=== PATIENT | male | born 1945 | race Caucasian/White ===

== ENCOUNTER 2025-01-24 15:00 | Outpatient (RCR) | payer MEDICARE, SELFPAY | END 2025-01-24 23:59 | disposition home or self-care (01) | LOC: PT 15:00 | PROVIDERS: Visit Provider Family Medicine | DX: I87.2 Venous insufficiency (chronic) (peripheral) (principal); I89.0 Lymphedema, not elsewhere classified | CPT/HCPCS: 97140; 97163 ==

== ENCOUNTER 2025-02-28 14:00 | Outpatient (RCR) | payer MEDICARE, SELFPAY | END 2025-02-28 23:59 | disposition home or self-care (01) | LOC: PT 14:00 | PROVIDERS: Visit Provider Family Medicine | DX: I87.2 Venous insufficiency (chronic) (peripheral) (principal); I89.0 Lymphedema, not elsewhere classified | CPT/HCPCS: 97140; 97164 ==

== ENCOUNTER 2025-03-26 08:37 | Outpatient (CLI) | payer MEDICARE, SELFPAY ==
--- OUTSIDE RECORDS SUMMARY | 2025-02-11 15:00 | XMS_ITS | Encounter Summary ---
Author Organization [facility] Address [address] [place] [address] Care Team Providers Care Gymnastics Coach Name Role Phone Alfredito Echeverria MD Primary Care Provider + Reason for Visit * Reason Comments Follow-up Diabetes Encounter Details Date Type Department Care Team (Late st Contact Info) Description 02/11/2025 3:00 PM EDT Office Visit [facility] [address] [place] [address] Alfredito Echeverria MD [address] [place] [address] Type 2 diabetes mellitus with hyperglycemia, without long-term current use of insulin (Primary Dx) Social History Tobacco Use Types Packs/Day Years Used Date Smoking Tobacco: Never Smokeless Tobacco: Never Alcohol Use Standard Drinks/Week Comments Yes 0 (1 standard drink = 0.6 oz pur e alcohol) PHQ-2 Answer Date Recorded Patient Health Questionnaire-2 Score 0 12/21/2024 Sex and Gender Information Value Date Recorded Sex Assigned at Not on file Legal Sex Male 10:48 AM EDT Gender Identity Not on file Sexual Orientation Not on file documented as of this encounter Last Filed Vital Signs Vital Sign Reading Time Taken Comments Blood Pressure 120/60 02/11/2025 3:11 PM EDT Pulse 92 02/11/2025 3:11 PM EDT irreg ular Temperature 36.9 C (98.4 F) 02/11/2025 3:11 PM EDT Respiratory Rate 20 02/11/2025 3:11 PM EDT Oxygen Saturation 98% 02/11/2025 3:11 PM EDT Inhaled Oxygen Concentration - - Weight 98.7 kg (217 lb 9.6 oz) 02/11/2025 3:11 P M EDT Height 185.4 cm (6' 1 ) 02/11/2025 3:11 PM EDT Body Mass Index 28.71 02/11/2025 3:11 PM EDT documented in this encounter Progress Notes * Alfredito Echeverria MD - 02/11/2025 4:14 PM EDTAssociated Problem(s): Type 2 diabetes mellitus with hyperglycemia, without long-term current use of insulin Improving. Continue ADA diet Cont Metformin 500 mg bid Cont. Acarbose 50 mg bid Cont. Rybelsus 7 mg daily RTO 6-7 weeks for repeat A1c * Alfredito Echeverria MD - 02/11/2025 3:00 PM EDT Images from the original note were not included. Chief Complaint Patient presents with Follow-up Diabetes Subjective Dallas Radford is a 79 y.o. who presents for DM f/u. Weight is down 12 lbs. He is limiting all forms of carbs. NO SE from current meds Objective Vital Signs: BP 120/60 Pulse 92 Comment: irregular Temp 98.4 ??F (36.9 ??C) Resp 20 Ht 185.4 cm (73 ) Wt 98.7 kg (217 lb 9.6 oz) SpO2 98% BMI 28.71 kg/m?? Physical Exam Vitals reviewed. Constitutional: Appearance: Normal appearance. Neurological: Mental Status: He is alert. Result Review The following data was reviewed by: Alfredito Echeverria MD on 02/11/2025: Data reviewed : A1c 8.2 Most Recent A1C 02/11/2025 15:54 HGBA1C Most Recent Hemoglobin A1C 8.2 Assessment and Plan Diagnoses and all orders for this visit: 1. Type 2 diabetes mellitus with hyperglycemia, without long-term current use of insulin (Primary) Assessment & Plan: Improving. Continue ADA diet Cont Metformin 500 mg bid Cont. Acarbose 50 mg bid Cont. Rybelsus 7 mg daily RTO 6-7 weeks for repeat A1c Orders: - Semaglutide (Rybelsus) 7 MG tablet; Take 7 mg by mouth Daily. Dispense: 30 tablet; Refill: 1 - acarbose (PRECOSE) 50 MG tablet; Take 1 tablet by mouth 2 (Two) Times a Day With Meals. Dispense:60 tablet; Refill: 1 - metFORMIN (GLUCOPHAGE) 500 MG tablet; Take 1 tablet by mouth 2 (Two) Times a Day With Meals. Dispense: 60 tablet; Refill: 1 - POCT glycated hemoglobin, total Follow Up Return in about 7 weeks (around 04/02/2025). Patient was given instructions and counseling regarding his condition or for health maintenance advice. Please see specific information pulled into the AVS if appropriate. documented in this encounter Plan of Treatment Upcoming Encounters Date Type Department Care Team (Late st Contact Info) Description 04/02/2025 3:00 PM EDT Office Visit [facility] [address] [place] [phone] Alfredito Echeverria MD [address] [place] [address] 06/24/2025 10:45 AM EST Office Visit [facility] [address] [place] [address] Alfredito Echeverria MD [address] [place] [address] documented as of this encounter Procedures Procedure Name Priority Date/Time Associated Diagnosis Comments POCT GLYCATED HEMOGLOBIN, TOTAL Routine 02/11/2025 3:54 PM EDT Type 2 diabetes mellitus with hyperglycemia, without long-term current use of insulin documented in this encounter Results * (ABNORMAL) POCT glycated hemoglobin, total (02/11/2025 3:54 PM EDT) Hemoglobin A1C 8.2(A) 4.5 - 5.7 % [facility] Lot Number [id number] [facility] Expiration Date 10/29/2026 [facility] Urine 02/11/2025 3:54 PM EDT Alfredito Echeverria MD POINT OF CARE TEST ORDER SERENITY Final Result [facility]
[address] [place] [id number], documented in this encounter Visit Diagnoses Diagnosis Type 2 diabetes mellitus with hyperglycemia, without long-term current use of insulin- Primary documented in this encounter Care Teams Gymnastics Coach Relationship Specialty Start Date End Date Alfredito Echeverria MD [address] [place] [address] PCP - General Family Medicine 05/24/24 documented as of this encounter
--- OUTSIDE RECORDS SUMMARY | 2025-02-11 15:00 | XMS_ITS | Encounter Summary ---
Author Organization [facility] Address [address] [place] [address] Care Team Providers Care Dinkey Engineer Name Role Phone Alfredito Echeverria MD Primary Care Provider + Reason for Visit * Reason Comments Follow-up Diabetes Encounter Details Date Type Department Care Team (Late st Contact Info) Description 02/11/2025 3:00 PM EDT Office Visit [facility] [address] [place] [address] Alfredito Echeverria MD [address] [place] [address] Type 2 diabetes mellitus with [...] Description 04/02/2025 3:00 PM EDT Office Visit [facility] [address] [place] [phone] Alfredito Echeverria MD [address] [place] [address] 06/24/2025 10:45 AM EST Office Visit [facility] [address] [place] [address] Alfredito Echeverria MD [address] [place] [address] documented as of this encounter Procedures Procedure Name Priority Date/Time Associated Diagnosis Comments POCT GLYCATED HEMOGLOBIN, TOTAL Routine 02/11/2025 3:54 PM EDT Type 2 diabetes mellitus with hyperglycemia, without long-term current use of insulin documented in this encounter Results * (ABNORMAL) POCT glycated hemoglobin, total (02/11/2025 3:54 PM EDT) Hemoglobin A1C 8.2(A) 4.5 - 5.7 % [facility] Lot Number [id number] [facility] Expiration Date 10/29/2026 [facility] Urine 02/11/2025 3:54 PM EDT Alfredito Echeverria MD POINT OF CARE TEST ORDER SERENITY Final Result [facility]
[address] [place] [id number], documented in this encounter Visit Diagnoses Diagnosis Type 2 diabetes mellitus with hyperglycemia, without long-term current use of insulin- Primary documented in this encounter Care Teams Dinkey Engineer Relationship Specialty Start Date End Date Alfredito Echeverria MD [address] [place] [address] PCP - General Family Medicine 05/24/24 documented as of this encounter
--- OUTSIDE RECORDS SUMMARY | 2025-03-18 14:45 | XMS_ITS | Encounter Summary ---
Author Organization [facility] Address [address] [place] [address] Care Team Providers Care Operations Executive Name Role Phone Alfredito Echeverria MD Primary Care Provider + Reason for Visit * Reason Comments FU on LLE drainage Pt has been seeing [facility] Wound Care Encounter Details Date Type Department Care Team (Late st Contact Info) Description 03/18/2025 2:45 PM EDT Office Visit [facility] [address] [place] [address] Alfredito Echeverria MD [address] [place] [address] Wound infection (Primary Dx); Type 2 diabetes mellitus with hyperglycemia, without long-term current use of insulin; Lymphedema Social History Tobacco Use Types Packs/Day Years [...] Sign Reading Time Taken Comments Blood Pressure 110/56 03/18/2025 2:53 PM EDT Pulse 89 03/18/2025 2:53 PM EDT irreg ular Temperature 36.8 C (98.2 F) 03/18/2025 2:53 PM EDT Respiratory Rate 20 03/18/2025 2:53 PM EDT Oxygen Saturation 99% 03/18/2025 2:53 PM EDT Inhaled Oxygen Concentration - - Weight 98 kg (216 lb) 03/18/2025 2:53 PM EDT Height 185.4 cm (6' 1 ) 03/18/2025 2:53 PM EDT Body Mass Index 28.5 03/18/2025 2:53 PM EDT documented in this encounter Progress Notes * Alfredito Echeverria MD - 03/18/2025 2:45 PM EDT Chief Complaint Patient presents with FU on LLE drainage Pt has been seeing [facility] Care Subjective Dallas Radford is a 79 y.o. who presents for drainage from the left lower extremity where he has been receiving lymphedema treatment at [facility]. Treating therapist has become concerned because drainage is darker and has an odor to it. Objective Vital Signs: BP 110/56 Pulse 89 Comment: irregular Temp 98.2 ??F (36.8 ??C) Resp 20 Ht 185.4 cm (73 ) Wt 98 kg (216 lb) SpO2 99% BMI 28.50 kg/m?? Physical Exam Vitals reviewed. Musculoskeletal: Comments: The left lower extremity is edematous from the mid lower leg to the top of the foot without tenderness. There is a linear break in the skin just above the heel. I do not identify any activedrainage from a wound. Neurological: Mental Status: He is alert. Result Review Assessment and Plan Diagnoses and all orders for this visit: 1. Wound infection (Primary) 2. Type 2 diabetes mellitus with hyperglycemia, without long-term current use of insulin - POC Glucose 3. Lymphedema Other orders - cephalexin (KEFLEX) 500 MG capsule; Take 2 capsules by mouth 2 (Two) Times a Day for 7 days. Dispense: 28 capsule; Refill: 0 Plan: Patient will be started empirically on antibiotics. Follow-up with lymphedema clinic/wound care on of this week. Follow Up No follow-ups on file. Patient was given instructions and counseling regarding his condition or for health maintenance advice. Please see specific information pulled into the AVS if appropriate. documented in this encounter Plan of Treatment Upcoming Encounters Date Type Department Care Team (Late st Contact Info) Description 04/02/2025 3:00 PM EDT Office Visit [facility] [address] [place] [address] Alfredito Echeverria MD [address] [place] [address] 06/24/2025 10:45 AM EST Office Visit [facility] [address] [place], [place] [address] Alfredito Echeverria MD [address] [place] [address] documented as of this encounter Procedures Procedure Name Priority Date/Time Associated Diagnosis Comments POCT GLUCOSE FINGERSTICK Routine 03/18/2025 3:30 PM EDT Type 2 diabetes mellitus with hyperglycemia, without long-term current use of insulin documented in this encounter Results * (ABNORMAL) POC Glucose (03/18/2025 3:30 PM EDT) Glucose 137(A) 70 - 130 mg/dL Blood 03/18/2025 3:30 PM EDT Alfredito Echeverria MD POINT OF CARE TEST ORDER SERENITY Final Result documented in this encounter Visit Diagnoses Diagnosis Wound infection- Primary Posttraumatic wound infection not elsewhere classified Type 2 diabetes mellitus with hyperglycemia, without long-term current use of insulin Lymphedema Other noninfectious lymphedema documented in this encounter Care Teams Operations Executive Relationship Specialty Start Date End Date Alfredito Echeverria MD [address] [place] [address] PCP - General Family Medicine 05/24/24 documented as of this encounter
--- OUTSIDE RECORDS SUMMARY | 2025-03-18 14:45 | XMS_ITS | Encounter Summary ---
Author Organization [facility] Address [address] [place] [address] Care Team Providers Care Geological Engineering Teacher Name Role Phone Alfredito Echeverria MD Primary Care Provider + Reason for Visit * Reason Comments FU on LLE drainage Pt has been seeing [facility] Wound Care Encounter Details Date Type Department Care Team (Late st Contact Info) Description 03/18/2025 2:45 PM EDT Office Visit [facility] [address] [place] [address] Alfredito Echeverria MD [address] [place] [address] Wound infection (Primary Dx); Type [...] on LLE drainage Pt has been seeing [facility] W[facility] Care Subjective Dallas Radford is a 79 y.o. who presents for drainage from the left lower extremity where he has been receiving lymphedema treatment at [facility]. Treating therapist has become concerned because drainage [...] Description 04/02/2025 3:00 PM EDT Office Visit [facility] [address] [place], [place] [address] Alfredito Echeverria MD [address] [place] [address] 06/24/2025 10:45 AM EST Office Visit [facility] [address] [place] [address] Alfredito Echeverria MD [address] [place] [address] documented as of this encounter Procedures Procedure Name Priority Date/Time Associated Diagnosis Comments SCANNED - LABS 03/26/2025 POCT GLUCOSE FINGERSTICK Routine 03/18/2025 3:30 PM EDT Type 2 diabetes mellitus with hyperglycemia, without long-term current use of insulin SCANNED - LABS 03/18/2025 documented in this encounter Results * LABS SCANNED (03/26/2025) Alfredito Echeverria MD LAB BLOOD ORDERABLES Fin al Result * (ABNORMAL) POC Glucose (03/18/2025 3:30 PM EDT) Glucose 137(A) 70 - 130 mg/dL Blood 03/18/2025 3:30 PM EDT us Alfredito Echeverria MD POINT OF CARE TEST ORDER SERENITY Final Result * LABS SCANNED (03/18/2025) Alfredito Echeverria MD LAB BLOOD ORDERABLES Fin al Result documented in this encounter Visit Diagnoses Diagnosis Wound infection- Primary Posttraumatic wound infection not elsewhere classified Type 2 diabetes mellitus with hyperglycemia, without long-term current use of insulin Lymphedema Other noninfectious lymphedema documented in this encounter Care Teams Geological Engineering Teacher Relationship Specialty Start Date End Date Alfredito Echeverria MD [address] [place] [address] PCP - General Family Medicine 05/24/24 documented as of this encounter
--- OUTSIDE RECORDS SUMMARY | 2025-03-26 08:39 | XMS_ITS | Encounter Summary ---
Author Organization [facility] Address [address] [place] [id number] Care Team Providers Care Office Machine Punch Operator Name Role Phone Alfredito Echeverria MD Primary Care Provider + Reason for Visit * Reason Onset Date Comments Advice Only 03/04/2025 Encounter Details Date Type Department Care Team (Late st Contact Info) Description 03/04/2025 Telephone [facility] [address] [place] [address] Alfredito Echeverria MD [address] [place] [address] Advice Only Social History Tobacco Use Types Packs/Day Years [...] on file documented as of this encounter Miscellaneous Notes * Telephone Encounter - Joslyn Solis RegSched Rep - 03/04/2025 11:37 AM EDT CONCERNS THAT CONDITION IS GETTING WORSE. BEING SEEN FOR DRAINAGE IN LEGS FROM LYMPHEDEMA. PATIENT CAME IN ON TUESDAY WITH MAGGOTS ON HIS LEGS WITH NO OPEN WOUND, SEEN HIM AGAIN ON TUESDAY AND THINGS DID APPEAR BETTER. WANTED TO RELAY TO SEE IF PCP WOULD LIKE TO HAVE PATIENT YO COME IN AND BE EVALUATED. documented in this encounter Plan of Treatment Upcoming Encounters Date Type Department Care Team (Late st Contact Info) Description 04/02/2025 3:00 PM EDT Office Visit [facility] [address] [place] [address] Alfredito Echeverria MD [address] [place] [address] 06/24/2025 10:45 AM EST Office Visit [facility] [address] [place] [address] Alfredito Echeverria MD [address] [place] [address] documented as of this encounter Visit Diagnoses Not on filedocumented in this encounter Care Teams Office Machine Punch Operator Relationship Specialty Start Date End Date Alfredito Echeverria MD [address] [place] [address] PCP - General Family Medicine 05/24/24 documented as of this encounter
--- OUTSIDE RECORDS SUMMARY | 2025-03-26 08:39 | XMS_ITS | Encounter Summary ---
Author Organization [facility] Address [address] [place] [id number] Care Team Providers Care Food Sanitarian Name Role Phone Alfredito Gauthier MD Primary Care Provider + Reason for Visit * Reason Onset Date Comments ORDER NEEDED FOR WOUND SWAB CULTURE 03/25/2025 Encounter Details Date Type Department Care Team (Late st Contact Info) Description 03/25/2025 Telephone [facility] [address] [place] [address] Alfredito Gauthier MD [address] [place] [address] ORDER NEEDED FOR WOUND SWAB CULTURE Social History Tobacco Use Types Packs/Day Years [...] encounter Miscellaneous Notes * Telephone Encounter - Parvin Bateman MA - 03/25/2025 5:14 PM EDT Faxed. * Telephone Encounter - Alfredito Gauthier MD - 03/25/2025 4:15 PM EDT Order placed * Telephone Encounter - Rita Chatterjee RegSched Rep - 03/25/2025 11:55 AM EDT PHYSICAL THERAPIST FROM [facility] CALLED AND STATED THEY DID A SWAB ON THE WOUND AND WOULD LIKE DR GAUTHIER TO SEND AN ORDER FOR WOUND SWAB CULTURE SO THEY CAN MAKE SURE ANTIBIOTICS HE IS ON WILL TREAT INFECTION/ PLEASE FAX TO [phone] documented in this encounter Plan of Treatment Upcoming Encounters Date Type Department Care Team (Late st Contact Info) Description 04/02/2025 3:00 PM EDT Office Visit [facility] [address] [place] [address] Alfredito Gauthier MD [address] [place] [address] 06/24/2025 10:45 AM EST Office Visit [facility] [address] [place] [address] Alfredito Gauthier MD [address] [place] [address] Scheduled Orders Name Type Priority Associated Diagnoses Orde r Schedule Culture, Routine - Swab, Leg, Left Microbiology Routine Wound infection Expected: 03/25/2025 (Approximate), Expires: 06/25/2026 documented as of this encounter Visit Diagnoses Diagnosis Wound infection- Primary Posttraumatic wound infection not elsewhere classified documented in this encounter Care Teams Food Sanitarian Relationship Specialty Start Date End Date Alfredito Gauthier MD [address] [place] [address] PCP - General Family Medicine 05/24/24 documented as of this encounter
--- OUTSIDE RECORDS SUMMARY | 2025-03-26 08:39 | XMS_ITS | Encounter Summary ---
Author Organization [facility] Address [address] [place] [phone] Care Team Providers Care Knowledge Engineer Name Role Phone Alfredito Echeverria MD Primary Care Provider + Encounter Details Date Type Department Care Team (Latest Contact Info) Description 03/12/2025 Travel Social History Tobacco Use Types Packs/Day Years [...] on file documented as of this encounter Plan of Treatment Upcoming Encounters Date Type Department Care Team (Late st Contact Info) Description 04/02/2025 3:00 PM EDT Office Visit [facility] [address] [place] [address] Alfredito Echeverria MD [address] [place] [address] 06/24/2025 10:45 AM EST Office Visit [facility] [address] [place] [address] Alfredito Echeverria MD [address] [place] [address] documented as of this encounter Visit Diagnoses Not on filedocumented in this encounter Care Teams Knowledge Engineer Relationship Specialty Start Date End Date Alfredito Echeverria MD [address] [place] [address] PCP - General Family Medicine 05/24/24 documented as of this encounter
--- OUTSIDE RECORDS SUMMARY | 2025-03-26 08:39 | XMS_ITS | Encounter Summary ---
Author Organization [facility] Address [address] [place] [phone] Care Team Providers Care Readiness Paraprofessional Name Role Phone Alfredito Echeverria MD Primary Care Provider + Encounter Details Date Type Department Care Team (Latest Contact Info) Description 03/18/2025 Travel Social History Tobacco Use Types Packs/Day [...] Visit [facility] [address] [place] [address] Alfredito Echeverria MD [address] [place] [address] 06/24/2025 10:45 AM EST Office Visit [facility] [address] [place] [address] Alfredito Echeverria MD [address] [place] [address] documented as of this encounter Visit Diagnoses Not on filedocumented in this encounter Care Teams Readiness Paraprofessional Relationship Specialty Start Date End Date Alfredito Echeverria MD [address] [place] [address] PCP - General Family Medicine 05/24/24 documented as of this encounter
--- OUTSIDE RECORDS SUMMARY | 2025-03-26 08:40 | XMS_ITS | Clinical Summary ---
Author Organization [facility] Address [address] [place] [address] Care Team Providers Care Light Air Defense Artillery Crewmember Name Role Phone Hussein Brian MD Primary Care Provider [phone] Allergies Active Allergy Reactions Criticality Noted Date Comments Digoxin And Related Other - please document in the comment field Low 07/27/2022 Nausea, stomach cramps, loss of appetite Immunizations Immunization Administration Dates Next Due Tdap 07/27/2022(Deferred: Patient Refused - Pt states he is up to date.) Social History Tobacco Use Types Packs/Day Years Used Date Smoking Tobacco: Never Assessed Sex and Gender Information Value Date Recorded Sex Assigned at Not on file Legal Sex Male 3:09 PM EST Gender Identity Not on file Sexual Orientation Not on file Last Filed Vital Signs Vital Sign Reading Time Taken Comments Blood Pressure 99/59 07/27/2022 7:33 PM EST Pulse 66 07/27/2022 7:33 PM EST Temperature 36.8 C (98.2 F) 07/27/2022 7:33 PM EST Respiratory Rate 13 07/27/2022 7:33 PM EST Oxygen Saturation 97% 07/27/2022 7:33 PM EST Inhaled Oxygen Concentration - - Weight 112 kg (245 lb 13 oz) 07/27/2022 3:31 PM EST Height 185.4 cm (6' 1 ) 07/27/2022 3:31 PM EST Body Mass Index 32.43 07/27/2022 3:31 PM EST Plan of Treatment Health Maintenance Due Date Last Done Comments [facility]-Depression Screening 1945 [facility]-Medicare Annual Wellness (AWV) 1945 [facility]-/Child/Adol SDOH Screenings 1945 [facility]-Obesity Intervention 1951 [facility]- SDOH Screenings 1963 [facility]-Adult SDOH Screenings 1963 [facility]-Pneumococcal Vaccine: 50 + Years (1 of 1 - PCV) 1995 [facility]-Zoster Vaccines (1 of 2) 1995 [facility]-RSV Vaccine: 60+ Years o r (1 - 1-dose 75+ series) 2020 [facility]-DTaP,Tdap,and Td Vaccine s (1 - Tdap) 01/06/2022 01/05/2022 [id number] Vaccine (2 - 20 24-25 season) 2024 03/06/2021 [facility]-Influenza Vaccine (#1) 2025 [facility]-Hepatitis C Screening Completed 07/27/2022 HPV Vaccines Aged Out No longer eligi ble based on patient's age to complete this topic [facility]-HIB Vaccines Aged Out No longer e ligible based on patient's age to complete this topic [facility]-Hepatitis A Vaccines Aged Out No longer eligible based on patient's age to complete this topic [facility]-IPV Vaccines Aged Out No longer e ligible based on patient's age to complete this topic [facility]-Rotavirus Vaccines Aged Out No lo nger eligible based on patient's age to complete this topic Procedures Procedure Name Priority Date/Time Associated Diagnosis Comments HEPATITIS C ANTIBODY - ED W/REFLEX TO HCV QUANT PCR STAT 07/27/2022 3:28 PM EST from Last 3 Months or Most Recently Relevant to Health Maintenance Results * Hepatitis C Antibody - ED (07/27/2022 3:28 PM EST) Hepatitis C Antibody Negative Negative 07/27/2022 5:27 PM EST [facility] Blood Venous blood specimen / Unknown Venipuncture / Unknown 07/27/2022 3:28 PM EST 07/27/2022 3:56 PM EST us Bruce Ferris MD LAB BLOOD ORDERABLES Final Re sult [facility] [address] [place] [phone] from Last 3 Months or Most Recently Relevant to Health Maintenance Insurance [facility] MEDICARE Care Teams Light Air Defense Artillery Crewmember Relationship Specialty Start Date End Date Hussein Brian MD [address] [address] PCP - General 07/27/22
--- OUTSIDE RECORDS SUMMARY | 2025-03-26 08:40 | XMS_ITS | Encounter Summary ---
Author Organization [facility] Address [address] [place] [id number] Care Team Providers Care Corporate Treasurer Name Role Phone Alfredito Echeverria MD Primary Care Provider + Encounter Details Date Type Department Care Team (Late Contact Info) Description 12/25/2024 Results Follow-Up [facility] [address] [place] [address] Alfredito Echeverria MD [address] [place] [address] Social History Tobacco Use Types Packs/Day Years [...] 04/02/2025 3:00 PM EDT Office Visit [facility] [address] [place] [address] Alfredito Echeverria MD [address] [place] [address] 06/24/2025 10:45 AM EST Office Visit [facility] [address] [place] [phone] Alfredito Echeverria MD [address] [place] [address] documented as of this encounter Visit Diagnoses Not on filedocumented in this encounter Care Teams Corporate Treasurer Relationship Specialty Start Date End Date Alfredito Echeverria MD [address] [place] [address] PCP - General Family Medicine 05/24/24 documented as of this encounter
--- OUTSIDE RECORDS SUMMARY | 2025-03-26 08:41 | XMS_ITS | Clinical Summary ---
Author Organization [facility] Address [address] [place] [address] Care Team Providers Care Academic Associate Name Role Phone Alfredito Echeverria MD Primary Care Provider + Allergies Active Allergy Reactions Criticality Noted Date Comments Digoxin And Related Nausea Only,Other (S ee Comments) Low 05/17/2022 Nausea, stomach cramps, loss of appetite Medications metoprolol tartrate (LOPRESSOR) 12.5 MG half tablet Take 2 half tablet by mouth 2 (Two) Times a Day. Active bumetanide (BUMEX) 1 MG tabletIndications: Cardiomyopathy, unspecified type Take 1 tablet by mouth 2 (Two) Times a Day. 60 tablet 5 05/24/20 24 Active metOLazone (ZAROXOLYN) 10 MG tabletIndications: Cardiomyopathy, unspecified type Take 1 tablet by mouth Daily. 30 tablet 5 05/24/20 24 Active mirtazapine (REMERON SANDRA-TAB) 15 MG disintegrating tabletIndications: Chronic insomnia Place 1 tablet on the tongue Every Night. 30 tablet 5 05/24/20 24 Active tamsulosin (FLOMAX) 0.4 MG capsule 24 hr capsuleIndications :BPH associated with nocturia Take 1 capsule by mouth Daily. 30 capsule 11 05/24/20 24 Active traZODone (DESYREL) 50 MG tabletIndications: Chronic insomnia Take 2 tablets by mouth Every Night. 60 tablet 5 05/24/20 24 Active atorvastatin (LIPITOR) 40 MG tablet Take 1 tablet by mouth Daily. 90 tablet 3 07/10/20 24 Active spironolactone (ALDACTONE) 25 MG tablet Take 1 tablet by mouth Daily. 02/25/20 25 Active ammonium lactate (AMLACTIN) 12 % creamIndications:C hronic venous stasis dermatitis,Ichthyo sis Apply 1 Application topically to the appropriate area as directed As Needed for Dry Skin. 385 g 10/03/19 25 Active Eliquis 5 MG tablet tabletIndications: Longstanding persistent atrial fibrillation TAKE ONE TABLET BY MOUTH TWICE DAILY 60 tablet 4 10/23/19 25 Active oxybutynin XL (Ditropan XL) 10 MG 24 hr tabletIndications: Urinary urgency Take 1 tablet by mouth Daily. 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 200 g 1 12/22/19 25 Active acetaminophen (Tylenol 8 Hour Arthritis Pain) 650 MG 8 hr tablet Take 1 tablet by mouth Every 8 (Eight) Hours As Needed for Moderate Pain. 90 tablet 2 12/22/19 25 Active potassium chloride (KLOR-CON M20) 20 MEQ CR tabletIndications: Cardiomyopathy, unspecified type TAKE ONE TABLET BY MOUTH EVERY DAY 30 tablet 5 12/28/19 25 Active Semaglutide (Rybelsus) 7 MG tabletIndications: Type 2 diabetes mellitus with hyperglycemia, without long-term current use of insulin Take 7 mg by mouth Daily. 30 tablet 1 02/12/20 25 Active acarbose (PRECOSE) 50 MG tabletIndications: Type 2 diabetes mellitus with hyperglycemia, without long-term current use of insulin Take 1 tablet by mouth 2 (Two) Times a Day With Meals. 60 tablet 1 02/12/20 25 Active metFORMIN (GLUCOPHAGE) 500 MG tabletIndications: Type 2 diabetes mellitus with hyperglycemia, without long-term current use of insulin Take 1 tablet by mouth 2 (Two) Times a Day With Meals. 60 tablet 1 02/12/20 25 Active cephalexin (KEFLEX) 500 MG capsule Take 2 capsules by mouth 2 (Two) Times a Day for 7 days. 28 capsule 03/18/20 25 025 Active Problems Problem Noted Date Diagnosed Date Type 2 diabetes mellitus wit h hyperglycemia, without long-term current use of insulin 12/28/2024 Assessment & Plan (02/11/2025 4:14 PM EDT): Improving. Continue ADA diet Cont Metformin 500 mg bid Cont. Acarbose 50 mg bid Cont. Rybelsus 7 mg daily RTO 6-7 weeks for repeat A1c Assessment & Plan (01/10/2025 5:04 PM EDT): Diabetes control is improving. Continue medication adjustments. Metformin 500 mg twice daily will remain unchanged Rybelsus will be increased to 7 mg after completing his 3 mg trial. Patient has picked up the prescription Acarbose will be increased to 50 mg which she will take twice daily with his breakfast shake and his evening meal. Reassess in 4 weeks Assessment & Plan (12/28/2024 12:54 PM EDT): Diabetes is newly identified. Medication changes per orders. Recommended an ADA diet. Direct Mail Coordinator referral. Diabetes will be reassessed 2 weeks Patient voiced a great fear of needles and giving himself injections. Oral hypoglycemic agents will be started and patient's tolerance for medications as well as random glucose will be checked at a 2-week follow-up visit Patient needs to make significant dietary changes which were discussed. This includes elimination of sugar sweetened beverages which the patient drinks large quantity of with fruit juices and soft drinks. He needs to replace snack cakes with fruit or vegetables. He needs to replace his protein shake with a low carbohydrate alternative. V8 juice is likely still acceptable. I did recommend avoidance of any fried or breaded foods. 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 Continue management through local cardiology, Dr. Obed Galvez. Cardiomyopathy 05/24/2024 Assessment & Plan (12/21/2024 1:14 PM EDT): Orders: Comprehensive Metabolic Panel CBC (No Diff) Assessment & Plan (05/24/2024 2:07 PM EDT): Stable. Continue regular cardiology follow-up with Dr. Galvez. Last EF 35%. Currently not compliant with diuretic regimen which she admits sometimes forgetting to take altogether or just taking an evening dose of Bumex which contributes to nocturia. We discussed using a smart phone to set reminders Hyperlipidemia 05/24/2024 Assessment & Plan (12/21/2024 1:14 PM EDT): Orders: Comprehensive Metabolic Panel Lipid Panel Assessment & Plan (05/24/2024 1:59 PM EDT): Stable. Continue lifetime statin therapy BPH associated with nocturia 05/24/2024 Assessment & Plan (12/21/2024 1:14 PM EDT): Assessment & Plan (05/24/2024 1:57 PM EDT): Longstanding. Stable with tamsulosin. Much of his nocturia is due to late evening use of diuretics. Nocturia interferes with sleep. We discussed setting reminders and his phone so that he may use diuretics in the morning Chronic insomnia 05/24/2024 Assessment & Plan (05/24/2024 1:58 PM EDT): Poorly controlled. Long history of poor sleep habits. I recommend he begin taking his mirtazapine and trazodone at 10 PM with a goal of being in bed and falling asleep by 12 PM. This should also reduce the morning grogginess the medicines because Chronic pain of both shoulders 05/24/2024 Assessment & Plan (05/24/2024 2:00 PM EDT): Stable. Continue as needed analgesics. We will contact his mail-order pharmacy to clarify whether he has been using high-dose ibuprofen or acetaminophen for this Encounters Date Type Department Care Team Description 03/25/2025 Telephone [facility] [address] [place] [address] Alfredito Echeverria MD ORDER NEEDED FOR WOUND SWAB CULTURE 03/18/2025 2:45 PM EDT Office Visit [facility] [address] [place] [address] Alfredito Echeverria MD Wound infection (Primary Dx); Type 2 diabetes mellitus with hyperglycemia, without long-term current use of insulin; Lymphedema 03/18/2025 Travel 03/12/2025 Travel 03/04/2025 Telephone [facility] [address] [place] [address] Alfredito Echeverria MD Advice Only 02/26/2025 Telephone [facility] [address] [place] [address] Alfredito Echeverria MD 02/11/2025 3:00 PM EDT Office Visit [facility] [address] [place] [address] Alfredito Echeverria MD Type 2 diabetes mellitus with hyperglycemia, without long-term current use of insulin (Primary Dx) 02/11/2025 Travel 01/10/2025 1:45 PM EDT Office Visit [facility] [address] [place] [address] Alfredito Echeverria MD Type 2 diabetes mellitus with hyperglycemia, without long-term current use of insulin (Primary Dx) 01/10/2025 Travel 12/28/2024 12:00 PM EDT Office Visit [facility] [address] [place] [address] Alfredito Echeverria MD Type 2 diabetes mellitus with hyperglycemia, without long-term current use of insulin (Primary Dx) 12/28/2024 Travel 12/27/2024 Refill [facility] [address] [place] [address] Alfredito Echeverria MD Cardiomyopathy, unspecified type 12/25/2024 Results Follow-Up [facility] [address] [place], [place] [address] Alfredito Echeverria MD from Last 3 Months Immunizations Immunization Administration Dates Next Due Td (TDVAX) 01/05/2022 Tdap 07/27/2022(Deferred: Patient awilda de oliveira) Family History Medical History Relation Name Comments Liver disease Brother Arthritis Father Diabetes Mother Relation Name Status Comments Brother Father Mother Social History Tobacco Use Types Packs/Day Years Used Date Smoking Tobacco: Never Smokeless Tobacco: Never Tobacco Cessation:Counseling Given: Not Answered Alcohol Use Standard Drinks/Week Comments Yes 0 [...] Mass Index 28.5 03/18/2025 2:53 PM EDT Plan of Treatment Upcoming Encounters Date Type Department Care Team (Late st Contact Info) Description 04/02/2025 3:00 PM EDT Office Visit [facility] [address] [place], [place] [address] Alfredito Echeverria MD [address] [place], [place] [address] 06/24/2025 10:45 AM EST Office Visit [facility] [address] [place], [place] [address] Alfredito Echeverria MD [address] [place], [place] [address] Health Maintenance Due Date Last Done Comments DIABETIC EYE EXAM 1955 DIABETIC FOOT EXAM 1955 URINE MICROALBUMIN-CREATININ E RATIO (uACR) 1955 Pneumococcal Vaccine 50+ (1 of 2 - PCV) 1964 ZOSTER VACCINE (1 of 2) 1995 RSV Vaccine - Adults (1 - 1-dose 75+ series) 2020 COVID-19 Vaccine (3 - 2023-2 5 season) 2025 03/30/2021, 03/06/2021 Postponed from 04/01/2024 (Product Unavailable) INFLUENZA VACCINE 05/01/2025 HEMOGLOBIN A1C 08/14/2025 02/11/2025, 12/28/2024 ANNUAL WELLNESS VISIT 12/21/2025 12/21/2024 LIPID PANEL 12/21/2025 12/21/2024 TDAP/TD VACCINES (2 - Tdap) 01/06/2032 01/05/2022 HEPATITIS C SCREENING Completed 07/27/2022 Procedures Procedure Name Priority Date/Time Associated Diagnosis Comments POCT GLUCOSE FINGERSTICK Routine 03/18/2025 3:30 PM EDT Type 2 diabetes mellitus with hyperglycemia, without long-term current use of insulin POCT GLYCATED HEMOGLOBIN, TOTAL Routine 02/11/2025 3:54 PM EDT Type 2 diabetes mellitus with hyperglycemia, without long-term current use of insulin POCT GLUCOSE FINGERSTICK Routine 01/10/2025 1:56 PM EDT Type 2 diabetes mellitus with hyperglycemia, without long-term current use of insulin POCT GLYCOSYLATED HEMOGLOBIN (HGB A1C) Routine 12/28/2024 12:12 PM EDT Type 2 diabetes mellitus with hyperglycemia, without long-term current use of insulin LIPID PANEL Routine 12/21/2024 11:06 AM EDT Hyperlipidemia, unspecified hyperlipidemia type from Last 3 Months or Most Recently Relevant to Health Maintenance Results * (ABNORMAL) POC Glucose (03/18/2025 3:30 PM EDT) Only the most recent of2 resultswithin the time period is included. Glucose 137(A) 70 - 130 mg/dL Blood 03/18/2025 3:30 PM EDT Alfredito Echeverria MD POINT OF CARE TEST ORDER SERENITY Final Result * (ABNORMAL) POCT glycated hemoglobin, total (02/11/2025 3:54 PM EDT) Hemoglobin A1C 8.2(A) 4.5 - 5.7 % [facility] Lot Number [id number] [facility] Expiration Date 10/29/2026 [facility] Urine 02/11/2025 3:54 PM EDT Alfredito Echeverria MD POINT OF CARE TEST ORDER SERENITY Final Result [facility]
[address] [place] [address], * (ABNORMAL) POC Glycosylated Hemoglobin (Hb A1C) (12/28/2024 12:12 PM EDT) Hemoglobin A1C 13.3(A) 4.5 - 5.7 % [facility] Lot Number [id number] [facility] Expiration Date 09/17/2026 [facility] Blood 12/28/2024 12:1 2 PM EDT Alfredito Echeverria MD POINT OF CARE TEST ORDER SERENITY Final Result [facility]
[address] [place] [address], [place] [phone] * (ABNORMAL) Lipid Panel (12/21/2024 11:06 AM EDT) Total Cholesterol 102 100 - 199 mg/dL [facility] Triglycerides 104 0 - 149 mg/dL [facility] HDL Cholesterol 39(L) >39 mg/dL [facility] VLDL Cholesterol [place] 20 5 - 40 mg/dL [facility] LDL Chol Calc (NIH) 43 0 - 99 mg/dL [facility] Blood 12/21/2024 11:0 6 AM EDT 12/21/2024 Narrative [facility]) - 12/22/2024 6:09 AM EDT Performed at: 01 - [facility] [id number] Parking Enforcement Technician: Ronal Womack PhD, Phone: [phone] Patient Fasting: Y Alfredito Echeverria MD LAB BLOOD ORDERABLES Fin al Result [facility] ([facility]) [address] [place] [address], [place] [phone] [facility] [address] [place] [address], [place] [phone] from Last 3 Months or Most Recently Relevant to Health Maintenance Insurance [employer] MED[employer]VANTAGE PPO Care Teams Academic Associate Relationship Specialty Start Date End Date Alfredito Echeverria MD [address] [place] [address] [place] [address] PCP - General Family Medicine 05/24/24
--- OUTSIDE RECORDS SUMMARY | 2025-03-26 08:41 | XMS_ITS | Encounter Summary ---
Author Organization [facility] Address [address] [place] [id number] Care Team Providers Care Dinkey Motor Operator Name Role Phone Alfredito Gauthier MD Primary Care Provider + Encounter Details Date Type Department Care Team (Late st Contact Info) Description 02/26/2025 Telephone [facility] [address] [place] [address] Alfredito Gauthier MD [address] [place] [address] Social History Tobacco Use Types [...] encounter Miscellaneous Notes * Telephone Encounter - Arti Chen MA - 03/14/2025 9:16 AM EDT Will close encounter since PT/wound care has been sending more notes over for Dr. Gauthier to sign regarding their treatment plan and no one has ever returned my call. * Telephone Encounter - Arti Chen MA - 02/28/2025 4:29 PM EDT Kalyan Camargo, PT called from [facility] and he is concerned that they are not making much headway with his swelling and drainage. Pt comes in twice weekly. When he was in this past Tuesday the drainage was pretty bad and he had maggots in his wound. They changed everything and cleaned it up and it looked slightly better today (.) Pt will come back to them on Tuesday at 2:00 and they will recheck and let you know if he needs to be seen. LM for Kalyan to call us back again and clarify was the maggots part of their treatment or was this something that was on the patient when he came in? HUB can ask and relay * Telephone Encounter - Arti Chen MA - 02/27/2025 9:30 AM EDT LM informing them Dr. Dominguez is out of the office this week but to call us back with what they are needing. HUB can collect additional info and relay * Telephone Encounter - Destiny Cai RegSched Rep - 02/26/2025 3:42 PM EDT Caller: KAMERON OR KALYAN Relationship: Other Best call back number: [phone] What is the best time to reach you: ANYTIME Who are you requesting to speak with (clinical staff, provider, specific staff member): DR GAUTHIER What was the call regarding: [facility] AT [facility] WANTS TO SPEAK WITH PATIENT'SPCP. documented in this encounter Plan of Treatment Upcoming Encounters Date Type Department Care Team (Late st Contact Info) Description 04/02/2025 3:00 PM EDT Office Visit [facility] [address] [facility] [place] [address] Alfredito Gauthier MD [address] [place] [address] 06/24/2025 10:45 AM EST Office Visit [facility] [address] [place] [address] Alfredito Gauthier MD [address] [place] [address] documented as of this encounter Visit Diagnoses Not on filedocumented in this encounter Care Teams Dinkey Motor Operator Relationship Specialty Start Date End Date Alfredito Gauthier MD [address] [place] [address] PCP - General Family Medicine 05/24/24 documented as of this encounter
--- OUTSIDE RECORDS SUMMARY | 2025-03-26 08:41 | XMS_ITS | Encounter Summary ---
Author Organization [facility] Address [address] [place] [id number] Care Team Providers Care Business Risk Consultant Name Role Phone Alfredito Echeverria MD Primary Care Provider + Encounter Details Date Type Department Care Team (Latest Contact Info) Description 02/11/2025 Travel Social History Tobacco Use Types Packs/Day [...] Description 04/02/2025 3:00 PM EDT Office Visit [facility] [address] [place] [address] Alfredito Echeverria MD [address] [place] [address] 06/24/2025 10:45 AM EST Office Visit [facility] [address] [place] [address] Alfredito Echeverria MD [address] [place] [address] documented as of this encounter Visit Diagnoses Not on filedocumented in this encounter Care Teams Business Risk Consultant Relationship Specialty Start Date End Date Alfredito Echeverria MD [address] [place] [address] PCP - General Family Medicine 05/24/24 documented as of this encounter
--- OUTSIDE RECORDS SUMMARY | 2025-03-28 14:49 | XMS_ITS | Encounter Summary ---
Author Organization [facility] Address [address] [place] [id number] Care Team Providers Care Radar Systems Engineer Name Role Phone Alfredito Echeverria MD Primary Care Provider + Encounter Details Date Type Department Care Team (Late Contact Info) Description 12/25/2024 Results Follow-Up [facility] [address] [place] [address] Alfredito Echeverria MD [address] [place] [address] Social History Tobacco Use Types [...] 04/02/2025 3:00 PM EDT Office Visit [facility] [address] [place] [address] Alfredito Echeverria MD [address] [place] [address] 06/24/2025 10:45 AM EST Office Visit [facility] [address] [place] [phone] Alfredito Echeverria MD [address] [place] [address] documented as of this encounter Visit Diagnoses Not on filedocumented in this encounter Care Teams Radar Systems Engineer Relationship Specialty Start Date End Date Alfredito Echeverria MD [address] [place] [address] PCP - General Family Medicine 05/24/24 documented as of this encounter
--- OUTSIDE RECORDS SUMMARY | 2025-03-28 14:49 | XMS_ITS | Encounter Summary ---
Author Organization [employer] ([place], [place], [place], [place]) Address [address] [place] [address] Care Team Providers Care Shipping Clerk/Admin Name Role Phone Hussein Brian MD Primary Care Provider [phone] Encounter Details Date Type Department Care Team (Late st Contact Info) Description 03/11/2022 Transcribed Document [facility] Family Medicine [address] [place] [address] ProviderThomas MD [address] [place] [address] Social History Tobacco Use Types Packs/Day Years Used Date Smoking Tobacco: Never Assessed Food Insecurity Answer Date Recorded Food run out past 12 months Not on file 08/01 Food did not last past 12 months Not on file 08/12/2023 Employment Answer Date Recorded Help finding and keeping a job Not on file 0 08/12/2023 Family and Community Support Answer Sim e Recorded Help with Day to Day Activities Not on file 08/12/2023 Feeling Lonely or Isolated Not on file 08/12 Educational Attainment Answer Date Ryan rded Speak language other than Gren[place] at home Not on file 08/12/2023 Want help with school or training Not on file 08/12/2023 Substance Use Answer Date Recorded Used prescription meds for non-medical reasons N ot on file 08/12/2023 Used illegal drugs past 12 months Not on file 08/12/2023 Sex and Gender Information Value Date Recorded Sex Assigned at Not on file Legal Sex Male 4:22 PM CDT Gender Identity Not on file Sexual Orientation Not on file COVID-19 Exposure Response Date Recorded In the last 10 days, have yo u been in contact with someone who was confirmed or suspected to have Coronavirus/COVID-19? No / Unsure 03/14/2023 10:08 AM EDT documented as of this encounter Miscellaneous Notes * Marvel Conversion Note - Historical Provider, - 03/11/2022 1:12 PM CDT Patient: DALLAS RADFORD Age: 76 years Sex: Male : 1945 Associated Diagnoses: None Author: VY TORRES MD-CAR Subjective NAD Health Status Allergies: Allergic Reactions (Selected) Severity Not Documented Digoxin- No reactions were documented., Allergies (1) Active Reaction digoxin None Documented Current medications: (Selected) Inpatient Medications Ordered Coumadin: 1 mg, Oral, Daily Coumadin: 2 mg, Oral, 1-Time Flomax: 0.4 mg, Oral, Daily Melatonin: 5 mg, Oral, At Bedtime, PRN: Sleep Phenergan: 12.5 mg, IV Piggyback, Q6H, PRN: Nausea/Vomiting Protonix: 40 mg, Oral, BID acetaminophen: 650 mg, Oral, Q6H, PRN: Pain (Mild 1-3) amiodarone: 200 mg, Oral, BID amiodarone: 200 mg, Oral, Daily amiodarone: 400 mg, Oral, BID atorvastatin: 40 mg, Oral, Daily cholecalciferol: 1,000 Units, Oral, Daily imipramine: 50 mg, Oral, At Bedtime magnesium sulfate: 2 Gram, 50 mL, 25 mL/Hr, IV Piggyback, Daily, PRN: Other (See Comment) magnesium sulfate: 2 Gram, 50 mL, 25 mL/Hr, IV Piggyback, Q2H, PRN: Other (See Comment) metoprolol tartrate: 100 mg, Oral, BID potassium chloride 10 mEq/50 mL intravenous solution: 10 mEq, 50 mL, 50 mL/Hr, IV Piggyback, Q1H, PRN: Other (See Comment) potassium chloride 20 mEq oral tablet, extended release: 20 mEq, 1 Tab, Oral, Q2H, PRN: Other (See Comment) potassium chloride 20 mEq oral tablet, extended release: 60 mEq, 3 Tab, Oral, Q2H, PRN: Other (See Comment) sodium chloride 0.9% injectable solution: 10 mL, IV Push, Q8H Documented Medications Documented Cardizem 30 mg oral tablet: 1 Tab, Oral, TID, 120 Tab, 0 Refill(s) Coumadin 2 mg oral tablet: 1 Tab, Oral, Daily, 0 Refill(s) Flomax 0.4 mg oral capsule: 1 Cap, Oral, Daily, 0 Refill(s) Metoprolol Tartrate 100 mg oral tablet: 1 Tab, Oral, BID, 0 Refill(s) Tylenol 8 Hour 650 mg oral tablet, extended release: 1 Tab, Oral, Q6H, PRN: Pain (Mild 1-3), 0 Refill(s) atorvastatin 40 mg oral tablet: 1 Tab, Oral, Daily, 0 Refill(s) cholecalciferol 25 mcg (1000 intl units) oral tablet: 1 Tab, Oral, Daily, 30 Tab, 0 Refill(s) mirtazapine 15 mg oral tablet: 1 Tab, Oral, Once a day (at bedtime), 30 Tab, 0 Refill(s), Home Medications (8) Active atorvastatin 40 mg oral tablet 40 mg = 1 Tab, Oral, Daily Cardizem 30 mg oral tablet 30 mg = 1 Tab, Oral, TID cholecalciferol 25 mcg (1000 intl units) oral tablet 25 mcg = 1 Tab, Oral, Daily Coumadin 2 mg oral tablet 2 mg = 1 Tab, Oral, Daily Flomax 0.4 mg oral capsule 0.4 mg = 1 Cap, Oral, Daily Metoprolol Tartrate 100 mg oral tablet 100 mg = 1 Tab, Oral, BID mirtazapine 15 mg oral tablet 15 mg = 1 Tab, Oral, Once a day (at bedtime) Tylenol 8 Hour 650 mg oral tablet, extended release 650 mg = 1 Tab, PRN, Oral, Q6H , Medications (20) Active Scheduled: (12) #NaCl 0.9% *FLUSH* inj 10 mL 10 mL, IV Push, Q8H amiodarone 200 mg tab 400 mg 2 Tab, Oral, BID amiodarone 200 mg tab 200 mg 1 Tab, Oral, BID amiodarone 200 mg tab 200 mg 1 Tab, Oral, Daily atorvastatin 40 mg tab 40 mg 1 Tab, Oral, Daily cholecalciferol 1,000 unit tab 1,000 Units 1 Tab, Oral, Daily imipramine 25 mg tab 50 mg 2 Tab, Oral, At Bedtime metoprolol tartrate 100 mg tab 100 mg 1 Tab, Oral, BID pantoprazole EC 40 mg tab 40 mg 1 Tab, Oral, BID tamsulosin CR 0.4 mg cap 0.4 mg 1 Cap, Oral, Daily warfarin 1 mg tab 1 mg 1 Tab, Oral, Daily warfarin 2 mg tab 2 mg 1 Tab, Oral, 1-Time Continuous: (0) PRN: (8) acetaminophen 325 mg tab 650 mg 2 Tab, Oral, Q6H magnesium sulfate 2 Gram 50 mL, IV Piggyback, Daily magnesium sulfate 2 Gram 50 mL, IV Piggyback, Q2H melatonin 5 mg tab 5 mg 1 Tab, Oral, At Bedtime potassium chloride 10 mEq 50 mL, IV Piggyback, Q1H potassium chloride CR 20 mEq tab 20 mEq 1 Tab, Oral, Q2H potassium chloride CR 20 mEq tab 60 mEq 3 Tab, Oral, Q2H promethazine 25 mg/1 mL inj 12.5 mg 0.5 mL, IV Piggyback, Q6H Problem list: All Problems Afib / SNOMED CT 79711078 / Confirmed Hip pain, right / SNOMED CT 77673695 / Confirmed At risk for sleep apnea / IMO 47587063 / Confirmed, Active Problems (3) Afib At risk for sleep apnea Hip pain, right Objective Intake and Output 24 hour intake, 24 hour output VS/Measurements Vitals Signs (last 24 hrs) Last Charted Minimum Maximum Temp 98.6 (MAR 11:) 96.9 (MAR 10:36) 99.1 (MAR 11:43) Apical HR 79 (MAR 11 08:39) 60 (MAR 10 20:29) 79 (MAR 11 08:39) Mon HR 78 (MAR 11:00) 53 (MAR 11 02:20) 79 (MAR 11 08:43) Resp Rate 18 (MAR 11 08:43) 18 (MAR 10 16:36) 18 (MAR 10 16:36) SBP 92 (MAR 11 10:00) 92 (MAR 11 10:00) 109 (MAR 11 08:43) DBP L 55 (MAR 11:00) L 53 (MAR 11 02:20) 70 (AUG 10 16:36) MAP 66 (MAR 11 10:00) 66 (MAR 11 02:20) 79 (MAR 10 16:36) SpO2 96 (MAR 11 08:43) 94 (MAR 10 16:36) 96 (MAR 11 08:43) Results Review Telemetry - AF General: Alert and oriented. Eye: Pupils are equal, round and reactive to light. HENT: Normocephalic. Neck: Supple. Respiratory: Respirations are non-labored, Breath sounds are equal, Symmetrical chest wall expansion. Cardiovascular: Normal rate, Irregularly irregular rhythm, Normal peripheral perfusion, irregular rate and rhythm Gastrointestinal: Soft, Non-distended. Genitourinary: Exam deferred, Exam deferred. Musculoskeletal: Normal range of motion, No deformity. Integumentary: Warm, Dry, No rash. Neurologic: Alert, Oriented, No focal deficits. Psychiatric: Cooperative, Appropriate mood & affect. MAR 11 06:53 L 135 106 13 / 93 3.5 22 0.90 \ MAR 11 06:53 \ L 12.1 / 4.0 L 147 / L 35.4 \ Telemetry/ECG I personally reviewed the last 24 hour telemetry that shows atrial fibrillation ECHO 03/06/2022: Impression: Indication: Hypertensive heart disease with heart failure I11.0 Normal sized left ventricle. Moderate left ventricular hypertrophy. Visually estimated ejection fraction 40% +/- 5%. Abnormal left ventricular systolic function; abnormal systolic strain pattern. Restrictive filling pattern consistent with severely increased LV filling pressure (Grade III Diastolic dysfunction). LA enlargement. Mildly dilated aortic root. 4.1cm No hemodynamically significant valvular heart disease. Measurements Summary: LVEDd: 4.61 cm LVESd: 3.74 cm IVSEd: 1.4 cm AO Root:3.98 cm LVPWd: 1.57 cm Impression and Plan IMPRESSION: Long standing persistent AF with RVR CHADSVASC score 4 (age, CHF, HTN) ?Tachycardia mediated cardiomyopathy, NICMP LVEF 40% HTN HLP Hypokalemia Dysphagia PLAN; 03/11/2022 Long discussion with patient. It is important that he walks with physical therapy so we can see how his HR reacts to activity. If he is RVR we may need to plan on keeping him and plan for PVI/ablation prior to discharge. Currently we have him scheduled for March 30 for PVI/ablation. We have asked bedside RN to make sure PT walks patient and documents HR so we can finalize a plan. 03/09/2022 Patient back in afib 60's after DCCV yesterday. Long discussion with patient about treatment options for his atrial fibrillation at this point. The best option being ablation. Patient is agreeable, will plan as outpatient, That being said we will need to await GI input for treatment of possible Achalasia since during ablation will need to place an esophageal temp probe/perform LOIS and use esosure. Discussed with . Patient may DC home to follow up in 2 weeks. 03/08/2022 Labs and tele reviewed, DCCV today by , continue amio and warfarin. 03/06/2022 Labs and tele reviewed, AF is rate controlled, continue amio and warfarin, K 3.3 keep K >4, K is being replaced. INR is therapeutic at 2.6. DCCV tomorrow by cardiology device, will follow to determine further plans for rhythm control. Patient followed by GI for dysphagia. 03/05/2022 Recommend rhythm control for this patient given that he has developed CMP, continue amiodarone load and OAC, and DCCV on Tuesday. Labs reviewed, K is 3.6, Replace K, keep K>4. Will follow. Electronically signed by Raisa, [facility] Conversion Oral And Maxillofacial Surgery Resident Cerner at 11/19/2022 4:24 PM CDT documented in this encounter Plan of Treatment Not on file documented as of this encounter Visit Diagnoses Not on filedocumented in this encounter Care Teams Shipping Clerk/Admin Relationship Specialty Start Date End Date Hussein Brian MD [address] [place], [place] [id number] PCP - General General Internal Medicine 03/14/23 documented as of this encounter
--- OUTSIDE RECORDS SUMMARY | 2025-03-28 14:49 | XMS_ITS | Encounter Summary ---
Author Organization [email or web address] ([place], [place], [place], [place]) Address [address] [place] [address] Care Team Providers Care Closer On Name Role Phone Hussein Brian MD Primary Care Provider [phone] Encounter Details Date Type Department Care Team (Late st Contact Info) Description 03/11/2022 Transcribed Document [facility] [place] Family Medicine [address] [place] [address] ProviderThomas MD [address] [place] [address] Social History Tobacco Use Types [...] Date Ryan rded Speak language other than Citizen [place] at home Not on file 08/12/2023 Want [...] as of this encounter Miscellaneous Notes * Cerner Conversion Note - Thomas Wall MD - 03/11/2022 11:17 AM CDT Event Note Entered On: 03/11/2022 11:22 EDT Performed On: 03/11/2022 11:17 EDT by Esther Moore RN Event Note Description of Event : Per PT: Pt heart rate 70 sat on edge of the bed for 4-5 heart rate 60. Pt stood leaning backwards not able to stand steady or straight. Pt was sat back down in the bed then he went limp and stopped responding for a few seconds, vitals were wnl 104/70 HR 80. Pt is now sitting up in bed at 45 degrees no issues at this time. Esther Moore RN - 03/11/2022 11:17 EDT Electronically signed by Raisa [facility] Conversion Furnace Repair Mechanic Cerner at 11/19/2022 4:13 PM CDT documented in this encounter Plan of Treatment Not on file documented as of this encounter Visit Diagnoses Not on filedocumented in this encounter Care Teams Closer On Relationship Specialty Start Date End Date Hussein Brian MD [facility] [place] [address] PCP - General General Internal Medicine 03/14/23 documented as of this encounter
--- OUTSIDE RECORDS SUMMARY | 2025-03-28 14:49 | XMS_ITS | Encounter Summary ---
Author Organization [employer] ([place], [place], [place], [place]) Address [address] [place] [address] Care Team Providers Care Locomotive Firer/Fireman Name Role Phone Hussein Brian MD Primary Care Provider [phone] Encounter Details Date Type Department Care Team (Late st Contact Info) Description 03/10/2022 Transcribed Document [facility] Family Medicine [address] [place] [address] ProviderThomas MD [address] [place] [address] Social History Tobacco Use Types [...] Date Ryan rded Speak language other than Icelandic at home Not on file 08/12/2023 Want [...] Miscellaneous Notes * Cerner Conversion Note - Historical Provider, - 03/10/2022 7:37 AM CDT Patient: DALLAS RADFORD Age: 76 years Sex: Male : 1945 Associated Diagnoses: None Author: BRODY RENO, RPh 76yoM with H/O persistent a fib PMH: HLD, BPH, a fib Rx Consult: Warfarin MD: Piter Kearney APRN Dx: A fib with RVR goal INR = 2-3 home dose = 2mg po daily (dose was reduced from 4mg daily within last month) bridge therapy = none at present Allergies (1) Active Reaction digoxin Labs (Last four charted values) WBC 4.4 (MAR 10) 4.1 (MAR 09) 5.0 (MAR 08) 4.3 (MAR 07) HB L 12.5 (MAR 10) L 11.8 (MAR 09) L 12.5 (MAR 08) L 12.0 (MAR 07) HCT L 35.7 (MAR 10) L 33.3 (MAR 09) L 35.7 (MAR 08) L 34.0 (MAR 07) Plt L 142 (MAR 10) L 130 (MAR 09) L 135 (MAR 08) L 127 (MAR 07) Na 136 (MAR 10) L 133 (MAR 09) L 134 (MAR 08) L 133 (MAR 07) K 3.6 (MAR 10) L 3.4 (MAR 09) 3.6 (MAR 08) L 3.3 (MAR 07) Cl 107 (MAR 10) 103 (MAR 09) 102 (MAR 08) 103 (MAR 07) CO2 23 (MAR 10) 22 (MAR 09) 23 (MAR 08) 22 (MAR 07) BUN 12 (MAR 10) 13 (MAR 09) 15 (MAR 08) 21 (MAR 07) Cr 0.80 (MAR 10) 0.90 (MAR 09) 0.90 (MAR 08) 0.80 (MAR 07) Glu R 106 (MAR 10) H 108 (MAR 09) H 107 (MAR 08) H 111 (MAR 07) Ca 8.8 (MAR 10) 8.7 (MAR 09) 9.0 (MAR 08) 8.6 (MAR 07) PT H 32.2 (MAR 10) H 38.4 (MAR 09) H 32.2 (MAR 08) H 25.1 (MAR 07) INR H 3.4 (MAR 10) H 4.1 (MAR 09) H 3.4 (MAR 08) H 2.6 (MAR 07) AST 30 (MAR 05) ALT 26 (MAR 05) ALK P 92 (MAR 05) T Bili H 2.4 (MAR 05) PTN 6.8 (MAR 05) ALB 3.4 (MAR 05) Vitals Signs (last 24 hrs) Last Charted Minimum Maximum Temp 97.8 (MAR 10 06:00) 97.8 (MAR 10 06:00) 98.0 (MAR 10 00:43) Apical HR 90 (MAR 09 20:47) 72 (MAR 09 08:39) 90 (MAR 09 20:47) Mon HR 81 (MAR 10 06:00) 48 (MAR 09 14:06) 90 (MAR 09 20:47) Resp Rate 18 (MAR 10 06:00) 16 (MAR 09 09:45) 18 (MAR 09 14:06) SBP 103 (MAR 10 06:00) 99 (MAR 09 08:39) 128 (MAR 09 18:00) DBP 66 (MAR 10 06:00) L 57 (MAR 09 08:39) H 93 (MAR 09 20:47) MAP 75 (MAR 10 06:00) 68 (MAR 09 08:39) 100 (MAR 09 14:30) SpO2 98 (MAR 10 06:00) 96 (MAR 09 14:06) 98 (MAR 09 20:47) Date 03/05 03/06 03/07 03/08 03/09 03/10 INR 2.2 2.0 2.6 3.4 4.1 3.4 Dose 2mg 2 2 hold hold hold Drug interactions: New Rx Amiodarone gtt ---> po - Major Increase in INR Protonix - moderate incr INR - dose just increased from daily ---> bid Plan: 1) INR is supratherapeutic @ 3.4 today - continue holding -Hold warfarin until INR <= 3.0 -New Rx this admission for Amiodarone - converted to oral route loading dose 2) Plan for Warfarin 1mg po daily when INR stabilizes 3) Daily PT/INR 4) Hgb increasing & stable - follow 5) Rx to follow Thank You, Brody Reno [facility] beeper [phone] Electronically signed by [facility], [facility] Conversion Autism Teacher Cerner at 11/19/2022 4:15 PM CDT documented in this encounter Plan of Treatment Not on file documented as of this encounter Visit Diagnoses Not on filedocumented in this encounter Care Teams Locomotive Firer/Fireman Relationship Specialty Start Date End Date Hussein Brian MD [address] [place] [id number] PCP - General General Internal Medicine 03/14/23 documented as of this encounter
--- OUTSIDE RECORDS SUMMARY | 2025-03-28 14:49 | XMS_ITS | Encounter Summary ---
Author Organization [employer] ([place], [place], [place], [place]) Address [address] [place] [address] Care Team Providers Care Duty Engineer Name Role Phone Hussein Brian MD Primary Care Provider [phone] Encounter Details Date Type Department Care Team (Late st Contact Info) Description 03/11/2022 Transcribed Document [facility] Radiology [address] [place] [address] Mike Porter MD [address] [place] [address] [place] [address] Social History Tobacco Use Types Packs/Day Years [...] Date Ryan rded Speak language other than Indian at home Not on file 08/12/2023 Want [...] Recorded In the last 10 days, have roseline deleon been in contact with someone who was confirmed or suspected to have Coronavirus/COVID-19? No / Unsure 03/14/2023 10:08 AM EDT documented as of this encounter Miscellaneous Notes * Cerner Conversion Note - Mike Porter MD - 03/11/2022 10:14 AM EDT Patient: DALLAS RADFORD Age: 76 years Sex: Male : 1945 Associated Diagnoses: None Author: MIKE PORTER MD Basic Information Patient seen and examined today Eating his breakfast No new complaints He feels better Hemodynamically stable No issues overnight Review of Systems No fever no chills No chest pain no palpitation No shortness of breath no cough No nausea no vomiting Health Status Allergies: Allergic Reactions (Selected) Severity Not Documented Digoxin- No reactions were documented., Allergies (1) Active Reaction digoxin None Documented Current medications: (Selected) Inpatient Medications Ordered Flomax: 0.4 mg, Oral, Daily Melatonin: 5 [...] injectable solution: 10 mL, IV Push, Q8H warfarin: 1 Each, Oral, Weekly Documented Medications Documented Cardizem 30 mg oral [...] day (at bedtime), 30 Tab, 0 Refill(s), Medications (19) Active Scheduled: (11) #NaCl 0.9% *FLUSH* inj 10 mL 10 [...] cap 0.4 mg 1 Cap, Oral, Daily Warfarin Dosing by Pharmacy 1 Each, Oral, Weekly Continuous: (0) PRN: (8) acetaminophen 325 mg [...] 0.5 mL, IV Piggyback, Q6H Problem list: Medical Afib / SNOMED CT 70395971 / Confirmed Hip pain, right / SNOMED CT 13385293 / Confirmed At risk for sleep apnea / IMO [id number] / Confirmed, Active Problems (3) Afib At risk for sleep apnea Hip pain, right Physical Examination VS/Measurements Vitals Signs (last 24 hrs) Last Charted Minimum Maximum Temp 99.1 (MAR 11 08:43) 96.9 (MAR 10 16:36) 99.1 (MAR 11 08:43) Apical HR 79 (MAR 11 08:39) 60 (MAR 10 20:29) H 107 (MAR 10:11) Mon HR 79 (MAR 11 08:43) 53 (MAR 11 02:20) 84 (MAR 10 10:00) Resp Rate 18 (MAR 11 08:43) 18 (MAR 10 16:36) 18 (MAR 10 16:36) SBP 109 (MAR 11 08:43) 95 (MAR 10 10:00) 109 (MAR 11 08:43) DBP 70 (MAR 11 08:43) L 53 (MAR 10 10:00) 70 (MAR 10 16:36) MAP 79 (MAR 11 08:43) 66 (MAR 11 02:20) 79 (MAR 10 16:36) SpO2 96 (MAR 11 08:43) 94 (MAR 10 16:36) 96 (MAR 11 08:43) GENERAL: The patient is a well-developed, well-nourished, no apparent distress. alert and oriented x3. Head : is normocephalic and atraumatic. EYES: Extraocular muscles are intact. Pupils are equal, round, and reactive to light and accommodation. NECK: Supple. No carotid bruits. No lymphadenopathy or thyromegaly. LUNGS: Clear to auscultation. No added sounds. No tenderness HEART: Regular rate and rhythm without murmur. No heave ABDOMEN: Soft, nontender, and nondistended. Positive bowel sounds. No hepatosplenomegaly was noted. EXTREMITIES: Without any cyanosis, clubbing, rash, lesions or edema. PSYCHIATY: Anxious and cooperative SKIN: No ulceration or induration present. Musculoskeletal : No joint pain, swelling or tenderness Review / Management Results review: Labs (Last four charted values) WBC 4.0 (MAR 11) 4.4 (MAR 10) 4.1 (MAR 09) 5.0 (MAR 08) HB L 12.1 (MAR 11) L 12.5 (MAR 10) L 11.8 (MAR 09) L 12.5 (MAR 08) HCT L 35.4 (MAR 11) L 35.7 (MAR 10) L 33.3 (MAR 09) L 35.7 (MAR 08) Plt L 147 (MAR 11) L 142 (MAR 10) L 130 (MAR 09) L 135 (MAR 08) Na L 135 (MAR 11) 136 (MAR 10) L 133 (MAR 09) L 134 (MAR 08) K 3.5 (MAR 11) 3.6 (MAR 10) L 3.4 (MAR 09) 3.6 (MAR 08) Cl 106 (MAR 11) 107 (MAR 10) 103 (MAR 09) 102 (MAR 08) CO2 22 (MAR 11) 23 (MAR 10) 22 (MAR 09) 23 (MAR 08) BUN 13 (MAR 11) 12 (MAR 10) 13 (MAR 09) 15 (MAR 08) Cr 0.90 (MAR 11) 0.80 (MAR 10) 0.90 (MAR 09) 0.90 (MAR 08) Glu R 93 (MAR 11) 106 (MAR 10) H 108 (MAR 09) H 107 (MAR 08) Ca 8.7 (MAR 11) 8.8 (MAR 10) 8.7 (MAR 09) 9.0 (MAR 08) PT H 32.2 (MAR 10) H 38.4 (MAR 09) H 32.2 (MAR 08) H 25.1 (MAR 07) INR H 3.4 (MAR 10) H 4.1 (MAR 09) H 3.4 (MAR 08) H 2.6 (MAR 07) AST 30 (MAR 05) ALT 26 (MAR 05) ALK P 92 (MAR 05) T Bili H 2.4 (MAR 05) PTN 6.8 (MAR 05) ALB 3.4 (MAR 05) . No Radiology Results Found Impression and Plan 1. Atrial fibrillation with RVR -Patient was taking metoprolol tartrate 100 mg twice daily at home -Cardizem 30 mg TID added by Cardiology at outside facility - Reported uncontrolled A Fib with RVR with exertion at outside facility, never required Cardizem gtt. - EP stopped Amiodarone gtt and started oral Amiodarone 400mg BID, planning taper for discharge - S/P DCCV 03/08 - Continue Metoprolol tartrate 100mg BID - Continue home Coumadin 2mg daily -Discussed with Dr. MORALES, patient is still on A. fib with heart rate control after his cardioversion, plan for outpatient A. fib ablation next week. 2. Chronic Heart Failure with Unknown EF - Differing reports in records sent about EF being 50% and EF 15-20% - Stress Test at OSH showed no evidence of ischemia with fixed defect present - No history of PCI or CABG - Patient appears euvolemic - Echo 03/06 shows EF 40%, normal-sized LV, moderate LVH, normal size RV, with no significant valve abnormalities -We will continue current medical management, discussed with cardiology, cardiology signed off 3. Severe esophageal dysmotility 4. Diffuse Esophageal Spasm vs. Achalasia -GI at outside facility performed EGD which showed no anatomic abnormalities -Upper GI series outside facility showed severe esophageal dysmotility -Continue mirtazapine 15 mg at bedtime - Phenergan 12.5mg q6 PRN -GI recommended CT chest 03/07 shows no evidence of paraesophageal mass and shows no acute process. - GI recommending IV PPI BID - GI adding imipramine at bedtime for diffuse esophageal spasm trial, patient having improvement - GI recommending esophageal manometry testing as outpatient to rule out achalasia 5. Hyperlipidemia -Continue home atorvastatin 40 mg daily 6. BPH -Continue home Flomax 7. Vitamin D deficiency -Continue home vitamin D supplementation 8. Debility -Patient reports frequent falls at home -Patient using walker to ambulate for past month -Outside facility was looking into SNF facilities -PT recommending HH or SNF 9. Hypokalemia, improved Follow potassium level and replace to keep it above 4 DVT/GI prophylaxis: Coumadin/PPI CODE STATUS: Full code Disposition: Patient transferred to our facility for second opinion for evaluation of A. fib with RVR. S/P DCCV 03/08. EP consulted had patient on amiodarone drip and transitioning to oral amiodarone today. Discussed with Dr. Morales today says planning to discharge patient on amiodarone and possible A. fib ablation procedure as an outpatient after patient cleared by GI. GI consulted as patient had normal EGD at outside facility but had severe esophageal dysmotility on upper GI series. GI started imipramine for diffuse esophageal spasm and patient having improvement in symptoms. GI says patient will need close follow-up with esophageal manometry to rule out achalasia on discharge. Patient does not think he can take care of himself at home and requesting SNF. Case management to send out referrals03/08. [facility] Labs reviewed Medications reviewed Consultation notes reviewed Discussed with EP and cardiology Time spent 24 minutes Complex case documented in this encounter Plan of Treatment Not on file documented as of this encounter Visit Diagnoses Not on filedocumented in this encounter Care Teams Duty Engineer Relationship Specialty Start Date End Date Hussein Brian MD [facility] [place] [place] [address] PCP - General General Internal Medicine 03/14/23 documented as of this encounter
--- OUTSIDE RECORDS SUMMARY | 2025-03-28 14:49 | XMS_ITS | Encounter Summary ---
Author Organization [facility] Address [address] [place] [id number] Care Team Providers Care Cost Consultant Name Role Phone Alfredito Gauthier MD Primary Care Provider + Encounter Details Date Type Department Care Team (Late st Contact Info) Description 02/26/2025 Telephone [facility] [address] [place] [address] Alfredito Gauthier MD [address] [place] [address] Social History Tobacco Use Types [...] PM EDT Kalyan Camargo, PT called from [facility] and he is concerned that they are [...] KALYAN Relationship: Other Best call back number: [phone] What is the best time to reach [...] 3:00 PM EDT Office Visit [facility] [address] [facility] [place] [address] Alfredito Gauthier MD [address] [place] [address] 06/24/2025 10:45 AM EST Office Visit [facility] [address] [place] [address] Alfredito Gauthier MD [address] [place] [address] documented as of this encounter Visit Diagnoses Not on filedocumented in this encounter Care Teams Cost Consultant Relationship Specialty Start Date End Date Alfredito Gauthier MD [address] [place] [address] PCP - General Family Medicine 05/24/24 documented as of this encounter
--- OUTSIDE RECORDS SUMMARY | 2025-03-28 14:49 | XMS_ITS | Encounter Summary ---
Author Organization [employer] ([place], [place], [place], [place]) Address [address] [place] [address] Care Team Providers Care Route Delivery Manager Name Role Phone Hussein Brian MD Primary Care Provider [phone] Encounter Details Date Type Department Care Team (Late st Contact Info) Description 03/10/2022 Transcribed Document [facility] [place] [address] [place] [address] ProviderThomas MD [address] [place] [address] Social History Tobacco Use Types [...] Date Ryan rded Speak language other than Northern Irish at home Not on file 08/12/2023 Want [...] Notes * Marvel Conversion Note - Historical ProviderMD - 03/10/2022 2:31 PM CDT On Going Discharge Planning Entered On: 03/10/2022 14:34 EDT Performed On: 03/10/2022 14:31 EDT by WAYNE RODRIGUES Social Worker Care Management Progress Note Discharge Arrangements : Patient Post-Acute Information Patient Name: LESLIE RADFORD Gender: Male : [birth year] Age: 76 Years No Post-Acute Placement(s) Listed No Post-Acute Service(s) Listed No Curaspan Referral(s) Listed Discharge Options Discussed with Patient : Short term rehabilitation Barriers to Discharge Identified : Clinical Condition of Patient, No detention bed available Patient Discharge Goal : Inpatient rehabilitation facility Is the Patient Meeting Medical Necessity : Yes WAYNE RODRIGUES Social Worker - 03/10/2022 14:31 EDT Narrative Progress Note Narrative Progress Note : HD 5/ELOS 2/RRS mod on room air, PT/OT following, INR=3.4 (goal 2-3) IV Amio to be converted to PO Amio, plan for ablation and GI intervention to be done as outpatient. DCP: rehab placement - [facility] checking on bed availability once confirmed they will start prior auth for admission. Historical Progress Note : Clinical information forwarded to SNF via [employer] - to [place] facilities. WAYNE RODRIGUES Social Worker - 03/09/22 14:43:26 WAYNE RODRIGUES Social Worker - 03/10/2022 14:31 EDT documented in this encounter Plan of Treatment Not on file documented as of this encounter Visit Diagnoses Not on filedocumented in this encounter Care Teams Route Delivery Manager Relationship Specialty Start Date End Date Hussein Brian MD [facility] [place] [address] PCP - General General Internal Medicine 03/14/23 documented as of this encounter
--- OUTSIDE RECORDS SUMMARY | 2025-03-28 14:49 | XMS_ITS | Encounter Summary ---
Author Organization [employer] ([place], [place], [place], [place]) Address [address] [place] [address] Care Team Providers Care Change Lead Name Role Phone Hussein Brian MD Primary Care Provider [phone] Encounter Details Date Type Department Care Team (Late st Contact Info) Description 03/10/2022 Transcribed Document [facility] [address] [place] [address] ProviderThomas MD [address] [place] [address] Social History Tobacco Use Types [...] Date Ryan rded Speak language other than Wallisian at home Not on file 08/12/2023 Want [...] Conversion Note - Historical Provider, - 03/10/2022 9:13 AM CDT UM Authorization Entered On: 03/10/2022 9:13 EDT Performed On: 03/10/2022 9:13 EDT by GERSON WALKER, Optical Worker Primary Insurance Authorization Authorization and Policy Numbers : Insurance 1 Health Plan: HU[employer]NA YuanV PLUS [employer] Policy Number: [id number] Authorization Number: Insurance Primary Name : [employer] YuanV PLUS HMO Policy Number: [id number] Authorization Status-Primary : Denial - admission Reference Number-Primary : [id number] Authorized Service Begin Date-Primary : 03/05/2022 EDT Authorization Comments-Primary : rec fax re denial from [employer] 03/09/22 scanned to denials 2021 file and placed copy in tray on [employer] desk Historical Authorization Comments-Primary : Comment 1: Per Availity IP denied (VITOR BROWN RN 03/09/2022 15:40) Comment 2: AUTH SUBMITTED VIA [employer]. CLINICAL FAXED VIA [employer] (Nhi Arteaga Rn-Utilization Review 03/06/2022 17:56) GERSON WALKER, Optical Worker - 03/10/2022 9:13 EDT Electronically signed by [facility] Conversion Senior Analyst Programmer Cerner at 11/19/2022 4:08 PM CDT documented in this encounter Plan of Treatment Not on file documented as of this encounter Visit Diagnoses Not on filedocumented in this encounter Care Teams Change Lead Relationship Specialty Start Date End Date Hussein Brian MD [employer] [place] [address] PCP - General General Internal Medicine 03/14/23 documented as of this encounter
--- OUTSIDE RECORDS SUMMARY | 2025-03-28 14:49 | XMS_ITS | Encounter Summary ---
Author Organization [employer] ([place], [place], [place], [place]) Address [address] [place] [address] Care Team Providers Care Financial Administrator Name Role Phone Hussein Brian MD Primary Care Provider [phone] Encounter Details Date Type Department Care Team (Late st Contact Info) Description 03/11/2022 Transcribed Document [facility] [place] [address] [place] [address] ProviderThomas MD [address] [place] [address] Social History Tobacco Use Types [...] Date Ryan rded Speak language other than Peruvian at home Not on file 08/12/2023 Want [...] Cerner Conversion Note - Historical Provider, - 03/11/2022 5:00 AM CDT Chart Check - Review Order Profile Entered On: 03/11/2022 3:10 EDT Performed On: 03/11/2022 5:00 EDT by Lola Finn, RN Chart Check Powerplans Initiated/Discontinued as Appropriate : Yes All Active Orders Reviewed : Yes Lola Finn RN - 03/11/2022 3:10 EDT Electronically signed by Raisa [facility] Conversion Toe Lining Closer Marvel at 11/19/2022 4:10 PM CDT documented in this encounter Plan of Treatment Not on file documented as of this encounter Visit Diagnoses Not on filedocumented in this encounter Care Teams Financial Administrator Relationship Specialty Start Date End Date Hussein Brian MD [address] [place] [address] PCP - General General Internal Medicine 03/14/23 documented as of this encounter
--- OUTSIDE RECORDS SUMMARY | 2025-03-28 14:49 | XMS_ITS | Encounter Summary ---
Author Organization [employer] ([place], [place], [place], [place]) Address [address] [place] [address] Care Team Providers Care Electric Blanket Wirer Name Role Phone Hussein Brian MD Primary Care Provider [phone] Encounter Details Date Type Department Care Team (Late st Contact Info) Description 03/10/2022 Transcribed Document [facility] [place] [place] [address] [place] [address] ProviderThomas MD [address] [place] [address] Social History Tobacco Use Types [...] rded Speak language other than Citizen Of [place] at home Not on file 08/12/2023 Want [...] Marvel Conversion Note - Historical Provider, - 03/10/2022 7:48 AM CDT Patient: LESLIE RADFORD Age: 76 Years Sex: Male : 1945 Assessment/Plan 76y/o man with A fib and RVR admitted for higher level of care also developed new onset Dysphagia over last 1-2 months with rapid weight loss. He had EGD already which ruled out esophagitis, stricture or esophageal tumor. A UGI series did show severe diffuse dysmotility and tight LES concerning for SANDHYA (diffuse esophageal spasm) or Achalasia. He was on diltiazem pill for heart which also helps with SANDHYA but this was not effective or tolerable. he is only on low dose PPI. No Esophageal manometry testing yet. - 03/07/22: PPI BID, Impiramine 25 mg qhs. Full liquid diet. Chest CT scan: no loreto-esophageal mass. - 03/08/22: planned cardioversion: failed - 03/09/22: tolerating full liquids/soft mechanical now, Imipramine increased 50 mg po qhs - 03/10/22: tolerated omelette today. Rec: Continue soft mechanical diet Continue Pantoprazole 40 mg po BID and Imipramine 50 mg po QHS (trial for SANDHYA therapy) - send home with scripts - given response, swallowing trouble is likely SANDHYA/GERD related (less likely Achalasia) Still should have Esophageal manometry testing as outpatient but not urgent (Coordinate with Dr Alexys Cid, GI in [facility]) - If Achalasia is confirmed, would proceed with trial of EGD with botox of LES before considering Surgical Myotomy (Again, Dr Cid can facilitate) As for Cardiac Ablation, there is no contraindication with proceeding with this now. He does not have significant inflammation or stricture of esophagus and esophageal manipulation with LOIS or Esosure if safe prior to further Dysphagia E/M. Given patient's improvement, no further GI recommendations while hospitalized. Will sign off. Hospitalist and Patient to arrange GI follow up with Dr Cid in 1-2 weeks VTE Prophylaxis - Medical Warfarin 1 Each, Oral, MISC, Weekly, Start 03/25/22 18:00:00 EDT (MEGHAN [place]ONA, SHELTER ADVOCATE-INT) Subjective Day 4 of PPI/Imipramine. Now, soft mechanical diet. no n/v/abd pain. Vital Signs T: 36.6 ??C TMIN: 36.4 ??C TMAX: 36.7 ??C HR: 81(Monitored) RR: 18 BP: 103/66 SpO2: 98% Oxygen Settings (Last) Oxygen Therapy Mode: Room air (03/10/22 06:00:00) Oxygen Flow Rate: 98 Liter/Min (03/05/22 18:43:00) Intake & Output Totals Last 24 Hours (7a-7a) Input Total: 22.92 mL Output Total: 0 mL Balance: 22.92 mL Physical Exam Lungs: CTAB Cardiac: Irregular rate and rhythm with no m/r/g. GI: Abdomen soft, nontender, nondistended. Medications acetaminophen, 650 mg= 2 Tab, Oral, Q6H, PRN amiodarone, 400 mg= 2 Tab, Oral, BID amiodarone, 200 mg= 1 Tab, Oral, BID amiodarone, 200 mg= 1 Tab, Oral, Daily atorvastatin, 40 mg= 1 Tab, Oral, Daily cholecalciferol, 1000 Units= 1 Tab, Oral, Daily Flomax, 0.4 mg= 1 Cap, Oral, Daily imipramine, 50 mg= 2 Tab, Oral, At Bedtime magnesium sulfate, 2 Gram= 50 mL, IV Piggyback, Daily, PRN magnesium sulfate, 2 Gram= 50 mL, IV Piggyback, Q2H, PRN Melatonin, 5 mg= 1 Tab, Oral, At Bedtime, PRN metoprolol tartrate, 100 mg= 1 Tab, Oral, BID Phenergan, 12.5 mg= 0.5 mL, IV Piggyback, Q6H, PRN potassium chloride 10 mEq/50 mL intravenous solution, 10 mEq= 50 mL, IV Piggyback, Q1H, PRN potassium chloride 20 mEq oral tablet, extended release, 20 mEq= 1 Tab, Oral, Q2H, PRN potassium chloride 20 mEq oral tablet, extended release, 60 mEq= 3 Tab, Oral, Q2H, PRN Protonix, 40 mg= 1 Tab, Oral, BID sodium chloride 0.9% injectable solution, 10 mL, IV Push, Q8H warfarin, 1 Each, Oral, Weekly [1] GI Progress Note - APSO; HUBERT YANEZ MD 03/09/2022 08:03 EDT Electronically signed by [facility] Conversion Citrus Peeler Cerner at 11/19/2022 4:31 PM CDT documented in this encounter Plan of Treatment Not on file documented as of this encounter Visit Diagnoses Not on filedocumented in this encounter Care Teams Electric Blanket Wirer Relationship Specialty Start Date End Date Hussein Brian MD [address] [place] [address] PCP - General General Internal Medicine 03/14/23 documented as of this encounter
--- OUTSIDE RECORDS SUMMARY | 2025-03-28 14:49 | XMS_ITS | Encounter Summary ---
Author Organization [employer] ([place], [place], [place], [place]) Address [address] [place] [address] Care Team Providers Care Publications Production Supervisor Name Role Phone Hussein Brian MD Primary Care Provider [phone] Encounter Details Date Type Department Care Team (Late st Contact Info) Description 03/11/2022 Transcribed Document [facility] [place] [address] [place] [address] ProviderThomsa MD [address] [place] [address] Social History Tobacco Use Types [...] Date Ryan rded Speak language other than French at home Not on file 08/12/2023 Want [...] Conversion Note - Historical Provider, - 03/11/2022 11:55 AM CDT Final Discharge Planning Entered On: 03/11/2022 12:03 EDT Performed On: 03/11/2022 11:55 EDT by WAYNE RODRIGUES Social Worker Final Discharge Planning Discharge Arrangements : Patient Post-Acute Information Patient Name: DALLAS RADFORD Gender: Male : [birth year] Age: 76 Years Curaspmalcolm Referral(s): Service: Organization: Business Address: Phone Number: [facility] Facility [address], [address] Patient Offered Choice/Affiliations Explained : Yes Designation of Choice Signed : Yes Important Medicare Message Reviewed With : Patient Important Medicare Message Reviewed D/T : 03/11/2022 11:35 EDT Transportation Needs : Wheelchair van Discharge Transportation Arrangement Cmt : [facility] at 1300 - trip #[id number] Follow Up Appointment Scheduled : Yes Is Patient High/Moderate Readmission Risk? : Yes Moderate Readmission Risk - SNF : Notify liaison that patient is moderate risk for readmission, request patient be assessed 1-3 days after D/C and frequent evaluations occur next 1-2 weeks Patient/Family Notified of Plan : Yes Patient/Family Notified : Patient stated he would alert family/friends Discharge To Care Management : SNF with Medicare Certification-03 WAYNE RODRIGUES Social Worker - 03/11/2022 11:55 EDT Final Narrative Note Final Narrative Note : HD 6/ELOS 2/RRS mod- on room air, rehab bed identified at [facility] for 03/12/2022 pending medical stability, and (-)COVID - insurance auth is in place. At discharge patient to be transported via [facility]- pick up operator set for 1300 (trip [id number]). At DC RN report to be called to [phone] and DC summary to be faxed to [phone]. Pt, RN aware and in agreement with plan. WAYNE RODRIGUES, Health Safety And Environment Manager - 03/11/2022 11:55 EDT documented in this encounter Plan of Treatment Not on file documented as of this encounter Visit Diagnoses Not on filedocumented in this encounter Care Teams Publications Production Supervisor Relationship Specialty Start Date End Date Hussein Brian MD [address] [place] [address] PCP - General General Internal Medicine 03/14/23 documented as of this encounter
--- OUTSIDE RECORDS SUMMARY | 2025-03-28 14:49 | XMS_ITS | Encounter Summary ---
Author Organization [employer] ([place], [place], [place], [place]) Address [address] [place] [address] Care Team Providers Care Fruit Bar Maker Name Role Phone Hussein Brian MD Primary Care Provider [phone] Encounter Details Date Type Department Care Team (Late st Contact Info) Description 03/10/2022 Transcribed Document [facility] [place] [address] [place] [address] ProviderThomas MD [address] [place] [address] Social History Tobacco Use Types [...] Date Ryan rded Speak language other than Luxembourger at home Not on file 08/12/2023 Want [...] Conversion Note - Historical Provider, - 03/10/2022 3:12 PM CDT UM Authorization Entered On: 03/10/2022 15:13 EDT Performed On: 03/10/2022 15:12 EDT by VITOR BROWN RN Primary Insurance Authorization Authorization and Policy Numbers : Insurance 1 Health Plan: [employer] GOLD PLUS HMO Policy Number: [id number] Authorization Number: Insurance Primary Name : [employer] GOLD PLUS HMO Policy Number: [id number] Authorization Status-Primary : Denial - admission Reference Number-Primary : [id number] Authorized Service Begin Date-Primary : 03/05/2022 EDT Authorization Comments-Primary : Per call to p2p line [facility] scheduled p2p for 03/[address] Rojo Historical Authorization Comments-Primary : Comment 1: Email ER for reconsideration. Message to MD for p2p (VITOR BROWN RN 03/10/2022 13:43) Comment 2: rec fax re denial from [employer] 03/09/22 scanned to denials 2021 file and placed copy in tray on [employer] desk (GERSON WALKER, Oven Equipment Repairer 03/10/2022 09:13) Comment 3: Per Availity IP denied (VITOR BROWN RN 03/09/2022 15:40) Comment 4: AUTH SUBMITTED VIA [employer]. CLINICAL FAXED VIA [employer] (Nhi Arteaga, Rn-Utilization Review 03/06/2022 17:56) VITOR BROWN RN - 03/10/2022 15:12 EDT documented in this encounter Plan of Treatment Not on file documented as of this encounter Visit Diagnoses Not on filedocumented in this encounter Care Teams Fruit Bar Maker Relationship Specialty Start Date End Date Hussein Brian MD [address] [place] [address] PCP - General General Internal Medicine 03/14/23 documented as of this encounter
--- OUTSIDE RECORDS SUMMARY | 2025-03-28 14:49 | XMS_ITS | Encounter Summary ---
Author Organization [employer] ([place], [place], [place], [place]) Address [address] [place] [address] Care Team Providers Care Service Learning Coordinator Name Role Phone Hussein Brian MD Primary Care Provider [phone] Encounter Details Date Type Department Care Team (Late st Contact Info) Description 03/10/2022 Transcribed Document [facility] Radiology [address] [place] [address] Mike Porter MD [address] [place] [address] [place] [address] Social History Tobacco Use Types Packs/Day Years [...] Date Ryan rded Speak language other than Ugandan at home Not on file 08/12/2023 Want [...] In the last 10 days, have roseline u been in contact with someone who was confirmed or suspected to have Coronavirus/COVID-19? No / Unsure 03/14/2023 10:08 AM EDT documented as of this encounter Miscellaneous Notes * Cerner Conversion Note - Mike Porter MD - 03/10/2022 11:07 AM EDT Patient: DALLAS RADFORD Age: 76 years Sex: Male : 1945 Associated Diagnoses: None Author: MIKE PORTER MD Basic Information Patient seen and examined today No new complaints Anxious No issues overnight Hemodynamically stable No family member at the bedside Review of Systems No fever no chills [...] Problem list: Medical Afib / SNOMED CT 17755082 / Confirmed Hip pain, right / SNOMED CT 64568590 / Confirmed At risk for sleep apnea / IMO 71498621 / Confirmed, Active Problems (3) Afib At risk for sleep apnea Hip pain, right Physical Examination VS/Measurements Vitals Signs (last 24 hrs) Last Charted Minimum Maximum Temp 98.5 (MAR 10:) 97.8 (MAR 10 06:00) 98.0 (MAR 10 00:43) Apical HR 90 (MAR 09 20:47) 88 (MAR 09 20:47) 90 (MAR 09:47) Mon HR 84 (MAR 10:) 48 (MAR 09:06) 90 (MAR 09 20:47) Resp Rate 18 (MAR 10 06:00) 18 (MAR 09:06) 18 (MAR 09:06) SBP 95 (MAR 10 10:00) 95 (MAR 10 10:00) 128 (MAR 09 18:00) DBP L 53 (MAR 10 10:00) L 53 (MAR 10 10:00) H 93 (MAR 09:47) MAP 67 (MAR 10 10:00) 67 (MAR 10 10:00) 100 (MAR 09 14:30) SpO2 98 (MAR 10 06:00) 96 (MAR 09:06) 98 (MAR 09 20:47) GENERAL: The patient is a well-developed, well-nourished, [...] review: Labs (Last four charted values) WBC 4.4 [...] cardioversion, plan for outpatient A. fib ablation after his possible achalasia work-up completed and cleared by GI 2. Chronic Heart Failure with Unknown EF [...] Patient medically ready to be discharged to alf facility to follow-up with EP and GI as instructed Labs reviewed Medications reviewed Consultation notes reviewed Discussed with EP and cardiology Time spent 26 minutes Complex case documented in this encounter Plan of Treatment Not on file documented as of this encounter Visit Diagnoses Not on filedocumented in this encounter Care Teams Service Learning Coordinator Relationship Specialty Start Date End Date Hussein Brian MD [address] [place] [address] PCP - General General Internal Medicine 03/14/23 documented as of this encounter
--- OUTSIDE RECORDS SUMMARY | 2025-03-28 14:49 | XMS_ITS | Encounter Summary ---
Author Organization [employer] ([place], [place], [place], [place]) Address [address] [place] [address] Care Team Providers Care Tool Dispatcher Name Role Phone Hussein Brian MD Primary Care Provider [phone] Encounter Details Date Type Department Care Team (Late st Contact Info) Description 03/10/2022 Transcribed Document [facility] [place] [address] [place] [address] ProviderThomas MD [address] [place] [address] Social History Tobacco Use Types [...] Date Ryan rded Speak language other than Cayman Islander at home Not on file 08/12/2023 Want [...] Conversion Note - Historical Provider, - 03/10/2022 4:46 PM CDT On Going Discharge Planning Entered On: 03/10/2022 16:47 EDT Performed On: 03/10/2022 16:46 EDT by WAYNE RODRIGUES Social Worker Care Management Progress Note Discharge Arrangements : Patient Post-Acute Information Patient Name: LESLIE RADFORD Gender: Male : [birth year] Age: 76 Years Curaspan Referral(s): Service: Organization: Business Address: Phone Number: [facility] [address], [address] Discharge Options Discussed with Patient : Short term rehabilitation Barriers to Discharge Identified : Clinical Condition of Patient, No fpc bed available Patient Discharge Goal : Inpatient rehabilitation facility WAYNE RODRIGUES Social Worker - 03/10/2022 16:46 EDT Narrative Progress Note Narrative Progress Note : Received word that patient has been clinically accepted at [facility], updated clinical information forwarded so they can begin insurance auth process. Historical Progress Note : HD 5/ELOS 2/RRS mod on room air, PT/OT following, INR=3.4 (goal 2-3) IV Amio to be converted to PO Amio, plan for ablation and GI intervention to be done as outpatient. DCP: rehab placement - [facility] checking on bed availability once confirmed they will start prior auth for admission. WAYNE RODRIGUES Social Worker - 03/10/22 14:34:59 Clinical information forwarded to SNF via [employer] - to [place] facilities. WAYNE RODRIGUES Social Worker - 03/09/22 14:43:26 WAYNE RODRIGUES Social Worker - 03/10/2022 16:46 EDT documented in this encounter Plan of Treatment Not on file documented as of this encounter Visit Diagnoses Not on filedocumented in this encounter Care Teams Tool Dispatcher Relationship Specialty Start Date End Date Hussein Brian MD [address] [place] [address] [place] [id number] PCP - General General Internal Medicine 03/14/23 documented as of this encounter
--- OUTSIDE RECORDS SUMMARY | 2025-03-28 14:49 | XMS_ITS | Encounter Summary ---
Author Organization [employer] ([place], [place], [place], [place]) Address [address] [place] [address] Care Team Providers Care Rn Radiation Name Role Phone Hussein Brian MD Primary Care Provider [phone] Encounter Details Date Type Department Care Team (Late st Contact Info) Description 03/10/2022 Transcribed Document [facility] [place] [address] [place] [address] ProviderThomas MD [address] [place] [address] Social History Tobacco Use [...] Date Ryan rded Speak language other than Singaporean at home Not on file 08/12/2023 Want [...] Conversion Note - Historical Provider, - 03/10/2022 1:43 PM CDT UM Authorization Entered On: 03/10/2022 13:43 EDT Performed On: 03/10/2022 13:43 EDT by VITOR BROWN RN Primary Insurance Authorization Authorization and Policy Numbers : Insurance 1 Health Plan: [employer] Policy Number: [id number] Authorization Number: Insurance Primary Name : [employer] Policy Number: [id number] Authorization Status-Primary : Denial - admission Reference Number-Primary : [id number] Authorized Service Begin Date-Primary : 03/05/2022 EDT Authorization Comments-Primary : Email ER for reconsideration. Message to MD for p2p Historical Authorization Comments-Primary : Comment 1: rec fax re denial from [employer] 03/09/22 scanned to denials 2021 file and placed copy in tray on D4P desk (GERSON WALKER, Woodworking Bench Carpenter 03/10/2022 09:13) Comment 2: Per [employer] IP denied (VITOR BROWN RN 03/09/2022 15:40) Comment 3: AUTH SUBMITTED VIA [facility]. CLINICAL FAXED VIA [employer] (Nhi Arteaga Rn-Utilization Review 03/06/2022 17:56) VITOR BROWN RN - 03/10/2022 13:43 EDT Electronically signed by Raisa [facility] Conversion Machine Cage Maker Cerner at 11/19/2022 4:02 PM CDT documented in this encounter Plan of Treatment Not on file documented as of this encounter Visit Diagnoses Not on filedocumented in this encounter Care Teams Rn Radiation Relationship Specialty Start Date End Date Hussein Brian MD [facility] [place] [address] PCP - General General Internal Medicine 03/14/23 documented as of this encounter
--- OUTSIDE RECORDS SUMMARY | 2025-03-28 14:49 | XMS_ITS | Encounter Summary ---
Author Organization [employer] ([place], [place], [place]) Address [address] [place] [address] Care Team Providers Care Crushing Foreman Name Role Phone Hussein Brian MD Primary Care Provider Encounter Details Date Type Department Care Team (Late st Contact Info) Description 03/10/2022 Transcribed Document [facility] [place] Family Medicine [address] [place] [address] ProviderThomas MD [address] [place] [address] Social History Tobacco Use Types [...] Date Ryan rded Speak language other than Lebanese at home Not on file 08/12/2023 Want [...] Notes * Cerner Conversion Note - Historical ProviderMD - 03/10/2022 2:00 AM CDT Principal Statistical Scientist Details Entered On: 03/10/2022 3:08 EDT Performed On: 03/10/2022 2:00 EDT by Lola Finn RN Order Details Order Detail : N/A Lift/Transfer : Independent Central Line Order Detail : No Arterial Line : No Patient Needs Meds Crushed/Liquid : No Lola Finn RN - 03/10/2022 3:08 EDT documented in this encounter Plan of Treatment Not on file documented as of this encounter Visit Diagnoses Not on filedocumented in this encounter Care Teams Crushing Foreman Relationship Specialty Start Date End Date Hussein Brian MD [facility] [place] [address] PCP - General General Internal Medicine 03/14/23 documented as of this encounter
--- OUTSIDE RECORDS SUMMARY | 2025-03-28 14:49 | XMS_ITS | Encounter Summary ---
Author Organization [facility] ([place], [place], [place], [place]) Address [address] [place] [address] Care Team Providers Care Prison Librarian Name Role Phone Hussein Brian MD Primary Care Provider [phone] Encounter Details Date Type Department Care Team (Late st Contact Info) Description 03/10/2022 Transcribed Document [facility] Medicine [address] [place] [address] ProviderThomas MD [address] [place] [address] Social History Tobacco Use Types [...] Date Ryan rded Speak language other than American at home Not on file 08/12/2023 Want [...] Conversion Note - Historical Provider, - 03/10/2022 5:00 AM CDT Chart Check - Review Order Profile Entered On: 03/10/2022 3:08 EDT Performed On: 03/10/2022 5:00 EDT by Lola Finn RN Chart Check Powerplans Initiated/Discontinued as Appropriate : Yes All Active Orders Reviewed : Yes Lola Finn RN - 03/10/2022 3:08 EDT Electronically signed by Raisa [facility] Conversion Medical Affairs Specialist Cercarmen at 11/19/2022 4:10 PM CDT documented in this encounter Plan of Treatment Not on file documented as of this encounter Visit Diagnoses Not on filedocumented in this encounter Care Teams Prison Librarian Relationship Specialty Start Date End Date Hussein Brian MD [address] [place] [address] PCP - General General Internal Medicine 03/14/23 documented as of this encounter
--- OUTSIDE RECORDS SUMMARY | 2025-03-28 14:49 | XMS_ITS | Encounter Summary ---
Author Organization [facility] Address [address] [place] [id number] Care Team Providers Care Air Motor Repairer Name Role Phone Alfredito Echeverria MD Primary [...] Description 04/02/2025 3:00 PM EDT Office Visit [facility] MEDICINE [address] [place] [address] Alfredito Echeverria MD [address] [place] [address] 06/24/2025 10:45 AM EST Office Visit [facility] MEDICINE [address] [place] [address] Alfredito Echeverria MD [address] [place] [address] documented as of this encounter Visit Diagnoses Not on filedocumented in this encounter Care Teams Air Motor Repairer Relationship Specialty Start Date End Date Alfredito Echeverria MD [address] [place] [address] PCP - General Family Medicine 05/24/24 documented as of this encounter
--- OUTSIDE RECORDS SUMMARY | 2025-03-28 14:50 | XMS_ITS | Encounter Summary ---
Author Organization [employer] ([place], [place], [place], [place]) Address [address] [place] [address] Care Team Providers Care Account Executive Healthcare Name Role Phone Hussein Brian MD Primary Care Provider [phone] Encounter Details Date Type Department Care Team (Late st Contact Info) Description 04/02/2022 Transcribed Document [facility] [place] Family Medicine [address] [place] [address] ProviderThomas MD [address] [place] [address] Social History Tobacco Use Types [...] Cerner Conversion Note - Historical ProviderMD - 04/02/2022 2:52 PM CDT UM Authorization Entered On: 04/02/2022 14:56 EDT Performed On: 04/02/2022 14:52 EDT by Nhi Arteaga Rn-Utilization Review Primary Insurance Authorization Authorization and Policy Numbers : Insurance 1 Health Plan: [employer] Policy Number: [id number] Authorization Number: [id number] Insurance Primary Name : [employer] Policy Number: [id number] Authorization Status-Primary : Awaiting callback Reference Number-Primary : [id number] Authorized Service Begin Date-Primary : 04/01/2022 EDT Observation Authorization Nbr-Primary : [id number] Authorization Comments-Primary : AUTH SUBMITTED VIA [employer]. PAYOR HAS ACCESS TO EMR Historical Authorization Comments-Primary : Comment 1: [] [employer] Medicare auth approved for outpt per [facility] note. (SUE DINH RN-Utilization Review 04/02/2022 10:26) Nhi Arteaga Rn-Utilization Review - 04/02/2022 14:52 EDT Electronically signed by Raisa [facility] Conversion Binder Stripper Machine Cerner at 11/19/2022 4:22 PM CDT documented in this encounter Plan of Treatment Not on file documented as of this encounter Visit Diagnoses Not on filedocumented in this encounter Care Teams Account Executive Healthcare Relationship Specialty Start Date End Date Hussein Brian MD [facility] [place] [address] PCP - General General Internal Medicine 03/14/23 documented as of this encounter
--- OUTSIDE RECORDS SUMMARY | 2025-03-28 14:50 | XMS_ITS | Encounter Summary ---
Author Organization [employer] ([place], [place], [place], [place]) Address [address] [place] [address] Care Team Providers Care Radiology Teacher Name Role Phone Hussein Brian MD Primary Care Provider [phone] Encounter Details Date Type Department Care Team (Late st Contact Info) Description 03/06/2022 Transcribed Document [facility] [place] [address] [place] [address] ProviderThomas MD [address] [place] [address] Social History Tobacco Use Types [...] Cerner Conversion Note - Historical Provider, - 03/06/2022 2:00 AM CDT Residence Manager Details Entered On: 03/06/2022 0:29 EDT Performed On: 03/06/2022 2:00 EDT by Joslyn Spann Lpn Order Details Order Detail : N/A IV Order Detail : 1 Oxygen Order Detail : 0 Nurse Collect Order Detail : 0 Lift/Transfer : Independent Central Line Order Detail : No Arterial Line : No Patient Needs Meds Crushed/Liquid : No Joslyn Spann Lpn - 03/06/2022 0:29 EDT Electronically signed by Raisa [facility] Conversion Administrative Services Manager Cerner at 11/19/2022 4:00 PM CDT documented in this encounter Plan of Treatment Not on file documented as of this encounter Visit Diagnoses Not on filedocumented in this encounter Care Teams Radiology Teacher Relationship Specialty Start Date End Date Hussein Brian MD [address] [place] [address] PCP - General General Internal Medicine 03/14/23 documented as of this encounter
--- OUTSIDE RECORDS SUMMARY | 2025-03-28 14:50 | XMS_ITS | Encounter Summary ---
Author Organization [employer] ([place], [place], [place], [place]) Address [address] [place] [address] Care Team Providers Care Air Filler Name Role Phone Hussein Brian MD Primary Care Provider [phone] Encounter Details Date Type Department Care Team (Late st Contact Info) Description 03/06/2022 Transcribed Document [facility] [place] Family Medicine [address] [place] [address] ProviderThomas MD [address] [place] [address] Social History Tobacco Use Types [...] Date Ryan rded Speak language other than Moroccan at home Not on file 08/12/2023 Want [...] Conversion Note - Historical Provider, - 03/06/2022 11:38 AM CDT Treatment Intervention, PT Entered On: 03/10/2022 16:19 EDT Performed On: 03/10/2022 14:56 EDT by VENKAT DOMINGUEZ PT Student General Information, PT Visit Type, PT : Treatment Note Patient Orders : Order Date Order Ordering 03/05/2022 15:37 PT Evaluation and Treatment Ordered By: HAKEEM BARONE DO 03/06/2022 11:38 PT Additional Treatment Ordered By: NATE HOUSTON PT Active Diagnoses : No Qualifying Diagnoses Therapy Diagnosis, PT : Decreased mobility due to A fib with RVR Admission Date : 03/05/2022 15:27 Assisted by, PT : Physical Therapist Personal Devices : Personal Devices Glasses Assistive Devices : Assistive Devices No Devices Recorded Precautions in Place : Fall prevention measures VENKAT DOMINGUEZ PT Student - 03/10/2022 16:07 EDT General Status Patient Received Status : Supine in bed, HOB elevated Treatment Start Time : 03/10/2022 14:45 EDT Patient Left Status : Supine in bed, All needs met and within reach, Other: PA present in room RN/PCT Informed Comment : DENI Hodgson approves therapy this afternoon. Treatment End Time : 03/10/2022 14:56 EDT Treatment Time : 11 Minute(s) Actual Treatment Time : 11 Minute(s) VENKAT DOMINGUEZ PT Student - 03/10/2022 16:07 EDT Functional Mobility Mobility Grid Supine to Sit : Rehab Moderate assistance Sit to Stand : Rehab Moderate assistance Stand to Sit : Rehab Maximal assistance Sit to Supine : Rehab Minimal assistance VENKAT DOMINGUEZ PT Student - 03/10/2022 16:07 EDT Supine to Sit Device : Rails Sit to Stand Device : Belt, gait, Walker, front wheel Stand to Sit Device : Belt, gait, Walker, front wheel VENKAT DOMINGUEZ PT Student - 03/10/2022 16:07 EDT Gait Training/Assessment, PT Weight Bearing Status : Full Gait Assistance Level : Assist, minimal Walking Distance : 20' Ambulatory Devices : Gait belt, Walker, front wheel Gait Deviations : Yes Gait Training Comment : shuffling gait, flexed trunk/neck and unable to correct. VENKAT DOMINGUEZ, PT Student - 03/10/2022 16:07 EDT Cognitive Treatment, PT Safety/Judgment Findings, PT : Impaired Follows Basic Command Findings, PT : Intact Attention Findings, PT : Alert VENKAT DOMINGUEZ PT Student - 03/10/2022 16:07 EDT Edu Topics Physical Therapy Education Grid Balance Training : Returns demonstration, Needs further teaching Bed Mobility Training : Needs further teaching, Returns demonstration Gait Training : Returns demonstration, Needs further teaching Role of Physical Therapy : Returns demonstration, Needs further teaching Safety : Needs further teaching, Returns demonstration Use of Assistive Device : Returns demonstration, Needs further teaching VENKAT DOMINGUEZ, PT Student - 03/10/2022 16:07 EDT Plan of Care, PT PT Tx Plan/Goals Established w Patient : Yes VENKAT DOMINGUEZ PT Student - 03/10/2022 16:07 EDT Short Term Goals Mobility/Bed Mobility STG PT Grid Goal #1 Goal #2 Activity : Supine to sit Sit to stand Assist : Independent, modified Independent, modified Equipment : Rail, bed Walker, front wheel Date to Meet : 03/13/2022 EDT 03/13/2022 EDT Goal Status : Progressing, continue Progressing, continue VENKAT DOMINGUEZ, PT Student - 03/10/2022 16:07 EDT VENKAT DOMINGUEZ PT Student - 03/10/2022 16:07 EDT Ambulation STG Grid Goal #1 Device : Walker, front wheel Distance : 150' Assist : Supervision or set-up Date to Meet : 03/13/2022 EDT Goal Status : Progressing, continue VENKAT DOMINGUEZ PT Student - 03/10/2022 16:07 EDT Jail Goals Ambulation LTG Grid Goal #1 Device : Walker, front wheel Distance : 375' Assist : Independent, modified Date to Meet : 03/20/2022 EDT Goal Status : Progressing, continue Comment : see stair goal VENKAT DOMINGUEZ PT Student - 03/10/2022 16:07 EDT Stairs LTG Grid Goal #1 Device : None Number of Steps : 16 Handrail(s) : One handrail Assist : Supervision or set-up Date to Meet : 03/20/2022 EDT Goal Status : Intial Goal VENKAT DOMINGUEZ PT Student - 03/10/2022 16:07 EDT Treatment Note Subjective Comment : Patient agreeable to therapy today. Patient wanted reassurance that RN approved therapy today. VENKAT DOMINGUEZ PT Student - 03/10/2022 16:07 EDT Additional Objective Information : Patient required mod A for trunk elevation with supine to sitting. Patient sits at EOB with supervision and completes STS with mod A and extended time for trunk extension. Patient then ambulated 20' with min A and RWx. Upon returning to the bed patient was told by PT student not to crow sitting down. Patient then displayed an uncontrolled sit without his hips squared up with the bed, resulting in him flopping suddenly onto bed in an unsafe manner. Patient returned to supine with min A. Educated on safety with walking, transfers, and sitting. CHANNING MAYER PT - 03/10/2022 16:24 EDT Assessment : Patient demonstrates fair mobility, however, lacks safety awareness with ambulation and transfers. Patient limited in ambulation distance due to SOA, anxiety, and fatigue which can result in poor form and safety. Stair training is not indicated at this time due to patient's response to activity. At this time, patient would benefit from inpatient rehab for endurance training, stair training, and gait training to improve safety at home. VENKAT DOMINGUEZ PT Student - 03/10/2022 16:07 EDT Plan for Treatment : Continue with current POC. PT agrees with PT student documentation. CHANNING MAYER PT - 03/10/2022 16:24 EDT Pain Assessment Pain Scaled Used : 0-10 Pain scale Pain Score Pre-Intervention : 0 VENKAT DOMINGUEZ PT Student - 03/10/2022 16:07 EDT Image 1 - Images currently included in the form version of this document have not been included in the text rendition version of the form. Anticipated Discharge Needs, OT/PT Anticipated Discharge to : Unit, rehabilitation Recommend Continued Therapy at Discharge : Yes VENKAT DOMINGUEZ PT Student - 03/10/2022 16:07 EDT [facility] PT Charges PT Ther Activities Ea 15 Min : 1 VENKAT DOMINGUEZ PT Student - 03/10/2022 16:07 EDT documented in this encounter Plan of Treatment Not on file documented as of this encounter Visit Diagnoses Not on filedocumented in this encounter Care Teams Air Filler Relationship Specialty Start Date End Date Hussein Brian MD [address] [place] [address] PCP - General General Internal Medicine 03/14/23 documented as of this encounter
--- OUTSIDE RECORDS SUMMARY | 2025-03-28 14:50 | XMS_ITS | Encounter Summary ---
Author Organization [employer] ([place], [place], [place], [place]) Address [address] [place] [address] Care Team Providers Care Security Inspector Name Role Phone Hussein Brian MD Primary Care Provider [phone] Encounter Details Date Type Department Care Team (Late st Contact Info) Description 03/12/2022 Transcribed Document [facility] [place] Family Medicine [address] [place] [address] ProviderThomas MD [address] [place] [address] Social History Tobacco Use Types [...] Date Ryan rded Speak language other than Samoan at home Not on file 08/12/2023 Want [...] Cerner Conversion Note - Historical Provider, - 03/12/2022 8:53 AM CDT Patient: DALLAS RADFORD Age: 76 [...] digoxin Labs (Last four charted values) WBC 4.2 (MAR 12) 4.0 (MAR 11) 4.4 (MAR 10) 4.1 (MAR 09) HB L 11.7 (MAR 12) L 12.1 (MAR 11) L 12.5 (MAR 10) L 11.8 (MAR 09) HCT L 33.4 (MAR 12) L 35.4 (MAR 11) L 35.7 (MAR 10) L 33.3 (MAR 09) Plt 165 (MAR 12) L 147 (MAR 11) L 142 (MAR 10) L 130 (MAR 09) Na 136 (MAR 12) L 135 (MAR 11) 136 (MAR 10) L 133 (MAR 09) K 3.6 (MAR 12) 3.5 (MAR 11) 3.6 (MAR 10) L 3.4 (MAR 09) Cl 106 (MAR 12) 106 (MAR 11) 107 (MAR 10) 103 (MAR 09) CO2 23 (MAR 12) 22 (MAR 11) 23 (MAR 10) 22 (MAR 09) BUN 15 (MAR 12) 13 (MAR 11) 12 (MAR 10) 13 (MAR 09) Cr 1.00 (MAR 12) 0.90 (MAR 11) 0.80 (MAR 10) 0.90 (MAR 09) Glu R H 115 (MAR 12) 93 (MAR 11) 106 (MAR 10) H 108 (MAR 09) Ca 8.8 (MAR 12) 8.7 (MAR 11) 8.8 (MAR 10) 8.7 (MAR 09) PT H 15.0 (MAR 12) H 19.2 (MAR 11) H 32.2 (MAR 10) H 38.4 (MAR 09) INR H 1.5 (MAR 12) H 1.9 (MAR 11) H 3.4 (MAR 10) H 4.1 (MAR 09) Vitals Signs (last 24 hrs) Last Charted Minimum Maximum Temp 98.1 (MAR 12 06:00) 97.2 (MAR 12 02:30) 98.6 (MAR 11:00) Apical HR 82 (MAR 11 20:24) 82 (MAR 11 20:24) 82 (MAR 11 20:24) Mon HR 73 (MAR 12 06:00) 73 (MAR 12 06:00) 84 (MAR 11 13:58) Resp Rate 16 (MAR 12 06:00) 16 (MAR 12 02:30) 18 (MAR 11 13:58) SBP 107 (MAR 12 06:00) 92 (MAR 11 10:00) 107 (MAR 12 06:00) DBP 67 (MAR 12 06:00) L 55 (MAR 11 10:00) 67 (MAR 12 06:00) MAP 79 (MAR 12 06:00) 66 (MAR 11 10:00) 79 (MAR 12 06:00) SpO2 97 (MAR 12 06:00) 96 (MAR 11 13:58) 97 (MAR 11 20:30) Date 03/05 03/06 03/07 03/08 03/09 03/10 03/11 03/12 INR 2.2 2.0 2.6 3.4 4.1 3.4 1.9 1.5 Dose 2mg 2 2 hold hold hold 2 (1) Drug interactions: New Rx Amiodarone gtt ---> po - Major Increase in INR Protonix - moderate incr INR - dose just increased from daily ---> bid Plan: 1) INR is subtherapeutic 1.5 @ today -New Rx this admission for Amiodarone - converted to oral route 2) Continue Warfarin 1mg po daily -Bridge therapy at discretion of EP 3) Daily PT/INR 4) Hgb stable - follow 5) Rx to follow Thank You, Brody Reno [facility] beeper [phone] Electronically signed by Raisa, [facility] Conversion Electrical And Radio Aircraft Mechanic Cerner at 11/19/2022 4:15 PM CDT documented in this encounter Plan of Treatment Not on file documented as of this encounter Visit Diagnoses Not on filedocumented in this encounter Care Teams Security Inspector Relationship Specialty Start Date End Date Hussein Brian MD [address] [place] [address] PCP - General General Internal Medicine 03/14/23 documented as of this encounter
--- OUTSIDE RECORDS SUMMARY | 2025-03-28 14:50 | XMS_ITS | Encounter Summary ---
Author Organization [employer] ([place], [place], [place], [place]) Address [address] [place] [address] Care Team Providers Care Cracker Dough Mixer Name Role Phone Hussein Brian MD Primary Care Provider [phone] Encounter Details Date Type Department Care Team (Late st Contact Info) Description 03/12/2022 Transcribed Document [facility] [place] Medicine [address] [place] [address] ProviderThomas MD [address] [place] [address] Social History Tobacco Use Types [...] Date Ryan rded Speak language other than Czech at home Not on file 08/12/2023 Want [...] Conversion Note - Historical Provider, - 03/12/2022 2:00 AM CDT Tricot Knitter Details Entered On: 03/12/2022 0:14 EDT Performed On: 03/12/2022 2:00 EDT by Joslyn Spann Lpn Order Details Order Detail : N/A Lift/Transfer : Independent Central Line Order Detail : No Arterial Line : No Patient Needs Meds Crushed/Liquid : No Joslyn Spann Lpn - 03/12/2022 0:14 EDT documented in this encounter Plan of Treatment Not on file documented as of this encounter Visit Diagnoses Not on filedocumented in this encounter Care Teams Cracker Dough Mixer Relationship Specialty Start Date End Date Hussein Brian MD [facility] [place] [address] PCP - General General Internal Medicine 03/14/23 documented as of this encounter
--- OUTSIDE RECORDS SUMMARY | 2025-03-28 14:50 | XMS_ITS | Encounter Summary ---
Author Organization [employer] ([place], [place], [place], [place]) Address [address] [address] Care Team Providers Care Travel Ticketing Reviewer Name Role Phone Jodie Brian MD Primary Care Provider [phone] Encounter Details Date Type Department Care Team (Late st Contact Info) Description 04/02/2022 Transcribed Document [facility] [place] Family Medicine [address] [place] [address] ProviderThomas MD [address] [place] [address] Social History Tobacco Use Types [...] Date Ryan rded Speak language other than Cymraes at home Not on file 08/12/2023 Want [...] Cerner Conversion Note - Historical Provider, - 04/02/2022 4:47 PM CDT Patient: DALLAS RADFORD Age: 76 Years Sex: Male : 1945 Primary Care Provider JODIE BRIAN (REF), -INT History of Present Illness 76-year-old male with history of A. fib nonischemic cardiomyopathy underwent ablation yesterday by EP however patient converted back to A. fib with RVR for which she was started on amiodarone drip along with p.o. amiodarone 200 twice daily. He had cardioversion this morning however was unsuccessful, EP asked to the hospitalist for admission medical management. Patient currently hemodynamically stable with heart rate in 110s, satting well on room air. His blood work-up unremarkable, of note his INR 1.9 so he was placed on full dose Lovenox along with warfarin for bridging. Review of Systems Constitutional: No fever, No chills, No sweats. Eye: No icterus, No double vision. Respiratory: No shortness of breath, No cough, No sputum production, No hemoptysis. Cardiovascular: No chest pain, palpitations. Gastrointestinal: No nausea, No vomiting, No diarrhea. Genitourinary: No dysuria, No hematuria. Hematology/Lymphatics: No bruising tendency, No bleeding tendency. Immunologic: No recurrent fevers, No recurrent infections. Musculoskeletal: No back pain, No joint pain Integumentary: No rash, No pruritus. Neurologic: Alert and oriented X4, No headache. Psychiatric: No anxiety, No depression. Vital Signs T: 36.6 ??C TMIN: 36.6 ??C TMAX: 36.7 ??C HR: 95(Monitored) BP: 132/81 SpO2: 97% Oxygen Settings (Last) Oxygen Therapy Mode: Room air (04/02/22 14:00:00) Physical Exam General: Alert and oriented, No acute distress. Eye: Pupils are equal, round and reactive to light, Normal conjunctiva. HENT: Normocephalic, Oral mucosa is moist. Neck: Supple, No jugular venous distention Respiratory: Respirations are non-labored, Breath sounds are equal. Cardiovascular: tachy, Irregularly irregular rhythm, No edema. Gastrointestinal: Soft, Non-tender Musculoskeletal: Normal range of motion, Normal strength. Neurologic: Alert, Oriented, No focal defects. Integumentary: Warm, Intact. Psychiatric: Cooperative Assessment/Plan Persistent A. fib with RVR Post ablation and cardioversion???unsuccessful Started on amiodarone drip along with p.o., also and metoprolol 25 twice daily, monitoring coordinator, EP on board On Lovenox and warfarin for bridging History of tachyarrhythmia induced cardiomyopathy Intra ablation LOIS reported EF 50%, no wall motion abnormalities, biatrial severe dilatation, no thrombus in left atrial appendage Chronic hypertension continue home metoprolol, monitor blood pressure Hypokalemia potassium 3.1 yesterday replaced this morning 3.7, monitor and replace per protocol Hyperlipidemia continue home statin BPH continue home Flomax DVT and GI prophylaxis Full code Other persistent atrial fibrillation, Other persistent atrial fibrillation Orders: acetaminophen, 650 mg, Oral, Tab, Q4H, PRN for Fever, Routine, Start 04/02/22 16:04:00 EDT, 04/02/22 16:04:00 EDT albuterol-ipratropium, 3 mL, Nebulized Inhalation, Inh, RT_Q6H, PRN for Shortness of Breath, Routine, Start 04/02/22 16:04:00 EDT bisacodyl, 5 mg, Oral, EC Tab, Daily, PRN for Constipation, Routine, Start 04/02/22 16:04:00 EDT, 04/02/22 16:04:00 EDT melatonin, 3 mg, Oral, Tab, At Bedtime, PRN for Insomnia, Routine, Start 04/02/22 16:04:00 EDT, 04/02/22 16:04:00 EDT ondansetron, 4 mg, IV Push, Inj, Q4H, PRN for Nausea, Routine, Start 04/02/22 16:04:00 EDT, 04/02/22 16:04:00 EDT pantoprazole, 40 mg, Oral, EC Tab, Daily, Start 04/03/22 9:00:00 EDT polyethylene glycol 3350, 17 Gram, Oral, Powder, Daily, PRN for Constipation, Routine, Start 04/02/22 16:04:00 EDT promethazine, 6.25 mg, IntraVENous, Inj, Q6H, PRN for Nausea, Routine, Start 04/02/22 16:04:00 EDT, 04/02/22 16:04:00 EDT Aspiration Precautions CBC w/ Auto Diff CMP Comprehensive Metabolic Panel Consult to Case Management Diabetes Education (Nursing) DVT VTE Prophylaxis Education Facility Protocol Intake and Output Notify Provider Intake and Output Notify Provider of Change in Patient Condition Notify Provider of Change in Patient Condition Notify Provider Vital Signs OT Evaluation and Treatment Oxygen Therapy PT Evaluation and Treatment Pulse Oximetry Spot Check (Nursing) Resuscitation Status Up Ad Dariela Weight (Routine) VTE Prophylaxis - Medical Enoxaparin 100 mg, SubCutaneous, Inj, [id number], Start 04/01/22 18:00:00 EDT, 04/01/22 18:00:00 EDT (VY TORRES) Warfarin 2 mg, Oral, Tab, Daily, Routine, Start 04/01/22 18:00:00 EDT, 04/01/22 12:59:00 EDT (VY TORRES) Problem List/Past Medical History Ongoing Afib At risk for sleep apnea Hip pain, right HLD (hyperlipidemia) HTN (hypertension) Historical No qualifying data Procedure/Surgical History SABIANISM OF CARDIAC RHYTHM, SINGLE (03/08/2022), ULTRASONOGRAPHY OF HEART WITH AORTA (03/06/2022), bilateral hernia repair, colonoscopy, echocardiogram, right hip replacement, teeth removed. Home Medications (9) Active amiodarone 200 mg oral tablet 200 mg = 1 Tab, Oral, BID atorvastatin 40 mg oral tablet 40 mg = 1 Tab, Oral, Daily Bumex 1 mg, PRN, Daily cholecalciferol 25 mcg (1000 intl units) oral tablet 25 mcg = 1 Tab, Oral, Daily Coumadin 1 mg oral tablet 1 mg = 1 Tab, Oral, Daily Flomax 0.4 mg oral capsule 0.4 mg = 1 Cap, Oral, Daily Metoprolol Tartrate 75 mg, Daily Metoprolol Tartrate 100 mg oral tablet 100 mg = 1 Tab, Oral, At Bedtime Tylenol 8 Hour 650 mg oral tablet, extended release 650 mg = 1 Tab, PRN, Oral, Q6H Allergies digoxin Social History Alcohol Alcohol Use History Yes. Days/Week: 5. # Drinks/Day: 2. Alcohol Use History Yes. Days/Week: 3. Total Drinks/Week: 6. Substance Abuse Drug Use Hx: No. Tobacco Never (less than 100 in lifetime) Smoking Status. Never Smokeless Tobacco Status. Family History HTN Lab Results Test Name Test Result Date/Time Sodium Level 138 mmol/L 04/02/2022 05:53 EDT Potassium Level 3.7 mmol/L 04/02/2022 05:53 EDT Chloride Level 110 mmol/L 04/02/2022 05:53 EDT Carbon Dioxide Level 22 mmol/L 04/02/2022 05:53 EDT Anion Gap 10 04/02/2022 05:53 EDT Glucose Level 156 mg/dL (High) 04/02/2022 05:53 EDT Blood Urea Nitrogen 15 mg/dL 04/02/2022 05:53 EDT Creatinine Level 1.00 mg/dL 04/02/2022 05:53 EDT eGFR >60 mL/min/1.73m2 04/02/2022 05:53 EDT eGFR NonAfrican >60 mL/min/1.73m2 04/02/2022 05:53 EDT Bun/Creatinine 15.0 04/02/2022 05:53 EDT Calcium Level 8.3 mg/dL (Low) 04/02/2022 05:53 EDT AST 31 Units/Liter 04/02/2022 05:53 EDT ALT 16 Units/Liter 04/02/2022 05:53 EDT Magnesium Level 2.1 mg/dL 04/02/2022 05:53 EDT WBC 7.2 K/uL 04/02/2022 05:53 EDT RBC 3.05 Million/uL (Low) 04/02/2022 05:53 EDT Hgb 10.4 g/dL (Low) 04/02/2022 05:53 EDT Hct 31.1 % (Low) 04/02/2022 05:53 EDT MCV 102.0 fL (High) 04/02/2022 05:53 EDT MCH 34.1 pg (High) 04/02/2022 05:53 EDT MCHC 33.4 Gram/dL 04/02/2022 05:53 EDT Platelet Count 209 K/uL 04/02/2022 05:53 EDT MPV 9.5 fL 04/02/2022 05:53 EDT RDW 14.7 % 04/02/2022 05:53 EDT Neut % 83.2 % (High) 04/02/2022 05:53 EDT Neut # 6.00 K/uL 04/02/2022 05:53 EDT Lymph % 7.2 % (Low) 04/02/2022 05:53 EDT Lymph # 0.52 x10(3)/uL (Low) 04/02/2022 05:53 EDT [place] % 8.3 % 04/02/2022 05:53 EDT [place] # 0.60 K/uL 04/02/2022 05:53 EDT Eos % 0.0 % 04/02/2022 05:53 EDT Eos # 0.00 x10(3)/uL 04/02/2022 05:53 EDT Baso % 0.1 % 04/02/2022 05:53 EDT Baso # .01 x10(3)/uL 04/02/2022 05:53 EDT Slide Review No 04/02/2022 05:53 EDT IG# 0.09 x10(3)/uL (High) 04/02/2022 05:53 EDT IG% 1.20 % (High) 04/02/2022 05:53 EDT PT 18.7 Second(s) (High) 04/02/2022 11:13 EDT INR 1.9 (High) 04/02/2022 11:13 EDT Additional Documentation Code Status Start: 04/02/22 15:34:00 EDT, Full Code, Continuous Order Electronically signed by [facility] Conversion Metal Burrer Cerner at 11/19/2022 4:27 PM CDT documented in this encounter Plan of Treatment Not on file documented as of this encounter Visit Diagnoses Not on filedocumented in this encounter Care Teams Travel Ticketing Reviewer Relationship Specialty Start Date End Date Jodie Brian MD [address] [place] [address] [place] [address] PCP - General General Internal Medicine 03/14/23 documented as of this encounter
--- OUTSIDE RECORDS SUMMARY | 2025-03-28 14:50 | XMS_ITS | Encounter Summary ---
Author Organization [employer] ([place], [place], [place], [place]) Address [address] [place] [address] Care Team Providers Care Granite Polisher Apprentice Name Role Phone Hussein Brian MD Primary Care Provider [phone] Encounter Details Date Type Department Care Team (Late st Contact Info) Description 03/06/2022 Transcribed Document [facility] [place] Family Medicine [address] [place] [address] ProviderThomas MD [address] [place] [address] Social History Tobacco Use Types [...] Date Ryan rded Speak language other than Martiniquais at home Not on file 08/12/2023 Want [...] Marvel Conversion Note - Historical Provider, - 03/06/2022 12:10 PM CDT Patient: DALLAS RADFORD Age: 76 Years Sex: Male : 1945 Subjective Patient placed on Cardizem drip yesterday. Patient currently in A. fib with rate in the 80s. Patient denies any chest pain overnight. No other acute events overnight. Vital Signs T: 36.2 ??C TMIN: 35.9 ??C TMAX: 37.1 ??C HR: 90(Monitored) RR: 16 BP: 111/85 SpO2: 98% HT: 185.42 cm WT: 109.09 kg BMI: 31.7 Oxygen Settings (Last) Oxygen Therapy Mode: Room air (03/06/22 06:00:00) Oxygen Flow Rate: 98 Liter/Min (03/05/22 18:43:00) Intake & Output Totals Last 24 Hours (7a-7a) Input Total: 250 mL Output Total: 0 mL Balance: 250 mL Physical Exam General: Pleasant 76-year-old male is currently in NAD HEENT: Moist oral mucosa Cardiac: Irregular rate and rhythm with no m/r/g. Extremities: 1+ LE edema bilaterally Lungs: CTAB with decreased breath sounds in lower lobes bilaterally. Normal respiratory rate and effort on room air. GI: Abdomen soft, nontender, nondistended. : No em catheter MSK: 3/5 strength in the UE and LE bilaterally. Neuro: AOx3 able to communicate and follow commands. No focal deficits. Skin: No rashes noted on exam Psych: Normal mood and affect Assessment/Plan 1. Atrial fibrillation with RVR -Patient was taking metoprolol tartrate 100 mg twice daily at home -Cardizem 30 mg TID added by Cardiology at outside facility - Reported uncontrolled A Fib with RVR with exertion at outside facility, never required Cardizem gtt. - Cardiology recommending Amiodarone 400mg BID x1 week, then 200mg BID 1 weeks, followed by 200mg daily - Continue Metoprolol tartrate 100mg BID - Cardizem gtt stopped - Continue home Coumadin 2mg daily 2. Chronic Heart Failure with Unknown EF - Differing reports in records sent about EF being 50% and EF 15-20% - Stress Test at OSH showed no evidence of ischemia with fixed defect present - No history of PCI or CABG - ECHO pending - Patient appears euvolemic 3. Severe esophageal dysmotility 4. Severe nausea and vomiting -GI at outside facility performed EGD which showed no anatomic abnormalities -Upper GI series outside facility showed severe esophageal dysmotility -Continue mirtazapine 15 mg at bedtime -Continue Protonix 40 mg daily - Phenergan 12.5mg q6 PRN -GI consult pending 5. Hyperlipidemia -Continue home atorvastatin 40 mg daily 6. BPH -Continue home Flomax 7. Vitamin D deficiency -Continue home vitamin D supplementation 8. Debility -Patient reports frequent falls at home -Patient using walker to ambulate for past month -Outside facility was looking into SNF facilities -PT recommending HH or SNF DVT/GI prophylaxis: Coumadin/PPI CODE STATUS: Full code Disposition: Patient transferred to our facility for cardiology evaluation for A. fib with RVR. Cardiology starting patient on amiodarone taper and off Cardizem drip. GI consult pending for ongoing nausea and vomiting and esophageal dysmotility. PT worked with patient recommending home health or SNF on discharge. Will discuss rehab with patient based on PT notes might be able to go home with home health once medically ready. VTE Prophylaxis - Medical Warfarin 2 mg, Oral, Tab, Daily, Routine, Start 03/05/22 18:00:00 EDT, 03/05/22 16:59:00 EDT (HAKEEM BARONE) Medications acetaminophen, 650 mg= 2 Tab, Oral, Q6H, PRN amiodarone, 400 mg= 2 Tab, Oral, BID amiodarone, 200 mg= 1 Tab, Oral, BID amiodarone, 200 mg= 1 Tab, Oral, Daily atorvastatin, 40 mg= 1 Tab, Oral, Daily cholecalciferol, 1000 Units= 1 Tab, Oral, Daily Coumadin, 2 mg= 1 Tab, Oral, Daily Flomax, 0.4 mg= 1 Cap, Oral, Daily metoprolol tartrate, 100 mg= 1 Tab, Oral, BID mirtazapine, 15 mg= 1 Tab, Oral, At Bedtime Phenergan, 12.5 mg= 0.5 mL, IV Piggyback, Q6H, PRN Protonix, 40 mg= 1 Tab, Oral, Daily Lab Results Test Name Test Result Date/Time Sodium Level 134 mmol/L (Low) 03/06/2022 06:36 EDT Sodium Level 134 mmol/L (Low) 03/05/2022 15:50 EDT Potassium Level 3.6 mmol/L 03/06/2022 06:36 EDT Potassium Level 4.0 mmol/L 03/05/2022 15:50 EDT Chloride Level 100 mmol/L (Low) 03/06/2022 06:36 EDT Chloride Level 99 mmol/L (Low) 03/05/2022 15:50 EDT Carbon Dioxide Level 23 mmol/L 03/06/2022 06:36 EDT Carbon Dioxide Level 23 mmol/L 03/05/2022 15:50 EDT Anion Gap 15 03/06/2022 06:36 EDT Anion Gap 16 03/05/2022 15:50 EDT Glucose Level 92 mg/dL 03/06/2022 06:36 EDT Glucose Level 136 mg/dL (High) 03/05/2022 15:50 EDT Blood Urea Nitrogen 27 mg/dL (High) 03/06/2022 06:36 EDT Blood Urea Nitrogen 25 mg/dL (High) 03/05/2022 15:50 EDT Creatinine Level 1.00 mg/dL 03/06/2022 06:36 EDT Creatinine Level 1.30 mg/dL 03/05/2022 15:50 EDT eGFR >60 mL/min/1.73m2 03/06/2022 06:36 EDT eGFR >60 mL/min/1.73m2 03/05/2022 15:50 EDT eGFR NonAfrican >60 mL/min/1.73m2 03/06/2022 06:36 EDT eGFR NonAfrican 54 mL/min/1.73m2 (Low) 03/05/2022 15:50 EDT Bun/Creatinine 27.0 (High) 03/06/2022 06:36 EDT Bun/Creatinine 19.2 03/05/2022 15:50 EDT Calcium Level 9.0 mg/dL 03/06/2022 06:36 EDT Calcium Level 9.3 mg/dL 03/05/2022 15:50 EDT Protein Total 6.8 Gram/dL 03/05/2022 15:50 EDT Albumin Level 3.4 Gram/dL 03/05/2022 15:50 EDT Globulin 3.4 Gram/dL 03/05/2022 15:50 EDT A/G Ratio 1.0 (Low) 03/05/2022 15:50 EDT Bilirubin Total 2.4 mg/dL (High) 03/05/2022 15:50 EDT Alk Phos 92 Units/Liter 03/05/2022 15:50 EDT AST 30 Units/Liter 03/05/2022 15:50 EDT ALT 26 Units/Liter 03/05/2022 15:50 EDT Magnesium Level 2.2 mg/dL 03/05/2022 15:50 EDT Device Comment 1 Notified Nurse RBV 03/05/2022 16:09 EDT Glucose POC2 130 mg/dL (High) 03/05/2022 16:09 EDT Troponin I High Sensitivity 32.2 pg/mL 03/05/2022 15:50 EDT ProBNP 1848 pg/mL (High) 03/05/2022 15:50 EDT WBC 5.4 K/uL 03/06/2022 06:36 EDT WBC 7.5 K/uL 03/05/2022 15:50 EDT RBC 3.90 Million/uL (Low) 03/06/2022 06:36 EDT RBC 4.06 Million/uL (Low) 03/05/2022 15:50 EDT Hgb 13.4 g/dL (Low) 03/06/2022 06:36 EDT Hgb 13.9 g/dL 03/05/2022 15:50 EDT Hct 37.9 % (Low) 03/06/2022 06:36 EDT Hct 39.5 % (Low) 03/05/2022 15:50 EDT MCV 97.2 fL (High) 03/06/2022 06:36 EDT MCV 97.3 fL (High) 03/05/2022 15:50 EDT MCH 34.4 pg (High) 03/06/2022 06:36 EDT MCH 34.2 pg (High) 03/05/2022 15:50 EDT MCHC 35.4 Gram/dL 03/06/2022 06:36 EDT MCHC 35.2 Gram/dL 03/05/2022 15:50 EDT Platelet Count 134 K/uL (Low) 03/06/2022 06:36 EDT Platelet Count 173 K/uL 03/05/2022 15:50 EDT MPV 10.8 fL 03/06/2022 06:36 EDT MPV 10.6 fL 03/05/2022 15:50 EDT RDW 13.2 % 03/06/2022 06:36 EDT RDW 13.4 % 03/05/2022 15:50 EDT Neut % 79.3 % (High) 03/05/2022 15:50 EDT Neut # 5.94 K/uL 03/05/2022 15:50 EDT Lymph % 10.1 % (Low) 03/05/2022 15:50 EDT Lymph # 0.76 x10(3)/uL (Low) 03/05/2022 15:50 EDT [place] % 9.5 % (High) 03/05/2022 15:50 EDT [place] # 0.71 K/uL 03/05/2022 15:50 EDT Eos % 0.3 % 03/05/2022 15:50 EDT Eos # 0.02 x10(3)/uL 03/05/2022 15:50 EDT Baso % 0.4 % 03/05/2022 15:50 EDT Baso # 0.03 x10(3)/uL 03/05/2022 15:50 EDT nRBC 0.020 (High) 03/06/2022 06:36 EDT Slide Review No 03/06/2022 06:36 EDT Slide Review No 03/05/2022 15:50 EDT IG# 0.03 x10(3)/uL 03/05/2022 15:50 EDT IG% 0.40 % 03/05/2022 15:50 EDT PT 19.8 Second(s) (High) 03/06/2022 06:36 EDT PT 21.4 Second(s) (High) 03/05/2022 17:09 EDT INR 2.0 (High) 03/06/2022 06:36 EDT INR 2.2 (High) 03/05/2022 17:09 EDT documented in this encounter Plan of Treatment Not on file documented as of this encounter Visit Diagnoses Not on filedocumented in this encounter Care Teams Granite Polisher Apprentice Relationship Specialty Start Date End Date Hussein Brian MD [address] [place], [place] [id number] PCP - General General Internal Medicine 03/14/23 documented as of this encounter
--- OUTSIDE RECORDS SUMMARY | 2025-03-28 14:50 | XMS_ITS | Clinical Summary ---
Author Organization [facility] Address [address] [place] [address] Care Team Providers Care Spot Welder Body Assembly Name Role Phone Alfredito Echeverria MD Primary Care Provider + Allergies Active Allergy Reactions Criticality Noted Date Comments Digoxin And Related Nausea Only,Other (S ee Comments) Low 05/17/2022 Nausea, stomach cramps, loss of appetite Medications metoprolol tartrate (LOPRESSOR) 12.5 MG half tablet Take 2 half tablet by mouth 2 (Two) Times a Day. Active bumetanide (BUMEX) 1 MG tabletIndications :Cardiomyopathy, unspecified type Take 1 tablet by mouth 2 (Two) Times a Day. 60 tablet 5 024 Active metOLazone (ZAROXOLYN) 10 MG tabletIndications :Cardiomyopathy, unspecified type Take 1 tablet by mouth Daily. 30 tablet 5 024 Active mirtazapine (REMERON SANDRA-TAB) 15 MG disintegrating tabletIndications :Chronic insomnia Place 1 tablet on the tongue Every Night. 30 tablet 5 024 Active tamsulosin (FLOMAX) 0.4 MG capsule 24 hr capsuleIndication s:BPH associated with nocturia Take 1 capsule by mouth Daily. 30 capsule 11 024 Active traZODone (DESYREL) 50 MG tabletIndications :Chronic insomnia Take 2 tablets by mouth Every Night. 60 tablet 5 024 Active atorvastatin (LIPITOR) 40 MG tablet Take 1 tablet by mouth Daily. 90 tablet 3 024 Active spironolactone (ALDACTONE) 25 MG tablet Take 1 tablet by mouth Daily. 025 Active ammonium lactate (AMLACTIN) 12 % creamIndications: Chronic venous stasis dermatitis,Ichthy osis Apply 1 Application topically to the appropriate area as directed As Needed for Dry Skin. 385 g 025 Active Eliquis 5 MG tablet tabletIndications :Longstanding persistent atrial fibrillation TAKE ONE TABLET BY MOUTH TWICE DAILY 60 tablet 4 025 Active oxybutynin XL (Ditropan XL) 10 MG 24 hr tabletIndications :Urinary urgency Take 1 tablet by mouth Daily. 30 tablet 5 025 Active Zinc Oxide 12 % creamIndications: Pressure injury of skin of sacral region, unspecified injury stage Apply 1 Application topically 2 (Two) Times a Day. 200 g 1 025 Active potassium chloride (KLOR-CON M20) 20 MEQ CR tabletIndications :Cardiomyopathy, unspecified type TAKE ONE TABLET BY MOUTH EVERY DAY 30 tablet 5 025 Active Semaglutide (Rybelsus) 7 MG tabletIndications :Type 2 diabetes mellitus with hyperglycemia, without long-term current use of insulin Take 7 mg by mouth Daily. 30 tablet 1 025 Active acarbose (PRECOSE) 50 MG tabletIndications :Type 2 diabetes mellitus with hyperglycemia, without long-term current use of insulin Take 1 tablet by mouth 2 (Two) Times a Day With Meals. 60 tablet 1 025 Active metFORMIN (GLUCOPHAGE) 500 MG tabletIndications :Type 2 diabetes mellitus with hyperglycemia, without long-term current use of insulin Take 1 tablet by mouth 2 (Two) Times a Day With Meals. 60 tablet 1 025 Active acetaminophen (TYLENOL) 650 MG 8 hr tablet TAKE ONE TABLET BY MOUTH every 8 hours NEEDED FOR moderate pain 90 tablet 2 025 Active acetaminophen (Tylenol 8 Hour Arthritis Pain) 650 MG 8 hr tablet Take 1 tablet by mouth Every 8 (Eight) Hours As Needed for Moderate Pain. 90 tablet 2 025 2024 Discontinued cephalexin (KEFLEX) 500 MG capsule Take 2 capsules by mouth 2 (Two) Times a Day for 7 days. 28 capsule 025 2024 Active Problems Problem Noted Date Diagnosed Date [...] changes per orders. Recommended an ADA diet. Management And Budget Analyst referral. 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 current use of diuretic 12/21/2024 Longstanding persistent [...] Encounters Date Type Department Care Team Description 03/28/2025 Refill [facility] [address] [place] [address] Alfredito Echeverria MD 03/25/2025 Telephone [facility] [address] [place] [address] Alfredito Echeverria MD ORDER NEEDED FOR WOUND SWAB CULTURE 03/18/2025 2:45 PM EDT Office Visit [facility] [address] [place], [place] [address] Alfredito Echeverria MD Wound infection (Primary Dx); Type 2 diabetes mellitus with hyperglycemia, without long-term current use of insulin; Lymphedema 03/18/2025 Travel 03/12/2025 Travel 03/04/2025 Telephone [facility] [address] [place] [address] Alfredito Echeverria MD Advice Only 02/26/2025 Telephone [facility] [address] [place] [address] Alfredito Echeverria MD 02/11/2025 3:00 PM EDT Office Visit [facility] [address] [place] [address] Alfredito Echeverria MD Type 2 diabetes mellitus with hyperglycemia, without long-term current use of insulin (Primary Dx) 02/11/2025 Travel 01/10/2025 1:45 PM EDT Office Visit [facility] [address] [place] [address] Alfredito Echeverria MD Type 2 diabetes mellitus with hyperglycemia, without long-term current use of insulin (Primary Dx) 01/10/2025 Travel 12/28/2024 12:00 PM EDT Office Visit [facility] [address] [address] Alfredito Echeverria MD Type 2 diabetes mellitus with hyperglycemia, without long-term current use of insulin (Primary Dx) 12/28/2024 Travel 12/27/2024 Refill [facility] [address] [address] Alfredito Echeverria MD Cardiomyopathy, unspecified type from Last 3 Months Immunizations Immunization Administration [...] Description 04/02/2025 3:00 PM EDT Office Visit [facility] [address] [place], [place] [address] Alfredito Echeverria MD [address] [place] [address] 06/24/2025 10:45 AM EST Office Visit [facility] [address] [place] [address] Alfredito Echeverria [...] Procedure Name Priority Date/Time Associated Diagnosis Comments CULTURE, ROUTINE Routine 03/26/2025 2:09 PM EDT Wound infection SCANNED - LABS 03/26/2025 POCT GLUCOSE FINGERSTICK Routine 03/18/2025 3:30 PM EDT Type 2 diabetes mellitus with hyperglycemia, without long-term current use of insulin SCANNED - LABS 03/18/2025 POCT GLYCATED HEMOGLOBIN, TOTAL Routine 02/11/2025 3:54 [...] Recently Relevant to Health Maintenance Results * Culture, Routine - Swab, Leg, Left (03/26/2025 2:09 PM EDT) Swab Structure of left lower limb / Unknown Alfredito Echeverria MD MICROBIOLOGY - GENERAL O RDERABLES Final Result [facility] [address] [place] [address], [place] [phone] * LABS SCANNED (03/26/2025) Only the most recent of2 resultswithin the time period is included. Alfredito Echeverria MD LAB BLOOD ORDERABLES Fin [...] Hemoglobin A1C 8.2(A) 4.5 - 5.7 % [facility] Lot Number [id number] [facility] Expiration Date 10/29/2026 [facility] Urine 02/11/2025 3:54 PM EDT Alfredito Echeverria MD POINT OF CARE TEST ORDER SERENITY Final Result [facility]
[address] [place] [id number], * (ABNORMAL) POC Glycosylated Hemoglobin (Hb A1C) (12/28/2024 12:12 PM EDT) Pathologist [facility] Hemoglobin A1C 13.3(A) 4.5 - 5.7 % [facility] Lot Number [id number] [facility] Expiration Date 09/17/2026 [facility] Blood 12/28/2024 12:1 2 PM EDT Alfredito Echeverria MD POINT OF CARE TEST ORDER SERENITY Final Result [facility]
[address] [id number], * (ABNORMAL) Lipid Panel (12/21/2024 11:06 AM [...] - 12/22/2024 6:09 AM EDT Performed at: [facility] [id number] Child Neurologist: Ronal Womack PhD, Phone: [phone] Patient Fasting: Y Alfredito Echeverria MD LAB BLOOD ORDERABLES Fin al Result [facility] [address] [place] [address], [place] [phone] [facility] [address] [place] [address], from Last 3 Months or Most Recently Relevant to Health Maintenance Insurance [employer] PPO Care Teams Spot Welder Body Assembly Relationship Specialty Start Date End Date Alfredito Echeverria MD [address] [place] [address] PCP - General Family Medicine 05/24/24
--- OUTSIDE RECORDS SUMMARY | 2025-03-28 14:50 | XMS_ITS | Encounter Summary ---
Author Organization [facility] Address [address] [place] [id number] Care Team Providers Care Automobile Assembly Supervisor Name Role Phone Alfredito Echeverria MD Primary Care Provider + Reason for Visit * Reason Onset Date Comments Advice Only 03/04/2025 Encounter Details Date Type Department Care Team (Late st Contact Info) Description 03/04/2025 Telephone [facility] [address] [place] [address] Alfredito Echeverria MD [address] [place] [address] Advice Only Social History Tobacco [...] Description 04/02/2025 3:00 PM EDT Office Visit [facility] [address] [place] [address] Alfredito Echeverria MD [address] [place] [address] 06/24/2025 10:45 AM EST Office Visit [facility] [address] [place] [address] Alfredito Echeverria MD [address] [place] [address] documented as of this encounter Visit Diagnoses Not on filedocumented in this encounter Care Teams Automobile Assembly Supervisor Relationship Specialty Start Date End Date Alfredito Echeverria MD [address] [place] [address] PCP - General Family Medicine 05/24/24 documented as of this encounter
--- OUTSIDE RECORDS SUMMARY | 2025-03-28 14:50 | XMS_ITS | Encounter Summary ---
Author Organization [facility] ([place], [place], [place], [place]) Address [address] [place] [address] Care Team Providers Care Entry Level Recruiter Name Role Phone Hussein Brian MD Primary Care Provider [phone] Encounter Details Date Type Department Care Team (Late st Contact Info) Description 03/06/2022 Transcribed Document [facility] [place] [facility] [address] [place] [address] ProviderThomas MD [address] [place] [address] Social History Tobacco Use Types [...] Date Ryan rded Speak language other than Palauan at home Not on file 08/12/2023 Want [...] Conversion Note - Historical Provider, - 03/06/2022 8:05 AM CDT Patient: DALLAS RADFORD Age: 76 years Sex: Male : 1945 Associated Diagnoses: None Author: NICOLE LUNDBERG MD BASIC PCP: Primary Entrepreneurial Finance Professor: Dr. Catherine Montes De Oca NAD. Health Status Allergies: Allergic Reactions (All) Severity Not Documented Digoxin- No reactions were documented. Canceled/Inactive Reactions (All) No Known Medication Allergies, Allergies (1) Active Reaction digoxin None Documented Current medications: (Selected) Inpatient Medications Ordered Coumadin: 2 mg, Oral, Daily Flomax: 0.4 mg, Oral, Daily Phenergan: 12.5 mg, IV Piggyback, Q6H, PRN: Nausea/Vomiting Protonix: 40 mg, Oral, Daily acetaminophen: 650 mg, Oral, Q6H, PRN: Pain (Mild 1-3) atorvastatin: 40 mg, Oral, Daily cholecalciferol: 1,000 Units, Oral, Daily dilTIAZem injection 125 mg + Premix Diluent NaCl 0.9% for Drip 125 mL: TITRATE, IntraVENous metoprolol tartrate: 100 mg, Oral, BID mirtazapine: 15 mg, Oral, At Bedtime Documented Medications Documented Cardizem 30 mg oral [...] 1 Tab, PRN, Oral, Q6H , Medications (10) Active Scheduled: (7) atorvastatin 40 mg tab 40 mg 1 Tab, Oral, Daily cholecalciferol 1,000 unit tab 1,000 Units 1 Tab, Oral, Daily metoprolol tartrate 100 mg tab 100 mg 1 Tab, Oral, BID mirtazapine 15 mg tab 15 mg 1 Tab, Oral, At Bedtime pantoprazole EC 40 mg tab 40 mg 1 Tab, Oral, Daily tamsulosin CR 0.4 mg cap 0.4 mg 1 Cap, Oral, Daily warfarin 2 mg tab 2 mg 1 Tab, Oral, Daily Continuous: (1) diltiazem 125 mg + Premix Diluent NaCl 0.9% TITRATE 125 mL 125 mL, IntraVENous PRN: (2) acetaminophen 325 mg tab 650 mg 2 Tab, Oral, Q6H promethazine 25 mg/1 mL inj 12.5 mg 0.5 mL, IV Piggyback, Q6H Problem list: All Problems Afib / SNOMED CT 75680064 / Confirmed Hip pain, right / SNOMED CT 83809897 / Confirmed At risk for sleep apnea / IMO [id number] / Confirmed, Active Problems (3) Afib At risk for sleep apnea Hip pain, right Objective Intake and Output 24 hour intake, 24 hour output VS/Measurements Vitals Signs (last 24 hrs) Last Charted Minimum Maximum Temp 98.7 (MAR 05 20:06) L 96.7 (MAR 05 15:35) 98.7 (MAR 05 20:06) Apical HR 67 (MAR 05 18:42) 67 (MAR 05 18:42) 67 (MAR 05 18:42) Mon HR 91 (MAR 05 21:26) 67 (MAR 05 18:43) 93 (MAR 05 20:06) Resp Rate 18 (MAR 05 20:06) 16 (MAR 05 15:35) 18 (MAR 05 20:06) SBP 109 (MAR 05 21:26) 105 (MAR 05 21:00) 136 (MAR 05 18:43) DBP 67 (MAR 05 21:) 66 (MAR 05 15:35) 71 (MAR 05 20:06) MAP 79 (MAR 05:) 79 (MAR 05 21:00) 88 (MAR 05 18:43) SpO2 95 (MAR 05:) 95 (MAR 05:06) 98 (MAR 05 15:35) General: Alert and oriented. Eye: Pupils are equal, round and reactive to light. HENT: Normocephalic. Neck: Supple. Respiratory: Respirations are non-labored, Breath sounds are equal, Symmetrical chest wall expansion. Cardiovascular: Normal rate, Irregularly irregular rhythm, Normal peripheral perfusion, AFIB with CVR. Gastrointestinal: Soft, Non-distended. Genitourinary: Exam deferred, Exam deferred. Musculoskeletal: Normal range of motion, No deformity. Integumentary: Warm, Dry, No rash. Neurologic: Alert, Oriented, No focal deficits. Psychiatric: Cooperative, Appropriate mood & affect. Results Review MAR 05 15:50 L 134 L 99 H 25 / H 136 4.0 23 1.30 \ MAR 05 15:50 \ 13.9 / 7.5 173 / L 39.5 \ Cardiac Markers (Current Encounter/Past 24 Hours) ProBNP 1848 pg/mL MD 03/05/2022 19:19 Troponin I High Sensitivity 32.2 pg/mL 03/05/2022 16:14 No Radiology Results Found Impression and Plan IMPRESSION: Atrial fibrillation with RVR On Metoprolol 100mg BID & Warfarin at home. CHADs-VASc=4 (On Warfarin) Allergic to Digoxin Nonischemic cardiomyopathy EF 35% 03/01/22 EF 15% 01/05/22 Repeat Echocardiogram pending GI consulted for nausea, vomiting HTN HLD PLAN: 03/06/2022 We will add Amiodarone 400mg BID X1 week then 200mg BID X1 Week, then 200mg daily thereafter. Continue current dose of metoprolol. BP low --> DC Diltiazem drip. Continue current dose of Warfarin. We will review ECHO once completed. We will consider DCCV on Tuesday if remains in afib. Discussed afib ablation given his recurrent episodes. Will consult EP. 03/05/2022 Discontinue po Cardizem IV Cardizem per protocol for better rate control Anticoagulation if okay with IM Echocardiogram pending Will continue to follow documented in this encounter Plan of Treatment Not on file documented as of this encounter Visit Diagnoses Not on filedocumented in this encounter Care Teams Entry Level Recruiter Relationship Specialty Start Date End Date Hussein Brian MD [address] [place] [address] PCP - General General Internal Medicine 03/14/23 documented as of this encounter
--- OUTSIDE RECORDS SUMMARY | 2025-03-28 14:50 | XMS_ITS | Encounter Summary ---
Author Organization [facility] ([place], [place], [place]) Address [address] [place] [address] Care Team Providers Care Registered Pharmacist Name Role Phone Hussein Brian MD Primary Care Provider [phone] Encounter Details Date Type Department Care Team (Late st Contact Info) Description 03/06/2022 Transcribed Document [facility] [place] [address] [place] [address] ProviderThomas MD [address] [place] [address] Social History Tobacco Use Types [...] Date Ryan rded Speak language other than Vietnamese at home Not on file 08/12/2023 Want [...] Conversion Note - Historical Provider, - 03/06/2022 12:53 PM CDT Treatment Intervention, OT Entered On: 03/11/2022 13:29 EDT Performed On: 03/11/2022 11:11 EDT by SEBLE LOVE OTR/Maia General Information, OT Visit Type, OT : Treatment Note Patient Orders : Order Date Order Ordering 03/05/2022 15:37 OT Evaluation and Treatment Ordered By: HAKEEM BARONE DO 03/06/2022 12:53 OT Additional Treatment Ordered By: Active Diagnoses : No Qualifying Diagnoses Therapy Diagnosis, OT : Decreased ADL and fx mboility secondary to A-fib Admission Date : 03/05/2022 15:27 Co-treated by, OT : Physical Therapist Personal Devices : Personal Devices Glasses Assistive Devices : Assistive Devices No Devices Recorded Precautions in Place : Fall prevention measures SEBLE LOVE OTR/Maia - 03/11/2022 13:22 EDT General Status Patient Received Status : Supine in bed Treatment Start Time : 03/11/2022 10:57 EDT Patient Left Status : Supine in bed, RN/PCT informed, All needs met and within reach RN/PCT Informed Comment : DENI oliverosed tx. Treatment End Time : 03/11/2022 11:11 EDT Treatment Time : 14 Minute(s) SEBLE LOVE OTR/L - 03/11/2022 13:22 EDT Intervention Summary Heart Rate/Pulse Pre-intervention : 70 bpm (Comment: Resting in supine [SEBLE LOVE OTR/L - 03/11/2022 13:22 EDT] ) Heart Rate/Pulse During Intervention : 60 bpm (Comment: EOB [SEBLE LOVE OTR/L - 03/11/2022 13:22 EDT] ) Heart Rate/Pulse Post-intervention : 84 bpm (Comment: In supine, after abrupt transfer from EOB [SEBLE LOVE OTR/L - 03/11/2022 13:22 EDT] ) BP Systolic Post-intervention : 104 mmHg BP Diastolic Post-intervention : 70 mmHg MIRI LOVELEY Leslie, OTR/L - 03/11/2022 13:22 EDT Functional Mobility Mobility Grid Supine to Sit : Rehab Minimal assistance Sit to Stand : Rehab Moderate assistance (Comment: x2 [LOVE SEBLE A, OTR/L - 03/11/2022 13:22 EDT] ) Stand to Sit : Rehab Moderate assistance (Comment: x2 [SEBLE LOVE, OTR/L - 03/11/2022 13:22 EDT] ) Sit to Supine : Rehab Total assistance (Comment: x2 [SEBLE LOVE, OTR/L - 03/11/2022 13:22 EDT] ) SEBLE LOVE OTR/L - 03/11/2022 13:22 EDT Plan of Care, OT OT Tx Plan/Goals Established w Patient : Yes LOVESEBLE OTR/L - 03/11/2022 13:22 EDT Correction Goals, OT Grooming LTG Grid Goal #1 Activity : Grooming Assist : Independent, complete Date to Meet : 03/20/2022 EDT Goal Status : Initial goal Comment : Standing sinkside SEBLE LOVE OTR/L - 03/11/2022 13:22 EDT Dressing, Lower Body LTG Grid Goal #1 Activity : Dressing, Lower Body Assist : Independent, complete Date to Meet : 03/20/2022 EDT Goal Status : Initial goal SEBLE LOVE OTR/L - 03/11/2022 13:22 EDT Toileting LTG Grid Goal #1 Activity : Toileting Assist : Independent, complete Date to Meet : 03/20/2022 EDT Goal Status : Initial goal LOVESEBLE OTR/L - 03/11/2022 13:22 EDT Bed Mobility/ Bed Transfer LTG Grid Goal #1 Activity : Bed Mobility, Supine to Sit Assist : Independent, complete Date to Meet : 03/20/2022 EDT Goal Status : Progressing, continue SEBLE LOVE, OTR/L - 03/11/2022 13:22 EDT Treatment Note Subjective Comment : Pt was agreeable. Patient's Response to Treatment : Pt with fair tolerance for tx this date. Pt with an initial HR of 70 while supine. HR checked again after transfer to the EOB, found to be 60. Pt sat EOB ~4-5minutes. Pt stood using a RWx, attempted to check HR again, however pt unable to maintain balance and requested return to EOB. After seated, pt became momentarily unresponsive and limp, <5seconds. Pt abruptly returned to supine, pt became alert, oriented x4. BP taken in supine and found to be 104/70 with a HR of 80. Nsg aware and entered room. Additional Objective Information : Pt was found supine upon arrival. Pt came to the EOB with Victorina, able to maintain sitting balance unsupported. Pt donned shoes Victorina. Pt stood using a RWx with modA x2 secondary to a posterior lean. Pt returned to the EOB. Pt became unresponsive, limp and returned to supine totalA x2. Vitals taken and noted; nsg entered room. Pt was scooted up in bed, left supine with all needs met and CL in reach. Assessment : Pt required increased assistance when standing today due to a posteior lean. Pt continues to be limited by HR, also low BP noted. Pt will benefit from continued OT services to increase activity tolerance and endurance needed for greater participation and safety in ADLs and functional mobility. Plan for Treatment : See OT goals. SEBLE LOVE OTR/L - 03/11/2022 13:22 EDT Pain Assessment Pain Scaled Used : 0-10 Pain scale Pain Score Pre-Intervention : 0 SEBLE LOVE OTR/L - 03/11/2022 13:22 EDT Image 1 - Images currently included in the form version of this document have not been included in the text rendition version of the form. Anticipated Discharge Needs, OT/PT Anticipated Discharge to : Unit, rehabilitation, Unit, shelter SEBLE LOVE OTR/L - 03/11/2022 13:[address] [facility] OT Charges OT Ther Activities Ea 15 Min : 1 SEBLE LOVE OTR/L - 03/11/2022 13:22 EDT documented in this encounter Plan of Treatment Not on file documented as of this encounter Visit Diagnoses Not on filedocumented in this encounter Care Teams Registered Pharmacist Relationship Specialty Start Date End Date Hussein Brian MD [facility] [place] [address] [place] [address] PCP - General General Internal Medicine 03/14/23 documented as of this encounter
--- OUTSIDE RECORDS SUMMARY | 2025-03-28 14:50 | XMS_ITS | Encounter Summary ---
Author Organization [employer] ([place], [place], [place], [place]) Address [address] [place] [address] Care Team Providers Care Corporate Strategist Name Role Phone Hussein Brian MD Primary Care Provider [phone] Encounter Details Date Type Department Care Team (Late st Contact Info) Description 03/06/2022 Transcribed Document [facility] [place] [address] [place] [address] ProviderThomas MD [address] [place] [address] Social History Tobacco Use Types [...] Conversion Note - Historical Provider, - 03/06/2022 5:28 PM CDT Education-Cardiac Topics Entered On: 03/06/2022 21:27 EDT Performed On: 03/06/2022 17:28 EDT by Joslyn Spann Lpn Teaching/Learning Assessment Barriers To Learning : None evident Individuals Taught : Patient Readiness to Learn : Cooperative Highest Level of Education : High school Baseline Knowledge of Topic : Limited Readiness to Learn : Explanation Learning Style Preferences Patient : Verbal explanation Learning Style Preferences Family : Verbal explanation Joslyn Spann Lpn - 03/06/2022 21:26 EDT Electronically signed by Raisa [facility] Conversion Provider Relations Coordinator Cerner at 11/19/2022 4:29 PM CDT documented in this encounter Plan of Treatment Not on file documented as of this encounter Visit Diagnoses Not on filedocumented in this encounter Care Teams Corporate Strategist Relationship Specialty Start Date End Date Hussein Brian MD [address] [place], [place] [id number] PCP - General General Internal Medicine 03/14/23 documented as of this encounter
--- OUTSIDE RECORDS SUMMARY | 2025-03-28 14:50 | XMS_ITS | Encounter Summary ---
Author Organization [employer] ([place], [place], [place], [place]) Address [address] [place] [address] Care Team Providers Care Director Global Development Name Role Phone Hussein Brian MD Primary Care Provider [phone] Encounter Details Date Type Department Care Team (Late st Contact Info) Description 03/11/2022 Transcribed Document [facility] [place] [address] [place] [address] ProviderThomas MD [address] [place] [address] Social History Tobacco Use Types [...] Date Ryan rded Speak language other than Mosotho at home Not on file 08/12/2023 Want [...] Conversion Note - Historical Provider, - 03/11/2022 1:05 PM CDT UM Authorization Entered On: 03/11/2022 13:07 EDT Performed On: 03/11/2022 13:05 EDT by Kelin Woodward, Chief Operator Primary Insurance Authorization Authorization and Policy Numbers : Insurance 1 Health Plan: [employer]US [employer] Policy Number: [id number] Authorization Number: Insurance Primary Name : [employer] GOLD PLUS HMO Policy Number: [id number] Authorization Status-Primary : Approved Reference Number-Primary : [id number] Authorization Number-Primary : [id number] Authorized Service Begin Date-Primary : 03/05/2022 EDT Authorization Comments-Primary : Overturned per fax 03/11/22. Admission to an inpatient levelof care requested is approved. -Collin Briggs RN. Placed in Denials 2021 folder. Historical Authorization Comments-Primary : Comment 1: Per call to p2p line [facility] scheduled p2p for 03/[address] Rojo (VITOR BROWN RN 03/10/2022 15:12) Comment 2: Email ER for reconsideration. Message to MD for p2p (VITOR BROWN RN 03/10/2022 13:43) Comment 3: rec fax re denial from [employer] 03/09/22 scanned to denials 2021 file and placed copy in tray on [employer] desk (GERSON WALKER, Hat Forming Machine Operator 03/10/2022 09:13) Comment 4: Per Availity IP denied (VITOR BROWN RN 03/09/2022 15:40) Comment 5: AUTH SUBMITTED VIA [employer]. CLINICAL FAXED VIA [facility] (Nhi Arteaga Rn-Utilization Review 03/06/2022 17:56) Kelin Woodward, Chief Operator - 03/11/2022 13:05 EDT Electronically signed by Raisa [facility] Conversion Metal Fitters [employer] Machinists Cerner at 11/19/2022 4:27 PM CDT documented in this encounter Plan of Treatment Not on file documented as of this encounter Visit Diagnoses Not on filedocumented in this encounter Care Teams Director Global Development Relationship Specialty Start Date End Date Hussein Brian MD [facility] [place] [place] [address] PCP - General General Internal Medicine 03/14/23 documented as of this encounter
--- OUTSIDE RECORDS SUMMARY | 2025-03-28 14:50 | XMS_ITS | Encounter Summary ---
Author Organization [employer] ([place], [place], [place], [place]) Address [address] [place] [address] Care Team Providers Care Direct Marketing Intern Name Role Phone Hussein Brian MD Primary Care Provider [phone] Encounter Details Date Type Department Care Team (Late st Contact Info) Description 04/03/2022 Transcribed Document [facility] Family Medicine [address] [place] [address] ProviderThomas MD [address] [place] [address] Social History Tobacco Use Types [...] Date Ryan rded Speak language other than Gambian at home Not on file 08/12/2023 Want [...] Conversion Note - Thomas Wall MD - 04/03/2022 3:32 PM CDT Stroke/Warfarin Instructions Entered On: 04/03/2022 15:35 EDT Performed On: 04/03/2022 15:32 EDT by FANI MORTON RN Stroke/Warfarin Instructions Stroke/TIA Discharge Ins : N/A Warfarin Discharge Ins : Open FANI MORTON RN - 04/03/2022 15:32 EDT Warfarin Discharge Instructions Indication for Warfarin Anticoagulation : Atrial fibrillation Warfarin Anticoagulation Disposition : Continuation of pre-hospital treatment Target INR : 2.0- 3.0 Last INR Result : INR: 2.4 (High), Reference Range: (0.9 - 1.2), 04/03/2022 11:35 AM Notify Provider of Signs/Symptoms of : Significant bleeding, Clot Warfarin Bridging Therapy Dose, Milligrams : 2 mg Warfarin Bridging Therapy Frequency : Daily FANI MORTON RN - 04/03/2022 15:32 EDT Education Topics: Anticoagulant Education Anticoagulant : Warfarin Compliance Issues *Q : Verbalizes understanding Take Warfarin as Instructed : Verbalizes understanding Monitoring Warfarin with INR Blood Draws : Verbalizes understanding Diet *Q : Verbalizes understanding Consistent Amount of Food with Vitamin K : Verbalizes understanding Continue Current Diet as Ordered : Verbalizes understanding Avoid Major Changes in Dietary Habits : Verbalizes understanding Adverse drug reactions/interactions *Q : Verbalizes understanding Diet/Medications can Affect INR Level : Verbalizes understanding Action/Interaction with Other Drugs : Verbalizes understanding FANI MORTON RN - 04/03/2022 15:32 EDT documented in this encounter Plan of Treatment Not on file documented as of this encounter Visit Diagnoses Not on filedocumented in this encounter Care Teams Direct Marketing Intern Relationship Specialty Start Date End Date Hussein Brian MD [address] [place] [address] PCP - General General Internal Medicine 03/14/23 documented as of this encounter
--- OUTSIDE RECORDS SUMMARY | 2025-03-28 14:50 | XMS_ITS | Encounter Summary ---
Author Organization [employer] ([place], [place], [place], [place]) Address [address] [place] [address] Care Team Providers Care Machine Slat Basket Maker Name Role Phone Hussein Brian MD Primary Care Provider [phone] Encounter Details Date Type Department Care Team (Late st Contact Info) Description 03/11/2022 Transcribed Document [facility] [place] [address] [place] [address] ProviderThomas MD [address] [place] [address] Social History Tobacco Use Types [...] Date Ryan rded Speak language other than Kuwaiti at home Not on file 08/12/2023 Want [...] Cerner Conversion Note - Historical ProviderMD - 03/11/2022 2:00 AM CDT Plant Sprayer Details Entered On: 03/11/2022 3:10 EDT Performed On: 03/11/2022 2:00 EDT by Lola Finn RN Order Details Order Detail : N/A Lift/Transfer : Independent Central Line Order Detail : No Arterial Line : No Patient Needs Meds Crushed/Liquid : No Lola Finn RN - 03/11/2022 3:10 EDT Electronically signed by Ulices Kline Conversion Washer And Capper Machine Operator Cerner at 11/19/2022 4:28 PM CDT documented in this encounter Plan of Treatment Not on file documented as of this encounter Visit Diagnoses Not on filedocumented in this encounter Care Teams Machine Slat Basket Maker Relationship Specialty Start Date End Date Hussein Brian MD [facility] [place] [place] [address] PCP - General General Internal Medicine 03/14/23 documented as of this encounter
--- OUTSIDE RECORDS SUMMARY | 2025-03-28 14:50 | XMS_ITS | Encounter Summary ---
Author Organization [employer] ([place], [place], [place], [place]) Address [address] [place] [address] Care Team Providers Care Air Battle Manager Name Role Phone Jodie Brian MD Primary Care Provider [phone] Encounter Details Date Type Department Care Team (Late st Contact Info) Description 03/12/2022 Transcribed Document [facility] [place] [address] [place] [address] ProviderThomas MD [address] [place] [address] Social History Tobacco Use Types [...] Date Ryan rded Speak language other than Andorran at home Not on file 08/12/2023 Want [...] Notes * Cerner Conversion Note - Thomas ProviderMD - 03/12/2022 8:51 AM CDT [facility] Entered On: 03/12/2022 8:53 EDT Performed On: 03/12/2022 8:51 EDT by Julieta Castillo, Medication Administration Professional Patient [facility] Provider Status : EST Other Established Provider Name : JODIE BRIAN [facility] Patient Phone Number : [phone] Patient Insurance Type : Medicare Source of Referral : Case management Location of Patient : Case management referral Primary Care Scheduled : Yes Primary Care Scheduled Type : Non [facility] Primary Care Provider Name : JODIE BRIAN Primary Care Appointment Date/Time : 03/22/2022 10:40 EDT Specialty Care Scheduled : Yes Specialty Type Scheduled1 : Cardiology, [facility] Cardiology, Gastroenterology [facility] Cardiology Provider Name : VY VINSON Cardiology Provider Name : Herb Galvez [facility] Cardiology Appointment Date/Time : 04/12/2022 14:15 EDT Cardiology Appointment Date/Time : 03/24/2022 14:45 EDT Gastroenterology Provider Name : MICHOACANO CID Gastroenterology Appointment Date/Time : 03/23/2022 9:00 EDT Qualify for Diabetes and/or Nutrition Referral : No Wound Care Appointment Made : No Why Patient Visited ED- Specialty spent : Other How Patient Arrived at ED : Other Primary Language : Andorran Patient Resource Center Comment : Patient needs follow up appointments. Appointment already scheduled with Dr. Galvez. Called offices and scheduled appointments with Dr. Brian, Dr. Morales, and Dr. Cid Follow Up Needed : No Julieta Castillo, Medication Administration Professional - 03/12/2022 8:51 EDT documented in this encounter Plan of Treatment Not on file documented as of this encounter Visit Diagnoses Not on filedocumented in this encounter Care Teams Air Battle Manager Relationship Specialty Start Date End Date Jodie Brian MD [address] [place] [address] PCP - General General Internal Medicine 03/14/23 documented as of this encounter
--- OUTSIDE RECORDS SUMMARY | 2025-03-28 14:50 | XMS_ITS | Encounter Summary ---
Author Organization [employer] ([place], [place], [place], [place]) Address [address] [place] [address] Care Team Providers Care Dice Maker Name Role Phone Hussein Brian MD Primary Care Provider [phone] Encounter Details Date Type Department Care Team (Late st Contact Info) Description 03/11/2022 Transcribed Document [facility] [place] Medicine [address] [place] [address] ProviderThomas MD [address] [place] [address] Social History Tobacco Use Types [...] Date Ryan rded Speak language other than Macedonian at home Not on file 08/12/2023 Want [...] Conversion Note - Historical Provider, - 03/11/2022 8:36 AM CDT Patient: DALLAS RADFORD Age: 76 [...] digoxin Labs (Last four charted values) WBC 4.0 [...] (MAR 09) 9.0 (MAR 08) PT H 19.2 (MAR 11) H 32.2 (MAR 10) H 38.4 (MAR 09) H 32.2 (MAR 08) INR H 1.9 (MAR 11) H 3.4 (MAR 10) H 4.1 (MAR 09) H 3.4 (MAR 08) AST 30 (MAR 05) ALT 26 (MAR 05) ALK P 92 (MAR 05) T Bili H 2.4 (MAR 05) PTN 6.8 (MAR 05) ALB 3.4 (MAR 05) Vitals Signs (last 24 hrs) Last Charted Minimum Maximum Temp 97.6 (MAR 11:39) 96.9 (MAR 10 16:36) 98.5 (MAR 10:) Apical HR 60 (MAR 10 20:29) 60 (MAR 10 20:29) H 107 (MAR 10) Mon HR 72 (MAR 11 05:39) 53 (MAR 11 02:20) 84 (MAR 10:00) Resp Rate 18 (MAR 11:39) 18 (MAR 10 16:36) 18 (MAR 10 16:36) SBP 102 (MAR 11 05:39) 95 (MAR 10 10:00) 107 (MAR 10 16:36) DBP 64 (MAR 11 05:39) L 53 (MAR 10:) 70 (MAR 10 16:36) MAP 70 (MAR 11:39) 66 (MAR 11 02:20) 79 (MAR 10 16:36) SpO2 95 (MAR 11 05:39) 94 (MAR 10 16:36) 95 (MAR 11 02:20) Date 03/05 03/06 03/07 03/08 03/09 03/10 03/11 INR 2.2 2.0 2.6 3.4 4.1 3.4 1.9 Dose 2mg 2 2 hold hold hold (2) Drug interactions: New Rx Amiodarone gtt ---> po - Major Increase in INR Protonix - moderate incr INR - dose just increased from daily ---> bid Plan: 1) INR is subtherapeutic @ 1.9 today -New Rx this admission for Amiodarone - converted to oral route loading dose 2) Give warfarin 2mg po today and begin Warfarin 1mg po daily on 03/12 and thereafter 3) Daily PT/INR 4) Hgb stable - follow 5) Rx to follow Thank You, Brody Reno [facility] beeper [phone] Electronically signed by [facility] Conversion Hog Trader Cerner at 11/19/2022 4:13 PM CDT documented in this encounter Plan of Treatment Not on file documented as of this encounter Visit Diagnoses Not on filedocumented in this encounter Care Teams Dice Maker Relationship Specialty Start Date End Date Hussein Brian MD [address] [place] [address] PCP - General General Internal Medicine 03/14/23 documented as of this encounter
--- OUTSIDE RECORDS SUMMARY | 2025-03-28 14:50 | XMS_ITS | Encounter Summary ---
Author Organization [facility] Address [address] [place] [id number] Care Team Providers Care Leave Coordinator Name Role Phone Alfredito Gauthier MD Primary Care Provider + Reason for Visit * Reason Onset Date Comments ORDER NEEDED FOR WOUND SWAB CULTURE 03/25/2025 Encounter Details Date Type Department Care Team (Late st Contact Info) Description 03/25/2025 Telephone [facility] FAMILY MEDICINE [address] [place] [address] Alfredito Gauthier MD [address] [place] [address] ORDER NEEDED FOR WOUND SWAB [...] 03/25/2025 11:55 AM EDT PHYSICAL THERAPIST FROM [facility] CALLED AND STATED THEY DID A SWAB ON THE WOUND AND WOULD LIKE DR GAUTHIER TO SEND AN ORDER FOR WOUND SWAB CULTURE SO THEY CAN MAKE SURE ANTIBIOTICS HE IS ON WILL TREAT INFECTION/ PLEASE FAX TO [phone] documented in this encounter Plan of Treatment Upcoming Encounters Date Type Department Care Team (Late st Contact Info) Description 04/02/2025 3:00 PM EDT Office Visit [facility] MEDICINE [address] [place] [address] Alfredito Gauthier MD [address] [place] [address] 06/24/2025 10:45 AM EST Office Visit [facility] [address] [place] [address] Alfredito Gauthier MD [address] [place] [address] documented as of this encounter Results * Culture, Routine - Swab, Leg, Left (03/26/2025 2:09 PM EDT) Swab Structure of left lower limb / Unknown Alfredito Gauthier MD MICROBIOLOGY - GENERAL O RDERABLES Final Result [facility] [address] [place] [address], documented in this encounter Visit Diagnoses Diagnosis Wound infection- Primary Posttraumatic wound infection not elsewhere classified documented in this encounter Care Teams Leave Coordinator Relationship Specialty Start Date End Date Alfredito Gauthier MD [address] [place] [address] PCP - General Family Medicine 05/24/24 documented as of this encounter
--- OUTSIDE RECORDS SUMMARY | 2025-03-28 14:50 | XMS_ITS | Encounter Summary ---
Author Organization [employer] ([place], [place], [place], [place]) Address [address] [place] [address] Care Team Providers Care Drug Room Clerk Name Role Phone Hussein Brian MD Primary Care Provider [phone] Encounter Details Date Type Department Care Team (Late st Contact Info) Description 03/12/2022 Transcribed Document [facility] [place] Medicine [address] [place] [address] ProviderThomas MD [address] [place] [address] Social History Tobacco Use [...] Date Ryan rded Speak language other than Irish at home Not on file 08/12/2023 [...] Conversion Note - Thomas ProviderMD - 03/12/2022 12:15 PM CDT Stroke/Warfarin Instructions Entered On: 03/12/2022 12:15 EDT Performed On: 03/12/2022 12:15 EDT by Marysol oCleman LPN-LVN-PATIENT CARE BEDSIDE Stroke/Warfarin Instructions Stroke/TIA Discharge Ins : Open Warfarin Discharge Ins : Open Marysol Coleman LPN-LVN-PATIENT CARE BEDSIDE - 03/12/2022 12:15 EDT Stroke/TIA Discharge Instructions Stroke/TIA Signs/Symptoms to Report Immediately : Sudden onset difficulty speaking, Sudden onset difficulty understanding speech, Sudden onset change in vision, Sudden onset weakness particulary on one side of the body, Sudden onset numbness/tingling, Sudden severe headache, Sudden dizziness or trouble with gait, Call 04-01-1: EMS activation is crucial My LDL Level: : LDL Level No qualifying data available. Marysol Coleman LPN-LVN-PATIENT CARE BEDSIDE - 03/12/2022 12:15 EDT Warfarin Discharge Instructions Indication for Warfarin Anticoagulation : Atrial fibrillation Last INR Result : INR: 1.5 (High), Reference Range: (0.9 - 1.2), 03/12/2022 5:55 AM Notify Provider of Signs/Symptoms of : Significant bleeding, Clot Marysol Coleman LPN-LVN-PATIENT CARE BEDSIDE - 03/12/2022 12:15 EDT documented in this encounter Plan of Treatment Not on file documented as of this encounter Visit Diagnoses Not on filedocumented in this encounter Care Teams Drug Room Clerk Relationship Specialty Start Date End Date Hussein Brian MD [facility] [place] [address] PCP - General General Internal Medicine 03/14/23 documented as of this encounter
--- OUTSIDE RECORDS SUMMARY | 2025-03-28 14:50 | XMS_ITS | Encounter Summary ---
Author Organization [employer] ([place], [place], [place], [place]) Address [address] [place] [address] Care Team Providers Care [employer] Officer Name Role Phone Hussein Brian MD Primary Care Provider [phone] Encounter Details Date Type Department Care Team (Late st Contact Info) Description 03/12/2022 Transcribed Document [facility] Family Medicine [address] [place] [address] ProviderThomas MD [address] [place] [address] Social History Tobacco Use Types [...] as of this encounter Miscellaneous Notes * Elizabethner Conversion Note - Historical Provider, - 03/12/2022 8:50 AM CDT Patient Education Materials Follows: GUIDELINES FOR A HEART HEALTHY DIET TO LOWER CHOLESTEROL AND/OR TRIGLYCERIDES A HEART HEALTHY DIET means eating a well balanced diet that is limited in cholesterol, fat, sodium, sugar and caffeine to control the risk factors that lead to heart disease. --Cholesterol intake in your diet should be limited to 300 Milligrams or less per day. Cholesterol is a white waxy substance that comes from our diet and is also made by our body. Foods that will raise the cholesterol in our blood are those that generally come from animal source --Triglycerides are another type of fat that build up in the bloodstream and may lead to blockage of blood vessels. Foods that will raise the level of triglycerides in our blood include those that come from animal or saturated fat and excessive intake of carbohydrates(sugar). --The amount of fat that we eat in our diet is just as important as what kind of fat that we eat. Fat intake should be no more than approximately 55 grams per day for females and 65-70 grams for males --Sodium may affect your blood pressure and/or cause excessive fluid to build up in the tissues of your body. It is recommended that you limit your sodium intake to 2,000 milligrams per day. The main intake of sodium in our diet comes from the salt that we add to our food at the table and in processed foods. --Caffeine is a stimulant that is found in such foods as coffee, tea, cola beverages and chocolate. Caffeine can speed up the heartbeat or may cause irregular heart beats. It is recommended that caffeine intake be limited in your diet The following guidelines will help you to reduce the cholesterol, triglycerides, fat and sodium in your diet: MILK AND DAIRY PRODUCTS Recommended serving-2 or more for adults and children 2-10 years, 3-4 servings for ages 11-24 CHOOSE milk products that contain 1% or less fat content. Good choices include skim milk, milk with 0-1% fat content, evaporated skim milk, cultured buttermilk made from skim milk, nonfat or low fat cultured yogurt or frozen yogurt and sugar free hot chocolate mixes made with cocoa and skim milk solids. Cheese is considered low in fat if it contains 5 grams of fat or less per ounce (natural or processed). Dry curd, skim or low fat cottage cheese is a good choice. Use fat free or low fat cream cheese or sour cream with moderation at the table and in cooking. AVOID 2% and whole milk, evaporated whole milk, churned buttermilk (butterflake), cheese containing more than 5 grams of fat per ounce, cottage cheese with 4 % fat content, regular cream cheese and sour cream. --1 Serving of milk is equal to one 8 ounce cup of milk, one 8 ounce cup of yogurt, one ounce of low fat cheese or ?? cup low fat cottage cheese. MEET, FISH AND POULTRY Recommended serving 6-9 ounces of cooked meat CHOOSE fish, chicken, turkey, gamez, veal, lean cuts of beef (round, sirloin, and loin), center cut pork (tenderloin, loin chops), wild game (rabbit, venison, pheasant, and duck without skin), shellfish, low fat luncheon meats (limit 1-2 servings per week because of the high sodium content), peanut butter (limit to 2 tablespoons once or twice per week). AVOID high fat meats such as fuller, sausage, country ham, luncheon meats, hot dogs, canned meats, Stephie sausage --Limit meat portions to no more than 6-9 ounces of cooked meat per day. --A 3 ounce portion of meats equals -A piece of cooked meat the size of a deck of cards -?? cup of flaked fish -A slice of lean meat, ?? inch thick and the size of a woman???s palm -A piece of meat that weighs approximately 4 ounces raw, will weigh about 3 ounces cooked -Buy ???choice?? or ???select?? grades of beef rather than ???prime?? . Trim off all the fat before cooking meat and choose to broil, bake, roast, grill or stir-woods rather than frying. -Remove poultry skin before cooking. -Shrimp and crayfish are high in cholesterol but low in total fat and saturated fat. These may be included in your diet in moderation. -Juices from cooked meats and poultry may be used if the fat is drained or skimmed off. This may be done by refrigerating the broth until the fat hardens and then removing it from the tip. The broth may be used to make gravies and flavor soups. -Organ meats are high in cholesterol but also a good source of iron and vitamins. A 3 ounce serving once a month may be included in your diet or you may also choose to substitute a 3 ounce portion for an egg occasionally. - When choosing dinners and entrees in the frozen food section of your grocery, select those that are made for low fat, low cholesterol, low sugar and limited sodium diets. EGGS LIMIT egg yolks to no more than 3-4 per week. An egg yolk has approximately 220 milligram of cholesterol.Low cholesterol egg substitute and egg whites may be eaten as desired in your diet. --Any eggs used in cooking or found in store bought foods should be counted as part of your egg allowance. The amount of egg yolk that you would get from baked items in a period of a week would be equal to about one egg. --In cooking, you may substitute ?? cup egg substitute or 2 egg whites for 1 egg in a recipe. --You may choose to make your own egg substitute by beating together 2 egg whites, 2 tablespoons of nonfat dry milk powder and a couple drops of yellow food coloring. This is equal to 1 egg. BREADS, CEREALS, AND PASTA Recommended Serving 6-11 per day CHOOSE white, wheat or rye breads, plain breadsticks, mohawk muffins, hamburger buns, plain bagels, plain cake doughnuts, yanci breads, baked flours or corn tortillas, crackers including rosmery, animal, saltine, oyster and matzo, snacks including unsalted pretzels, popcorn, baked tortilla chips or potato chips. Homemade breads (biscuits, muffins, cornbread, rolls, pancakes and mongolian toast) should be made with oils low in saturated fat, 1% or less fat milk, and egg whites or egg substitutes. Unsweetened dry and cooked cereals are good breakfast choices. All types of rice and pasta are allowed. Reduced sodium/low fat soups are preferred choices when choosing canned soups. AVOID sugar coated cereals, glazed or sugar coated doughnuts, breakfast pastries --1 serving is equal to 1 slice of bread, ?? hamburger bun, ?? cup nugget cereal, 1 cup dry/flaked cereal, ?? cup cooked cereal, ?? cup cooked rice or pasta, 1 cup low fat soup or ?? cup starchy vegetables. --Fiber in your diet is important and may help to reduce cholesterol levels. Whole grain breads and starches, dried beans and peas, fresh fruits and vegetables are excellent sources of fiber. --In the grocery store and bakery, carefully choose prepared products such as muffins, frozen mongolian toast and waffles, biscuits, croissants and other bread products. These can often have high fat content, so read the label carefully. --Many brands of unsalted top crackers and snack foods are available to help you control sodium in your diet. --Choose sauces for pasta carefully. Avoid creamy sauces such as pernell unless you have prepared it at home with allowed ingredients. Tomato based sauces are generally the best choice when eating out. --Canned soups, dry soup mixes, broth and bouillon cubes are very high in sodium content so always look for the low sodium or reduced sodium varieties. These are good to add when cooking rice, pastas, soups and vegetables to add flavor. VEGETABLES AND FRUITS Recommended serving 5 or more per day CHOOSE a wide variety of fresh vegetables and fruits in your diet. Vegetables and fruits are excellent sources of vitamins, minerals and fiber in our diet. They contain no cholesterol, are very low in fat, calories and sodium if you are careful about seasoning them during cooking. Fruits should be fresh, frozen or canned without sugar. AVOID vegetables that have been prepared with ham hocks, seasoned meats and fuller grease. Avoid creamed vegetables unless they have been prepared with low fat milk products and margarine. Coconut is high in saturated fat and should be avoided. --1 serving is equal to 1 medium size fresh fruit, ?? cup juice, ?? cup cooked or 1 cup raw vegetables. --Fruits contain simple sugar and may affect your triglyceride level. It is recommended that your fruit servings be limited to 3-4 servings per day. If you have diabetes, fruits should be limited to this amount and always be eaten with the meal. --Steaming vegetables helps to retain the vitamin and mineral content of vegetables. When you boil vegetables in water, you will lose some of the nutritional value of the food. --When seasoning try low sodium broths and bouillons, artificial fuller bits, small amounts of low saturated oil margarine or spices and herbs to perk up the flavor of your vegetables. --Fresh or frozen packaged vegetables are lower in sodium than the canned variety. FATS AND OILS Recommended serving-limit to no more than 5-8 per day depending on calorie needs CHOOSE vegetable oils and margarine that are low in saturated fat (no more than 2 grams of saturated fat per tablespoon) such as canola, safflower, sunflower or corn oil. Fat free or low fat salad dressings are good choices (they should contain no more than 1 gram of saturated fat per tablespoon) AVOID fuller grease, lard, high fat seasoning meats such as ham hocks and salt pork, vegetable shortening, blue cheese dressing and other creamy style dressing that may be high in total fat content and saturated fat, coconut and palm kernel oil. --1 serving is equal to 1 teaspoon margarine or vegetable oil, 2 teaspoons reduced fat margarine, 1 tablespoon salad dressing, 2 teaspoons mayonnaise, 1 tablespoon of seeds or nuts. ? avocado, 10 small or 6 large olives --Limit the intake of higher fat foods such as avocados and olives. Olives are also high in sodium content. ? avocado, 10 small or 5 large olives is considered a serving. --Phyllis oil and peanut oil are higher in monounsaturated fats, but also contain saturated fat. It is recommended these be used in specialty dishes and not as a routine cooking oils. Limited amounts of canola, safflower, sunflower or corn oil are better choices for preparation of foods on a daily basis. --Use fats and oils sparingly in your diet. There are many choices of fat free and low fat margarine that may be used in cooling and for use at the table. --If a margarine or fat is soft or liquid at room temperature, then it will be lower in saturated fat and be a better choice than one which is hard at room temperature. --Use low fat cooking sprays in preparing your food and cut back on the amount of fat you consume. --Always choose methods of cooking that will reduce the amount of fat you use. Baking, broiling, roasting, grilling,and stir frying will help reduce your fat intake. DESSERTS CHOOSE unsweetened low fat yogurt with fruit, frozen low fat yogurt, sherbet*, fat free ice cream*, unsweetened flavored gelatins, sugar free frozen popsicles and dessert bars, sanam food cake*, eliseo snaps*, reduced fat/low sugar varieties of cookies*, fruit (refer to the fruit and vegetable section) (* These dessert items should be limited to one serving per day) AVOID ice cream, rich desserts made with high fat ingredients such as sour cream, cream cheese, butter, whipping cream, chocolate and desserts with a high sugar content. --Chocolate may be eaten in moderation. For a chocolate craving, substitute cocoa powder for baking chocolate in your recipes. All fat has been removed from cocoa powder. --Homemade desserts made with appropriate recipe substitutions (margarine or oils low in saturated fat, milk with 1 % or less fat content, egg whites or egg substitutes, sugar substitute) are good choices in moderation. --On ingredient labels, words that end in -ose or -ol mean sugar. These will include sorbitol, mannitol,xylitol, fructose and dextrose and should be consumed in limited amounts. MISCELLANEOUS CHOOSE in moderation sugar free jellies and jams and sugar free syrup. Always use a sugar substitute in place of sugar. Any herbs or spices that do not contain salt are great for perking up the flavor of meats, pastas and vegetables. AVOID the use of salt other than small amounts in cooking. Taco sauces, soy sauce, steak sauce, pickles, ketchup, mustard and marinades are high sources of sodium in your diet. There are many varieties of low sodium or reduced sodium condiments available that may be used in the place of the higher sodium items BEVERAGES CHOOSE unsweetened beverages with limited caffeine content. Unsweetened coffee, tea, chocolate, and cola beverages contain caffeine which may speed up the beating of your heart or cause irregular heart beats. Try to limit caffeinated, sugar free beverages to 2 servings per day and anything more than this amount choose decaffeinated, sugar free beverages. A serving is 8 ounces. ALCOHOL If you choose to drink alcohol, always check with your doctor first. Alcohol may cause your triglycerides to increase. It may also interact with some of the medications you are taking and can cause adverse effects. If your doctor does approve the use of alcohol for you, limit the amount to 1-2 servings per day. The amounts listed below are equal to 1 serving and may be exchanged for a serving from the breads, cereals, and pasta group. 1 ounce gin, rum, vodka, whiskey 1 ?? ounces sweet or dessert wine 5 ounces beer 2 ?? ounces dry table wine If you have any questions after reading these guidelines for a heart healthy diet, please call the registered dietitians at [facility] at or . We will be happy to answer your questions or set up an appointment for individual counseling. . FLUID-RESTRICTED NUTRITION THERAPY What Counts as Fluid? Any beverage you drink ???Water ? Coffee ? Tea ? Soda pop ? Sports drinks ? Milk ? Liquid creamer ? Juice ? Fruit-flavored drinks, lemonade, punch ??? Juicy fruits or vegetables ? 1 cup juicy fruit/veg = ?? cup fluid ? Melons (watermelon, cantaloupe, honeydew, etc.) ? Berries (strawberries, blueberries, raspberries, blackberries, etc.) ? Tomatoes ? Cucumbers ? Nutrition supplements like Ensure or Boost ? Liquid medicine ? Alcohol ??? Fluids that are part of a food ? Soup ? Sauces ? Gravies ? Pudding ? Yogurt ? Salad dressing ? Syrup ??? Foods that will melt down to a liquid ? Gelatin ? Ice cream ? Frozen yogurt ? Sherbet ? Milkshakes/smoothies ? Popsicles ? Ice cubes ? 1 cup ice cubes/chips = ?? cup fluid melted Helpful Hints ??? Fluids you use to take medications must also be counted in your fluid restriction. ??? Keep a fluid log. ? Record your daily fluid intake. ? Make sure you know how much fluid your cups, bowls, mugs, and glasses hold. -Each time you eat or drink fluids, pour water in the same amount into an empty container that can hold the same amount of fluids you are allowed daily. This may help you track of how much fluid you are taking in throughout the day. ??? Weigh yourself daily. A rapid change in weight can be the result of fluid gain or loss. Fluid Measurements ??? 1 ounce (oz) = 30 mls (milliliter) = 2 tablespoons ??? 1 cup = 8 oz = 240 mls ??? 4 cups = 32 oz = 1 quart = 960 mls ??? 1000 milliliters = 1 liter = 32 ounces =4 cups ( 24 hour restriction) 2000 milliliters = 2 Liters =67 ounces= 8 ? cups ??? 48 oz = 6 cups = 1 ?? quarts = 1440 ml ??? 64 oz = 8 cups = 2 quarts = ?? gallon = 1920 ml Tips to reduce thirst and alleviate dry mouth ??? --Keep hard candies, mints and gum available. -Some people find sugar-free varieties to be more thirst quenching. --[place] your teeth. --Chill mouthwash and gargle for a fresh feeling. --Rinse your mouth with water (no swallowing). --Prepare a measured amount of ice cubes to suck on. --Flavor your drink with lemon juice, if desired. This will count as some of your fluid amount, but will last longer and be more refreshing than a similar amount of fluid to drink. --Add lemon or cucumber to your water to help quench your thirst --Suck on a lemon slice. --Freeze or partially freeze pieces of fruit for a refreshing treat: like lemon wedges, orange sections, peaches, berries, or grapes. --Try chilled applesauce. --Breathe through your nose and not your mouth. --Avoid mid-day heat. Cardiovascular Atrial Fibrillation Atrial fibrillation is a type of heartbeat that is irregular or fast. If you have this condition, your heart beats without any order. This makes it hard for your heart to pump blood in a normal way. Atrial fibrillation may come and go, or it may become a long-lasting problem. If this condition is not treated, it can put you at higher risk for stroke, heart failure, and other heart problems. What are the causes? This condition may be caused by diseases that damage the heart. They include: ??? High blood pressure. ??? Heart failure. ??? Heart valve disease. ??? Heart surgery. Other causes include: ??? Diabetes. ??? Thyroid disease. ??? Being overweight. ??? Kidney disease. Sometimes the cause is not known. What increases the risk? You are more likely to develop this condition if: ??? You are older. ??? You smoke. ??? You exercise often and very hard. ??? You have a family history of this condition. ??? You are a man. ??? You use drugs. ??? You drink a lot of alcohol. ??? You have lung conditions, such as emphysema, pneumonia, or COPD. ??? You have sleep apnea. What are the signs or symptoms? Common symptoms of this condition include: ??? A feeling that your heart is beating very fast. ??? Chest pain or discomfort. ??? Feeling short of breath. ??? Suddenly feeling light-headed or weak. ??? Getting tired easily during activity. ??? Fainting. ??? Sweating. In some cases, there are no symptoms. How is this treated? Treatment for this condition depends on underlying conditions and how you feel when you have atrial fibrillation. They include: ??? Medicines to: ? Prevent blood clots. ? Treat heart rate or heart rhythm problems. ??? Using devices, such as a pacemaker, to correct heart rhythm problems. ??? Doing surgery to remove the part of the heart that sends bad signals. ??? Closing an area where clots can form in the heart (left atrial appendage). In some cases, your doctor will treat other underlying conditions. Follow these instructions at home: Medicines ??? Take yebs-mdo-swkohjy and prescription medicines only as told by your doctor. ??? Do not take any new medicines without first talking to your doctor. ??? If you are taking blood thinners: ? Talk with your doctor before you take any medicines that have aspirin or NSAIDs, such as ibuprofen, in them. ? Take your medicine exactly as told by your doctor. Take it at the same time each day. ? Avoid activities that could hurt or bruise you. Follow instructions about how to prevent falls. ? Wear a bracelet that says you are taking blood thinners. Or, carry a card that lists what medicines you take. Lifestyle ??? Do not use any products that have nicotine or tobacco in them. These include cigarettes, e-cigarettes, and chewing tobacco. If you need help quitting, ask your doctor. ??? Eat heart-healthy foods. Talk with your doctor about the right eating plan for you. ??? Exercise regularly as told by your doctor. ??? Do not drink alcohol. ??? Lose weight if you are overweight. ??? Do not use drugs, including cannabis. General instructions ??? If you have a condition that causes breathing to stop for a short period of time (apnea), treat it as told by your doctor. ??? Keep a healthy weight. Do not use diet pills unless your doctor says they are safe for you. Diet pills may make heart problems worse. ??? Keep all follow-up visits as told by your doctor. This is important. Contact a doctor if: ??? You notice a change in the speed, rhythm, or strength of your heartbeat. ??? You are taking a blood-thinning medicine and you get more bruising. ??? You get tired more easily when you move or exercise. ??? You have a sudden change in weight. Get help right away if: ??? You have pain in your chest or your belly (abdomen). ??? You have trouble breathing. ??? You have side effects of blood thinners, such as blood in your vomit, poop (stool), or pee (urine), or bleeding that cannot stop. ??? You have any signs of a stroke. BE FAST is an easy way to remember the main warning signs: ? B - Balance. Signs are dizziness, sudden trouble walking, or loss of balance. ? E - Eyes. Signs are trouble seeing or a change in how you see. ? F - Face. Signs are sudden weakness or loss of feeling in the face, or the face or eyelid drooping on one side. ? A - Arms. Signs are weakness or loss of feeling in an arm. This happens suddenly and usually on one side of the body. ? S - Speech. Signs are sudden trouble speaking, slurred speech, or trouble understanding what people say. ? T - Time. Time to call emergency services. Write down what time symptoms started. ??? You have other signs of a stroke, such as: ? A sudden, very bad headache with no known cause. ? Feeling like you may vomit (nausea). ? Vomiting. ? A seizure. These symptoms may be an emergency. Do not wait to see if the symptoms will go away. Get medical help right away. Call your local emergency services (911 in the [place] Do not drive yourself to the hospital. Summary ??? Atrial fibrillation is a type of heartbeat that is irregular or fast. ??? You are at higher risk of this condition if you smoke, are older, have diabetes, or are overweight. ??? Follow your doctor's instructions about medicines, diet, exercise, and follow-up visits. ??? Get help right away if you have signs or symptoms of a stroke. ??? Get help right away if you cannot catch your breath, or you have chest pain or discomfort. This information is not intended to replace advice given to you by your health care provider. Make sure you discuss any questions you have with your health care provider. Document Revised: 01/09/2020 Document Reviewed: 01/09/2020 [employer] Patient Education ? 2021 [employer] Managing Your Hypertension Hypertension, also called high blood pressure, is when the force of the blood pressing against the gilbert of the arteries is too strong. Arteries are blood vessels that carry blood from your heart throughout your body. Hypertension forces the heart to work harder to pump blood and may cause the arteries to become narrow or stiff. Understanding blood pressure readings Your personal target blood pressure may vary depending on your medical conditions, your age, and other factors. A blood pressure reading includes a higher number over a lower number. Ideally, your blood pressure should be below 120/80. You should know that: ??? The first, or top, number is called the systolic pressure. It is a measure of the pressure in your arteries as your heart beats. ??? The second, or bottom number, is called the diastolic pressure. It is a measure of the pressure in your arteries as the heart relaxes. Blood pressure is classified into four stages. Based on your blood pressure reading, your health care provider may use the following stages to determine what type of treatment you need, if any. Systolic pressure and diastolic pressure are measured in a unit called mmHg. Normal ??? Systolic pressure: below 120. ??? Diastolic pressure: below 80. Elevated ??? Systolic pressure: 120?129. ??? Diastolic pressure: below 80. Hypertension stage 1 ??? Systolic pressure: 130?139. ??? Diastolic pressure: 80?89. Hypertension stage 2 ??? Systolic pressure: 140 or above. ??? Diastolic pressure: 90 or above. How can this condition affect me? Managing your hypertension is an important responsibility. Over time, hypertension can damage the arteries and decrease blood flow to important parts of the body, including the brain, heart, and kidneys. Having untreated or uncontrolled hypertension can lead to: ??? A heart attack. ??? A stroke. ??? A weakened blood vessel (aneurysm). ??? Heart failure. ??? Kidney damage. ??? Eye damage. ??? Metabolic syndrome. ??? Memory and concentration problems. ??? Vascular dementia. What actions can I take to manage this condition? Hypertension can be managed by making lifestyle changes and possibly by taking medicines. Your health care provider will help you make a plan to bring your blood pressure within a normal range. Nutrition ??? Eat a diet that is high in fiber and potassium, and low in salt (sodium), added sugar, and fat. An example eating plan is called the Dietary Approaches to Stop Hypertension (DASH) diet. To eat this way: ? Eat plenty of fresh fruits and vegetables. Try to fill one-half of your plate at each meal with fruits and vegetables. ? Eat whole grains, such as whole-wheat pasta, brown rice, or whole-grain bread. Fill about one-fourth of your plate with whole grains. ? Eat low-fat dairy products. ? Avoid fatty cuts of meat, processed or cured meats, and poultry with skin. Fill about one-fourth of your plate with lean proteins such as fish, chicken without skin, beans, eggs, and tofu. ? Avoid pre-made and processed foods. These tend to be higher in sodium, added sugar, and fat. ??? Reduce your daily sodium intake. Most people with hypertension should eat less than 1,500 mg of sodium a day. Lifestyle ??? Work with your health care provider to maintain a healthy body weight or to lose weight. Ask what an ideal weight is for you. ??? Get at least 30 minutes of exercise that causes your heart to beat faster (aerobic exercise) most days of the week. Activities may include walking, swimming, or biking. ??? Include exercise to strengthen your muscles (resistance exercise), such as weight lifting, as part of your weekly exercise routine. Try to do these types of exercises for 30 minutes at least 3 days a week. ??? Do not use any products that contain nicotine or tobacco, such as cigarettes, e-cigarettes, and chewing tobacco. If you need help quitting, ask your health care provider. ??? Control any long-term (chronic) conditions you have, such as high cholesterol or diabetes. ??? Identify your sources of stress and find ways to manage stress. This may include meditation, deep breathing, or making time for fun activities. Alcohol use ??? Do not drink alcohol if: ? Your health care provider tells you not to drink. ? You are , may be , or are planning to become . ??? If you drink alcohol: ? Limit how much you use to: ? 0?1 drink a day for women. ? 0?2 drinks a day for men. ? Be aware of how much alcohol is in your drink. In the [place] one drink equals one 12 oz bottle of beer (355 mL), one 5 oz glass of wine (148 mL), or one 1? oz glass of hard liquor (44 mL). Medicines Your health care provider may prescribe medicine if lifestyle changes are not enough to get your blood pressure under control and if: ??? Your systolic blood pressure is 130 or higher. ??? Your diastolic blood pressure is 80 or higher. Take medicines only as told by your health care provider. Follow the directions carefully. Blood pressure medicines must be taken as told by your health care provider. The medicine does not work as well when you skip doses. Skipping doses also puts you at risk for problems. Monitoring Before you monitor your blood pressure: ??? Do not smoke, drink caffeinated beverages, or exercise within 30 minutes before taking a measurement. ??? Use the bathroom and empty your bladder (urinate). ??? Sit quietly for at least 5 minutes before taking measurements. Monitor your blood pressure at home as told by your health care provider. To do this: ??? Sit with your back straight and supported. ??? Place your feet flat on the floor. Do not cross your legs. ??? Support your arm on a flat surface, such as a table. Make sure your upper arm is at heart level. ??? Each time you measure, take two or three readings one minute apart and record the results. You may also need to have your blood pressure checked regularly by your health care provider. General information ??? Talk with your health care provider about your diet, exercise habits, and other lifestyle factors that may be contributing to hypertension. ??? Review all the medicines you take with your health care provider because there may be side effects or interactions. ??? Keep all visits as told by your health care provider. Your health care provider can help you create and adjust your plan for managing your high blood pressure. Where to find more information ??? National Heart, Lung, and Blood [place]: www.nhlbi.nih.gov ??? [place] [employer]: www.heart.org Contact a health care provider if: ??? You think you are having a reaction to medicines you have taken. ??? You have repeated (recurrent) headaches. ??? You feel dizzy. ??? You have swelling in your ankles. ??? You have trouble with your vision. Get help right away if: ??? You develop a severe headache or confusion. ??? You have unusual weakness or numbness, or you feel faint. ??? You have severe pain in your chest or abdomen. ??? You vomit repeatedly. ??? You have trouble breathing. These symptoms may represent a serious problem that is an emergency. Do not wait to see if the symptoms will go away. Get medical help right away. Call your local emergency services (911 in the [place] Do not drive yourself to the hospital. Summary ??? Hypertension is when the force of blood pumping through your arteries is too strong. If this condition is not controlled, it may put you at risk for serious complications. ??? Your personal target blood pressure may vary depending on your medical conditions, your age, and other factors. For most people, a normal blood pressure is less than 120/80. ??? Hypertension is managed by lifestyle changes, medicines, or both. ??? Lifestyle changes to help manage hypertension include losing weight, eating a healthy, low-sodium diet, exercising more, stopping smoking, and limiting alcohol. This information is not intended to replace advice given to you by your health care provider. Make sure you discuss any questions you have with your health care provider. Document Revised: 08/22/2020 Document Reviewed: 06/17/2020 [employer] Patient Education ? 2021 [employer]. ENT Dysphagia Dysphagia is trouble swallowing. This condition occurs when solids and liquids stick in a person's throat on the way down to the stomach, or when food takes longer to get to the stomach than usual. You may have problems swallowing food, liquids, or both. You may also have pain while trying to swallow. It may take you more time and effort to swallow something. What are the causes? This condition may be caused by: ??? Muscle problems. These may make it difficult for you to move food and liquids through the esophagus, which is the tube that connects your mouth to your stomach. ??? Blockages. You may have ulcers, scar tissue, or inflammation that blocks the normal passage of food and liquids. Causes of these problems include: ? Acid reflux from your stomach into your esophagus (gastroesophageal reflux). ? Infections. ? Radiation treatment for cancer. ? Medicines taken without enough fluids to wash them down into your stomach. ??? Stroke. This can affect the nerves and make it difficult to swallow. ??? Nerve problems. These prevent signals from being sent to the muscles of your esophagus to squeeze (contract) and move what you swallow down to your stomach. ??? Globus pharyngeus. This is a common problem that involves a feeling like something is stuck in your throat or a sense of trouble with swallowing, even though nothing is wrong with the swallowing passages. ??? Certain conditions, such as cerebral palsy or Parkinson's disease. What are the signs or symptoms? Common symptoms of this condition include: ??? A feeling that solids or liquids are stuck in your throat on the way down to the stomach. ??? Pain while swallowing. ??? Coughing or gagging while trying to swallow. Other symptoms include: ??? Food moving back from your stomach to your mouth (regurgitation). ??? Noises coming from your throat. ??? Chest discomfort when swallowing. ??? A feeling of fullness when swallowing. ??? Drooling, especially when the throat is blocked. ??? Heartburn. How is this diagnosed? This condition may be diagnosed by: ??? Barium swallow X-ray. In this test, you will swallow a white liquid that sticks to the inside of your esophagus. X-ray images are then taken. ??? Endoscopy. In this test, a flexible telescope is inserted down your throat to look at your esophagus and your stomach. ??? CT scans or an MRI. How is this treated? Treatment for dysphagia depends on the cause of this condition: ??? If the dysphagia is caused by acid reflux or infection, medicines may be used. These may include antibiotics or heartburn medicines. ??? If the dysphagia is caused by problems with the muscles, swallowing therapy may be used to help you strengthen your swallowing muscles. You may have to do specific exercises to strengthen the muscles or stretch them. ??? If the dysphagia is caused by a blockage or mass, procedures to remove the blockage may be done. You may need surgery and a feeding tube. You may need to make diet changes. Ask your health care provider for specific instructions. Follow these instructions at home: Medicines ??? Take iyfp-cdy-ownyqws and prescription medicines only as told by your health care provider. ??? If you were prescribed an antibiotic medicine, take it as told by your health care provider. Do not stop taking the antibiotic even if you start to feel better. Eating and drinking ??? Make any diet changes as told by your health care provider. ??? Work with a diet and nutrition assistant (dietitian) to create an eating plan that will help you get the nutrients you need in order to stay healthy. ??? Eat soft foods that are easier to swallow. ??? Cut your food into small pieces and eat slowly. Take small bites. ??? Eat and drink only when you are sitting upright. ??? Do not drink alcohol or caffeine. If you need help quitting, ask your health care provider. General instructions ??? Check your weight every day to make sure you are not losing weight. ??? Do not use any products that contain nicotine or tobacco. These products include cigarettes, chewing tobacco, and vaping devices, such as e-cigarettes. If you need help quitting, ask your health care provider. ??? Keep all follow-up visits. This is important. Contact a health care provider if: ??? You lose weight because you cannot swallow. ??? You cough when you drink liquids. ??? You cough up partially digested food. Get help right away if: ??? You cannot swallow your saliva. ??? You have shortness of breath, a fever, or both. ??? Your voice is hoarse and you have trouble swallowing. These symptoms may represent a serious problem that is an emergency. Do not wait to see if the symptoms will go away. Get medical help right away. Call your local emergency services (911 in the [place] Do not drive yourself to the hospital. Summary ??? Dysphagia is trouble swallowing. This condition occurs when solids and liquids stick in a person's throat on the way down to the stomach. You may cough or gag while trying to swallow. ??? Dysphagia has many possible causes. ??? Treatment for dysphagia depends on the cause of the condition. ??? Keep all follow-up visits. This is important. This information is not intended to replace advice given to you by your health care provider. Make sure you discuss any questions you have with your health care provider. Document Revised: 03/07/2021 Document Reviewed: 03/07/2021 [employer] Patient Education ? 2021 [employer] Emergency Medicine Electrical Cardioversion Electrical cardioversion is the delivery of a jolt of electricity to restore a normal rhythm to the heart. A rhythm that is too fast or is not regular keeps the heart from pumping well. In this procedure, sticky patches or metal paddles are placed on the chest to deliver electricity to the heart from a device. This procedure may be done in an emergency if: ??? There is low or no blood pressure as a result of the heart rhythm. ??? Normal rhythm must be restored as fast as possible to protect the brain and heart from further damage. ??? It may save a life. This may also be a scheduled procedure for irregular or fast heart rhythms that are not immediately life-threatening. Tell a health care provider about: ??? Any allergies you have. ??? All medicines you are taking, including vitamins, herbs, eye drops, creams, and wgfl-qew-kdiezlj medicines. ??? Any problems you or family members have had with anesthetic medicines. ??? Any blood disorders you have. ??? Any surgeries you have had. ??? Any medical conditions you have. ??? Whether you are or may be . What are the risks? Generally, this is a safe procedure. However, problems may occur, including: ??? Allergic reactions to medicines. ??? A blood clot that breaks free and travels to other parts of your body. ??? The possible return of an abnormal heart rhythm within hours or days after the procedure. ??? Your heart stopping (cardiac arrest). This is rare. What happens before the procedure? Medicines ??? Your health care provider may have you start taking: ? Blood-thinning medicines (anticoagulants) so your blood does not clot as easily. ? Medicines to help stabilize your heart rate and rhythm. ??? Ask your health care provider about: ? Changing or stopping your regular medicines. This is especially important if you are taking diabetes medicines or blood thinners. ? Taking medicines such as aspirin and ibuprofen. These medicines can thin your blood. Do not take these medicines unless your health care provider tells you to take them. ? Taking qcjn-jnm-ecztako medicines, vitamins, herbs, and supplements. General instructions ??? Follow instructions from your health care provider about eating or drinking restrictions. ??? Plan to have someone take you home from the hospital or clinic. ??? If you will be going home right after the procedure, plan to have someone with you for 24 hours. ??? Ask your health care provider what steps will be taken to help prevent infection. These may include washing your skin with a germ-killing soap. What happens during the procedure? An IV will be inserted into one of your veins. ??? Sticky patches (electrodes) or metal paddles may be placed on your chest. ??? You will be given a medicine to help you relax (sedative). ??? An electrical shock will be delivered. The procedure may vary among health care providers and hospitals. What can I expect after the procedure? Your blood pressure, heart rate, breathing rate, and blood oxygen level will be monitored until you leave the hospital or clinic. ??? Your heart rhythm will be watched to make sure it does not change. ??? You may have some redness on the skin where the shocks were given. Follow these instructions at home: ??? Do not drive for 24 hours if you were given a sedative during your procedure. ??? Take aain-hlb-cihowra and prescription medicines only as told by your health care provider. ??? Ask your health care provider how to check your pulse. Check it often. ??? Rest for 48 hours after the procedure or as told by your health care provider. ??? Avoid or limit your caffeine use as told by your health care provider. ??? Keep all follow-up visits as told by your health care provider. This is important. Contact a health care provider if: ??? You feel like your heart is beating too quickly or your pulse is not regular. ??? You have a serious muscle cramp that does not go away. Get help right away if: ??? You have discomfort in your chest. ??? You are dizzy or you feel faint. ??? You have trouble breathing or you are short of breath. ??? Your speech is slurred. ??? You have trouble moving an arm or leg on one side of your body. ??? Your fingers or toes turn cold or blue. Summary ??? Electrical cardioversion is the delivery of a jolt of electricity to restore a normal rhythm to the heart. ??? This procedure may be done right away in an emergency or may be a scheduled procedure if the condition is not an emergency. ??? Generally, this is a safe procedure. ??? After the procedure, check your pulse often as told by your health care provider. This information is not intended to replace advice given to you by your health care provider. Make sure you discuss any questions you have with your health care provider. Document Revised: 02/18/2020 Document Reviewed: 02/18/2020 [employer] Patient Education ? 2021 [employer] Gastroenterology Hypokalemia Hypokalemia means that the amount of potassium in the blood is lower than normal. Potassium is a chemical (electrolyte) that helps regulate the amount of fluid in the body. It also stimulates muscle tightening (contraction) and helps nerves work properly. Normally, most of the body's potassium is inside cells, and only a very small amount is in the blood. Because the amount in the blood is so small, minor changes to potassium levels in the blood can be life-threatening. What are the causes? This condition may be caused by: ??? Antibiotic medicine. ??? Diarrhea or vomiting. Taking too much of a medicine that helps you have a bowel movement (laxative) can cause diarrhea and lead to hypokalemia. ??? Chronic kidney disease (CKD). ??? Medicines that help the body get rid of excess fluid (diuretics). ??? Eating disorders, such as bulimia. ??? Low magnesium levels in the body. ??? Sweating a lot. What are the signs or symptoms? Symptoms of this condition include: ??? Weakness. ??? Constipation. ??? Fatigue. ??? Muscle cramps. ??? Mental confusion. ??? Skipped heartbeats or irregular heartbeat (palpitations). ??? Tingling or numbness. How is this diagnosed? This condition is diagnosed with a blood test. How is this treated? This condition may be treated by: ??? Taking potassium supplements by mouth. ??? Adjusting the medicines that you take. ??? Eating more foods that contain a lot of potassium. If your potassium level is very low, you may need to get potassium through an IV and be monitored in the hospital. Follow these instructions at home: ??? Take elxp-pbq-lrpxdiv and prescription medicines only as told by your health care provider. This includes vitamins and supplements. ??? Eat a healthy diet. A healthy diet includes fresh fruits and vegetables, whole grains, healthy fats, and lean proteins. ??? If instructed, eat more foods that contain a lot of potassium. This includes: ? Nuts, such as peanuts and pistachios. ? Seeds, such as sunflower seeds and pumpkin seeds. ? Peas, lentils, and urena beans. ? Whole grain and bran cereals and breads. ? Fresh fruits and vegetables, such as apricots, avocado, bananas, cantaloupe, kiwi, oranges, tomatoes, asparagus, and potatoes. ? [place] juice. ? Tomato juice. ? Red meats. ? Yogurt. ??? Keep all follow-up visits as told by your health care provider. This is important. Contact a health care provider if you: ??? Have weakness that gets worse. ??? Feel your heart pounding or racing. ??? Vomit. ??? Have diarrhea. ??? Have diabetes (diabetes mellitus) and you have trouble keeping your blood sugar (glucose) in your target range. Get help right away if you: ??? Have chest pain. ??? Have shortness of breath. ??? Have vomiting or diarrhea that lasts for more than 2 days. ??? Faint. Summary ??? Hypokalemia means that the amount of potassium in the blood is lower than normal. ??? This condition is diagnosed with a blood test. ??? Hypokalemia may be treated by taking potassium supplements, adjusting the medicines that you take, or eating more foods that are high in potassium. ??? If your potassium level is very low, you may need to get potassium through an IV and be monitored in the hospital. This information is not intended to replace advice given to you by your health care provider. Make sure you discuss any questions you have with your health care provider. Document Revised: 02/27/2019 Document Reviewed: 02/28/2019 [employer] Patient Education ? 2021 [employer] Full Liquid Diet A full liquid diet refers to fluids and foods that are liquid or will become liquid at room temperature. This diet should only be used for a short period of time to help you recover from illness or surgery. Your health care provider or dietitian will help you determine when it is safe to eat regular foods. What are tips for following this plan? Reading food labels ??? Check food labels of nutrition shakes for the amount of protein. Look for nutrition shakes that have at least 8?10 grams of protein in each serving. ??? Look for drinks, such as milks and juices, that are fortified or enriched. This means that vitamins and minerals have been added. Shopping ??? Buy premade nutritional shakes to keep on hand. ??? To vary your choices, buy different flavors of milks and shakes. Meal planning ??? Choose flavors and foods that you enjoy. ??? To make sure you get enough energy from food (calories): ? Eat 3 full liquid meals each day. Have a liquid snack between each meal. ? Drink 6?8 ounces (177?237 ml) of a nutrition supplement shake with meals or as snacks. ? Add protein powder, powdered milk, milk, or yogurt to shakes to increase the amount of protein. ??? Drink at least one serving a day of citrus fruit juice or fruit juice that has vitamin C added. General guidelines ??? Before starting the full-liquid diet, check with your health care provider to know what foods you should avoid. These may include full-fat or high-fiber liquids. ??? You may have any liquid or food that becomes a liquid at room temperature. The food is considered a liquid if it can be poured off a spoon at room temperature. ??? Do not drink alcohol unless approved by your health care provider. ??? This diet gives you most of the nutrients that you need for energy, but you may not get enough of certain vitamins, minerals, and fiber. Make sure to talk to your health care provider or dietitian about: ? How many calories you need to eat get day. ? How much fluid you should have each day. ? Taking a multivitamin or a nutritional supplement. What foods are allowed? The items listed may not be a complete list. Talk with your dietitian about what dietary choices are best for you. Grains Thin hot cereal, such as cream of wheat. Soft-cooked pasta or rice pur?ed in soup. Vegetables Pulp-free tomato or vegetable juice. Vegetables pur?ed in soup. Fruits Fruit juice without pulp. Strained fruit pur?es (seeds and skins removed). Meats and other protein foods Beef, chicken, and fish broths. Powdered protein supplements. Dairy Milk and milk-based beverages, including milk shakes and instant breakfast mixes. Smooth yogurt. Pure?d cottage cheese. Beverages Water. Coffee and tea (caffeinated or decaffeinated). [place]. Liquid nutritional supplements. Soft drinks. Nondairy milks, such as almond, coconut, rice, or soy milk. Fats and oils Melted margarine and butter. Cream. [place]ola, almond, avocado, corn, grapeseed, sunflower, and sesame oils. Gravy. Sweets and desserts Custard. Pudding. Flavored gelatin. Smooth ice cream (without nuts or candy pieces). Sherbet. Popsicles. English ice. Pudding pops. Seasoning and other foods Salt and pepper. Spices. [place] powder. Vinegar. Ketchup. Yellow mustard. Smooth sauces, such as [place]ise, cheese sauce, or white sauce. Soy sauce. Cream soups. Strained soups. Syrup. Honey. Jelly (without fruit pieces). What foods are not allowed? The items listed may not be a complete list. Talk with your dietitian about what dietary choices are best for you. Grains Whole grains. Pasta. Rice. Cold cereal. Bread. Crackers. Vegetables All whole fresh, frozen, or canned vegetables. Fruits All whole fresh, frozen, or canned fruits. Meats and other protein foods All cuts of meat, poultry, and fish. Eggs. Tofu and soy protein. Nuts and nut butters. Lunch meat. Sausage. Dairy Hard cheese. Yogurt with fruit chunks. Fats and oils Coconut oil. Palm oil. Lard. Cold butter. Sweets and desserts Ice cream or other frozen desserts that have any solids in them or on top, such as nuts, chocolate chips, and pieces of cookies. Cakes. Cookies. Candy. Seasoning and other foods Stone-ground mustards. Soups with chunks or pieces. Summary ??? A full liquid diet refers to fluids and foods that are liquid or will become liquid at room temperature. ??? This diet should only be used for a short period of time to help you recover from illness or surgery. Ask your health care provider or dietitian when it is safe for you to eat regular foods. ??? To make sure you get enough calories and nutrients, eat 3 meals each day with snacks between. Drink premade nutrition supplement shakes or add protein powder to homemade shakes. Take a vitamin and mineral supplement as told by your health care provider. This information is not intended to replace advice given to you by your health care provider. Make sure you discuss any questions you have with your health care provider. Document Revised: 10/14/2018 Document Reviewed: 08/31/2017 [employer] Patient Education ? 2020 [employer] Neurology Preventing Atrial Fibrillation-Related Stroke Atrial fibrillation (AFib) is a common type of irregular or rapid heartbeat (arrhythmia) that increases the risk for a stroke. In AFib, the top portions of the heart (atria) beat out of sync with the lower portions of the heart. When the muscles of the atria tighten in an uncoordinated way (fibrillating), blood can pool in the heart and form clots. A stroke can be caused by a blood clot that travels to the brain. This type of stroke is preventable. Understanding AFib and knowing how to properly manage it can prevent a stroke from happening. How can this condition affect me? Having AFib can increase your risk for a stroke. A stroke is a medical emergency. It can lead to brain damage and can sometimes be life-threatening. A stroke can be a life-changing event. What can increase my risk? Having AFib can increase your risk of stroke. Other risk factors include: ??? Having heart failure. ??? Having high blood pressure. ??? Being older than age 65. ??? Having diabetes. ??? Having a history of vascular disease, such as heart attack or stroke. ??? Being female. ??? Having a history of transient ischemic attacks (TIAs). This is sometimes called a ministroke. ??? Having a family history of stroke. Risk factors that you can change include: ??? Smoking. ??? High cholesterol. ??? Being inactive (sedentary lifestyle). ??? Eating a diet that is high in fat, cholesterol, and salt. What actions can I take to prevent this? Maintain a healthy weight. ??? Get regular exercise. This can include at least 40 minutes of moderate exercise on most days, such as walking at a fast pace, or vigorous exercise, such as jogging. ??? Get evaluated for obstructive sleep apnea. Talk to your health care provider about getting a sleep evaluation if you snore a lot or have excessive sleepiness. ??? Manage any other medical conditions you have, such as hypertension or diabetes. Medicines ??? Take ojyk-qyb-qlmrqcx and prescription medicines only as told by your health care provider. ??? If your health care provider prescribed an anticoagulant, take it exactly as told. Taking too much blood-thinning medicine can cause bleeding. Taking too little may not give you the protection that you need against stroke and other problems. Eating and drinking ??? Eat healthy foods, including at least 5 servings of fruits and vegetables a day. ??? Do not drink alcohol. ??? Do not drink beverages that have caffeine, such as coffee, soda, and tea. ??? Follow instructions about your diet as told by your health care provider. Questions to ask your health care provider Contact a health care provider if: ??? You notice a change in the rate, rhythm, or strength of your heartbeat. ??? You feel dizzy. ??? You are taking an anticoagulant and you have more bruises than usual. ??? You get tired more easily when you exercise or do similar activities. Get help right away if: ??? You have chest pain. ??? You have trouble breathing. ??? You have pain in your abdomen. ??? You experience unusual sweating or weakness. ??? You take anticoagulants and you: ? Have severe headaches or confusion. ? Have blood in your vomit, bowel movement, or urine. ? Have bleeding that will not stop. ? Fall or injure your head. ??? You have any symptoms of a stroke. BE FAST is an easy way to remember the main warning signs of a stroke: ? B - Balance. Signs are dizziness, trouble walking, or loss of balance. ? E - Eyes. Signs are trouble seeing or a sudden change in vision. ? F - Face. Signs are sudden weakness or numbness of the face, or the face or eyelid drooping on one side. ? A - Arms. Signs are weakness or numbness in an arm. This happens suddenly and usually on one side of the body. ? S - Speech. Signs are sudden trouble speaking, slurred speech, or trouble understanding what people say. ? T - Time. Time to call emergency services. Write down what time symptoms started. ??? You have other signs of a stroke, such as: ? A sudden, severe headache with no known cause. ? Nausea or vomiting. ? Seizure. These symptoms may represent a serious problem that is an emergency. Do not wait to see if the symptoms will go away. Get medical help right away. Call your local emergency services (911 in the [place] Do not drive yourself to the hospital. Summary ??? Having atrial fibrillation (AFib) can increase the risk for a stroke. Talk with your health care provider about what symptoms to watch for. ??? AFib-related stroke is preventable. Proper management of AFib can prevent you from having a stroke. ??? Talk with your health care provider about whether anticoagulant medicine is right for you. ??? Learn the warning signs of a stroke and remember BE FAST. This information is not intended to replace advice given to you by your health care provider. Make sure you discuss any questions you have with your health care provider. Document Revised: 03/26/2021 Document Reviewed: 03/26/2021 [employer] Patient Education ? 2020 [employer]. Pharmacology Warfarin Information Warfarin is a blood thinner (anticoagulant). Anticoagulants help to prevent the formation of blood clots. They also help to stop the growth of blood clots. Your health care provider will monitor the anticoagulation effect of warfarin closely and will adjust your medicine as needed. Who should use warfarin? Warfarin is prescribed for people who have blood clots, or who are at risk for developing harmful blood clots, such as people who: ??? Have mechanical heart valves. ??? Have irregular heart rhythms (atrial fibrillation). ??? Have certain clotting disorders. ??? Have had blood clots in the past or are currently receiving treatment for them. This includes people who have had a stroke, blood clots in the lungs (pulmonary embolism, or PE), or blood clots in the legs (deep vein thrombosis, or DVT). How is warfarin taken? Warfarin is taken by mouth (orally). Warfarin tablets come in different strengths. The strength is printed on the tablet and each strength is a different color. If you get a new prescription filled and the color of your tablet is different than usual, tell your pharmacist or health care provider immediately. ??? Take warfarin exactly as told by your health care provider. Doing this helps you avoid bleeding or blood clots that could result in serious injury, pain, or disability. ??? Take your medicine at the same time every day. If you forget to take your dose of warfarin, take it as soon as you remember that day. If you do not remember on that day, do not take an extra dose the next day. ??? Contact your health care provider if you miss or take an extra dose. Do not change your dosage on your own to make up for missed or extra doses. What blood tests do I need while taking warfarin? Warfarin is a medicine that needs to be closely monitored. It is very important to keep all lab visits and follow-up visits with your health care provider. While taking warfarin, you will need to have blood tests regularly to measure your blood clotting time. These tests are called prothrombin tests (PT)or international normalized ratio (INR) tests. These tests can be done with a finger stick or a blood draw. What does the INR test result mean? The PT test results will be reported as the INR. The INR tells your health care provider whether your dosage of warfarin needs to be changed. The longer it takes your blood to clot, the higher the INR. Your health care provider will tell you your target INR range. If your INR is not in your target range, your health care provider may adjust your dosage. ??? If your INR is above your target range, there is a risk of bleeding. Your dosage of warfarin may need to be decreased. ??? If your INR is below your target range, there is a risk of clotting. Your dosage of warfarin may need to be increased. How often is the INR test needed? When you first start warfarin, you will usually have your INR checked every few days. ??? You may need to have INR tests done more than once a week until the health care provider determines the correct dosage of warfarin. ??? After you have reached your target INR, your INR will be tested less often. However, you will need to have your INR checked at least once every 4?6 weeks for the entire time you are taking warfarin. ??? Some people may qualify for a home monitoring program to check their INR. Ask your health care provider if you qualify for this program. What are the side effects of warfarin? Too much warfarin can cause bleeding or hemorrhage in any part of the body, such as: ??? Bleeding from the gums. ??? Unexplained bruises or bruises that get larger. ??? Blood in the urine or stools (feces) that are bloody or dark in color. ??? Bleeding in the brain (hemorrhagic stroke). ??? A nosebleed that is not easily stopped. ??? Coughing up or vomiting blood. Warfarin use may also cause: ??? Skin rash or irritations. ??? Nausea that does not go away. ??? Severe pain in the back or joints. ??? Painful toes that turn blue or purple (purple toe syndrome). ??? Painful ulcers that do not go away (skin necrosis). What precautions do I need to take while using warfarin? Wear or carry identification that says that you are taking warfarin. ??? Make sure that all health care providers, including your dentist, know you are taking warfarin. ??? If you need surgery, talk with your health care provider about whether you should stop taking warfarin before your surgery. ??? Avoid situations that cause bleeding. You may bleed more easily while taking warfarin. To limit bleeding, take the following actions: ? Use a softer toothbrush. ? Floss with waxed floss, not unwaxed floss. ? Shave with an electric razor, not with a blade. ? Limit your use of sharp objects. ? Avoid activities that put you at risk for injury, such as contact sports. What do I need to know about warfarin and or ? Warfarin is not recommended during the first trimester of due to an increased risk of defects. In certain situations, a woman may take warfarin after her first trimester of . ??? If you are taking warfarin and you become or plan to become , contact your health care provider right away. ??? If you plan to breastfeed while taking warfarin, talk with your health care provider first. What do I need to know about warfarin and alcohol or drug use? Avoid drinking alcohol, or limit alcohol intake to no more than 1 drink a day for non women and 2 drinks a day for men. ? Be aware of how much alcohol is in your drink. In the [place] one drink equals one 12 oz bottle of beer (355 mL), one 5 oz glass of wine (148 mL), or one 1? oz glass of hard liquor (44 mL). ? If you change the amount of alcohol that you drink, tell your health care provider. Your warfarin dosage may need to be changed. ??? Avoid tobacco products, such as cigarettes, e-cigarettes, and chewing tobacco. If you need help quitting, ask your health care provider. ? If you change the amount of nicotine or tobacco that you use, tell your health care provider. Your warfarin dosage may need to be changed. ??? Avoid street drugs while taking warfarin. The effects of street drugs on warfarin are not known. What do I need to know about warfarin and other medicines or supplements? Many prescription and vxin-fiu-mrxxjex medicines can interfere with warfarin. Talk with your health care provider or your pharmacist before starting or stopping any new medicines. This includes bgua-alc-dhiwdgk vitamins, dietary supplements, herbal medicines, and pain medicines. Your warfarin dosage may need to be adjusted. ??? Some common zvlv-ndf-yemqydd medicines that may increase the risk of bleeding while taking warfarin include: ? Aspirin. ? NSAIDs, such as ibuprofen or naproxen. ? Vitamin E. ? Fish oils. What do I need to know about warfarin and my diet? It is important to maintain a normal, balanced diet while taking warfarin. Avoid major changes in your diet. If you are going to change your diet, talk with your health care provider before making changes. ??? Your health care provider may recommend that you work with a dietitian. ??? Vitamin K decreases the effect of warfarin, and it is found in many foods. Eat a consistent amount of foods that contain vitamin K. For example, you may decide to eat 2 vitamin K-containing foods each day. Contact a health care provider if: ??? You miss a dose. ??? You take an extra dose. ??? You plan to have any kind of surgery or procedure. ??? You are unable to take your medicine due to nausea, vomiting, or diarrhea. ??? You have any major changes in your diet or you plan to make any major changes in your diet. ??? You start or stop any wiqo-aji-ilsaukj medicine, prescription medicine, herbal supplement, or dietary supplement. ??? You become , plan to become , or think you may be . ??? You have menstrual periods that are heavier than usual. ??? You have unusual bruising. Get help right away if you: ??? Have signs of an allergic reaction, such as: ? Swelling of the lips, face, tongue, mouth, or throat. ? Rash or itchy, red, swollen areas of skin (hives). ? Trouble breathing. ? Chest tightness. ??? Fall or have an accident, especially if you hit your head. ??? Have signs that your blood is too thin, such as: ? Blood in your urine. Your urine may look reddish, pinkish, or tea-colored. ? Blood in your stool. Your stool may be black or bright red. documented in this encounter Plan of Treatment Not on file documented as of this encounter Visit Diagnoses Not on filedocumented in this encounter Care Teams [employer] Relationship Specialty Start Date End Date Hussein Brian MD [facility] [place] [address] PCP - General General Internal Medicine 03/14/23 documented as of this encounter
--- OUTSIDE RECORDS SUMMARY | 2025-03-28 14:50 | XMS_ITS | Encounter Summary ---
Author Organization [employer] ([place], [place], [place], [place]) Address [address] [place] [address] Care Team Providers Care Gore Seamer Name Role Phone Hussein Brian MD Primary Care Provider [phone] Encounter Details Date Type Department Care Team (Late st Contact Info) Description 04/02/2022 Transcribed Document [facility] [place] [facility] [address] [place] [address] ProviderThomas MD [address] [place] [address] Social History Tobacco Use Types [...] Date Ryan rded Speak language other than Macanese at home Not on file 08/12/2023 Want [...] Conversion Note - Historical ProviderMD - 04/02/2022 3:10 AM CDT Admission History, Adult Entered On: 04/02/2022 3:12 EDT Performed On: 04/02/2022 3:10 EDT by Melonie Rogers RN-PATIENT CARE BEDSIDE NON-EXEMPT Advance Directive Patient has Advance Directive *Q : No, patient refuses Advance Directive information Melonie Rogers RN-PATIENT CARE BEDSIDE NON-EXEMPT - 04/02/2022 3:10 EDT Anesthesia/Transfusion History Family History of Anesthesia Reaction : No prior transfusion(s) Blood Transfusion Acceptable to Patient : Yes Transfusion History : Prior anesthesia without reaction Family History of Anesthesia Reaction : Unknown Melonie Rogers RN-PATIENT CARE BEDSIDE NON-EXEMPT - 04/02/2022 3:10 EDT Anticipated Discharge Needs Discharge To, Anticipated : Home Anticipated Discharge Needs at This Time : None Melonie Rogers RN-PATIENT CARE BEDSIDE NON-EXEMPT - 04/02/2022 3:10 EDT Functional Assessment Living Situation : Home Patient Lives With : Alone Persons Assisting Patient at Home : Alone Current Daily Living Assistance : None Sensory Deficits : Other: glasses Mobility Assistance Prior to Admission : Independent SPENCE Hx Falls Immediate/Within 3 Months : No Current Home Treatments : None Melonie Rogers RN-PATIENT CARE BEDSIDE NON-EXEMPT - 04/02/2022 3:10 EDT documented in this encounter Plan of Treatment Not on file documented as of this encounter Visit Diagnoses Not on filedocumented in this encounter Care Teams Gore Seamer Relationship Specialty Start Date End Date Hussein Brian MD [facility] [place] [address] [place] [address] PCP - General General Internal Medicine 03/14/23 documented as of this encounter
--- OUTSIDE RECORDS SUMMARY | 2025-03-28 14:50 | XMS_ITS | Encounter Summary ---
Author Organization [employer] ([place], [place], [place], [place]) Address [address] [place] [address] Care Team Providers Care C Wpf Developer Name Role Phone Hussein Brian MD Primary Care Provider [phone] Encounter Details Date Type Department Care Team (Late st Contact Info) Description 04/03/2022 Transcribed Document [facility] [place] Family Medicine [address] [place] [address] ProviderThomas MD [address] [place] [address] Social History Tobacco Use Types [...] Date Ryan rded Speak language other than Bahamian at home Not on file 08/12/2023 Want [...] Marvel Conversion Note - Historical Provider, - 04/03/2022 12:47 PM CDT Patient: DALLAS RADFORD Age: 76 years Sex: Male : 1945 Associated Diagnoses: None Author: AC MERA MD-CAR Subjective Chief complaint nad. Health Status Allergies: Allergic Reactions (Selected) Severity Not Documented Digoxin- No reactions were documented., Allergies (1) Active Reaction digoxin None Documented Current medications: (Selected) Inpatient Medications Ordered Coumadin: 2 mg, Oral, Daily Dulcolax Laxative: 5 mg, Oral, Daily, PRN: Constipation DuoNeb 0.5 mg-2.5 mg/3 mL inhalation solution: 3 mL, Nebulized Inhalation, RT_Q6H, PRN: Shortness of Breath Flomax: 0.4 mg, Oral, Daily Lovenox: 100 mg, SubCutaneous, [id number] MiraLax: 17 Gram, Oral, Daily, PRN: Constipation Normal Saline Flush: 10 mL, IV Push, Q12H Normal Saline Flush: 10 mL, IV Push, See Comment, PRN: IV Use Phenergan: 6.25 mg, IntraVENous, Q6H, PRN: Nausea Protonix: 40 mg, Oral, Daily Tylenol: 650 mg, Oral, Q4H, PRN: Fever Zofran: 4 mg, IV Push, Q4H, PRN: Nausea acetaminophen: 650 mg, Oral, Q6H, PRN: Pain (Mild 1-3) amiodarone injection 450 mg + Dextrose 5% in Water intravenous solution 250 mL: 34 mL/Hr, IntraVENous amiodarone: 200 mg, Oral, BID atorvastatin: 40 mg, Oral, Daily cholecalciferol: 1,000 Units, Oral, Daily fentaNYL: 25 mcg, IV Push, 1-Time, PRN: Pain (Severe 7-10) fentaNYL: 25 mcg, IV Push, Q10Min, PRN: Pain (Moderate 4-6) melatonin: 3 mg, Oral, At Bedtime, PRN: Insomnia metoprolol tartrate: 25 mg, Oral, BID oxyCODONE: 5 mg, Oral, 1-Time, PRN: Pain (Moderate 4-6) Prescriptions Prescribed Metoprolol Tartrate 25 mg oral tablet: 1 Tab, Oral, BID, 180 Tab, 0 Refill(s) amiodarone 200 mg oral tablet: 1 Tab, Oral, TID, 90 Tab, 0 Refill(s) Documented Medications Documented Bumex: 1 mg, Daily, PRN: swelling, 0 Refill(s) Coumadin 1 mg oral tablet: 1 Tab, Oral, Daily, 0 Refill(s) Flomax 0.4 mg oral capsule: 1 Cap, Oral, Daily, 0 Refill(s) Tylenol 8 Hour 650 mg oral tablet, extended release: 1 Tab, Oral, Q6H, PRN: Pain (Mild 1-3), 0 Refill(s) atorvastatin 40 mg oral tablet: 1 Tab, Oral, Daily, 0 Refill(s) cholecalciferol 25 mcg (1000 intl units) oral tablet: 1 Tab, Oral, Daily, 30 Tab, 0 Refill(s), Home Medications (8) Active amiodarone 200 mg oral tablet 200 mg = 1 Tab, Oral, TID atorvastatin 40 mg oral tablet 40 mg = 1 Tab, Oral, Daily Bumex 1 mg, PRN, Daily cholecalciferol 25 mcg (1000 intl units) oral tablet 25 mcg = 1 Tab, Oral, Daily Coumadin 1 mg oral tablet 1 mg = 1 Tab, Oral, Daily Flomax 0.4 mg oral capsule 0.4 mg = 1 Cap, Oral, Daily Metoprolol Tartrate 25 mg oral tablet 25 mg = 1 Tab, Oral, BID Tylenol 8 Hour 650 mg oral tablet, extended release 650 mg = 1 Tab, PRN, Oral, Q6H , Medications (22) Active Scheduled: (9) #NaCl 0.9% *FLUSH* inj 10 mL 10 mL, IV Push, Q12H amiodarone 200 mg tab 200 mg 1 Tab, Oral, BID atorvastatin 40 mg tab 40 mg 1 Tab, Oral, Daily cholecalciferol 1,000 unit tab 1,000 Units 1 Tab, Oral, Daily enoxaparin 100 mg/1 mL inj 100 mg 1 mL, SubCutaneous, [id number] metoprolol tartrate 25 mg tab 25 mg 1 Tab, Oral, BID pantoprazole EC 40 mg tab 40 mg 1 Tab, Oral, Daily tamsulosin CR 0.4 mg cap 0.4 mg 1 Cap, Oral, Daily warfarin 2 mg tab 2 mg 1 Tab, Oral, Daily Continuous: (1) amiodarone 450 mg + Dextrose 5% in Water 250 mL 250 mL, IntraVENous, 34 mL/Hr PRN: (12) #NaCl 0.9% *FLUSH* inj 10 mL 10 mL, IV Push, See Comment acetaminophen 325 mg tab 650 mg 2 Tab, Oral, Q6H acetaminophen 325 mg tab 650 mg 2 Tab, Oral, Q4H albuterol-ipratropium inh 3 mL 3 mL, Nebulized Inhalation, RT_Q6H bisacodyl EC 5 mg tab 5 mg 1 Tab, Oral, Daily fentaNYL 100 mcg/2 mL inj 25 mcg 0.5 mL, IV Push, Q10Min fentaNYL 100 mcg/2 mL inj 25 mcg 0.5 mL, IV Push, 1-Time melatonin 3 mg tab 3 mg 1 Tab, Oral, At Bedtime ondansetron 4 mg/2 mL inj 4 mg 2 mL, IV Push, Q4H oxyCODONE 5 mg tab 5 mg 1 Tab, Oral, 1-Time polyethylene glycol 3350 pwd 17 g pkt 17 Gram 1 Packet, Oral, Daily promethazine 25 mg/1 mL inj 6.25 mg 0.25 mL, IntraVENous, Q6H Problem list: Medical Afib / SNOMED CT 17761841 / Confirmed Hip pain, right / SNOMED CT 07875964 / Confirmed At risk for sleep apnea / IMO 88925103 / Confirmed Persistent atrial fibrillation / SNOMED CT 2784550416 / Confirmed, Active Problems (6) Afib At risk for sleep apnea Hip pain, right HLD (hyperlipidemia) HTN (hypertension) Persistent atrial fibrillation Objective Intake and Output 24 hour intake, 24 hour output VS/Measurements Vitals Signs (last 24 hrs) Last Charted Minimum Maximum Temp 98 (APR 03 05:37) 97.6 (APR 02 23:21) 98.1 (APR 02 20:41) Apical HR 95 (APR 03 10:47) 89 (APR 03 10:47) 99 (APR 02 14:02) Mon HR 94 (APR 03 10:45) 78 (APR 03 03:00) 106 (APR 02 17:50) Resp Rate 18 (APR 03 10:45) 18 (APR 02 17:50) 18 (APR 02 17:50) SBP 117 (APR 03 10:45) 104 (APR 03 03:00) 132 (APR 02 14:35) DBP 70 (APR 03 10:45) 61 (APR 02 23:21) 81 (APR 02 14:35) MAP 86 (APR 03 10:45) 73 (APR 02 23:21) 96 (APR 02 14:35) SpO2 96 (APR 03 10:45) 96 (APR 03 10:45) 98 (APR 02 20:41) Results Review General: Alert and oriented. Eye: Pupils are [...] deficits. Psychiatric: Cooperative, Appropriate mood & affect. APR 03 06:16 140 111 15 / H 128 3.5 23 0.90 \ APR 03 06:16 \ L 9.1 / 5.0 165 / L 27.5 \ Telemetry/ECG I personally reviewed the last 24 hour telemetry that shows atrial fibrillation Cardiac echo Cardiac Markers (Current Encounter/Past 24 Hours) No Cardiac Marker Results Found (Past 24 Hours) No Radiology Results Found Impression and Plan IMPRESSION: Long standing persistent AF with RVR CHADSVASC score 4 (age, CHF, HTN) ?Tachycardia mediated cardiomyopathy, NICMP LVEF 40% HTN HLP Hypokalemia PLAN; 04/03/2022 Patient wants to go home even though his K is 3.5. His INR being 2.4 it is reasonable. Follow-up with Dr Morales as an outpatient and discharged on amiodarone 200 x 3 times a day and metoprolol 25 mg twice a day Patient had PVI/ablation 04/01/2022. Converted to atrial fibrillation RVR afterwards and we put him on Amiodarone drip along with PO. This AM he remains in atrial fib with RVR. INR 1.9, continue Lovenox, Plan is DCCV today. We have asked [facility] to admit for medical management. documented in this encounter Plan of Treatment Not on file documented as of this encounter Visit Diagnoses Not on filedocumented in this encounter Care Teams C Wpf Developer Relationship Specialty Start Date End Date Hussein Brian MD [address] [place] [id number] PCP - General General Internal Medicine 03/14/23 documented as of this encounter
--- OUTSIDE RECORDS SUMMARY | 2025-03-28 14:50 | XMS_ITS | Encounter Summary ---
Author Organization [employer] ([place], [place], [place], [place]) Address [address] [place] [address] Care Team Providers Care Maintenance Department Technician Name Role Phone Hussein Brian MD Primary Care Provider [phone] Encounter Details Date Type Department Care Team (Late st Contact Info) Description 03/12/2022 Transcribed Document [facility] [place] [address] [place] [address] ProviderThomas MD [address] [place] [address] Social History Tobacco Use Types [...] Date Ryan rded Speak language other than [place]orese at home Not on file 08/12/2023 Want [...] Marvel Conversion Note - Historical Provider, - 03/12/2022 11:10 AM CDT Patient: DALLAS RADFORD Age: 76 years Sex: Male : 1945 Associated Diagnoses: None Author: VY TORRES MD-CAR Subjective NAD Health Status Allergies: Allergic Reactions (Selected) Severity Not Documented Digoxin- No reactions were documented., Allergies (1) Active Reaction digoxin None Documented Current medications: (Selected) Inpatient Medications Ordered Coumadin: 1 mg, Oral, Daily Flomax: 0.4 mg, Oral, Daily Melatonin: 5 [...] injectable solution: 10 mL, IV Push, Q8H Prescriptions Prescribed amiodarone 200 mg oral tablet: See Instructions, 2 Tab Oral BID 1 Day(s), then 1 tab BID x 7 days, then 1 tab daily thereafter, 1 Each, 0 Refill(s) Documented Medications Documented Coumadin 1 mg oral tablet: 1 Tab, Oral, Daily, 0 Refill(s) Flomax 0.4 mg oral capsule: 1 Cap, Oral, Daily, 0 Refill(s) Metoprolol Tartrate 100 mg oral tablet: 1 Tab, Oral, BID, 0 Refill(s) Protonix 40 mg oral delayed release tablet: 1 Tab, Oral, BID, 0 Refill(s) Tylenol 8 Hour 650 mg oral tablet, extended release: 1 Tab, Oral, Q6H, PRN: Pain (Mild 1-3), 0 Refill(s) atorvastatin 40 mg oral tablet: 1 Tab, Oral, Daily, 0 Refill(s) cholecalciferol 25 mcg (1000 intl units) oral tablet: 1 Tab, Oral, Daily, 30 Tab, 0 Refill(s) imipramine 25 mg oral tablet: 2 Tab, Oral, At Bedtime, 0 Refill(s), Home Medications (9) Active amiodarone 200 mg oral tablet See Instructions atorvastatin 40 mg oral tablet 40 mg = 1 Tab, Oral, Daily cholecalciferol 25 mcg (1000 intl units) oral tablet 25 mcg = 1 Tab, Oral, Daily Coumadin 1 mg oral tablet 1 mg = 1 Tab, Oral, Daily Flomax 0.4 mg oral capsule 0.4 mg = 1 Cap, Oral, Daily imipramine 25 mg oral tablet 50 mg = 2 Tab, Oral, At Bedtime Metoprolol Tartrate 100 mg oral tablet 100 mg = 1 Tab, Oral, BID Protonix 40 mg oral delayed release tablet 40 mg = 1 Tab, Oral, BID Tylenol 8 Hour 650 mg oral tablet, extended release 650 mg = 1 Tab, PRN, Oral, Q6H , Medications (19) Active Scheduled: (11) #NaCl 0.9% [...] tab 1 mg 1 Tab, Oral, Daily Continuous: (0) PRN: (8) acetaminophen 325 mg [...] list: All Problems Afib / SNOMED CT 33830677 / Confirmed Hip pain, right / SNOMED CT 38893080 / Confirmed At risk for sleep apnea / IMO 34888379 / Confirmed, Active Problems (3) Afib At risk for sleep apnea Hip pain, right Objective Intake and Output 24 hour intake, 24 hour output VS/Measurements Vitals Signs (last 24 hrs) Last Charted Minimum Maximum Temp L 96.7 (MAR 12 10:30) L 96.7 (MAR 12 10:30) 98 (MAR 11 20:30) Apical HR 71 (MAR 12 09:02) 71 (MAR 12 09:02) 82 (MAR 11 20:24) Mon HR 71 (MAR 12 10:30) 71 (MAR 12 10:30) 84 (MAR 11 13:58) Resp Rate 16 (MAR 12 06:00) 16 (MAR 12 02:30) 18 (MAR 11 13:58) SBP 99 (MAR 12 10:30) 97 (MAR 11 13:58) 108 (MAR 12 09:02) DBP 62 (MAR 12 10:30) 61 (MAR 11 13:58) 67 (MAR 12 06:00) MAP 74 (MAR 12 10:30) 71 (MAR 11 13:58) 79 (MAR 12 06:00) SpO2 98 (MAR 12 10:30) 96 (MAR 11 13:58) 98 (MAR 12 10:30) Results Review Telemetry - AF General: Alert [...] Psychiatric: Cooperative, Appropriate mood & affect. MAR 12 05:55 136 106 15 / H 115 3.6 23 1.00 \ MAR 12 05:55 \ L 11.7 / 4.2 165 / L 33.4 \ Telemetry/ECG I personally reviewed the last [...] LVEF 40% HTN HLP Hypokalemia Dysphagia PLAN; 03/12/2022 Patient not working well with physical therapy according to documentation. Long discussion with patient about the need for him to be working and walking with physical therapy. He needs to be stronger to under go ablation. Will replace Potassium and Magnesium today. AF ablation scheduled as outpatient, continue warfarin and amiodarone. 03/11/2022 Long discussion with patient. It is [...] K>4. Will follow. Electronically signed by Raisa, [facility] Conversion Robot Technician Cerner at 11/19/2022 4:04 PM CDT documented in this encounter Plan of Treatment Not on file documented as of this encounter Visit Diagnoses Not on filedocumented in this encounter Care Teams Maintenance Department Technician Relationship Specialty Start Date End Date Hussein Brian MD [address] [place] [address] PCP - General General Internal Medicine 03/14/23 documented as of this encounter
--- OUTSIDE RECORDS SUMMARY | 2025-03-28 14:50 | XMS_ITS | Encounter Summary ---
Author Organization [employer] ([place], [place], [place], [place]) Address [address] [place] [address] Care Team Providers Care Wet Pan Operator Name Role Phone Hussein Brian MD Primary Care Provider [phone] Encounter Details Date Type Department Care Team (Late st Contact Info) Description 03/12/2022 Transcribed Document [facility] [place] Family Medicine [address] [place] [address] ProviderThomas MD [address] [place] [address] Social History Tobacco Use [...] Conversion Note - Historical Provider, - 03/12/2022 5:00 AM CDT Chart Check - Review Order Profile Entered On: 03/12/2022 4:13 EDT Performed On: 03/12/2022 5:00 EDT by Joslyn Spann Lpn Chart Check Power[employer] Initiated/Discontinued as Appropriate : Yes All Active Orders Reviewed : Yes Joslyn Spann Lpn - 03/12/2022 4:13 EDT Electronically signed by Raisa [facility] Conversion Speaker Mounter Marvel at 11/19/2022 4:05 PM CDT documented in this encounter Plan of Treatment Not on file documented as of this encounter Visit Diagnoses Not on filedocumented in this encounter Care Teams Wet Pan Operator Relationship Specialty Start Date End Date Hussein Brian MD [address] [place] [address] PCP - General General Internal Medicine 03/14/23 documented as of this encounter
--- OUTSIDE RECORDS SUMMARY | 2025-03-28 14:50 | XMS_ITS | Clinical Summary ---
Author Organization [facility] Address [address] [place] [address] Care Team Providers Care Wind Project Manager Name Role Phone Hussein Brian MD Primary Care Provider [phone] Allergies Active Allergy Reactions Criticality Noted Date [...] Vaccine s (1 - Tdap) 01/06/2022 01/05/2022 [id number] Vaccine (2 - 20 24-25 season) 2024 [...] ORDERABLES Final Re sult [facility] [address] [place] [phone] from Last 3 Months or Most Recently Relevant to Health Maintenance Insurance [facility] MEDICARE Care Teams Wind Project Manager Relationship Specialty Start Date End Date Hussein Brian MD [address] [address] PCP - General 07/27/22
--- OUTSIDE RECORDS SUMMARY | 2025-03-28 14:50 | XMS_ITS | Encounter Summary ---
Author Organization [employer] ([place], [place], [place], [place]) Address [address] [place] [address] Care Team Providers Care [employer] Science Teacher Name Role Phone Hussein Brian MD Primary Care Provider [phone] Encounter Details Date Type Department Care Team (Late st Contact Info) Description 03/12/2022 Transcribed Document [facility] [place] [address] [place] [address] ProviderThomas MD [address] [place] [address] Social History Tobacco Use Types [...] Date Ryan rded Speak language other than Venezuelan at home Not on file 08/12/2023 Want [...] Conversion Note - Thomas Wall MD - 03/12/2022 12:17 PM CDT [facility] [address] [place] [address] LESLIE GRAY :1945 Visit Time:03/05/2022 Your Visit Summary Your Care Team Admitting Physician - HAKEEM BARONE DO Attending Physician - MIKE PORTER MD Primary Care Physician - HUSSEIN BRIAN (REF)MD-INT Referring Physician - DANA, SELF REFERRED Your Diagnosis Afib These Are Your Goals Patient Discharge Goal Patient Discharge Goal: Inpatient rehabilitation facility Discharge Vitals Temperature 35.9 ??C Heart Rate (Monitored) 71 Blood Pressure 99/62 What to do next Follow-Up Appointments Follow Up with VY TORRES When 04/12/2022 02:15 PM EDT Comments EP follow up Appointment has been made Bring discharge instructions with you Where: [address] [place] [address]- Follow Up with SAI TAFOYA When 03/24/2022 02:45 PM EDT Comments CARDIOLOGY appt made, Bring discharge instructions with you Where: [address] [place] [address] [place] [address]- [phone] Follow Up with Jamar Cid MD When 03/23/2022 09:00 AM EDT Comments GI follow up Appointment has been made Bring discharge instructions with you Where: [address] [facility] [address] [place], [place] [phone] Follow Up with HUSSEIN BRIAN When 03/22/2022 10:40 AM EDT Comments PCP follow up Appointment has been made Bring discharge instructions with you Where: [address] [place] [address] [place] [address]- Business (1) Warfarin Instructions Indication for Warfarin Anticoagulation: Atrial fibrillation Notify Provider of Signs/Symptoms of: Significant bleeding, Clot Medications What How Much When Instructions Next Dose amiodarone (amiodarone 200 mg oral tablet) See instructions 2 Tab Oral BID 1 Day(s), then 1 tab BID x 7 days, then 1 tab daily thereafter Pickup at [facility] imipramine (imipramine 25 mg oral tablet) 2 Tablet(s) Oral At Bedtime pantoprazole (Protonix 40 mg oral delayed release tablet) 1 Tablet(s) Oral Two Times A Day warfarin (Coumadin 1 mg oral tablet) 1 Tablet(s) Oral Every Day acetaminophen (Tylenol 8 Hour 650 mg oral tablet, extended release) 1 Tablet(s) Oral Every 6 Hours as needed for Pain (Mild 1-3) atorvastatin (atorvastatin 40 mg oral tablet) 1 Tablet(s) Oral Every Day cholecalciferol (cholecalciferol 25 mcg (1000 intl units) oral tablet) 1 Tablet(s) Oral Every Day metoprolol (Metoprolol Tartrate 100 mg oral tablet) 1 Tablet(s) Oral Two Times A Day tamsulosin (Flomax 0.4 mg oral capsule) 1 Capsule(s) Oral Every Day Pharmacy Information [facility] [place]: [address] [place], [place] [id number] [phone] Take your medications faithfully. Do NOT skip medication. Do NOT stop taking medications without the direction of a physician. Carry a list of your medications with you at all times, and take this medication list with you to your first follow up visit. Report any side effects. Avoid herbal remedies unless discussed with your physician. As part of your treatment plan, your physician may have prescribed a limited course of a controlled substance. This medication may be given to help people with moderate or severe pain or for other medical conditions, but there are risks involved with treatment. Common side effects may include nausea, constipation, drowsiness, sweating, itching, dry mouth, and rash. More serious side effects may include cognitive and motor impairment, like problems with thinking, concentrating, alertness, and movement (e.g. slowed reflexes), and driving and operating heavy machinery can be dangerous. It is important for you to talk to your physician if you have these side effects or questions. These controlled substances can produce physical dependence and be habit-forming if taken for an extended period of time, which means that the body has gotten used to them and may experience withdrawal symptoms if they are abruptly stopped. Withdrawal symptoms can include runny nose, sweating, goose bumps, diarrhea, abdominal cramping, rapid heartbeat, difficulty sleeping, and nervousness. Please dispose of unused and medications per your retail pharmacy guidance. Allergies digoxin Immunizations This Visit No Immunizations Found Stroke/TIA Instructions Stroke/TIA Signs/Symptoms to Report Immediately: Sudden onset difficulty speaking, Sudden onset difficulty understanding speech, Sudden onset change in vision, Sudden onset weakness particulary on one side of the body, Sudden onset numbness/tingling, Sudden severe headache, Sudden dizziness or trouble with gait, Call : EMS activation is crucial Mutually Agreed Upon Goals My LDL Level: My LDL Level: Education Materials Atrial Fibrillation Atrial fibrillation is a type [...] these instructions at home: Medicines ??? Take bwct-kdv-ecqocur and prescription medicines only as told by [...] provider. Document Revised: 01/09/2020 Document Reviewed: 01/09/2020 [employer] Patient Education ?? 2021 [employer]. Electrical Cardioversion Electrical cardioversion is the delivery [...] including vitamins, herbs, eye drops, creams, and pxxo-vzk-jqgfmuf medicines. ??? Any problems you or family [...] tells you to take them. ? Taking lwia-ztc-pljqeov medicines, vitamins, herbs, and supplements. General instructions [...] a sedative during your procedure. ??? Take nqkf-buo-yffjmok and prescription medicines only as told by [...] provider. Document Revised: 02/18/2020 Document Reviewed: 02/18/2020 [email or web address] Patient Education ?? 2021 [employer] Managing Your Hypertension Hypertension, also called [...] pressure: below 80. Elevated ??? Systolic pressure: 120???129. ??? Diastolic pressure: below 80. Hypertension stage 1 ??? Systolic pressure: 130???139. ??? Diastolic pressure: 80???89. Hypertension stage 2 ??? Systolic pressure: 140 [...] Limit how much you use to: ? 0???1 drink a day for women. ? 0???2 drinks a day for men. ? Be aware of how much alcohol is in your drink. In the [place] one drink equals one 12 oz bottle of beer (355 mL), one 5 oz glass of wine (148 mL), or one 1?? oz glass of hard liquor (44 mL). [...] information ??? National Heart, Lung, and Blood [place]: www.nhlbi.nih.gov ??? [place] Heart Association: www.heart.org Contact a health care [...] provider. Document Revised: 08/22/2020 Document Reviewed: 06/17/2020 Elsevier Patient Education ?? 2021 [employer] How to Take Your Blood Pressure Blood pressure measures how strongly your blood is pressing against the gilbert of your arteries. Arteries are blood vessels that carry blood from your heart throughout your body. You can take your blood pressure at home with a machine. You may need to check your blood pressure at home: ??? To check if you have high blood pressure (hypertension). ??? To check your blood pressure over time. ??? To make sure your blood pressure medicine is working. Supplies needed: ??? Blood pressure machine, or monitor. ??? Dining room chair to sit in. ??? Table or desk. ??? Small notebook. ??? Pencil or pen. How to prepare Avoid these things for 30 minutes before checking your blood pressure: ??? Having drinks with caffeine in them, such as coffee or tea. ??? Drinking alcohol. ??? Eating. ??? Smoking. ??? Exercising. Do these things five minutes before checking your blood pressure: ??? Go to the bathroom and pee (urinate). ??? Sit in a dining chair. Do not sit on a soft couch or an armchair. ??? Be quiet. Do not talk. How to take your blood pressure Follow the instructions that came with your machine. If you have a digital blood pressure monitor, these may be the instructions: 1. Sit up straight. 2. Place your feet on the floor. Do not cross your ankles or legs. 3. Rest your left arm at the level of your heart. You may rest it on a table, desk, or chair. 4. Pull up your shirt sleeve. 5. Wrap the blood pressure cuff around the upper part of your left arm. The cuff should be 1 inch (2.5 cm) above your elbow. It is best to wrap the cuff around bare skin. 6. Fit the cuff snugly around your arm. You should be able to place only one finger between the cuff and your arm. 7. Place the cord so that it rests in the bend of your elbow. 8. Press the power button. 9. Sit quietly while the cuff fills with air and loses air. 10. Write down the numbers on the screen. 11. Wait 2???3 minutes and then repeat steps 1???10. What do the numbers mean? Two numbers make up your blood pressure. The first number is called systolic pressure. The second is called diastolic pressure. An example of a blood pressure reading is 120 over 80 (or 120/80). If you are an adult and do not have a medical condition, use this guide to find out if your blood pressure is normal: Normal ??? First number: below 120. ??? Second number: below 80. Elevated ??? First number: 120???129. ??? Second number: below 80. Hypertension stage 1 ??? First number: 130???139. ??? Second number: 80???89. Hypertension stage 2 ??? First number: 140 or above. ??? Second number: 90 or above. Your blood pressure is above normal even if only the first or only the second number is above normal. Follow these instructions at home: Medicines ??? Take dccm-fkm-dbefjuo and prescription medicines only as told by your doctor. ??? Tell your doctor if your medicine is causing side effects. General instructions ??? Check your blood pressure as often as your doctor tells you to. ??? Check your blood pressure at the same time every day. ??? Take your monitor to your next doctor's appointment. Your doctor will: ? Make sure you are using it correctly. ? Make sure it is working right. ??? Understand what your blood pressure numbers should be. ??? Keep all follow-up visits as told by your doctor. This is important. General tips You will need a blood pressure machine, or monitor. Your doctor can suggest a monitor. You can buy one at a [employer] or online. When choosing one: ??? Choose one with an arm cuff. ??? Choose one that wraps around your upper arm. Only one finger should fit between your arm and the cuff. ??? Do not choose one that measures your blood pressure from your wrist or finger. Where to find more information [place] Heart Association: www.heart.org Contact a doctor if: ??? Your blood pressure keeps being high. ??? Your blood pressure is suddenly low. Get help right away if: ??? Your first blood pressure number is higher than 180. ??? Your second blood pressure number is higher than 120. Summary ??? Check your blood pressure at the same time every day. ??? Avoid caffeine, alcohol, smoking, and exercise for 30 minutes before checking your blood pressure. ??? Make sure you understand what your blood pressure numbers should be. This information is not intended to replace advice given to you by your health care provider. Make sure you discuss any questions you have with your health care provider. Document Revised: 05/27/2021 Document Reviewed: 07/11/2020 [employer] Patient Education ?? 2021 [employer] Hypokalemia Hypokalemia means that the amount of [...] Follow these instructions at home: ??? Take fqme-yqf-fdtbcck and prescription medicines only as told by [...] kiwi, oranges, tomatoes, asparagus, and potatoes. ? Coyle juice. ? Tomato juice. ? Red meats. [...] provider. Document Revised: 02/27/2019 Document Reviewed: 02/28/2019 [employer] Patient Education ?? 2021 [employer]. Dysphagia Dysphagia is trouble swallowing. This condition [...] these instructions at home: Medicines ??? Take rtwm-dav-yoydhsf and prescription medicines only as told by your health care provider. ??? If you were prescribed an antibiotic medicine, take it as told by your health care provider. Do not stop taking the antibiotic even if you start to feel better. Eating and drinking ??? Make any diet changes as told by your health care provider. ??? Work with a diet and technical sales specialist (dietitian) to create an eating plan that [...] provider. Document Revised: 03/07/2021 Document Reviewed: 03/07/2021 Elsevier Patient Education ?? 2021 [email or web address] Full Liquid Diet A full liquid [...] for nutrition shakes that have at least 8???10 grams of protein in each serving. ??? [...] liquid snack between each meal. ? Drink 6???8 ounces (177???237 ml) of a nutrition supplement shake with [...] cream of wheat. Soft-cooked pasta or rice pur??ed in soup. Vegetables Pulp-free tomato or vegetable juice. Vegetables pur??ed in soup. Fruits Fruit juice without pulp. Strained fruit pur??es (seeds and skins removed). Meats and other protein foods Beef, chicken, and fish broths. Powdered protein supplements. Dairy Milk and milk-based beverages, including milk shakes and instant breakfast mixes. Smooth yogurt. Pure??d cottage cheese. Beverages Water. Coffee and tea (caffeinated or decaffeinated). [place]. Liquid nutritional supplements. Soft drinks. Nondairy milks, such as almond, coconut, rice, or soy milk. Fats and oils Melted margarine and butter. Cream. Canola, almond, avocado, corn, grapeseed, sunflower, and sesame oils. Gravy. Sweets and desserts Custard. Pudding. Flavored gelatin. Smooth ice cream (without nuts or candy pieces). Sherbet. Popsicles. Azeri ice. Pudding pops. Seasoning and other foods Salt and pepper. Spices. [place] powder. Vinegar. Ketchup. Yellow mustard. Smooth sauces, [...] provider. Document Revised: 10/14/2018 Document Reviewed: 08/31/2017 [employer] Patient Education ?? 2020 [employer]. GUIDELINES FOR A HEART HEALTHY DIET TO [...] white, wheat or rye breads, plain breadsticks, nepali muffins, hamburger buns, plain bagels, plain cake doughnuts, yanci breads, baked flours or corn tortillas, crackers including rosmery, animal, saltine, oyster and matzo, snacks including unsalted pretzels, popcorn, baked tortilla chips or potato chips. Homemade breads (biscuits, muffins, cornbread, rolls, pancakes and guatemalan toast) should be made with oils low [...] choose prepared products such as muffins, frozen guatemalan toast and waffles, biscuits, croissants and other [...] 5 large olives is considered a serving. --[place] oil and peanut oil are higher in [...] diet, please call the registered dietitians at [facility] at or . We will be happy [...] log. ? Record your daily fluid intake. documented in this encounter Plan of Treatment Not on file documented as of this encounter Visit Diagnoses Not on filedocumented in this encounter Care Teams [employer] Science Teacher Relationship Specialty Start Date End Date Hussein Brian MD [address] [place], [place] [id number] PCP - General General Internal Medicine 03/14/23 documented as of this encounter
--- OUTSIDE RECORDS SUMMARY | 2025-03-28 14:50 | XMS_ITS | Encounter Summary ---
Author Organization [employer] ([place], [place], [place], [place]) Address [address] [place] [address] Care Team Providers Care Sand Bobber Name Role Phone Hussein Brian MD Primary Care Provider [phone] Encounter Details Date Type Department Care Team (Late st Contact Info) Description 03/06/2022 Transcribed Document [facility] [place] [address] [place] [address] ProviderThomas MD [address] [place] [address] Social History Tobacco Use Types [...] Date Ryan rded Speak language other than Botswanan at home Not on file 08/12/2023 Want [...] Conversion Note - Historical Provider, - 03/06/2022 5:00 AM CDT Chart Check - Review Order Profile Entered On: 03/06/2022 3:01 EDT Performed On: 03/06/2022 5:00 EDT by Joslyn Spann Lpn Chart Check Powerplans Initiated/Discontinued as Appropriate : Yes All Active Orders Reviewed : Yes Joslyn Spann Lpn - 03/06/2022 3:01 EDT Electronically signed by Rais[facility] Conversion Business Team Leader Marvel at 11/19/2022 4:01 PM CDT documented in this encounter Plan of Treatment Not on file documented as of this encounter Visit Diagnoses Not on filedocumented in this encounter Care Teams Sand Bobber Relationship Specialty Start Date End Date Hussein Brian MD [address] [place] [id number] PCP - General General Internal Medicine 03/14/23 documented as of this encounter
--- OUTSIDE RECORDS SUMMARY | 2025-03-28 14:50 | XMS_ITS | Encounter Summary ---
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 Name Role Phone Hussein Brian MD Primary Care Provider [phone] Encounter Details Date Type Department Care Team (Late st Contact Info) Description 04/03/2022 Transcribed Document [facility] [place] Family Medicine [address] [place] [address] ProviderThomas MD [address] [place] [address] Social History Tobacco Use Types [...] Date Ryan rded Speak language other than Somali at home Not on file 08/12/2023 Want [...] Cerner Conversion Note - Historical Provider, - 04/03/2022 3:35 PM CDT [facility] [address] [place] [address] RADFORD LESLIEJENNI THORNE :1945 Visit Time:04/02/2022 Your Visit Summary Your Care Team Admitting Physician - VY TORRES MD-CAR Attending Physician - VY TORRES MD-CAR Primary Care Physician - HUSSEIN BRIAN (REF)BRANDO Referring Physician - DANA, NOT LISTED Your Diagnosis Persistent atrial fibrillation, Other persistent atrial fibrillation, Other persistent atrial fibrillation These Are Your Goals No qualifying data available. Discharge Vitals Temperature 36.7 ??C Heart Rate (Monitored) 93 Respiratory Rate 16 Blood Pressure 111/69 What to do next Instructions From Your Care Team Home Health Services:[facility] Office [phone] Transportation:Family Follow-Up Appointments Follow Up with VY TORRES MD-CAR When Within 1 month Where: [address] [place] [address] [address] [place] [address]- Warfarin Instructions Indication for Warfarin Anticoagulation: Atrial fibrillation Warfarin Anticoagulation Disposition: Continuation of pre-hospital treatment Target INR: 2.0- 3.0 Notify Provider of Signs/Symptoms of: Significant bleeding, Clot Warfarin Bridging Therapy Dose, m mg Warfarin Bridging Therapy Frequency: Daily Medications What How Much When Instructions Next Dose amiodarone (amiodarone 200 mg oral tablet) 1 Tablet(s) Oral Three Times A Day NEW DOSE!! Pickup at [facility]/pharmacy #[id number] 9pm metoprolol (Metoprolol Tartrate 25 mg oral tablet) 1 Tablet(s) Oral Two Times A Day NEW DOSE!! Pickup at [facility]/pharmacy #[id number] 9pm acetaminophen (Tylenol 8 Hour 650 mg oral tablet, extended release) 1 Tablet(s) Oral Every 6 Hours as needed for Pain (Mild 1-3) atorvastatin (atorvastatin 40 mg oral tablet) 1 Tablet(s) Oral Every Day 9pm bumetanide (Bumex) 1 Milligram(s) Every Day as needed for swelling cholecalciferol (cholecalciferol 25 mcg (1000 intl units) oral tablet) 1 Tablet(s) Oral Every Day 04/04/2022 tamsulosin (Flomax 0.4 mg oral capsule) 1 Capsule(s) Oral Every Day 04/04/2022 warfarin (Coumadin 1 mg oral tablet) 1 Tablet(s) Oral Every Day 6pm Pharmacy Information [facility]/pharmacy #[id number]: [address] [place], [place] [id number] [phone] Take your medications faithfully. Do NOT skip [...] digoxin Immunizations This Visit No Immunizations Found Education Materials Atrial Fibrillation Atrial fibrillation is [...] these instructions at home: Medicines ??? Take yvfb-yvw-hpyzjnr and prescription medicines only as told by [...] provider. Document Revised: 01/09/2020 Document Reviewed: 01/09/2020 [email or web address] Patient Education ?? 2021 [email or web address] Electrical Cardioversion Electrical cardioversion is the delivery [...] including vitamins, herbs, eye drops, creams, and xvth-ntm-gywvrvf medicines. ??? Any problems you or family [...] tells you to take them. ? Taking nrla-ndr-ewtdcuv medicines, vitamins, herbs, and supplements. General instructions [...] a sedative during your procedure. ??? Take snwp-spn-zvtktas and prescription medicines only as told by [...] 02/18/2020 Document Reviewed: 02/18/2020 Elsevier Patient Education ?? 2021 [employer] Inc. Pulmonary Vein Ablation, Care After This sheet gives you information about how to care for yourself after your procedure. Your health care provider may also give you more specific instructions. If you have problems or questions, contact your health care provider. What can I expect after the procedure? After the procedure, it is common to have: ??? Soreness in your chest or incision sites. ??? Tenderness, bruising, or swelling around your incision sites. ??? Tiredness. ??? Mild shortness of breath. ??? Fast or irregular heartbeats (palpitations). These may occur for several weeks until the procedure starts to work. ??? Light-headedness. Follow these instructions at home: Medicines ??? Take uvtb-dbx-mrxbfml and prescription medicines only as told by your health care provider. ??? Continue taking all your atrial fibrillation medicines until your health care provider changes them or tells you to stop. Incision care ??? Follow instructions from your health care provider about how to take care of your incisions. Make sure you: ? Wash your hands with soap and water before and after you change your bandage (dressing). If soap and water are not available, use hand manager programming. ? Change your dressing as told by your health care provider. ? If you have stitches (sutures), skin glue, or adhesive strips, leave them in place. These skin closures may need to stay in place for 2 weeks or longer. If adhesive strip edges start to loosen and curl up, you may trim the loose edges. Do not remove adhesive strips completely unless your health care provider tells you to do that. ??? Check your incision areas every day for signs of infection. Check for: ? Redness, swelling, or pain. ? Fluid or blood. ? Warmth. ? Pus or a bad smell. Activity ??? Return to your normal activities as told by your health care provider. Ask your health care provider what activities are safe for you. ??? Do not lift anything that is heavier than 10 lb (4.5 kg), or the limit that you are told, until your health care provider says that it is safe. ??? Do not take baths, swim, or use a hot tub until your health care provider approves. General instructions ??? Check your pulse and keep track of irregular heart rhythms as told by your health care provider. At your follow-up visits, let your health care provider know about any atrial fibrillation symptoms. It may take several weeks before the procedure starts to work. ??? If directed, put ice on the incision areas: ? Put ice in a plastic bag. ? Place a towel between your skin and the bag. ? Leave the ice on for 20 minutes, 2???3 times a day. ??? Do not use any products that contain nicotine or tobacco, such as cigarettes, e-cigarettes, and chewing tobacco. If you need help quitting, ask your health care provider. ??? Keep all follow-up visits as told by your health care provider. This is important. Contact a health care provider if you: ??? Have chills or a fever. ??? Have any signs of infection or bleeding at your incision sites. ??? Feel short of breath. ??? Continue to have atrial fibrillation symptoms after several weeks, or your symptoms come back. Get help right away if you have: ??? Chest pain or difficulty breathing. ??? Sudden numbness, tingling, or weakness in your face, arm, or leg. These symptoms may represent a serious problem that is an emergency. Do not wait to see if the symptoms will go away. Get medical help right away. Call your local emergency services (911 in the [place] Do not drive yourself to the hospital. Summary ??? After this procedure, it is common to have tenderness, bruising, and swelling at your incision sites. ??? Follow instructions from your health care provider about how to take care of your incision areas. ??? Continue taking all your atrial fibrillation medicines until your health care provider stops or changes them. ??? Check your pulse and keep track of irregular heart rhythms as told by your health care provider. At your follow-up visits, let your health care provider know about any atrial fibrillation symptoms. ??? It may take several weeks for this procedure to work. You may continue to have palpitations or other symptoms of atrial fibrillation during that time. This information is not intended to replace advice given to you by your health care provider. Make sure you discuss any questions you have with your health care provider. Document Revised: 11/16/2021 Document Reviewed: 11/16/2021 [employer] Patient Education ?? 2021 [employer]. Warfarin Information Warfarin is a blood thinner (anticoagulant). Anticoagulants help to prevent the formation of blood clots or keep them from getting bigger. Your health care provider will monitor the [...] blood clots in the legs (deep vein thrombosis,or DVT). How is warfarin taken? Warfarin is taken by mouth (orally). Warfarin tablets come in different strengths. The strength is printed on the tablet, and each strength is a different color. If you get a new prescription and the color of your tablet is different than usual, tell your pharmacist or health care provider immediately. ??? Take warfarin exactly as told by your health care provider, at the same time every day. Doing this helps you avoid bleeding or blood clots that could result in serious injury, pain, or disability. ??? Contact your health care provider if a dose is forgotten or missed. Do not change or take additional dosesto make up for missed or accidental extra doses. What blood tests do I need while taking warfarin? Warfarin is a medicine that needs to be closely monitored with blood tests. It is very important to keep all lab visits and follow-up visits with your health care provider. These tests measure the blood's ability to clot and are called prothrombin tests (PT)or international normalized ratio (INR) tests. These tests can be done with a finger stick or a blood draw. What does the INR test result mean? The PT test results will be reported as the INR. Your health care provider will [...] usually have your INR checked every few days until the health care provider determines the correct dosage of warfarin. ??? After you have reached your target INR, your INR will be tested less often. However, you will need to have your INR checked at least once every 4???6 weeks while you take warfarin. ??? Some people may be able to use home monitoring to check their INR. Ask your health care provider if this applies to you. What are the side effects of warfarin? Too much warfarin can cause bleeding or hemorrhage in any part of the body, such as: ??? Bleeding from the gums. ??? Unexplained bruises or bruises that get larger. ??? A nosebleed that is not easily stopped. ??? Bleeding in the brain (hemorrhagic stroke). ??? Coughing up or vomiting blood. ??? Blood in the urine or stools. Warfarin may also cause: ??? Skin rash or irritations. ??? Nausea that does not go away. ??? Severe pain in the back or joints. ??? Painful toes that turn blue or purple (purple toe syndrome). ??? Painful ulcers that do not go away (skin necrosis). What precautions do I need to take while using warfarin? Wear a medical alert bracelet or carry a card that lists what medicines you take. ??? Make sure that all health care providers, including your dentist, know you are taking warfarin. ??? Avoid situations that cause bleeding by: ? Using a softer toothbrush. ? Flossing with waxed floss. ? Shaving with an electric razor, not with a blade. ? Limiting your use of sharp objects. ? Avoiding activities that put you at risk for injury, such as contact sports. What do I need to know about warfarin and or ? If you are taking warfarin and you become , or plan to become , contact your health care provider right away. Though warfarin has been associated with defects, it can be used in some cases after weighing risks to mother and baby. ??? If you plan to breastfeed while taking warfarin, talk with your health care provider first. What do I need to know about warfarin and alcohol or drug use? Do not drink alcohol if: ? Your health care provider tells you not to drink. ? You are , may be , or are planning to become . ??? If you drink alcohol: ? Limit how much you have to: ? 0???1 drink a day for women. ? 0???2 drinks a day for men. ? Know how much alcohol is in your drink. In the [place] one drink equals one 12 oz bottle of beer (355 mL), one 5 oz glass of wine (148 mL), or one 1?? oz glass of hard liquor (44 mL). ??? If you change the amount of alcohol that you drink, tell your health care provider. Your warfarin dosage may need to be changed. ??? Do not use any products that contain nicotine or tobacco. These products include cigarettes, chewing tobacco, and vaping devices, such as e-cigarettes. If you need help quitting, ask your health care provider. ? If you use nicotine or tobacco products and change the amount that you use, tell your health care provider. Your warfarin dosage may need to be changed. ??? Avoid drug use while taking warfarin. The effects of drugs on warfarin are not known. What do I need to know about warfarin and other medicines or supplements? Many prescription and mtsx-uct-fcdgfbz medicines can interfere with warfarin. Talk with your health care provider or your pharmacist before starting or stopping any new medicines. This includes vitamins, herbs, supplements, and pain medicines. ??? Some common lpxr-dag-itlxlcd medicines that may increase the risk of dangerous bleeding while taking warfarin include: ? Aspirin. ? NSAIDs, such as ibuprofen or naproxen. ? Vitamin E. ? Fish oils. What do I need to know about warfarin and my diet? Vitamin K decreases the effect of warfarin, and it is found in many foods. Eat a consistent amount of foods that contain vitamin K. For example, you may decide to eat 2 servings of vitamin K-containing foods each day. ??? It is important to maintain a normal, balanced diet while taking warfarin. Avoid major changes in your diet. If you are going to change your diet, talk with your health care provider before making changes. ??? Your health care provider may recommend that you work with a dietitian. Contact a health care provider if you: ??? Miss a dose. ??? Take an extra dose. ??? Plan to have any kind of surgery or procedure. Ask whether you should stop taking warfarin or change your dose before your surgery. ??? Are unable to take your medicine due to nausea, vomiting, or diarrhea. ??? Have any major changes in your diet, or you plan to make major changes in your diet. ??? Start or stop any prfd-wap-zoluzbs medicine, prescription medicine, herbal supplement, or dietary supplement. ??? Become , plan to become , or think you may be . ??? Have menstrual periods that are heavier than usual. ??? Have unusual bruising. Get help right away if [...] stool may be black or bright red. ? Coughing up or vomiting blood. The blood may be bright red, or it may look like coffee grounds. ? Bleeding that does not stop after applying pressure to the area for 30 minutes. ??? Have signs of a blood clot in your leg or arm, such as: ? Pain or swelling in your leg or arm. ? Skin that is red or warm to the touch on your arm or leg. ??? Have signs of blood in your lung, such as: ? Shortness of breath or difficulty breathing. ? Chest pain. ? Unexplained fever. ??? Have any symptoms of a stroke. BE FAST [...] Write down what time symptoms started. ??? Have other signs of a stroke, such as: ? A sudden, severe headache with no known cause. ? Nausea or vomiting. ? Seizure. ??? Have other signs of a reaction to warfarin, such as: ? Purple or blue toes. ? Skin ulcers that do not go away. These symptoms may represent a serious problem that is an emergency. Do not wait to see if the symptoms will go away. Get medical help right away. Call your local emergency services (911 in the [place] Do not drive yourself to the hospital. Summary ??? Warfarin is a medicine that thins blood. It is used to prevent or treat blood clots. You must be monitored closely while on this medicine. Keep all follow-up visits. ??? Make sure that you know your target INR range and your warfarin dosage. ??? Wear or carry identification that says you are taking warfarin. ??? Take warfarin at the same time every day. Call your health care provider if you miss a dose or if you take an extra dose. Do not change the dosage of warfarin on your own. ??? Know the signs and symptoms of blood clots, bleeding, and a stroke. Know when to get emergency medical help. This information is not intended to replace advice given to you by your health care provider. Make sure you discuss any questions you have with your health care provider. Document Revised: 10/07/2021 Document Reviewed: 10/07/2021 [employer] Patient Education ?? 2021 [email or web address]. Preventing Atrial Fibrillation-Related Stroke Atrial fibrillation (AFib) [...] as hypertension or diabetes. Medicines ??? Take djoq-vld-lnrxfip and prescription medicines only as told by [...] provider. Document Revised: 03/26/2021 Document Reviewed: 03/26/2021 [employer] Patient Education ?? 2021 [email or web address] Heart-Healthy Eating Plan Heart-healthy meal planning includes: ??? Eating less unhealthy fats. ??? Eating more healthy fats. ??? Making other changes in your diet. Talk with your doctor or a diet specialist (dietitian) to create an eating plan that is right for you. What is my plan? Your doctor may recommend an eating plan that includes: ??? Total fat: % or less of total calories a day. ??? Saturated fat: % or less of total calories a day. ??? Cholesterol: less than mg a day. What are tips for following this plan? Cooking Avoid frying your food. Try to bake, boil, grill, or broil it instead. You can also reduce fat by: ??? Removing the skin from poultry. ??? Removing all visible fats from meats. ??? Steaming vegetables in water or broth. Meal planning ??? At meals, divide your plate into four equal parts: ? Fill one-half of your plate with vegetables and green salads. ? Fill one-fourth of your plate with whole grains. ? Fill one-fourth of your plate with lean protein foods. ??? Eat 4???5 servings of vegetables per day. A serving of vegetables is: ? 1 cup of raw or cooked vegetables. ? 2 cups of raw leafy greens. ??? Eat 4???5 servings of fruit per day. A serving of fruit is: ? 1 medium whole fruit. ? ?? cup of dried fruit. ? ?? cup of fresh, frozen, or canned fruit. ? ?? cup of 100% fruit juice. ??? Eat more foods that have soluble fiber. These are apples, broccoli, carrots, beans, peas, and barley. Try to get 20???30 g of fiber per day. ??? Eat 4???5 servings of nuts, legumes, and seeds per week: ? 1 serving of dried beans or legumes equals ?? cup after being cooked. ? 1 serving of nuts is ?? cup. ? 1 serving of seeds equals 1 tablespoon. General information ??? Eat more home-cooked food. Eat less restaurant, buffet, and fast food. ??? Limit or avoid alcohol. ??? Limit foods that are high in starch and sugar. ??? Avoid fried foods. ??? Lose weight if you are overweight. ??? Keep track of how much salt (sodium) you eat. This is important if you have high blood pressure. Ask your doctor to tell you more about this. ??? Try to add vegetarian meals each week. Fats ??? Choose healthy fats. These include olive oil and canola oil, flaxseeds, walnuts, almonds, and seeds. ??? Eat more omega-3 fats. These include salmon, mackerel, sardines, tuna, flaxseed oil, and ground flaxseeds. Try to eat fish at least 2 times each week. ??? Check food labels. Avoid foods with trans fats or high amounts of saturated fat. ??? Limit saturated fats. ? These are often found in animal products, such as meats, butter, and cream. ? These are also found in plant foods, such as palm oil, palm kernel oil, and coconut oil. ??? Avoid foods with partially hydrogenated oils in them. These have trans fats. Examples are stick margarine, some tub margarines, cookies, crackers, and other baked goods. What foods can I eat? Fruits All fresh, canned (in natural juice), or frozen fruits. Vegetables Fresh or frozen vegetables (raw, steamed, roasted, or grilled). Green salads. Grains Most grains. Choose whole wheat and whole grains most of the time. Rice and pasta, including brown rice and pastas made with whole wheat. Meats and other proteins Lean, well-trimmed beef, veal, pork, and gamez. Chicken and turkey without skin. All fish and shellfish. Wild duck, rabbit, pheasant, and venison. Egg whites or low-cholesterol egg substitutes. Dried beans, peas, lentils, and tofu. Seeds and most nuts. Dairy Low-fat or nonfat cheeses, including ricotta and mozzarella. Skim or 1% milk that is liquid, powdered, or evaporated. Buttermilk that is made with low-fat milk. Nonfat or low-fat yogurt. Fats and oils Non-hydrogenated (trans-free) margarines. Vegetable oils, including soybean, sesame, sunflower, olive, peanut, safflower, corn, canola, and cottonseed. Salad dressings or mayonnaise made with a vegetable oil. Beverages Mineral water. Coffee and tea. Diet carbonated beverages. Sweets and desserts Sherbet, gelatin, and fruit ice. Small amounts of dark chocolate. Limit all sweets and desserts. Seasonings and condiments All seasonings and condiments. The items listed above may not be a complete list of foods and drinks you can eat. Contact a dietitian for more options. What foods should I avoid? Fruits Canned fruit in heavy syrup. Fruit in cream or butter sauce. Fried fruit. Limit coconut. Vegetables Vegetables cooked in cheese, cream, or butter sauce. Fried vegetables. Grains Breads that are made with saturated or trans fats, oils, or whole milk. Croissants. Sweet rolls. Donuts. High-fat crackers, such as cheese crackers. Meats and other proteins Fatty meats, such as hot dogs, ribs, sausage, fuller, rib-eye roast or steak. High-fat deli meats, such as salami and bologna. Caviar. Domestic duck and goose. Organ meats, such as liver. Dairy Cream, sour cream, cream cheese, and creamed cottage cheese. Whole-milk cheeses. Whole or 2% milk that is liquid, evaporated, or condensed. Whole buttermilk. Cream sauce or high-fat cheese sauce. Yogurt that is made from whole milk. Fats and oils Meat fat, or shortening. [place] butter, hydrogenated oils, palm oil, coconut oil, palm kernel oil. Solid fats and shortenings, including fuller fat, salt pork, lard, and butter. Nondairy cream substitutes. Salad dressings with cheese or sour cream. Beverages Regular sodas and juice drinks with added sugar. Sweets and desserts Frosting. Pudding. Cookies. Cakes. Pies. Milk chocolate or white chocolate. Buttered syrups. Full-fat ice cream or ice cream drinks. The items listed above may not be a complete list of foods and drinks to avoid. Contact a dietitian for more information. Summary ??? Heart-healthy meal planning includes eating less unhealthy fats, eating more healthy fats, and making other changes in your diet. ??? Eat a balanced diet. This includes fruits and vegetables, low-fat or nonfat dairy, lean protein, nuts and legumes, whole grains, and heart-healthy oils and fats. This information is not intended to replace advice given to you by your health care provider. Make sure you discuss any questions you have with your health care provider. Document Revised: 11/26/2021 Document Reviewed: 11/26/2021 [email or web address] Patient Education ?? 2021 [employer]. amiodarone (oral) (A mi [place] da bianka) Pacerone What is the most important information I should know about amiodarone? Amiodarone is for use only in treating life-threatening heart rhythm disorders. You should not take this medicine if you are allergic to amiodarone or iodine, or if you have heart block, a history of slow heartbeats that have caused you to faint, or if your heart cannot pump blood properly. Amiodarone can cause dangerous side effects on your heart, liver, lungs, or vision. Call your doctor or get medical help at once if you have: chest pain, fast or pounding heartbeats, trouble breathing, vision problems, upper stomach pain, vomiting, dark urine, jaundice (yellowing of the skin or eyes), or if you cough up blood. What is amiodarone? Amiodarone affects the rhythm of your heartbeats. Amiodarone is used to help keep the heart beating normally in people with life-threatening heart rhythm disorders of the ventricles (the lower chambers of the heart that allow blood to flow out of the heart). Amiodarone is used to treat ventricular tachycardia or ventricular fibrillation. Amiodarone is for use only in treating life-threatening heart rhythm disorders. Amiodarone may also be used for purposes not listed in this medication guide. What should I discuss with my healthcare provider before taking amiodarone? You should not use this medicine if you are allergic to amiodarone or iodine, or if you have: ?? a serious heart condition called 'AV block' (2nd or 3rd degree), unless you have a pacemaker; ?? a history of slow heartbeats that have caused you to faint; or ?? if your heart cannot pump blood properly. Amiodarone can cause dangerous side effects on your heart, liver, lungs, or thyroid. Tell your doctor if you have ever had: ?? asthma or another lung disorder; ?? liver disease; ?? a thyroid disorder; ?? vision problems; ?? high or low blood pressure; ?? an electrolyte imbalance (such as low levels of potassium or magnesium in your blood); or ?? if you have a pacemaker or defibrillator implanted in your chest. Taking amiodarone during may harm an unborn baby, or cause thyroid problems or abnormal heartbeats in the baby after it is born. Amiodarone may also affect the child's growth or development (speech, movement, academic skills) later in life. Tell your doctor if you are or if you become . You should not breast-feed while taking amiodarone, and for several months after stopping. Amiodarone takes a long time to clear from your body. Talk to your doctor about the best way to feed your baby during this time. How should I take amiodarone? Follow all directions on your prescription label and read all medication guides or instruction sheets. Your doctor may occasionally change your dose. Use the medicine exactly as directed. You will receive your first few doses in a hospital setting, where your heart rhythm can be monitored. If you have been taking another heart rhythm medicine, you may need to gradually stop taking it when you start using amiodarone. Follow your doctor's dosing instructions very carefully. You may take amiodarone with or without food, but take it the same way each time. It may take up to 3 weeks before your heart rhythm improves. Keep using the medicine as directed even if you feel well. Amiodarone can have long lasting effects on your body. You may need frequent medical tests while using this medicine and for several months after your last dose. If you need surgery (including laser eye surgery), tell the surgeon ahead of time that you are using amiodarone. This medicine can affect the results of certain medical tests. Tell any doctor who treats you that you are using amiodarone. Store at room temperature away from moisture, heat, and light. What happens if I miss a dose? Skip the missed dose and use your next dose at the regular time. Do not use two doses at one time. What happens if I overdose? Seek emergency medical attention or call the Poison Help line at . An overdose of amiodarone can be fatal. Overdose symptoms may include weakness, slow heart rate, feeling light-headed, or loss of consciousness. What should I avoid while taking amiodarone? Avoid driving or hazardous activity until you know how this medicine will affect you. Your reactions could be impaired. Grapefruit may interact with amiodarone and lead to unwanted side effects. Avoid the use of grapefruit products. Avoid taking an herbal supplement containing Whittier's wort. Amiodarone could make you sunburn more easily. Avoid sunlight or tanning beds. Wear protective clothing and use sunscreen (SPF 30 or higher) when you are outdoors. What are the possible side effects of amiodarone? Get emergency medical help if you have signs of an allergic reaction: hives; difficulty breathing; swelling of your face, lips, tongue, or throat. Amiodarone takes a long time to completely clear from your body. You may continue to have side effects from amiodarone after you stop using it. Call your doctor at once if you have any of these side effects, even if they occur up to several months after you stop using amiodarone: ?? wheezing, cough, chest pain, cough with bloody mucus, fever; ?? a new or a worsening irregular heartbeat pattern (fast, slow, or pounding heartbeats); ?? a light-headed feeling, like you might pass out; ?? blurred vision, seeing halos around lights (your eyes may be more sensitive to light); ?? liver problems--nausea, vomiting, stomach pain (upper right side), tiredness, dark urine, jaundice (yellowing of the skin or eyes); ?? nerve problems--loss of coordination, muscle weakness, uncontrolled muscle movement, or a prickly feeling in your hands or lower legs; ?? signs of overactive thyroid--weight loss, thinning hair, feeling hot, increased sweating, tremors, feeling nervous or irritable, irregular menstrual periods, swelling in your neck (goiter); or ?? signs of underactive thyroid--weight gain, tiredness, depression, trouble concentrating, feeling cold. Common side effects may include: ?? nausea, vomiting, loss of appetite; or ?? constipation. This is not a complete list of side effects and others may occur. Call your doctor for medical advice about side effects. You may report side effects to FDA at 6-347-IHJ-0482. What other drugs will affect amiodarone? Sometimes it is not safe to use certain medications at the same time. Some drugs can affect your blood levels of other drugs you take, which may increase side effects or make the medications less effective. Amiodarone takes a long time to completely clear from your body. Drug interactions are possible for up to several months after you stop using amiodarone. Talk to your doctor before taking any medication during this time. Keep track of how long it has been since your last dose of amiodarone. Many drugs can affect amiodarone. This includes prescription and vtid-xxh-gcfwyps medicines, vitamins, and herbal products. Not all possible interactions are listed here. Tell your doctor about all your current medicines and any medicine you start or stop using. Where can I get more information? Your doctor or pharmacist can provide more information about amiodarone. Remember, keep this and all other medicines out of the reach of children, never share your medicines with others, and use this medication only for the indication prescribed. Every effort has been made to ensure that the information provided by [employer]. ('[employer]') is accurate, up-to-date, and complete, but no guarantee is made to that effect. Drug information contained herein may be time sensitive. [employer] information has been compiled for use by healthcare practitioners and consumers in the [place] and therefore [employer] does not warrant that uses outside of the [place] are appropriate, unless specifically indicated otherwise. [employer]'s drug information does not endorse drugs, diagnose patients or recommend therapy. [facility] [employer] drug information is an informational resource designed to assist licensed healthcare practitioners in caring for their patients and/or to serve consumers viewing this service as a supplement to, and not a substitute for, the expertise, skill, knowledge and judgment of healthcare practitioners. The absence of a warning for a given drug or drug combination in no way should be construed to indicate that the drug or drug combination is safe, effective or appropriate for any given patient. [employer] does not assume any responsibility for any aspect of healthcare administered with the aid of information [employer] provides. The information contained herein is not intended to cover all possible uses, directions, precautions, warnings, drug interactions, allergic reactions, or adverse effects. If you have questions about the drugs you are taking, check with your doctor, nurse or pharmacist. Copyright 9120-1065 [employer]. Version: 7.01. Revision Date: 06/06/2018. metoprolol (oral/injection) (me TOE pro lol) Blaire Lepe, Kerri, Metoprolol Succinate ER, Metoprolol Tartrate, Toprol-XL What is the most important information I should know about metoprolol? You should not use this medicine if you have a serious heart problem (heart block, sick sinus syndrome, slow heart rate), severe circulation problems, severe heart failure, or a history of slow heart beats that caused fainting. What is metoprolol? Metoprolol is a beta-giancarlo that affects the heart and circulation (blood flow through arteries and veins). Metoprolol is used to treat angina (chest pain) and hypertension (high blood pressure). It is also used to lower your risk of or needing to be hospitalized for heart failure. Metoprolol injection is used during the early phase of a heart attack to lower the risk of . Metoprolol may also be used for other purposes not listed in this medication guide. What should I discuss with my healthcare provider before taking metoprolol? You should not use this medicine if you are allergic to metoprolol, or other beta-blockers (atenolol, carvedilol, labetalol, nadolol, nebivolol, propranolol, sotalol, and others), or if you have: ?? a serious heart problem such as heart block, sick sinus syndrome, or slow heart rate; ?? severe circulation problems; ?? severe heart failure (that required you to be in the hospital); or ?? a history of slow heart beats that have caused you to faint. Tell your doctor if you have ever had: ?? asthma, chronic obstructive pulmonary disease (COPD), sleep apnea, or other breathing disorder; ?? diabetes (taking metoprolol may make it harder for you to tell when you have low blood sugar); ?? liver disease; ?? congestive heart failure; ?? problems with circulation (such as Raynaud's syndrome); ?? a thyroid disorder; or ?? pheochromocytoma (tumor of the adrenal gland). Do not give this medicine to a child without medical advice. Tell your doctor if you are or plan to become . It is not known whether metoprolol will harm an unborn baby. However, having high blood pressure during may cause complications such as diabetes or eclampsia (dangerously high blood pressure that can lead to medical problems in both mother and baby). The benefit of treating hypertension may outweigh any risks to the baby. Ask a doctor before using this medicine if you are breast-feeding. Metoprolol can pass into breast milk and may cause dry skin, dry mouth, diarrhea, constipation, or slow heartbeats in your baby. How should I take metoprolol? Follow all directions on your prescription label and read all medication guides or instruction sheets. Your doctor may occasionally change your dose. Use the medicine exactly as directed. Metoprolol should be taken with a meal or just after a meal. Take the medicine at the same time each day. Swallow the capsule whole and do not crush, chew, break, or open it. A Toprol XL tablet can be divided in half if your doctor has told you to do so. Swallow the half-tablet whole, without chewing or crushing. Measure liquid medicine carefully. Use the dosing syringe provided, or use a medicine dose-measuring device (not a kitchen spoon). You will need frequent medical tests, and your blood pressure will need to be checked often. If you need surgery, tell the surgeon ahead of time that you are using metoprolol. You should not stop using metoprolol suddenly. Stopping suddenly may make your condition worse. If you have high blood pressure, keep using this medicine even if you feel well. High blood pressure often has no symptoms. You may need to use metoprolol for the rest of your life. Store at room temperature away from moisture and heat. Metoprolol injection is given as an infusion into a vein. A healthcare provider will give you this injection in a medical setting where your heart and blood pressure can be monitored. Metoprolol injections are given for only a short time before switching you to the oral form of this medicine. What happens if I miss a dose? Skip the missed dose and use your next dose at the regular time. Do not use two doses at one time. What happens if I overdose? Seek emergency medical attention or call the Poison Help line at . What should I avoid while taking metoprolol? Avoid driving or hazardous activity until you know how this medicine will affect you. Your reactions could be impaired. Drinking alcohol can increase certain side effects of metoprolol. What are the possible side effects of metoprolol? Get emergency medical help if you have signs of an allergic reaction: hives; difficulty breathing; swelling of your face, lips, tongue, or throat. Call your doctor at once if you have: ?? very slow heartbeats; ?? a light-headed feeling, like you might pass out; ?? shortness of breath (even with mild exertion), swelling, rapid weight gain; or ?? cold feeling in your hands and feet. Common side effects may include: ?? dizziness, tired feeling; ?? depression, confusion, memory problems; ?? nightmares, trouble sleeping; ?? diarrhea; or ?? mild itching or rash. This is not a complete list of side effects and others may occur. Call your doctor for medical advice about side effects. You may report side effects to FDA at 5-285-ZLL-8978. What other drugs will affect metoprolol? Tell your doctor about all your current medicines. Many drugs can affect metoprolol, especially: ?? any other heart or blood pressure medications; ?? epinephrine (Epi-Pen); ?? an antidepressant; ?? an ergot medicine--dihydroergotamine, ergonovine, ergotamine, methylergonovine; or ?? an MAO inhibitor--isocarboxazid, linezolid, phenelzine, rasagiline, selegiline, tranylcypromine. This list is not complete and many other drugs may affect metoprolol. This includes prescription and wggz-odc-kwzkohv medicines, vitamins, and herbal products. Not all possible drug interactions are listed here. Where can I get more information? Your pharmacist can provide more information about metoprolol. Remember, keep this and all other medicines out of the reach of children, never share your medicines with others, and use this medication only for the indication prescribed. Every effort has been made to ensure that the information provided by [employer] ('[employer]') is accurate, up-to-date, and complete, but no guarantee is made to that effect. Drug information contained herein may be time sensitive. [employer] information has been compiled for use by healthcare practitioners and consumers in the [place] and therefore [employer] does not warrant that uses outside of the [place] are appropriate, unless specifically indicated otherwise. [employer]s drug information does not endorse drugs, diagnose patients or recommend therapy. [facility] drug information is an informational resource designed to assist licensed healthcare practitioners in caring for their patients and/or to serve consumers viewing this service as a supplement to, and not a substitute for, the expertise, skill, knowledge and judgment of healthcare practitioners. The absence of a warning for a given drug or drug combination in no way should be construed to indicate that the drug or drug combination is safe, effective or appropriate for any given patient. [facility] does not assume any responsibility for any aspect of healthcare administered with the aid of information [facility] provides. The information contained herein is not intended to cover all possible uses, directions, precautions, warnings, drug interactions, allergic reactions, or adverse effects. If you have questions about the drugs you are taking, check with your doctor, nurse or pharmacist. documented in this encounter Plan of Treatment Not on file documented as of this encounter Visit Diagnoses Not on filedocumented in this encounter Care Teams Distributor Sales Manager Relationship Specialty Start Date End Date Hussein Brian MD [address] [place] [address] PCP - General General Internal Medicine 03/14/23 documented as of this encounter
--- OUTSIDE RECORDS SUMMARY | 2025-03-28 14:50 | XMS_ITS | Encounter Summary ---
Author Organization [employer] ([place], [place], [place], [place]) Address [address] [place] [address] Care Team Providers Care Civil Cadd Technician Name Role Phone Hussein Brian MD Primary Care Provider [phone] Encounter Details Date Type Department Care Team (Late st Contact Info) Description 03/06/2022 Transcribed Document [facility] [place] Family Medicine [address] [place] [address] ProviderThomas MD [address] [place] [address] Social History Tobacco Use Types [...] rded Speak language other than Citizen [place] at home Not on file 08/12/2023 Want [...] Conversion Note - Historical Provider, - 03/06/2022 11:10 PM CDT Rapid Response Team Documentation Entered On: 03/06/2022 23:18 EDT Performed On: 03/06/2022 23:10 EDT by HUNTER BONILLA RN Rapid Response Event Time Rapid Response Team Called : 03/06/2022 23:00 EDT Rapid Response Team Arrival Time : 03/06/2022 23:10 EDT Rapid Response Team Event End Time : 03/06/2022 23:20 EDT Rapid Response Team Initiation Reason : Peripheral IV start Rapid Response Event Location Type : Other: 426 Rapid Response Admission Diagnosis : No qualifying admission diagnosis Rapid Response Medical Background : Afib (Medical) At risk for sleep apnea (Medical) Hip pain, right (Medical) Rapid Response Allergies : Substance Category Reactions Severity digoxin Drug Rapid Response Recent Vital Signs : 03/06/2022 21:00 Systolic Blood Pressure 119 03/06/2022 21:00 Diastolic Blood Pressure 73 03/06/2022 21:00 Heart Rate Monitored 76 03/06/2022 20:21 Heart Rate, Apical 89 03/06/2022 18:05 Respiratory Rate 16 03/06/2022 18:05 Temperature, Fahrenheit 99 03/06/2022 18:05 Oxygen Saturation 94 Rapid Response Recent Lab Results : 03/06/2022 06:36 Sodium Level LOW 134 (136-146) 03/06/2022 06:36 Potassium Level 3.6 (3.5-5.1) 03/06/2022 06:36 Calcium Level 9.0 (8.4-10.1) 03/06/2022 17:41 Magnesium Level 1.9 (1.5-2.4) 03/05/2022 16:09 Glucose POC2 HI 130 (70-110) 03/06/2022 06:36 Chloride Level LOW 100 (102-112) 03/06/2022 06:36 Carbon Dioxide Level 23 (21-32) 03/06/2022 06:36 Blood Urea Nitrogen HI 27 (7-22) 03/06/2022 06:36 Creatinine Level 1.00 (0.70-1.30) 03/06/2022 06:36 PT HI 19.8 (9.2-12.0) 03/06/2022 06:36 INR HI 2.0 (0.9-1.2) 03/06/2022 06:36 Hgb LOW 13.4 (13.5-17.3) 03/06/2022 06:36 Hct LOW 37.9 (40.1-51.0) 03/06/2022 06:36 RBC LOW 3.90 (4.20-5.70) 03/06/2022 06:36 WBC 5.4 (3.6-9.5) 03/06/2022 06:36 Platelet Count LOW 134 (163-369) Weight/BMI : Clinical Weight/BMI CLINICALWEIGHT: 109.09 kg (03/05/22 16:30:00) Body Mass Index: 31.7 kg/m2 High (03/05/22 16:30:00) Rapid Response Civil Cadd Technician #1 : HUNTER BONILLA, RN HUNTER BONILLA, RN - 03/06/2022 23:17 EDT Electronically signed by [facility], [facility] Conversion Stripper [employer] Bo[employer] Cerner at 11/19/2022 4:17 PM CDT documented in this encounter Plan of Treatment Not on file documented as of this encounter Visit Diagnoses Not on filedocumented in this encounter Care Teams Civil Cadd Technician Relationship Specialty Start Date End Date Hussein Brian MD [facility] [place] [address] PCP - General General Internal Medicine 03/14/23 documented as of this encounter
--- OUTSIDE RECORDS SUMMARY | 2025-03-28 14:50 | XMS_ITS | Encounter Summary ---
Author Organization [employer] ([place], [place], [place], [place]) Address [address] [place] [address] Care Team Providers Care Sawmill Supervisor Name Role Phone Hussein Brian MD Primary Care Provider Encounter Details Date Type Department Care Team (Late st Contact Info) Description 04/02/2022 Transcribed Document [facility] [place] Family Medicine [address] [place] [address] ProviderThomas MD [address] [place] [address] Social History Tobacco Use Types [...] Date Ryan rded Speak language other than [place] at home Not on file 08/12/2023 Want [...] Conversion Note - Historical Provider, - 04/02/2022 7:07 PM CDT Patient: DALLAS RADFORD Age: 76 Years Sex: Male : 1945 External [employer] Navigation Teacher: Jimi Jonas MD Indication: Persistent symptomatic atrial fibrillation properly anticoagulated currently on amiodarone Procedure report: After written informed consent was obtained, the patient was brought to the holding area in a fasting state. Defibrillation pads were placed in an anteroposterior fashion. A 200 J biphasic shock restored normal sinus rhythm with one attempt. Moderate sedation was given and monitored by physician with IV versed and IV fentanyl given. Monitoring time was approximately 15 minutes and patient was hemodynamically stable throughout the procedure. Complications: No immediate complications were observed. Conclusion:Successful cardioversion however the patient reverted in A. fib after a few minutes Electronically signed by [facility], [facility] Conversion Medicine Tech Cerner at 11/19/2022 4:03 PM CDT documented in this encounter Plan of Treatment Not on file documented as of this encounter Visit Diagnoses Not on filedocumented in this encounter Care Teams Sawmill Supervisor Relationship Specialty Start Date End Date Hussein Brian MD [address] [place], [place] [id number] PCP - General General Internal Medicine 03/14/23 documented as of this encounter
--- OUTSIDE RECORDS SUMMARY | 2025-03-28 14:50 | XMS_ITS | Encounter Summary ---
Author Organization [employer] ([place], [place], [place], [place]) Address [address] [place] [address] Care Team Providers Care Jigmaker Name Role Phone Hussein Brina MD Primary Care Provider [phone] Encounter Details Date Type Department Care Team (Late st Contact Info) Description 03/06/2022 Transcribed Document [facility] [place] Family Medicine [address] [place] [address] ProviderThomas MD [address] [place] [address] Social History Tobacco Use Types [...] Date Ryan rded Speak language other than [place]serratian at home Not on file 08/12/2023 Want [...] Conversion Note - Historical Provider, - 03/06/2022 3:33 PM CDT Patient: DALLAS RADFORD Age: 76 years Sex: Male : 1945 Associated Diagnoses: None Author: VY TORRES MD-CAR Basic Information 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 Was in A fib RVR. History of Present Illness I had the pleasure of seeing in consultation for Af. He is a 76-year-old male who was transferred from [facility] for atrial fibrillation with RVR. The patient was having an outpatient stress test which reportedly revealed no reversible deficits and no evidence of ischemia when he went into atrial fibrillation with RVR. The patient was subsequently admitted. The patient was on Metoprolol 100mg po BID and Warfarin at home for atrial fibrillation and cardiology added Cardizem 30mg po TID at [facility]. An echocardiogram on 03/01/22 revealed EF 35% which was improved from 01/05/22 that was reported 15%. The patient c/o having difficulty eating, nausea, and vomiting. GI was consulted and had an EGD and revealed no anatomic problems and an upper GI series which showed severe esophageal dysmotility. The patient denies chest pain, shortness of air, dizziness ,syncope, or edema. He does report palpitations. EP was consulted for AF. Review of Systems Constitutional: Negative except as documented in history of present illness. Eye: Negative except as documented in history of present illness. Ear/Nose/Mouth/Throat: Negative except as documented in history of present illness. Respiratory: Negative except as documented in history of present illness. Cardiovascular: Negative except as documented in history of present illness. Gastrointestinal: Negative except as documented in history of present illness. Genitourinary: Negative except as documented in history of present illness. Hematology/Lymphatics: Negative except as documented in history of present illness. Endocrine: Negative except as documented in history of present illness. Immunologic: Negative except as documented in history of present illness. Musculoskeletal: Negative except as documented in history of present illness. Integumentary: Negative except as documented in history of present illness. Neurologic: Negative except as documented in history of present illness. Psychiatric: Negative except as documented in history of present illness. Health Status Allergies (1) Active Reaction digoxin None Documented Home Medications (8) Active atorvastatin 40 mg [...] mg = 1 Tab, PRN, Oral, Q6H Allergies: Allergic Reactions (Selected) Severity Not Documented [...] Oral, Daily cholecalciferol: 1,000 Units, Oral, Daily metoprolol tartrate: 100 mg, Oral, BID mirtazapine: [...] (at bedtime), 30 Tab, 0 Refill(s), Medications (12) Active Scheduled: (10) amiodarone 200 mg tab 400 mg 2 [...] 2 mg 1 Tab, Oral, Daily Continuous: (0) PRN: (2) acetaminophen 325 mg tab 650 mg 2 Tab, Oral, Q6H promethazine 25 mg/1 mL inj 12.5 mg 0.5 mL, IV Piggyback, Q6H Problem list: Medical Afib / SNOMED CT 63223763 / Confirmed Hip pain, right / SNOMED CT 95275121 / Confirmed At risk for sleep apnea / IMO [id number] / Confirmed, Active Problems (3) Afib At risk for sleep apnea Hip pain, right Histories No education data available. Social & Psychosocial Habits Alcohol 03/05/2022 Alcohol Use History, Social Habits Yes Days Per Week of Alcohol Use 3 Total Drinks Per Week 6 Substance Abuse 03/05/2022 Recreational Drug Use History No Tobacco 03/05/2022 Smoking Status Never (less than 100 in l Smokeless Tobacco Status Never Past Medical History: No active or resolved past medical history items have been selected or recorded. Family History: No family history items have been selected or recorded., No family history of sudden cardiac Procedure history: bilateral hernia repair. Social History Social & Psychosocial Habits Alcohol 03/05/2022 Alcohol Use History, Social Habits Yes Days Per Week of Alcohol Use 3 Total Drinks Per Week 6 Substance Abuse 03/05/2022 Recreational Drug Use History No Tobacco 03/05/2022 Smoking Status Never (less than 100 in l Smokeless Tobacco Status Never . Physical Examination VS/Measurements Vital Signs/Vital Measures 03/06/2022 13:26 EDT Systolic Blood Pressure 89 mmHg LOW Diastolic Blood Pressure 60 mmHg Mean Arterial Pressure (MAP)-BMDI 70 Temperature Source Oral Temperature Mode Fahrenheit Temperature, Fahrenheit 97.4 Deg F Clinical Temperature, C 36.3 Deg C Heart Rate Monitored 62 bpm 03/06/2022 11:00 EDT Systolic Blood Pressure 111 mmHg Diastolic Blood Pressure 85 mmHg Mean Arterial Pressure (MAP)-BMDI 93 Temperature Source Oral Temperature Mode Fahrenheit Temperature, Fahrenheit 97.1 Deg F Clinical Temperature, C 36.2 Deg C Heart Rate Monitored 90 bpm 03/06/2022 10:24 EDT Heart Rate, Apical 77 bpm 03/06/2022 10:00 EDT Systolic Blood Pressure 85 mmHg LOW Diastolic Blood Pressure 52 mmHg LOW Mean Arterial Pressure (MAP)-BMDI 65 Heart Rate Monitored 88 bpm 03/06/2022 9:00 EDT Systolic Blood Pressure 111 mmHg Diastolic Blood Pressure 69 mmHg Mean Arterial Pressure (MAP)-BMDI 85 Heart Rate Monitored 95 bpm 03/06/2022 8:45 EDT Systolic Blood Pressure 107 mmHg Diastolic Blood Pressure 56 mmHg LOW Mean Arterial Pressure (MAP)-BMDI 71 Heart Rate Monitored 81 bpm 03/06/2022 8:39 EDT Heart Rate, Apical 88 bpm 03/06/2022 8:30 EDT Systolic Blood Pressure 117 mmHg Diastolic Blood Pressure 67 mmHg Mean Arterial Pressure (MAP)-BMDI 81 Heart Rate Monitored 88 bpm 03/06/2022 8:15 EDT Systolic Blood Pressure 97 mmHg Diastolic Blood Pressure 64 mmHg Mean Arterial Pressure (MAP)-BMDI 74 Heart Rate Monitored 81 bpm 03/06/2022 8:00 EDT Systolic Blood Pressure 105 mmHg Systolic Blood Pressure 105 mmHg Diastolic Blood Pressure 60 mmHg Diastolic Blood Pressure 60 mmHg Mean Arterial Pressure (MAP)-BMDI 72 Mean Arterial Pressure (MAP)-BMDI 72 Heart Rate Monitored 77 bpm Heart Rate Monitored 77 bpm 03/06/2022 7:45 EDT Systolic Blood Pressure 105 mmHg Diastolic Blood Pressure 60 mmHg Mean Arterial Pressure (MAP)-BMDI 72 Heart Rate Monitored 77 bpm 03/06/2022 7:07 EDT Systolic Blood Pressure 105 mmHg Diastolic Blood Pressure 63 mmHg Mean Arterial Pressure (MAP)-BMDI 75 Heart Rate Monitored 92 bpm 03/06/2022 6:54 EDT Systolic Blood Pressure 105 mmHg Diastolic Blood Pressure 61 mmHg Mean Arterial Pressure (MAP)-BMDI 75 Heart Rate Monitored 78 bpm 03/06/2022 6:37 EDT Systolic Blood Pressure 112 mmHg Diastolic Blood Pressure 54 mmHg LOW Mean Arterial Pressure (MAP)-BMDI 72 Heart Rate Monitored 86 bpm 03/06/2022 6:24 EDT Systolic Blood Pressure 100 mmHg Diastolic Blood Pressure 69 mmHg Mean Arterial Pressure (MAP)-BMDI 79 Heart Rate Monitored 86 bpm 03/06/2022 6:00 EDT Systolic Blood Pressure 102 mmHg Diastolic Blood Pressure 62 mmHg Mean Arterial Pressure (MAP)-BMDI 73 Temperature Source Oral Temperature Mode Fahrenheit Temperature, Fahrenheit 98.4 Deg F Clinical Temperature, C 36.9 Deg C Heart Rate Monitored 85 bpm Respiratory Rate 16 Breaths/Min Oxygen Saturation 98 % Oxygen Therapy Mode Room air 03/06/2022 5:46 EDT Systolic Blood Pressure 112 mmHg Diastolic Blood Pressure 53 mmHg LOW Mean Arterial Pressure (MAP)-BMDI 67 Heart Rate Monitored 62 bpm 03/06/2022 5:37 EDT Systolic Blood Pressure 101 mmHg Diastolic Blood Pressure 57 mmHg LOW Mean Arterial Pressure (MAP)-BMDI 68 Heart Rate Monitored 81 bpm 03/06/2022 5:15 EDT Systolic Blood Pressure 110 mmHg Diastolic Blood Pressure 57 mmHg LOW Mean Arterial Pressure (MAP)-BMDI 77 Heart Rate Monitored 82 bpm 03/06/2022 5:01 EDT Systolic Blood Pressure 106 mmHg Diastolic Blood Pressure 56 mmHg LOW Mean Arterial Pressure (MAP)-BMDI 71 Heart Rate Monitored 81 bpm 03/06/2022 4:49 EDT Systolic Blood Pressure 119 mmHg Diastolic Blood Pressure 63 mmHg Mean Arterial Pressure (MAP)-BMDI 73 Heart Rate Monitored 80 bpm 03/06/2022 4:45 EDT Systolic Blood Pressure 110 mmHg Diastolic Blood Pressure 60 mmHg Mean Arterial Pressure (MAP)-BMDI 68 Heart Rate Monitored 74 bpm 03/06/2022 4:43 EDT Systolic Blood Pressure 110 mmHg Diastolic Blood Pressure 60 mmHg Mean Arterial Pressure (MAP)-BMDI 68 Heart Rate Monitored 74 bpm 03/06/2022 3:53 EDT Systolic Blood Pressure 107 mmHg Diastolic Blood Pressure 58 mmHg LOW Mean Arterial Pressure (MAP)-BMDI 68 Heart Rate Monitored 69 bpm 03/06/2022 2:00 EDT Systolic Blood Pressure 116 mmHg Diastolic Blood Pressure 66 mmHg Mean Arterial Pressure (MAP)-BMDI 83 Heart Rate Monitored 99 bpm 03/06/2022 1:51 EDT Systolic Blood Pressure 103 mmHg Diastolic Blood Pressure 62 mmHg Mean Arterial Pressure (MAP)-BMDI 73 Heart Rate Monitored 71 bpm 03/06/2022 0:45 EDT Systolic Blood Pressure 115 mmHg Diastolic Blood Pressure 62 mmHg Mean Arterial Pressure (MAP)-BMDI 81 Temperature Source Oral Temperature Mode Fahrenheit Temperature, Fahrenheit 98.6 Deg F Clinical Temperature, C 37 Deg C Heart Rate Monitored 77 bpm Respiratory Rate 16 Breaths/Min Oxygen Saturation 97 % Oxygen Therapy Mode Room air 03/05/2022 21:26 EDT Systolic Blood Pressure 109 mmHg Diastolic Blood Pressure 67 mmHg Mean Arterial Pressure (MAP)-BMDI 79 Heart Rate Monitored 91 bpm 03/05/2022 21:00 EDT Systolic Blood Pressure 105 mmHg Diastolic Blood Pressure 66 mmHg Mean Arterial Pressure (MAP)-BMDI 79 Heart Rate, Apical Not Done: Not Appropriate at this Time (Not Done) Heart Rate Monitored 90 bpm 03/05/2022 20:06 EDT Systolic Blood Pressure 108 mmHg Diastolic Blood Pressure 71 mmHg Mean Arterial Pressure (MAP)-BMDI 84 Temperature Source Oral Temperature Mode Fahrenheit Temperature, Fahrenheit 98.7 Deg F Clinical Temperature, C 37.1 Deg C Heart Rate Monitored 93 bpm Respiratory Rate 18 Breaths/Min Oxygen Saturation 95 % Oxygen Therapy Mode Room air 03/05/2022 18:43 EDT Systolic Blood Pressure 136 mmHg Diastolic Blood Pressure 69 mmHg Mean Arterial Pressure (MAP)-BMDI 88 Temperature Source Oral Temperature Mode Fahrenheit Temperature, Fahrenheit 97.8 Deg F Clinical Temperature, C 36.6 Deg C Heart Rate Monitored 67 bpm Respiratory Rate 16 Breaths/Min Oxygen Saturation 98 % Oxygen Therapy Mode Room air Oxygen Flow Rate 98 Liter/Min 03/05/2022 18:42 EDT Heart Rate, Apical 67 bpm 03/05/2022 16:47 EDT Heart Rate, Apical Not Done: Equipment/Supplies Unavailable (Not Done) 03/05/2022 15:35 EDT Systolic Blood Pressure 131 mmHg Diastolic Blood Pressure 66 mmHg Temperature Source Oral Temperature Mode Fahrenheit Temperature, Fahrenheit 96.7 Deg F LOW Clinical Temperature, C 35.9 Deg C Heart Rate Monitored 80 bpm Respiratory Rate 16 Breaths/Min Oxygen Saturation 98 % Oxygen Therapy Mode Room air 03/05/2022 15:00 EDT Oxygen Therapy Mode Room air Oxygen Flow Rate 98 Liter/Min , Measurements from flowsheet : Measurements 03/05/2022 16:30 EDT Height Source Stated Height Entry Format [place] Height/Length, BERMUDIAN (ft) 6 ft Height/Length BERMUDIAN 1 Inch CLINICALHEIGHT 185.42 cm [place] Body Weight 79 kg Weight Source Bed scale Weight Entry Format [place] Weight [place] lb 240 lb CLINICALWEIGHT 109.09 kg Body Surface Area (BSA) 2.33 m2 Body Mass Index 31.7 kg/m2 HI , Vitals Signs (last 24 hrs) Last Charted Minimum Maximum Temp 97.4 (MAR 06 13:26) L 96.7 (MAR 05 15:35) 98.7 (MAR 05:06) Apical HR 77 (MAR 06 10:24) 67 (MAR 05 18:42) 88 (MAR 06 08:39) Mon HR 62 (MAR 06 13:26) 62 (MAR 06 05:46) 99 (MAR 06 02:00) Resp Rate 16 (MAR 06 06:00) 16 (MAR 05 15:35) 18 (MAR 05 20:06) SBP L 89 (MAR 06 13:26) L 85 (MAR 06 10:00) 136 (MAR 05 18:43) DBP 60 (MAR 06 13:26) L 52 (MAR 06 10:00) 85 (MAR 06 11:00) MAP 70 (MAR 06 13:26) 65 (MAR 06 10:00) 93 (MAR 06 11:00) SpO2 98 (MAR 06 06:00) 95 (MAR 05 20:06) 98 (MAR 05 15:35) General: Alert and oriented. Eye: Pupils are equal, round and reactive to light. HENT: Normocephalic. Neck: Supple, Non-tender, No carotid bruit, No jugular venous distention. Respiratory: Lungs are clear to auscultation, Respirations are non-labored. Cardiovascular: No murmur, Good pulses equal in all extremities, Heart rate irregularly irregular. Jugular Veins: Not distended. Gastrointestinal: Soft, Non-tender, Non-distended, Normal bowel sounds. Musculoskeletal: Normal range of motion. Integumentary: Warm, Dry, [place]. Neurologic: Alert, Oriented. Psychiatric: Cooperative, Appropriate mood & affect. Review / Management MAR 06 06:36 L 134 L 100 H 27 / 92 3.6 23 1.00 \ MAR 06 06:36 \ L 13.4 / 5.4 L 134 / L 37.9 \ Telemetry/ECG I personally reviewed the last 24 hour telemetry that show atrial fibrillation Cardiac echo Normal sized left ventricle. Moderate left ventricular hypertrophy. Visually estimated ejection fraction 40% +/- 5%. Abnormal left ventricular systolic function; abnormal systolic strain pattern. Restrictive filling pattern consistent with severely increased LV filling pressure (Grade III Diastolic dysfunction). No left ventricular masses or thrombi. Cardiac Markers (Current Encounter/Past 24 Hours) ProBNP 1848 pg/mL VT 03/05/2022 19:19 Troponin I High Sensitivity 32.2 pg/mL 03/05/2022 16:14 Blood Gases (Current Encounter/Past 24 Hours) No Blood Gas Results Found (Past 24 Hours) No Radiology Results Found Results review: Labs (Last four charted values) WBC 5.4 (MAR 06) 7.5 (MAR 05) HB L 13.4 (MAR 06) 13.9 (MAR 05) HCT L 37.9 (MAR 06) L 39.5 (MAR 05) Plt L 134 (MAR 06) 173 (MAR 05) Na L 134 (MAR 06) L 134 (MAR 05) K 3.6 (MAR 06) 4.0 (MAR 05) Cl L 100 (MAR 06) L 99 (MAR 05) CO2 23 (MAR 06) 23 (MAR 05) BUN H 27 (MAR 06) H 25 (MAR 05) Cr 1.00 (MAR 06) 1.30 (MAR 05) Glu R 92 (MAR 06) H 136 (MAR 05) Ca 9.0 (MAR 06) 9.3 (MAR 05) PT H 19.8 (MAR 06) H 21.4 (MAR 05) INR H 2.0 (MAR 06) H 2.2 (MAR 05) AST 30 (MAR 05) ALT 26 (MAR 05) ALK P 92 (MAR 05) T Bili H 2.4 (MAR 05) PTN 6.8 (MAR 05) ALB 3.4 (MAR 05) . Impression and Plan IMPRESSION: Long standing persistent AF with RVR CHADSVASC score 4 (age, CHF, HTN) ?Tachycardia mediated cardiomyopathy, NICMP LVEF 40% HTN HLP Hypokalemia PLAN; Recommend rhythm control for this patient given that he has developed CMP, continue amiodarone load and OAC, and DCCV on Tuesday. Labs reviewed, K is 3.6, Replace K, keep K>4. Will follow. Electronically signed by Raisa, [facility] Conversion Java Lead Architect Cerner at 11/19/2022 4:14 PM CDT documented in this encounter Plan of Treatment Not on file documented as of this encounter Visit Diagnoses Not on filedocumented in this encounter Care Teams Jigmaker Relationship Specialty Start Date End Date Hussein Brian MD [facility] [place] [address] PCP - General General Internal Medicine 03/14/23 documented as of this encounter
--- OUTSIDE RECORDS SUMMARY | 2025-03-28 14:50 | XMS_ITS | Encounter Summary ---
Author Organization [employer] ([place], [place], [place], [place]) Address [address] [place] [address] Care Team Providers Care Table Games Manager Name Role Phone Hussein Brian MD Primary Care Provider [phone] Encounter Details Date Type Department Care Team (Late st Contact Info) Description 03/12/2022 Transcribed Document [facility] [place] [address] [place] [address] ProviderThomas MD [address] [place] [address] Social History Tobacco Use Types [...] Date Ryan rded Speak language other than Greenlandic at home Not on file 08/12/2023 Want [...] Conversion Note - Historical Provider, - 03/12/2022 3:19 PM CDT Discharge Summary, PT Entered On: 03/12/2022 15:22 EDT Performed On: 03/12/2022 15:19 EDT by CHANNING MAYER, PT Discharge Summary Discharge Summary Provider Notified : Physical Therapy Reason for Discharge : Discharged from hospital Discharged to, Therapy : Unit, [facility] Discharge Summary Comment, PT : 0/5 goals met. Pt min A supine to sit but total A sit to supine, mod A x 2 for sit to stand during last assessment on 03/11. Had been able to amb 20 ft min A with a RWx on 03/10. Pt can benefit from cont. PTx in SNF. CHANNING MAYER, PT - 03/12/2022 15:19 EDT Short Term Goals Mobility/Bed Mobility STG PT Grid Goal #1 Goal #2 Activity : Supine to sit Sit to stand Assist : Independent, modified Independent, modified Equipment : Rail, bed Walker, front wheel Date to Meet : 03/13/2022 EDT 03/13/2022 EDT Goal Status : Not met Not met CHANNING MAYER, PT - 03/12/2022 15:19 EDT CHANNING MAYER, PT - 03/12/2022 15:19 EDT Ambulation STG Grid Goal #1 Device : Walker, front wheel Distance : 150' Assist : Supervision or set-up Date to Meet : 03/13/2022 EDT Goal Status : Not met CHANNING MAYER, PT - 03/12/2022 15:19 EDT Group Home Goals Ambulation LTG Grid Goal #1 Device : Walker, front wheel Distance : 375' Assist : Independent, modified Date to Meet : 03/20/2022 EDT Goal Status : Not met Comment : see stair goal CHANNING MAYER, PT - 03/12/2022 15:19 EDT Stairs LTG Grid Goal #1 Device : None Number of Steps : 16 Handrail(s) : One handrail Assist : Supervision or set-up Date to Meet : 03/20/2022 EDT Goal Status : Not met CHANNING MAYER, PT - 03/12/2022 15:19 EDT Electronically signed by Raisa [facility] Conversion Plating And Point Assembly Supervisor Cerner at 11/19/2022 4:17 PM CDT documented in this encounter Plan of Treatment Not on file documented as of this encounter Visit Diagnoses Not on filedocumented in this encounter Care Teams Table Games Manager Relationship Specialty Start Date End Date Hussein Brian MD [facility] [place] [address] PCP - General General Internal Medicine 03/14/23 documented as of this encounter
--- OUTSIDE RECORDS SUMMARY | 2025-03-28 14:50 | XMS_ITS | Encounter Summary ---
Author Organization [employer] ([place], [place], [place], [place]) Address [address] [place] [address] Care Team Providers Care Reconciliation Clerk Name Role Phone Hussein Brian MD Primary Care Provider [phone] Encounter Details Date Type Department Care Team (Late st Contact Info) Description 04/02/[address] [facility] [place] Family Medicine [address] [place] [address] ProviderThomas MD [address] [place] [address] Social History Tobacco Use Types [...] Date Ryan rded Speak language other than Canadian at home Not on file 08/12/2023 Want [...] [employer] Conversion Note - Historical Provider, - 04/02/2022 3:24 PM CDT Patient: DALLAS RADFORD Age: 76 years Sex: Male : 1945 Associated Diagnoses: None Author: VY TORRES MD-CAR Subjective NAD Health Status Allergies: Allergic Reactions (Selected) Severity Not Documented Digoxin- No reactions were documented., Allergies (1) Active Reaction digoxin None Documented Current medications: (Selected) Inpatient Medications Ordered Coumadin: 2 mg, Oral, Daily Flomax: 0.4 mg, Oral, Daily Lovenox: 100 mg, SubCutaneous, [id number] Normal Saline Flush: 10 mL, IV Push, Q12H Normal Saline Flush: 10 mL, IV Push, See Comment, PRN: IV Use acetaminophen: 650 mg, Oral, Q6H, PRN: Pain (Mild 1-3) amiodarone injection 450 mg + Dextrose 5% in Water intravenous solution 250 mL: 34 mL/Hr, IntraVENous amiodarone: 200 mg, Oral, BID atorvastatin: 40 mg, Oral, Daily cholecalciferol: 1,000 Units, Oral, Daily fentaNYL: 25 mcg, IV Push, 1-Time, PRN: Pain (Severe 7-10) fentaNYL: 25 mcg, IV Push, Q10Min, PRN: Pain (Moderate 4-6) metoprolol tartrate: 25 mg, Oral, BID ondansetron: 4 mg, IV Push, 1-Time, PRN: Nausea/Vomiting oxyCODONE: 5 mg, Oral, 1-Time, PRN: Pain (Moderate 4-6) Documented Medications Documented Bumex: 1 mg, Daily, PRN: swelling, 0 Refill(s) Coumadin 1 mg oral tablet: 1 Tab, Oral, Daily, 0 Refill(s) Flomax 0.4 mg oral capsule: 1 Cap, Oral, Daily, 0 Refill(s) Metoprolol Tartrate 100 mg oral tablet: 1 Tab, Oral, At Bedtime, 0 Refill(s) Metoprolol Tartrate: 75 mg, Daily, 0 Refill(s) Tylenol 8 Hour 650 mg oral tablet, extended release: 1 Tab, Oral, Q6H, PRN: Pain (Mild 1-3), 0 Refill(s) amiodarone 200 mg oral tablet: 1 Tab, Oral, BID, 60 Tab, 0 Refill(s) atorvastatin 40 mg oral tablet: 1 Tab, Oral, Daily, 0 Refill(s) cholecalciferol 25 mcg (1000 intl units) oral tablet: 1 Tab, Oral, Daily, 30 Tab, 0 Refill(s), Home Medications (9) Active amiodarone [...] 1 Tab, PRN, Oral, Q6H , Medications (15) Active Scheduled: (8) #NaCl 0.9% *FLUSH* inj 10 mL 10 mL, IV Push, Q12H amiodarone 200 mg tab 200 mg 1 Tab, Oral, BID atorvastatin 40 mg tab 40 mg 1 Tab, Oral, Daily cholecalciferol 1,000 unit tab 1,000 Units 1 Tab, Oral, Daily enoxaparin 100 mg/1 mL inj 100 mg 1 mL, SubCutaneous, [id number] metoprolol tartrate 25 mg tab 25 mg 1 Tab, Oral, BID tamsulosin CR 0.4 mg cap 0.4 mg 1 Cap, Oral, Daily warfarin 2 mg tab 2 mg 1 Tab, Oral, Daily Continuous: (1) amiodarone 450 mg + Dextrose 5% in Water 250 mL 250 mL, IntraVENous, 34 mL/Hr PRN: (6) #NaCl 0.9% *FLUSH* inj 10 mL 10 mL, IV Push, See Comment acetaminophen 325 mg tab 650 mg 2 Tab, Oral, Q6H fentaNYL 100 mcg/2 mL inj 25 mcg 0.5 mL, IV Push, Q10Min fentaNYL 100 mcg/2 mL inj 25 mcg 0.5 mL, IV Push, 1-Time ondansetron 4 mg/2 mL inj 4 mg 2 mL, IV Push, 1-Time oxyCODONE 5 mg tab 5 mg 1 Tab, Oral, 1-Time Problem list: All Problems Afib / SNOMED CT 55057465 / Confirmed Hip pain, right / SNOMED CT 81462442 / Confirmed At risk for sleep apnea / IMO [id number] / Confirmed HTN (hypertension) / SNOMED CT 4326763425 / Confirmed HLD (hyperlipidemia) / SNOMED CT 00118806 / Confirmed, Active Problems (5) Afib At risk for sleep apnea Hip pain, right HLD (hyperlipidemia) HTN (hypertension) Objective Intake and Output 24 hour intake, 24 hour output VS/Measurements Vitals Signs (last 24 hrs) Last Charted Minimum Maximum Temp 98.1 (APR 02 11:45) 97.6 (APR 01 16:00) 98.1 (APR 01 22:00) Apical HR 99 (APR 02 14:02) 88 (APR 01 17:49) 99 (APR 02 14:02) Mon HR 113 (APR 02 11:45) 96 (APR 01 22:00) 113 (APR 02 11:45) Resp Rate 18 (APR 01 16:00) 17 (APR 01 15:30) 18 (APR 01 16:00) SBP 129 (APR 02 11:45) 103 (APR 01 15:30) 129 (APR 02 05:09) DBP 78 (APR 02 11:45) 71 (APR 02 05:09) 81 (APR 01 22:00) MAP 92 (APR 02 11:45) 86 (APR 01 15:30) 92 (APR 01 16:00) SpO2 97 (APR 02 05:09) L 93 (APR 01 16:00) 97 (APR 01 15:30) Results Review Telemetry - Atrial fibrillation 120-130's APR 02 05:53 138 110 15 / H 156 3.7 22 1.00 \ APR 02 05:53 \ L 10.4 / 7.2 209 / L 31.1 \ Telemetry/ECG I personally reviewed the last 24 hour telemetry that shows atrial fibrillation Cardiac echo Cardiac Markers (Current Encounter/Past 24 Hours) No Cardiac Marker Results Found (Past 24 Hours) No Radiology Results Found Impression and Plan IMPRESSION: Long standing persistent AF with RVR CHADSVASC score 4 (age, CHF, HTN) ?Tachycardia mediated cardiomyopathy, NICMP LVEF 40% HTN HLP Hypokalemia PLAN; Patient had PVI/ablation 04/01/2022. Converted to atrial fibrillation RVR afterwards and we put him on Amiodarone drip along with PO. This AM he remains in atrial fib with RVR. INR 1.9, continue Lovenox, Plan is DCCV today. We have asked [facility] physician group to admit for medical management. documented in this encounter Plan of Treatment Not on file documented as of this encounter Visit Diagnoses Not on filedocumented in this encounter Care Teams Reconciliation Clerk Relationship Specialty Start Date End Date Hussein Brian MD [facility] [place] [address] PCP - General General Internal Medicine 03/14/23 documented as of this encounter
--- OUTSIDE RECORDS SUMMARY | 2025-03-28 14:50 | XMS_ITS | Encounter Summary ---
Author Organization [facility] Address [address] [place] [id number] Care Team Providers Care Gang Plank Workman Name Role Phone Alfredito Echeverria MD Primary [...] [facility] [address] [place] [place] [address] Alfredito Echeverria MD [address] [place] [address] 06/24/2025 10:45 AM EST Office Visit [facility] [address] [place] [address] Alfredito Echeverria MD [address] [place] [address] documented as of this encounter Visit Diagnoses Not on filedocumented in this encounter Care Teams Gang Plank Workman Relationship Specialty Start Date End Date Alfredito Echeverria MD [address] [place] [address] PCP - General Family Medicine 05/24/24 documented as of this encounter
--- OUTSIDE RECORDS SUMMARY | 2025-03-28 14:50 | XMS_ITS | Encounter Summary ---
Author Organization [employer] ([place], [place], [place], [place]) Address [address] [place] [address] Care Team Providers Care Landscape Contractor Name Role Phone Jodie Brian MD Primary Care Provider [phone] Encounter Details Date Type Department Care Team (Late st Contact Info) Description 04/03/2022 Transcribed Document [facility] [place] [address] [place] [address] ProviderThomas MD [address] [place] [address] Social History Tobacco Use Types [...] Date Ryan rded Speak language other than Mauritian at home Not on file 08/12/2023 Want [...] Conversion Note - Historical Provider, - 04/03/2022 2:25 PM CDT Patient: DALLAS RADFORD Age: 76 Years Sex: Male : 1945 Admit Date 04/02/2022 14:40 Discharge Date 04/03/2022 17:30 Primary Care Provider JODIE BRIAN (REF), -INT Discharge Diagnosis Persistent atrial fibrillation 04/03/2022 I48.19 ICD-10-CM Procedures ablation on April 01 [facility] Hospital Course 76-year-old male with history of persistent A. fib admitted by EP underwent ablation on April 01 however patient converted to A. fib with RVR afterwards so he was started on amiodarone drip and had cardioversion with conversion to sinus rhythm however went back to A. fib, was kept overnight on amiodarone drip, also started on p.o. amiodarone, his heart rate became better controlled, he was also had Lovenox with warfarin for bridging and his INR. At discharge was 2.4 so he was advised to continue warfarin same dose. He was cleared for discharge from EP standpoint on amiodarone 200 3 times daily and metoprolol 25 twice daily and follow-up in the clinic. On the day of discharge, the patient was comfortable, had no complaints. The patient is able to eat and drink with no pain, nausea or vomiting. Physical examination showed stable vital signs, cardiovascular showed normal S1,S2, Respirations are clear to auscultation, and no wheezing, abdomen soft not tender with normal bowel sounds. The patient was discharged in stable condition and received explanation about post discharge follow up and care as well as red-flag symptoms/findings that require medical attention. Please refer to discharge medication list and discharge instructions for further details. Time spent on discharge preparation and care coordination was about 35 minutes. Vital Signs T: 36.7 ??C TMIN: 36.4 ??C TMAX: 36.7 ??C HR: 93(Monitored) RR: 16 BP: 111/69 SpO2: 96% Oxygen Settings (Last) Oxygen Therapy Mode: Room air (04/03/22 10:45:00) Discharge Disposition Home Discharge Follow Up VY TORRES MD-CAR - Within 1 month Discharge Medications (8) Active amiodarone 200 mg oral [...] mg = 1 Tab, PRN, Oral, Q6H Code Status Start: 04/02/22 15:34:00 EDT, Full Code, Continuous Order Consulting Physicians ALICIA KENNY MD-ANS ELAYI, SAMY C, MD-CAR Electronically signed by [facility] Conversion Big Data Solutions Architect Cerner at 11/19/2022 4:02 PM CDT documented in this encounter Plan of Treatment Not on file documented as of this encounter Visit Diagnoses Not on filedocumented in this encounter Care Teams Landscape Contractor Relationship Specialty Start Date End Date Jodie Brian MD [facility] [place] [place] [address] PCP - General General Internal Medicine 03/14/23 documented as of this encounter
--- OUTSIDE RECORDS SUMMARY | 2025-03-28 14:50 | XMS_ITS | Encounter Summary ---
Author Organization [employer] ([place], [place], [place], [place]) Address [address] [place] [address] Care Team Providers Care Aircraft Loadmaster Superintendent Name Role Phone Hussein Brian MD Primary Care Provider [phone] Encounter Details Date Type Department Care Team (Late st Contact Info) Description 03/06/2022 Transcribed Document [facility] [place] [address] [place] [address] ProviderThomas MD [address] [place] [address] Social History Tobacco Use Types [...] Date Ryan rded Speak language other than Polish at home Not on file 08/12/2023 Want [...] Cerner Conversion Note - Historical ProviderMD - 03/06/2022 5:56 PM CDT UM Authorization Entered On: 03/06/2022 17:57 EDT Performed On: 03/06/2022 17:56 EDT by Nhi Arteaga Rn-Utilization Review Primary Insurance Authorization Authorization and Policy Numbers : Insurance 1 Health Plan: [employer] Policy Number: [id number] Authorization Number: Insurance Primary Name : [employer] GOLD PLUS HMO Policy Number: [id number] Authorization Status-Primary : Awaiting callback Reference Number-Primary : [id number] Authorized Service Begin Date-Primary : 03/05/2022 EDT Authorization Comments-Primary : AUTH SUBMITTED VIA [employer]. CLINICAL FAXED VIA [facility] Historical Authorization Comments-Primary : No Authorization Comments Found Nhi Arteaga Rn-Utilization Review - 03/06/2022 17:56 EDT documented in this encounter Plan of Treatment Not on file documented as of this encounter Visit Diagnoses Not on filedocumented in this encounter Care Teams Aircraft Loadmaster Superintendent Relationship Specialty Start Date End Date Hussein Brian MD [address] [place] [address] PCP - General General Internal Medicine 03/14/23 documented as of this encounter
--- OUTSIDE RECORDS SUMMARY | 2025-03-28 14:50 | XMS_ITS | Encounter Summary ---
Author Organization [employer] ([place], [place], [place], [place]) Address [address] [place] [address] Care Team Providers Care Survey Chief Name Role Phone Hussein Brian MD Primary Care Provider [phone] Encounter Details Date Type Department Care Team (Late st Contact Info) Description 04/02/2022 Transcribed Document [facility] [place] Family Medicine [address] [place] [address] ProviderThomas MD [address] [place] [address] Social History Tobacco Use Types [...] Date Ryan rded Speak language other than Cameroonian at home Not on file 08/12/2023 Want [...] Conversion Note - Historical ProviderMD - 04/02/2022 10:26 AM CDT UM Authorization Entered On: 04/02/2022 10:27 EDT Performed On: 04/02/2022 10:26 EDT by SUE DINH RN-Utilization Review Primary Insurance Authorization Authorization and Policy Numbers : Insurance 1 Health Plan: [employer] G[employer] PLUS HMO Policy Number: [id number] Authorization Number: [id number] Insurance Primary Name : [employer] PLUS HMO Policy Number: [id number] Authorization Status-Primary : Opo status approv Authorized Service Begin Date-Primary : 04/01/2022 EDT Observation Authorization Nbr-Primary : [id number] Authorization Comments-Primary : [] [employer] Medicare auth approved for outpt per [facility] note. Historical Authorization Comments-Primary : No Authorization Comments Found SUE DINH RN-Utilization Review - 04/02/2022 10:26 EDT documented in this encounter Plan of Treatment Not on file documented as of this encounter Visit Diagnoses Not on filedocumented in this encounter Care Teams Survey Chief Relationship Specialty Start Date End Date Hussein Brian MD [address] [place] [address] PCP - General General Internal Medicine 03/14/23 documented as of this encounter
--- OUTSIDE RECORDS SUMMARY | 2025-03-28 14:50 | XMS_ITS | Encounter Summary ---
Author Organization [facility] Address [address] [place] [id number] Care Team Providers Care Survey Research Associate Name Role Phone Alfredito Echeverria MD [...] PM EDT Office Visit [facility] [address] [place] [address] Alfredito Echeverria MD [address] [place] [address] 06/24/2025 10:45 AM EST Office Visit [facility] [address] [place] [address] Alfredito Echeverria MD [address] [place] [address] documented as of this encounter Visit Diagnoses Not on filedocumented in this encounter Care Teams Survey Research Associate Relationship Specialty Start Date End Date Alfredito Echeverria MD [address] [place] [address] PCP - General Family Medicine 05/24/24 documented as of this encounter
--- OUTSIDE RECORDS SUMMARY | 2025-03-28 14:51 | XMS_ITS | Encounter Summary ---
Author Organization [facility] ([place], [place], [place], [place]) Address [address] [place] [address] Care Team Providers Care Emergency Services Professional Name Role Phone Hussein Brian MD Primary Care Provider [phone] Encounter Details Date Type Department Care Team (Late st Contact Info) Description 04/01/2022 Transcribed Document [facility] [address] [place] [address] Lori Gonzalez MD [address] [place] [address] Social History Tobacco Use Types Packs/Day Years [...] Date Ryan rded Speak language other than Japanese at home Not on file 08/12/2023 Want [...] Miscellaneous Notes * Cerner Conversion Note - Lori Gonzalez MD - 04/01/2022 12:42 PM EDT DATE OF SERVICE: INTRAOPERATIVE LOIS REPORT The patient is in EP lab undergoing atrial fibrillation ablation with Dr. Morales who requested intraoperative LOIS for evaluation of the left ventricular function. The procedure was performed with the patient under general anesthesia in the operating room. The LOIS probe was placed atraumatically. Images were acquired and interpreted by me. Aortic valve is tricuspid. There is no aortic regurgitation. There is no aortic stenosis. There is no aortic dissection. There is no aortic aneurysm. Ascending aorta, there is no dissection. The mitral valve leaflets are normal. There is no mitral regurgitation. There is no mitral stenosis. The pulmonary vein flow pattern is normal. Left atrium is severely dilated and the right atrium as well. There is severe dilation of both atria. Tricuspid valve morphology is normal. There is no prolapse. There is no flail. There is mild tricuspid regurgitation with a central jet. The interatrial septum is intact. There is no patent Knowles ovale. Pulmonary valve is normal. Interventricular septum is intact. Left ventricular cavity is normal with the left ventricular ejection fraction estimated to be 50%. There are no wall motion abnormalities. Right ventricle is normal, is normokinetic. There are no motion abnormalities. There are grade 2 minimal changes in the descending aorta and ascending aorta as well. There is no aortic aneurysm. There is no aortic dissection. There is no pleural effusion noted. There is no pericardial effusion. This is only perioperative LOIS for evaluation of the presence of the thrombus in left atrial appendage. There is no thrombus in the left atrial appendage by color Doppler and also by 3D images. IMPRESSION: Left ventricular function estimated to be 50%. There are no wall motion abnormalities. There is mild tricuspid regurgitation. Right atrium and left atrium severely dilated. There is no thrombus in left atrial appendage. There is no pleural effusion. No pericardial effusion perioperatively. The findings were discussed with Dr. Morales. /[id number] Lori Gonzalez MD MC/AQ / CHASTITY / MODL /[id number] documented in this encounter Plan of Treatment Not on file documented as of this encounter Visit Diagnoses Not on filedocumented in this encounter Care Teams Emergency Services Professional Relationship Specialty Start Date End Date Hussein Brian MD [address] [place] [address] PCP - General General Internal Medicine 03/14/23 documented as of this encounter
--- OUTSIDE RECORDS SUMMARY | 2025-03-28 14:51 | XMS_ITS | Encounter Summary ---
Author Organization [employer] ([place], [place], [place], [place]) Address [address] [place] [address] Care Team Providers Care Manager Spa Name Role Phone Hussein Brian MD Primary Care Provider [phone] Encounter Details Date Type Department Care Team (Late st Contact Info) Description 04/01/2022 Transcribed Document [facility] [place] Family Medicine [address] [place] [address] ProviderThomas MD [address] [place] [address] Social History Tobacco Use Types [...] Date Ryan rded Speak language other than British Virgin Islander at home Not on file 08/12/2023 [...] Cerner Conversion Note - Historical Provider, - 04/01/2022 7:22 AM CDT Pre Procedure Adult Entered On: 04/01/2022 7:28 EDT Performed On: 04/01/2022 7:22 EDT by TINA BENTLEY RN Height and Weight, Clinical Dosing Height Source : Stated Height Entry Format : [employer] Height, Feet : 6 ft(Converted to: 183 cm, 72 Inch) Height, Inches : 1 Inch(Converted to: 0 ft 1 Inch, 2.54 cm) Clinical Height : 185.42 cm Weight Source : Standing scale Weight Entry Format : [employer] Clinical Dosing Weight : 104.55 kg Weight, Pounds : 230 lb Body Surface Area (BSA) : 2.29 m2 Body Mass Index : 30.4 kg/m2 (HI) [place] Body Weight : 79 kg TINA BENTLEY RN - 04/01/2022 7:22 EDT Health Histories Smoking Status : Never (less than 100 in lifetime; none in last 30 days) Smokeless Tobacco Status : Never TINA BENTLEY RN - 04/01/2022 7:22 EDT Social History (As Of: 04/01/2022 07:28:09 EDT) Tobacco: Never (less than 100 in lifetime) Smoking Status. Never Smokeless Tobacco Status. (Last Updated: 03/05/2022 16:46:24 EDT by Lakhwinder Calzada, RN) Alcohol: Alcohol Use History Yes. Days/Week: 3. Total Drinks/Week: 6. (Last Updated: 03/05/2022 16:46:50 EDT by Lakhwinder Calzada, RN) Alcohol Use History Yes. Days/Week: 5. # Drinks/Day: 2. (Last Updated: 04/01/2022 07:23:42 EDT by TINA BENTLEY RN) Substance Abuse: Drug Use Hx: No. (Last Updated: 03/05/2022 16:46:59 EDT by Lakhwinder Calzada, RN) Infectious Disease History Does patient have symptoms of COVID-19? : No Tested for COVID19 in the past 14 days : No, Patient stated Does the Patient state known exposure to a COVID-19 positive case in the last 14 days? : No Patient Vaccinated for COVID-19 : Fully vaccinated TINA BENTLEY RN - 04/01/2022 7:22 EDT Infectious Disease Risk Screening Grid Cough < 2 wks of unknown origin : NO Cough > 2 weeks : NO Blood in Sputum : NO Fever or self-reported Fever : NO Rash of unknown origin : NO Headache : NO Stiff neck : NO Night Sweats : NO Unexplained Weight Loss : NO Diarrhea (3 episode per day) : NO TINA BENTLEY RN - 04/01/2022 7:22 EDT Physical contact outside [place] in the last 30 days : No Hospitalized in Foreign Country : No Infectious Disease History : Chicken pox/Shingles, Measles INF Disease TB Screening Calc : 0 INF Disease Recent Travel Calc : 0 TINA BENTLEY RN - 04/01/2022 7:22 EDT COVID19 PreProcedure Screening Is this an Emergent or Add on Procedure? : No Date PreProcedure COVID-19 test known? : No Has patient been isolated since the test : N/A - PreProcedure, in-person visit Exposed to COVID19 symptoms since test? : N/A - PreProcedure, in-person visit TINA BENTLEY RN - 04/01/2022 7:22 EDT Anesthesia/Transfusion History Family History of Anesthesia Reaction : No prior transfusion(s) Blood Transfusion Acceptable to Patient : Yes Transfusion History : Prior anesthesia without reaction Family History of Anesthesia Reaction : Unknown TINA BENTLEY RN - 04/01/2022 7:22 EDT Functional Assessment Living Situation : Home Patient Lives With : Alone Current Home Treatments : None TINA BENTLEY RN - 04/01/2022 7:22 EDT [place] Suicide Severity Rating Scale (C-SSRS) CSSRS Past Month Wish to be : No CSSRS Past Month Suicidal Thoughts : No CSSRS Lifetime Suicide Behavior : No Suicide Severity Rating Score : 0 Suicide Severity Rating : No Additional Care Required at this time TINA BENTLEY RN - 04/01/2022 7:22 EDT Psychosocial History Currently in Unsafe Situation : No TINA BENTLEY RN - 04/01/2022 7:22 EDT Advance Directive Patient has Advance Directive *Q : No, patient refuses Advance Directive information TINA BENTLEY RN - 04/01/2022 7:22 EDT General Info Legal Guardian : No Want Family/Rep/Phys Notified of Admit : No Emergency Contact #1 : Virgil Hammond Emergency Contact #1 Emergency Contact #1 Relationship : guru son Emergency Contact #2 : kandi Emergency Contact #2 Phone Number : na Emergency Contact #2 Relationship : na Primary Language : [place] Islander Communication Barrier : None Roll Wrapper Needed : No TINA BENTLEY RN - 04/01/2022 7:22 EDT Sleep Apnea Risk Assmt Hx of Obstructive Sleep Apnea Diagnosis : No Snore Loudly : No Tired, Fatigued, or Sleepy During Day : Yes Observed Stopping Breathing During Sleep : No Have/Are Being Treated for Hypertension : Yes BMI Greater Than 35 kg/m2 : Yes Age over 50 Years Old : Yes Neck Circumference Greater Than 40 cm : No Gender Male : Yes STOP-BANG Sleep Apnea Risk Level Score : 5 TINA BENTLEY RN - 04/01/2022 7:22 EDT Kaleb Scale Kaleb Sensory Perception : Slightly limited Kaleb Moisture : Rarely moist Kaleb Activity : Walks occasionally Kaleb Mobility : Slightly limited Kaleb Nutrition : Probably inadequate Kaleb Friction and Shear : Potential problem Kaleb Score : 17 TINA BENTLEY RN - 04/01/2022 7:22 EDT Fall Risk Scales ABCs Fall Injury Risk Identification : Age, Bones, Coagulation ABC Fall Injury Risk : Moderate to high injury risk RUST Hx Falls Immediate/Within 3 Months : Yes Rust Secondary Diagnosis : Yes RUST Use of Ambulatory Aid : None RUST IV Therapy or IV Access : Yes Rust Gait/Transferring : Normal, bedrest, immobile Rust Mental Status : Oriented to own ability Rust Fall Risk Score : 60 RUST Fall Scale Risk Level : 25-45 Medium Risk [place] Fall Interventions : Adequate lighting, Assistive devices within reach, Bed in low position, Call device within reach, Fall prevention handout/education per facility policy, Hourly comfort/safety rounds, Non-slip footwear, Personal items within reach, Reinforced to call for assistance before getting out of bed, Room free of clutter/spills, Upper side-rails up, Wheels locked, Wires/Cords secured TINA BENTLEY RN - 04/01/2022 7:22 EDT Valuables and Belongings Valuables and Belongings : Clothing Clothing : Common streetwear Clothing Disposition : Bedside TINA BENTLEY RN - 04/01/2022 7:22 EDT Electronically signed by Raisa [facility] Conversion Help Desk Engineer Cerner at 11/19/2022 4:02 PM CDT documented in this encounter Plan of Treatment Not on file documented as of this encounter Visit Diagnoses Not on filedocumented in this encounter Care Teams Manager Spa Relationship Specialty Start Date End Date Hussein Brian MD [address] [place] [address] PCP - General General Internal Medicine 03/14/23 documented as of this encounter
--- OUTSIDE RECORDS SUMMARY | 2025-03-28 14:51 | XMS_ITS | Encounter Summary ---
Author Organization [employer] ([place], [place], [place], [place]) Address [address] [place] [address] Care Team Providers Care Laminator Name Role Phone Hussein Brian MD Primary Care Provider [phone] Encounter Details Date Type Department Care Team (Late st Contact Info) Description 03/05/2022 Transcribed Document [facility] [place] Family Medicine [address] [place] [address] ProviderThomas MD [address] [place] [address] Social History Tobacco Use Types [...] rded Speak language other than Citizen [place] at home Not on file 08/12/2023 Want [...] Cerner Conversion Note - Historical Provider, - 03/05/2022 4:38 PM CDT Consult Phone Call Documentation Entered On: 03/05/2022 18:55 EDT Performed On: 03/05/2022 16:38 EDT by Elisa Costello PATIENT PERIPHERAL VASCULAR TECH Phone Call for Consults Consult Phone Call/Page Attempt : First call Consult Reason : afib rvr Physician Requested for Consult : GARIMA PHILLIP NP Provider Service Notified Name : Cardiology Date and Time Call Returned : 03/05/2022 18:55 EDT Elisa Costello PATIENT PERIPHERAL VASCULAR TECH - 03/05/2022 18:54 EDT documented in this encounter Plan of Treatment Not on file documented as of this encounter Visit Diagnoses Not on filedocumented in this encounter Care Teams Laminator Relationship Specialty Start Date End Date Hussein Brian MD [address] [place] [address] PCP - General General Internal Medicine 03/14/23 documented as of this encounter
--- OUTSIDE RECORDS SUMMARY | 2025-03-28 14:51 | XMS_ITS | Encounter Summary ---
Author Organization [employer] ([place], [place], [place], [place]) Address [address] [place] [address] Care Team Providers Care Plate Grainer Apprentice Name Role Phone Hussein Brian MD Primary Care Provider [phone] Encounter Details Date Type Department Care Team (Late st Contact Info) Description 03/06/2022 Transcribed Document [facility] [place] [address] [place] [address] ProviderThomas MD [address] [place] [address] Social History Tobacco Use Types [...] Date Ryan rded Speak language other than Burmese at home Not on file 08/12/2023 Want [...] Conversion Note - Historical Provider, - 03/06/2022 11:45 PM CDT Education-Wound Care Entered On: 03/06/2022 23:48 EDT Performed On: 03/06/2022 23:45 EDT by Joslyn Spann Lpn Teaching/Learning Assessment Barriers To Learning : None evident Individuals Taught : Patient Readiness to Learn : Cooperative Highest Level of Education : High school Baseline Knowledge of Topic : Good Readiness to Learn : Explanation Learning Style Preferences Patient : Verbal explanation Learning Style Preferences Family : Verbal explanation Joslyn Spann Lpn - 03/06/2022 23:47 EDT Electronically signed by Raisa [facility] Conversion Negative Turner Cerner at 11/19/2022 4:21 PM CDT documented in this encounter Plan of Treatment Not on file documented as of this encounter Visit Diagnoses Not on filedocumented in this encounter Care Teams Plate Grainer Apprentice Relationship Specialty Start Date End Date Hussein Brian MD [address] [place], [place] [id number] PCP - General General Internal Medicine 03/14/23 documented as of this encounter
--- OUTSIDE RECORDS SUMMARY | 2025-03-28 14:51 | XMS_ITS | Encounter Summary ---
Author Organization [employer] ([place], [place], [place], [place]) Address [address] [place] [address] Care Team Providers Care Garment Sewer Hand Name Role Phone Hussein Brian MD Primary Care Provider [phone] Encounter Details Date Type Department Care Team (Late st Contact Info) Description 03/05/2022 Transcribed Document [facility] [place] Medicine [address] [place] [address] ProviderThomas MD [address] [place] [address] Social History Tobacco Use Types Packs/Day Years Used Date Smoking Tobacco: Never Assessed Food Insecurity Answer Date Recorded Food run out past 12 months Not on file 08/01 Food did not last past 12 months Not on file 08/12/2023 Employment Answer Date Recorded Help finding and keeping a job Not on file 0 08/12/2023 Family and Community Support Answer Ism e Recorded Help with Day to Day Activities Not on file 08/12/2023 Feeling Lonely or Isolated Not on file 08/12 Educational Attainment Answer Date Ryan rded Speak language other than Danish at home Not on file 08/12/2023 Want [...] Conversion Note - Historical Provider, - 03/05/2022 4:50 PM CDT Nutrition Assessment Entered On: 03/06/2022 16:24 EDT Performed On: 03/06/2022 16:24 EDT by Julieta Medina Dietitian Nutrition Assessment Nutrition Assessment Reason : Automatic referral Current Nutrition Regimen Comment : 03/06: RD consult rec'd for MST (decreased appetite, 24-33# wt loss). 76yoM admitted from OSH for cardiology evaluation for AFib w/ RVR. UGI series at OSH showed severe esophageal dysmotility, pt had ongoing N/V. GI consult pending. Pt is currently on cardiac diet, but reported to MD he was only able to take bites. Pt ate 0% of bkfast and lunch today. No recent wt hx available via EMR. Unable to assess for PCM at this time. Will order ONS to supplement PO intakes. RD to leave nutrition support recs if needed. 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 Skin: no breakdown Diet: Cardiac Intakes: 0% x 2 meals Ht: 73 Wt: 240# Wt hx: 283# x 4 yrs BMI: 31.7 IBW: 184# (130% IBW) Est needs: 2200-2400kcal (Baxter x 1.2 AF) 110g PRO (1.0g/kg) Julieta Medina Dietitian - 03/06/2022 16:19 EDT Nutrition Diagnoses Oral or Nutrition Support Intake : Inadequate oral intake Oral or Nutr Support Intake Related To : N/V, esoph dysmotility Oral or Nutr Support Intake Evidenced by : poor intakes, possible wt loss Oral or Nutrition Support Intake Status : Active Weight : Unintended weight loss Weight Related to : N/V, esophageal dysmotility Weight As Evidenced by : 24-33# wt loss per MST Weight Status : Active Julieta Medina Dietitian - 03/06/2022 16:19 EDT Nutrition Interventions Meals and Snacks : Fat-modified diet, Cholesterol-modified diet, Sodium modified diet Nutrition Supplement Therapy : Commercial beverage Julieta Medina Dietitian - 03/06/2022 16:19 EDT Monitoring/Evaluation Energy Intake : Total energy intake Food Intake : Amount of food Protein Intake : Total protein Weight Status : Weight Maintanence Gastrointestinal Function : Bowel Function Julieta Medina Dietitian - 03/06/2022 16:19 EDT Nutrition Recommendations Dietitian Recommendations : 1. Pending GI consult, continue current diet as tolerated. Downgrade to CLD if pt unable to tolerate. RD to order Ensures TID goal: safe PO, tolerance 2. If nutrition support warranted, consider post-pyloric corpak if feasible and starting TwoCal HN @ 10ml/hr, advancing 10ml q 12 hrs to goal rate @ 50ml/hr (provides 2200kcal, 92g PRO). FW per MD goal: meet est needs 3. Monitor elytes and replace prn goal: wnls 4. Obtain wt 2x weekly. Reassess for PCM at f/up. goal: avoid sig involuntary wt changes Risk: High Nutrition Care Level : High Julieta Medina Dietitian - 03/06/2022 16:19 EDT documented in this encounter Plan of Treatment Not on file documented as of this encounter Visit Diagnoses Not on filedocumented in this encounter Care Teams Garment Sewer Hand Relationship Specialty Start Date End Date Hussein Brian MD [facility] [place] [address] PCP - General General Internal Medicine 03/14/23 documented as of this encounter
--- OUTSIDE RECORDS SUMMARY | 2025-03-28 14:51 | XMS_ITS | Encounter Summary ---
Author Organization [employer] ([place], [place], [place], [place]) Address [address] [place] [address] Care Team Providers Care Wire Brusher Name Role Phone Hussein Brian MD Primary Care Provider Encounter Details Date Type Department Care Team (Late st Contact Info) Description 04/01/2022 Transcribed Document [facility] [place] Family Medicine [address] [place] [address] ProviderThomas MD [address] [place] [address] Social History Tobacco Use Types [...] Date Ryan rded Speak language other than Surinamese at home Not on file 08/12/2023 Want [...] Marvel Conversion Note - Historical Provider, - 04/01/2022 5:59 PM CDT DATE OF SERVICE: 04/01/2022 PROCEDURES: 1. Comprehensive electrophysiologic study. 2. Radiofrequency ablation. 3. Three-dimensional electroanatomical mapping. 4. Transseptal puncture. 5. Intracardiac echo. 6. Isoproterenol infusion. 7. External cardioversion. 8. Ultrasound-guided venous access. HISTORY AND INDICATION: Mr. Radford is a pleasant 76-year-old male with symptomatic longstanding persistent atrial fibrillation, refractory to amiodarone. The patient had LOIS cardioversion and was placed on amiodarone therapy; however, atrial fibrillation recurred, and we had a discussion with the patient about the options for treatment and we decided to proceed with pulmonary vein isolation. DESCRIPTION OF PROCEDURE: The patient was brought into the EP lab, and after obtaining informed consent, the patient was prepped and draped in usual sterile fashion. Sedation was managed by General Anesthesia Team, and the patient was intubated for this procedure. Esophageal temperature probe was placed in the esophagus to monitor temperature during ablation, and lidocaine was infiltrated in the right groin, and under ultrasound guidance, access was obtained in the right common femoral vein. Two 8-Mexican sheaths and 9-Mexican sheath were placed in the right common femoral vein. Heparin bolus was given, and then once transseptal puncture was obtained, we started the patient on heparin drip and received multiple boluses to keep ACT above 300 seconds. The patient had a transesophageal echocardiogram, that showed absent left atrial appendage thrombus prior to starting the procedure. Through the 9-Mexican sheath, we advanced an 8-Mexican intracardiac echocardiogram catheter, which was used to visualize the left atrium and to monitor for pericardial effusion during the procedure, and through the 8-Mexican sheath, we advanced a bidirectional FJ ablation catheter, which was used to create matrix. This procedure was performed under minimal fluoroscopy, and through the second 8-Mexican sheath, we advanced a decapolar catheter, which was placed in the coronary sinus, where it served as reference for three-dimensional electroanatomical mapping system. The patient presented in atrial fibrillation. Therefore, external cardioversion was done, that converted the patient to sinus rhythm; and then, transseptal puncture was performed under guidance of intracardiac echocardiogram. The 8-Mexican sheath in the right groin was exchanged with an 8.5-Mexican VersaCross sheath, which was used to perform the transseptal puncture. The VersaCross system was used. Once transseptal puncture was performed, we advanced a PentaRay into the left atrium and mapping was performed of the left atrium. The patient has standard anatomy of 4 pulmonary veins. Then, the PentaRay was removed, and the VersaCross sheath was exchanged with a medium curve Vizigo. Through the medium curve Vizigo, we advanced the ablation catheter, and ablation was performed in a wide antral circumferential ablation fashion around the pulmonary veins. Power used was 40 umaña, was reduced to 25 umaña when ablating on the posterior wall and when there was increase in the esophageal temperature. We also ablated the pankaj of the right and left veins. Both veins were isolated, and post ablation, we re-mapped the veins, and we noted that there were complex fractionated electrocardiograms on the posterior wall. While the procedure was performed, the patient developed atrial flutter, that was mapped to be originating from the right side and was not left sided, and the flutter terminated during the procedure; and mapping was performed on the posterior wall and there were complex fractionated electrocardiograms, that were ablated to create a line of block on the posterior wall. Once that was performed, the PentaRay was removed from the left atrium, and we performed a CT isthmus line. At that point, the patient developed atrial fibrillation, and we cardioverted the patient; however, the atrial fibrillation recurred. We started the patient on isoproterenol drip prior to that at 10 mcg and 20 mcg, and that was when he developed the atrial fibrillation, the isoproterenol drip continued; and then, we cardioverted the patient again; however, atrial fibrillation recurred. Ablation was performed in the cavotricuspid isthmus at 6 o'clock location on RUDDY projection, and the line was dragged across the annulus as well as inferior vena cava. Once that was performed, we cardioverted the patient again to check for block across the CT isthmus, and there was a line of block. The transisthmus time was more than 150 milliseconds medial to lateral and lateral to medial. At that point, the catheter was removed. Sheaths were pulled. [id number] was used to achieve hemostasis. The patient tolerated the procedure well with no apparent complications. Baseline intervals were as follows; sinus rhythm cycle length 993, MD 193, QRS 67, QT 389, AH 86, and HV 61. CONCLUSION: 1. Successful pulmonary vein isolation. 2. Posterior wall isolation. 3. CT isthmus ablation with confirmation of bidirectional block. PLAN: The patient's INR is 1.8 today. We performed transesophageal echocardiogram. There was no evidence of left atrial appendage thrombus. We will start the patient on Lovenox subcutaneously for bridging, and we will increase the warfarin dose to keep INR above 2. INR goal is 2 to 3. Also, we will reload the patient with amiodarone since the patient had episodes of an atrial tachycardia after we were done with the ablation and was started on 150 bolus and then started him on a drip. We will prescribe pantoprazole 40 mg daily for 30 days and to follow up in the EP Clinic. /[id number] Lukasf MD Carmen YD/AQ / YD / MODL /[id number] Electronically signed by Raisa, [facility] Conversion Infertility Medical Assistant Cerner at 11/19/2022 4:16 PM CDT documented in this encounter Plan of Treatment Not on file documented as of this encounter Visit Diagnoses Not on filedocumented in this encounter Care Teams Wire Brusher Relationship Specialty Start Date End Date Hussein Brian MD [address] [place] [address] PCP - General General Internal Medicine 03/14/23 documented as of this encounter
--- OUTSIDE RECORDS SUMMARY | 2025-03-28 14:51 | XMS_ITS | Encounter Summary ---
Author Organization [employer] ([place], [place], [place], [place]) Address [address] [place] [address] Care Team Providers Care Design Teacher Name Role Phone Jodie Brian MD Primary Care Provider [phone] Encounter Details Date Type Department Care Team (Late st Contact Info) Description 03/12/2022 Transcribed Document [facility] Radiology [address] [place] [address] Jorgito Lin MD [address] [place] [address] [place] [address] Social History Tobacco Use Types Packs/Day Years [...] Miscellaneous Notes * Cerner Conversion Note - Jorgito Lin MD - 03/12/2022 10:17 AM EDT Patient: DALLAS RADFORD Age: 76 Years Sex: Male : 1945 Admit Date 03/05/2022 15:27 Discharge Date 03/12/2022 Primary Care Provider JODIE BRIAN (REF)MD-INT Discharge Diagnosis 1. Atrial fibrillation with RVR, patient is still on A. fib with heart rate control after his cardioversion, plan for outpatient A. fib ablation next week. 2. Chronic systolic heart Failure. 3. Severe esophageal dysmotility, Diffuse Esophageal Spasm vs. Achalasia - GI recommending PPI BID - GI adding imipramine at bedtime for diffuse esophageal spasm trial, patient having improvement. - GI recommending esophageal manometry testing as outpatient to rule out achalasia 5. Hyperlipidemia 6. BPH 7. Vitamin D deficiency 8. Debility 9. Hypokalemia Procedures Transesophageal echo and cardioversion Studies Echocardiogram transthoracic CT chest Hospital Course This is a 76 years old white Patient transferred to our facility for second opinion for evaluation of A. fib with RVR. Cardiology planned for DCCV today 03/08. EP consulted had patient on amiodarone drip and then transitioned to oral amiodarone . After his cardioversion patient did stay on A. fib with heart rate controlled discussed with Dr. Morales , says planning to discharge patient on amiodarone, A. fib ablation will be scheduled as an outpatient. GI consulted as patient had normal EGD at outside facility but had severe esophageal dysmotility on upper GI series. GI started imipramine for diffuse esophageal spasm and patient having improvement in symptoms. GI says patient will need close follow-up with esophageal manometry to rule out achalasia on discharge. Patient cleared by GI and EP to be discharged and follow-up as an outpatient, patient was hemodynamically stable at time of discharge. Vital Signs T: 36.7 ??C TMIN: 36.2 ??C TMAX: 37 ??C HR: 71 HR: 71 RR: 16 BP: 108/63 SpO2: 97% Oxygen Settings (Last) Oxygen Therapy Mode: Room air (03/12/22 06:00:00) Oxygen Flow Rate: 98 Liter/Min (03/05/22 18:43:00) Physical Exam Alert and oriented Chest clear to auscultation Abdomen soft nontender Discharge Disposition Rehabilitation unit/facility Discharge Follow Up Case, MD Jamar - 09:00 AM JODIE BRIAN - 10:40 AM SAI TAFOYA - 02:45 PM VY MORALES - 02:15 PM Discharge Medications (9) Active amiodarone 200 mg oral tab taper: 2 Tab Oral BID x 1 Day, then 1 tab BID x 7 days, then 1 tab daily thereafter atorvastatin 40 mg oral tablet 40 mg [...] Tab, PRN, Oral, Q6H Code Status Start: 03/05/22 16:18:00 EDT, Full Code, Continuous Order Condition on Discharge Improved and stable [facility] VY MORALES MD-CAR (Dr. Morales has been made aware. No need to call him.) - AFIB / Evaluation for possible AFIB ablation. AC MERA MD-CAR Current Diet Order Diet, Adult - Ordered -- Start: 03/08/22 11:29:00 EDT, Cardiac Diet, Isolation: Standard Precautions Follow Up Labs/Studies Patient is to check his INR this coming Tuesday to adjust his Coumadin dose if needed Time Spent on Discharge 37 minutes documented in this encounter Plan of Treatment Not on file documented as of this encounter Visit Diagnoses Not on filedocumented in this encounter Care Teams Design Teacher Relationship Specialty Start Date End Date Jodie Brian MD [address] [place] [address] PCP - General General Internal Medicine 03/14/23 documented as of this encounter
--- OUTSIDE RECORDS SUMMARY | 2025-03-28 14:51 | XMS_ITS | Encounter Summary ---
Author Organization [employer] ([place], [place], [place], [place]) Address [address] [place] [address] Care Team Providers Care Occupational Therapy Technician Name Role Phone Hussein Brian MD Primary Care Provider [phone] Encounter Details Date Type Department Care Team (Late st Contact Info) Description 04/01/2022 Transcribed Document [facility] [place] Family Medicine [address] [place] [address] ProviderThomas MD [address] [place] [address] Social History Tobacco Use Types [...] Conversion Note - Historical Provider, - 04/01/2022 3:23 PM CDT Event Note Entered On: 04/01/2022 15:23 EDT Performed On: 04/01/2022 15:23 EDT by TINA BENTLEY RN Event Note Event Date/Time : 04/01/2022 15:23 EDT Description of Event : Report to Adalgisa CHEEMA on 4IC. TINA BENTLEY RN - 04/01/2022 15:23 EDT documented in this encounter Plan of Treatment Not on file documented as of this encounter Visit Diagnoses Not on filedocumented in this encounter Care Teams Occupational Therapy Technician Relationship Specialty Start Date End Date Hussein Brian MD [facility] [place] [address] PCP - General General Internal Medicine 03/14/23 documented as of this encounter
--- OUTSIDE RECORDS SUMMARY | 2025-03-28 14:51 | XMS_ITS | Encounter Summary ---
Author Organization [employer] ([place], [place], [place], [place]) Address [address] [place] [address] Care Team Providers Care Refractory Manager Name Role Phone Hussein Brian MD Primary Care Provider [phone] Encounter Details Date Type Department Care Team (Late st Contact Info) Description 03/12/2022 Transcribed Document [facility] [place] Family Medicine [address] [place] [address] ProviderThomas MD [address] [place] [address] Social History Tobacco Use Types [...] Date Ryan rded Speak language other than Brazilian at home Not on file 08/12/2023 Want [...] Cerner Conversion Note - Historical ProviderMD - 03/12/2022 12:15 PM CDT Nursing Discharge Summary Entered On: 03/12/2022 12:16 EDT Performed On: 03/12/2022 12:15 EDT by Marysol Coleman LPN-LVN-PATIENT CARE BEDSIDE Discharge Documentation Discharge Date/Time : 03/12/2022 13:00 EDT Patient Disposition, General : Discharge Discharge To : Rehabilitation unit/facility Mode Of Departure, General Discharge : Ambulance/BLS, Wheelchair IV Discontinued : Yes Personal Belongings With Patient : Yes Prescriptions Given to Patient : No Medications Given to Patient : No Patient Education Completed : Yes Marysol Coleman LPN-LVN-PATIENT CARE BEDSIDE - 03/12/2022 12:15 EDT documented in this encounter Plan of Treatment Not on file documented as of this encounter Visit Diagnoses Not on filedocumented in this encounter Care Teams Refractory Manager Relationship Specialty Start Date End Date Hussein Brian MD [facility] [address] PCP - General General Internal Medicine 03/14/23 documented as of this encounter
--- OUTSIDE RECORDS SUMMARY | 2025-03-28 14:51 | XMS_ITS | Encounter Summary ---
Author Organization [employer] ([place], [place], [place], [place]) Address [address] [place] [address] Care Team Providers Care Senior Project Accountant Name Role Phone Hussein Brian MD Primary Care Provider [phone] Encounter Details Date Type Department Care Team (Late st Contact Info) Description 03/05/2022 Transcribed Document [facility] [place] Family Medicine [address] [place] [address] ProviderThomas MD [address] [place] [address] Social History Tobacco Use Types [...] Conversion Note - Historical Provider, - 03/05/2022 4:33 PM CDT Patient: DALLAS RADFORD Age: 76 Years Sex: Male : 1945 Chief Complaint From outside facility for cardiology evaluation for A. fib with RVR Primary Care Provider MITESH BRIAN MD History of Present Illness Mr. Rdaford is a 76 year old male with PMH of atrial fibrillation, hyperlipidemia, BPH. Patient was transferred to our facility from [facility] after patient requested second opinion and transfer for cardiology evaluation for A. fib with RVR. Patient was following up with his able bodied seaman as an outpatient Dr. Galvez at [facility]. Patient was getting outpatient stress test done which showed no reversible deficits and no evidence of ischemia. During stress test patient went into A. fib with RVR was admitted to the hospital. Patient was taking metoprolol tartrate 100 mg twice daily and cardiology added Cardizem 30 mg 3 times daily. However patient was frequently shooting up into A. fib with RVR when exerting himself and patient got frustrated and requested transfer. Patient was also having ongoing weakness and falls at home and having difficulty eating. Patient states he would eat food and it would frequently come back up. Patient denies choking sensation. GI was consulted at outside facility and had EGD which showed no anatomic abnormalities. Follow-up upper GI series showed severe esophageal dysmotility. Patient was started on mirtazapine and states he still can only eat a couple bites of food and not keep anything down. Upon arrival to our facility patient is in A. fib with rate 80s to 90s at rest. Review of Systems General: No fever, no weight changes HEENT: No vision or hearing changes Cardiac: No chest pain, + palpitations, no orthopnea Pulmonary: No dyspnea, no cough GI: + nausea, + vomiting, no abdominal pain, no diarrhea : No dysuria, no hematuria MSK: + muscle weakness, no muscle cramping Neuro: No paresthesias, no focal deficits Skin: No rashes, no petechia Psych: No depression, no anxiety Vital Signs Oxygen Settings (Last) No qualifying data available. Physical Exam General: Pleasant 76-year-old male is [...] outside facility, never required Cardizem gtt. - Will start Metoprolol tartrate 100mg BID and Cardizem 30mg q6 hours - Continue home Coumadin 2mg daily - Consult EP 2. Chronic Heart Failure with Unknown EF - Differing reports in records sent about EF being 50% and EF 15-20% - Stress Test at OSH showed no evidence of ischemia with fixed defect present - No history of PCI or CABG - Repeat ECHO - Patient appears euvolemic 3. Severe esophageal dysmotility 4. Severe nausea and vomiting -GI at outside facility performed EGD which showed no anatomic abnormalities -Upper GI series outside facility showed severe esophageal dysmotility -Continue mirtazapine 15 mg at bedtime -Start Protonix 40 mg daily - Phenergan 12.5mg q6 PRN -Consult GI for any further work-up needed 5. Hyperlipidemia -Continue home atorvastatin 40 mg daily 6. BPH -Continue home Flomax 7. Vitamin D deficiency -Continue home vitamin D supplementation 8. Debility -Patient reports frequent falls at home -Patient using walker to ambulate for past month -Outside facility was looking into SNF facilities -PT/OT consult DVT/GI prophylaxis: Coumadin/PPI CODE STATUS: Full code Ordered: atorvastatin, 40 mg, Oral, Tab, Daily, Routine, Start 03/06/22 9:00:00 EDT, 03/05/22 16:59:00 EDT cholecalciferol, 25 mcg, Oral, Tab, Daily, Routine, Start 03/06/22 9:00:00 EDT, 03/05/22 16:59:00 EDT dilTIAZem, 30 mg, Oral, Tab, Q6H, Routine, Start 03/05/22 18:00:00 EDT, 03/05/22 16:47:00 EDT metoprolol, 100 mg, Oral, Tab, BID, Routine, Start 03/05/22 16:47:00 EDT, 03/05/22 16:47:00 EDT mirtazapine, 15 mg, Oral, Tab, At Bedtime, Routine, Start 03/05/22 21:00:00 EDT, 03/05/22 16:59:00 EDT promethazine, 12.5 mg, IV Piggyback, Inj, Q6H, PRN for Nausea/Vomiting, Routine, Start 03/05/22 16:47:00 EDT, 03/05/22 16:47:00 EDT tamsulosin, 0.4 mg, Oral, CR Cap, Daily, Routine, Start 03/06/22 9:00:00 EDT, 03/05/22 16:59:00 EDT warfarin, 2 mg, Oral, Tab, Daily, Routine, Start 03/05/22 18:00:00 EDT, 03/05/22 16:59:00 EDT Admit to Inpatient BMP Basic Metabolic Panel CBC no Diff (Hemogram) CMP Comprehensive Metabolic Panel Consult to Physician Consult to Physician Diet, Adult OT Evaluation and Treatment PT Evaluation and Treatment PT/INR Prothrombin Time PT/INR Prothrombin Time Resuscitation Status VTE Prophylaxis - Medical Warfarin 2 mg, Oral, Tab, Daily, Routine, Start 03/05/22 18:00:00 EDT, 03/05/22 16:59:00 EDT (HAKEEM BARONE) Problem List/Past Medical History Ongoing Afib Hip pain, right Historical No qualifying data Atrial fibrillation with RVR Hyperlipidemia BPH Procedure/Surgical History bilateral hernia repair. Home Medications (8) Active atorvastatin 40 mg [...] = 1 Tab, PRN, Oral, Q6H Allergies No Known Medication Allergies Digoxin: Nausea Social History Denies smoking history Denies alcohol use Denies drug use Family History Mother: Type 2 diabetes Father: None Lab Results Test Name Test Result Date/Time Magnesium Level 2.2 mg/dL 03/05/2022 15:50 EDT Troponin I High Sensitivity 32.2 pg/mL 03/05/2022 15:50 EDT ProBNP 1848 pg/mL (High) 03/05/2022 15:50 EDT WBC 7.5 K/uL 03/05/2022 15:50 EDT RBC 4.06 Million/uL (Low) 03/05/2022 15:50 EDT Hgb 13.9 g/dL 03/05/2022 15:50 EDT Hct 39.5 % (Low) 03/05/2022 15:50 EDT MCV 97.3 fL (High) 03/05/2022 15:50 EDT MCH 34.2 pg (High) 03/05/2022 15:50 EDT MCHC 35.2 Gram/dL 03/05/2022 15:50 EDT Platelet Count 173 K/uL 03/05/2022 15:50 EDT MPV 10.6 fL 03/05/2022 15:50 EDT RDW 13.4 % 03/05/2022 15:50 EDT Neut % 79.3 % (High) 03/05/2022 15:50 EDT Neut # 5.94 K/uL 03/05/2022 15:50 EDT Lymph % 10.1 % (Low) 03/05/2022 15:50 EDT Lymph # 0.76 x10(3)/uL (Low) 03/05/2022 15:50 EDT [place] % 9.5 % (High) 03/05/2022 15:50 EDT [place] # 0.71 K/uL 03/05/2022 15:50 EDT Eos % 0.3 % 03/05/2022 15:50 EDT Eos # 0.02 x10(3)/uL 03/05/2022 15:50 EDT Baso % 0.4 % 03/05/2022 15:50 EDT Baso # 0.03 x10(3)/uL 03/05/2022 15:50 EDT Slide Review No 03/05/2022 15:50 EDT IG# 0.03 x10(3)/uL 03/05/2022 15:50 EDT IG% 0.40 % 03/05/2022 15:50 EDT Additional Documentation Code Status Start: 03/05/22 16:18:00 EDT, Full Code, Continuous Order Electronically signed by Raisa [facility] Conversion Lens Generating Machine Tender Cerner at 11/19/2022 4:07 PM CDT documented in this encounter Plan of Treatment Not on file documented as of this encounter Visit Diagnoses Not on filedocumented in this encounter Care Teams Senior Project Accountant Relationship Specialty Start Date End Date Hussein Brian MD [facility] [place] [address] PCP - General General Internal Medicine 03/14/23 documented as of this encounter
--- OUTSIDE RECORDS SUMMARY | 2025-03-28 14:51 | XMS_ITS | Encounter Summary ---
Author Organization [employer] ([place], [place], [place], [place]) Address [address] [place] [address] Care Team Providers Care Puzzle Assembler Name Role Phone Hussein Brian MD Primary Care Provider [phone] Encounter Details Date Type Department Care Team (Late st Contact Info) Description 03/05/[address] [facility] Family Medicine [address] [place] [address] ProviderThomas MD [address] [place] [address] Social History Tobacco Use Types [...] Date Ryan rded Speak language other than Belgian at home Not on file 08/12/2023 Want [...] Conversion Note - Historical Provider, - 03/05/2022 4:16 PM CDT Consult Phone Call Documentation Entered On: 03/06/2022 0:25 EDT Performed On: 03/05/2022 16:16 EDT by Joslyn Spann Lpn Phone Call for Consults Consult Phone Call/Page Attempt : First call Consult Reason : afib rvr Provider Service Notified Name : Cardiology Physician Covering for Consult : GARIMA PHILLIP NP Rose, Amanda E, Lpn - 03/06/2022 0:23 EDT Electronically signed by U[employer]es [facility] Conversion Administrative Resources Associate Cerner at 11/19/2022 4:31 PM CDT documented in this encounter Plan of Treatment Not on file documented as of this encounter Visit Diagnoses Not on filedocumented in this encounter Care Teams Puzzle Assembler Relationship Specialty Start Date End Date Hussein Brian MD [facility] [place] [address] PCP - General General Internal Medicine 03/14/23 documented as of this encounter
--- OUTSIDE RECORDS SUMMARY | 2025-03-28 14:51 | XMS_ITS | Encounter Summary ---
Author Organization [employer] ([place], [place], [place], [place]) Address [address] [place] [address] Care Team Providers Care Chip Drier Name Role Phone Hussein Brian MD Primary Care Provider Encounter Details Date Type Department Care Team (Late st Contact Info) Description 03/06/[address] [facility] Family Medicine [address] [place] [address] ProviderThomas MD [address] [place] [address] Social History Tobacco Use Types [...] Conversion Note - Historical ProviderMD - 03/06/2022 5:50 PM CDT UM Authorization Entered On: 03/06/2022 17:54 EDT Performed On: 03/06/2022 17:50 EDT by Nhi Arteaga Rn-Utilization Review Primary Insurance Authorization Authorization and Policy Numbers : Insurance 1 Health Plan: [employer] Policy Number: [id number] Authorization Number: Insurance Primary Name : [employer] Policy Number: [id number] Authorization Status-Primary : Awaiting callback Authorized Service Begin Date-Primary : 03/05/2022 EDT Historical Authorization Comments-Primary : No Authorization Comments Found Nhi Arteaga Rn-Utilization Review - 03/06/2022 17:50 EDT Electronically signed by Raisa [facility] Conversion Copier Repair Technician Cerner at 11/19/2022 4:26 PM CDT documented in this encounter Plan of Treatment Not on file documented as of this encounter Visit Diagnoses Not on filedocumented in this encounter Care Teams Chip Drier Relationship Specialty Start Date End Date Hussein Brian MD [facility] [place] [address] PCP - General General Internal Medicine 03/14/23 documented as of this encounter
--- OUTSIDE RECORDS SUMMARY | 2025-03-28 14:51 | XMS_ITS | Encounter Summary ---
Author Organization [employer] ([place], [place], [place], [place]) Address [address] [place] [address] Care Team Providers Care Packaging Inspector Name Role Phone Hussein Brian MD Primary Care Provider [phone] Encounter Details Date Type Department Care Team (Late st Contact Info) Description 03/05/2022 Transcribed Document [facility] [place] Medicine [address] [place] [address] ProviderThomas MD [address] [place] [address] Social History Tobacco Use Types [...] Date Ryan rded Speak language other than Kosovan at home Not on file 08/12/2023 Want [...] Cerner Conversion Note - Historical ProviderMD - 03/05/2022 3:28 PM CDT Meds to Bed Enrollment Entered On: 03/08/2022 11:47 EDT Performed On: 03/05/2022 15:28 EDT by Reuben Hansen, Evaporator Supervisor Cert Lead Meds to Bed Enrollment Patient Enrollment Decision: : Yes/enroll in meds to bed program Reuben Hansen Evaporator Supervisor Cert Lead - 03/08/2022 11:47 EDT documented in this encounter Plan of Treatment Not on file documented as of this encounter Visit Diagnoses Not on filedocumented in this encounter Care Teams Packaging Inspector Relationship Specialty Start Date End Date Hussein Brian MD [address] [place] [id number] PCP - General General Internal Medicine 03/14/23 documented as of this encounter
--- OUTSIDE RECORDS SUMMARY | 2025-03-28 14:51 | XMS_ITS | Encounter Summary ---
Author Organization [employer] ([place], [place], [place], [place]) Address [address] [place] [address] Care Team Providers Care Flaring Machine Operator Name Role Phone Hussein Brian MD Primary Care Provider [phone] Encounter Details Date Type Department Care Team (Late st Contact Info) Description 03/06/2022 Transcribed Document [facility] [place] Family Medicine [address] [place] [address] ProviderThomas MD [address] [place] [address] Social History Tobacco Use Types [...] Date Ryan rded Speak language other than Slovak at home Not on file 08/12/2023 Want [...] Conversion Note - Historical Provider, - 03/06/2022 5:18 PM CDT Patient: DALLAS RADFORD Age: 76 Years Sex: Male : 1945 Chief Complaint Patient was admitted to [facility] on 03/01 with complaints of dizziness and unable to walk. Was in A fib RVR. History of Present Illness (Consult = 08/01//11/02 descriptors) location, quality, severity, duration, timing, context, modifiers, associated signs/symptoms: 76 year old male we were asked to see for dysphagia. PMH: atrial fibrillation with RVR, hyperlipidemia, BPH. Patient was transferred to our facility from [facility] after patient requested second opinion and transfer for cardiology evaluation for A. fib with RVR. At [facility], he had stress test and echo for heart issue. He was on Diltiazem but this was causing hypotension so he was sent here to initiate Amiodarone. During that admission, GI was also consulted for dysphagia. EGD and UGI series was performed which showed severe dysmotility and LES spasm but no stricture/esophagitis/tumor. Of note, he first began having dysphagia 5-6 weeks ago when his A fib began symptomatic. When he swallows solids, it feels like the food gets stopped at lower chest and then he has to regurgitate. He is able to handle thin liquids. He has lost 50 lbs over the last couple months due to this. Dr Jamar Cid placed him on PPI and Remeron (appetite stim). He was coincidentally on Diltiazem po TID at the same time for A fib but none of this made swallowing better. From what is available on review of outside records, I do not see CT chest or Esophageal manometry testing. Currently, he is resting comfortably in bed despite A fib with RVR. He is tolerating water and oral meds. He denies CP or heatburn. Review of Systems (Consult = //05/10 items) General: No fever, no weight changes HEENT: No vision or hearing changes Cardiac: No chest pain, + palpitations, no orthopnea Pulmonary: No dyspnea, no cough GI: + nausea, + vomiting, no abdominal pain, no diarrhea : No dysuria, no hematuria MSK: + muscle weakness, no muscle cramping Neuro: No paresthesias, no focal deficits Skin: No rashes, no petechia Psych: No depression, no anxiety Physical Exam (Consult = 08/06/12/9x2/9x2) Vitals & Measurements T: 36.3 ??C TMIN: 36.2 ??C TMAX: 37.1 ??C HR: 62(Monitored) RR: 16 BP: 89/60 SpO2: 98% General: Pleasant 76-year-old male is currently in [...] exam Psych: Normal mood and affect Assessment/Plan FOR DIAGNOSIS: (08/01/2//4 points) N+W/U = 4; New = 3; Worsen = 2; Stable = 1; Improved = 1; Self-limited = 1 76y/o man with A fib and RVR [...] he is only on low dose PPI. He has not tried TCA (imipramine) yet. We have yet to get Esophageal manometry testing yet. We have not yet gotten CT Chest to rule out extra-esophageal obstructive lesion. Rec: Switch diet to full liquid diet Change Pantoprazole 40 mg IV BID Add Imipramine 25 mg po QHS (trial for SANDHYA therapy) Chest CT scan Coordinate E manometry testing as outpatient JOSSELIN If Achalasia is confirmed, would proceed with trial of EGD with botox of LES before considering Surgical Myotomy Allergies digoxin Medications Inpatient acetaminophen, 650 mg= 2 Tab, Oral, Q6H, [...] Protonix, 40 mg= 1 Tab, Oral, Daily Home atorvastatin 40 mg oral tablet, 40 mg= 1 Tab, Oral, Daily Cardizem 30 mg oral tablet, 30 mg= 1 Tab, Oral, TID cholecalciferol 25 mcg (1000 intl units) oral tablet, 25 mcg= 1 Tab, Oral, Daily Coumadin 2 mg oral tablet, 2 mg= 1 Tab, Oral, Daily Flomax 0.4 mg oral capsule, 0.4 mg= 1 Cap, Oral, Daily Metoprolol Tartrate 100 mg oral tablet, 100 mg= 1 Tab, Oral, BID mirtazapine 15 mg oral tablet, 15 mg= 1 Tab, Oral, Once a day (at bedtime) Tylenol 8 Hour 650 mg oral tablet, extended release, 650 mg= 1 Tab, Oral, Q6H, PRN Problem List/Past Medical History Ongoing Afib At risk for sleep apnea Hip pain, right Historical No qualifying data Procedure/Surgical History bilateral hernia repair. Social History Alcohol Alcohol Use History Yes. Days/Week: 3. Total Drinks/Week: 6. Substance Abuse Drug Use Hx: No. Tobacco Never (less than 100 in lifetime) Smoking Status. Never Smokeless Tobacco Status. Family History Mother: Type 2 diabetes No GI or liver disease No autoimmune disorders Lab Results MAR 06 06:36 L 134 L 100 H 27 / 92 3.6 23 1.00 \ MAR 06 06:36 \ L 13.4 / 5.4 L 134 / L 37.9 \ [1] Admission H & P; HAKEEM BARONE DO 03/05/2022 16:33 EDT Electronically signed by [facility], [facility] Conversion Child Psychologist Cerner at 11/19/2022 4:21 PM CDT documented in this encounter Plan of Treatment Not on file documented as of this encounter Visit Diagnoses Not on filedocumented in this encounter Care Teams Flaring Machine Operator Relationship Specialty Start Date End Date Hussein Brian MD [address] [place] [id number] PCP - General General Internal Medicine 03/14/23 documented as of this encounter
--- OUTSIDE RECORDS SUMMARY | 2025-03-28 14:51 | XMS_ITS | Encounter Summary ---
Author Organization [employer] ([place], [place], [place], [place]) Address [address] [place] [address] Care Team Providers Care Partition Making Machine Operator Name Role Phone Hussein Brian MD Primary Care Provider [phone] Encounter Details Date Type Department Care Team (Late st Contact Info) Description 03/06/2022 Transcribed Document [facility] [place] Family Medicine [address] [place] [address] ProviderThomas MD [address] [place] [address] Social History Tobacco Use Types [...] Date Ryan rded Speak language other than Azerbaijani at home Not on file 08/12/2023 Want [...] Conversion Note - Historical Provider, - 03/06/2022 7:00 AM CDT Consult Phone Call Documentation Entered On: 03/06/2022 9:18 EDT Performed On: 03/06/2022 7:00 EDT by Malinda Perea, [facility] Coord Phone Call for Consults Consult Phone Call/Page Attempt : First call Consult Reason : persistant NV and difficulty keeping food down, etc Physician Requesting Consult : HAKEEM BARONE DO Physician Requested for Consult : HUBERT YANEZ MD Provider Service Notified Name : Gastroenterology Consult, Additional Information : called to Malinda Banegas, [facility] Coord - 03/06/2022 9:17 EDT documented in this encounter Plan of Treatment Not on file documented as of this encounter Visit Diagnoses Not on filedocumented in this encounter Care Teams Partition Making Machine Operator Relationship Specialty Start Date End Date Hussein Brian MD [address] [place] [id number] PCP - General General Internal Medicine 03/14/23 documented as of this encounter
--- OUTSIDE RECORDS SUMMARY | 2025-03-28 14:51 | XMS_ITS | Encounter Summary ---
Author Organization [employer] ([place], [place], [place], [place]) Address [address] [place] [address] Care Team Providers Care Power Wood Sawyer Name Role Phone Hussein Brian MD Primary Care Provider [phone] Encounter Details Date Type Department Care Team (Late st Contact Info) Description 04/03/2022 Transcribed Document [facility] [place] Medicine [address] [place] [address] ProviderThomas MD [address] [place] [address] Social History Tobacco Use Types [...] Date Ryan rded Speak language other than Mongolian at home Not on file 08/12/2023 Want [...] Conversion Note - Historical Provider, - 04/03/2022 3:24 PM CDT Patient Education Materials Follows: Atrial Fibrillation Atrial fibrillation is a type [...] these instructions at home: Medicines ??? Take wgyp-wyy-gknehot and prescription medicines only as told by [...] provider. Document Revised: 01/09/2020 Document Reviewed: 01/09/2020 [employer] Patient Education ? 2021 [employer] Emergency Medicine Electrical Cardioversion Electrical cardioversion [...] including vitamins, herbs, eye drops, creams, and zqum-vvm-pnelwpq medicines. ??? Any problems you or family [...] tells you to take them. ? Taking hsef-oql-ruzekac medicines, vitamins, herbs, and supplements. General instructions [...] a sedative during your procedure. ??? Take scsr-kzw-mcqipya and prescription medicines only as told by [...] provider. Document Revised: 02/18/2020 Document Reviewed: 02/18/2020 [employer] Patient Education ? 2021 [employer] Neurology Preventing Atrial Fibrillation-Related Stroke Atrial [...] as hypertension or diabetes. Medicines ??? Take vtiq-lhe-ongnpdj and prescription medicines only as told by [...] provider. Document Revised: 03/26/2021 Document Reviewed: 03/26/2021 [employer] Patient Education ? 2021 [employer]. Nutrition Heart-Healthy Eating Plan Heart-healthy meal planning includes: [...] plate with lean protein foods. ??? Eat 4?5 servings of vegetables per day. A serving of vegetables is: ? 1 cup of raw or cooked vegetables. ? 2 cups of raw leafy greens. ??? Eat 4?5 servings of fruit per day. A serving of fruit is: ? 1 medium whole fruit. ? ? cup of dried fruit. ? ? cup of fresh, frozen, or canned fruit. ? ? cup of 100% fruit juice. ??? Eat more foods that have soluble fiber. These are apples, broccoli, carrots, beans, peas, and barley. Try to get 20?30 g of fiber per day. ??? Eat 4?5 servings of nuts, legumes, and seeds per week: ? 1 serving of dried beans or legumes equals ? cup after being cooked. ? 1 serving of nuts is ? cup. ? 1 serving of seeds equals [...] Fats and oils Meat fat, or shortening. [place] butter, hydrogenated oils, palm oil, coconut oil, [...] provider. Document Revised: 11/26/2021 Document Reviewed: 11/26/2021 [employer] Patient Education ? 2021 [employer]. Pharmacology Warfarin Information Warfarin is a blood [...] checked at least once every 4?6 weeks while you take warfarin. ??? Some [...] Limit how much you have to: ? 0?1 drink a day for women. ? 0?2 drinks a day for men. ? Know [...] other medicines or supplements? Many prescription and bkqa-yrj-dbcsqzr medicines can interfere with warfarin. Talk with your health care provider or your pharmacist before starting or stopping any new medicines. This includes vitamins, herbs, supplements, and pain medicines. ??? Some common zmto-dkr-vnftrdy medicines that may increase the risk of [...] your diet. ??? Start or stop any elym-htd-jyanhhb medicine, prescription medicine, herbal supplement, or dietary [...] provider. Document Revised: 10/07/2021 Document Reviewed: 10/07/2021 [employer] Patient Education ? 2021 [employer] Procedures Pulmonary Vein Ablation, Care After This sheet [...] these instructions at home: Medicines ??? Take ltpa-vxq-fqsfawc and prescription medicines only as told by [...] and water are not available, use hand rag grader. ? Change your dressing as told by [...] Leave the ice on for 20 minutes, 2?3 times a day. ??? Do not use [...] provider. Document Revised: 11/16/2021 Document Reviewed: 11/16/2021 [employer] Patient Education ? 2021 [employer]. documented in this encounter Plan of Treatment Not on file documented as of this encounter Visit Diagnoses Not on filedocumented in this encounter Care Teams Power Wood Sawyer Relationship Specialty Start Date End Date Hussein Brian MD [facility] [place] [place] [address] PCP - General General Internal Medicine 03/14/23 documented as of this encounter
--- OUTSIDE RECORDS SUMMARY | 2025-03-28 14:51 | XMS_ITS | Encounter Summary ---
Author Organization [employer] ([place], [place], [place], [place]) Address [address] [place] [address] Care Team Providers Care Casing Soaker Name Role Phone Hussein Brian MD Primary Care Provider [phone] Encounter Details Date Type Department Care Team (Late st Contact Info) Description 03/12/2022 Transcribed Document [facility] Family Medicine [address] [place] [address] ProviderThomas MD [address] [place] [address] Social History Tobacco Use Types [...] Conversion Note - Historical ProviderMD - 03/12/2022 12:06 PM CDT Final Discharge Planning Entered On: 03/12/2022 12:07 EDT Performed On: 03/12/2022 12:06 EDT by HIWOT HONEYCUTT, RN-Media Center Assistant Final Discharge Planning Discharge Arrangements : Patient Post-Acute Information Patient Name: DALLAS RADFORD Gender: Male : [birth year] Age: 76 Years [place] Referral(s): Service: Organization: Business Address: Phone Number: [facility] [address], [address] Patient Offered Choice/Affiliations Explained : Yes Important Medicare Message Reviewed With : Patient Important Medicare Message Reviewed D/T : 03/11/2022 11:35 EDT Transportation Needs : Wheelchair van Discharge Transportation Arrangement Cmt : [facility] at 1300 - trip #[id number] Is Patient High/Moderate Readmission Risk? : Yes Moderate Readmission Risk - SNF : Notify liaison that patient is moderate risk for readmission, request patient be assessed 1-3 days after D/C and frequent evaluations occur next 1-2 weeks Patient/Family Notified of Plan : Yes Support Person/Pt Rep Notified of Plan : Yes Patient/Family Notified : Patient stated he would alert family/friends Is Patient Ready for Discharge? : Yes Discharge To Care Management : SNF with Medicare Certification-03 HIWOT HONEYCUTT, RN-Media Center Assistant - 03/12/2022 12:06 EDT documented in this encounter Plan of Treatment Not on file documented as of this encounter Visit Diagnoses Not on filedocumented in this encounter Care Teams Casing Soaker Relationship Specialty Start Date End Date Hussein Brian MD [facility] [place] [address] PCP - General General Internal Medicine 03/14/23 documented as of this encounter
--- OUTSIDE RECORDS SUMMARY | 2025-03-28 14:51 | XMS_ITS | Encounter Summary ---
Author Organization [employer] ([place], [place], [place], [place]) Address [address] [place] [address] Care Team Providers Care Cabbage Salter Name Role Phone Hussein Brian MD Primary Care Provider Encounter Details Date Type Department Care Team (Late st Contact Info) Description 03/05/2022 Transcribed Document [facility] [place] Family Medicine [address] [place] [address] ProviderThomas MD [address] [place] [address] Social History Tobacco Use Types [...] Date Ryan rded Speak language other than Cuban at home Not on file 08/12/2023 Want [...] Marvel Conversion Note - Historical Provider, - 03/05/2022 6:50 PM CDT Patient: DALLAS RADFORD Age: 76 years Sex: Male : 1945 Associated Diagnoses: None Author: GARIMA PHILLIP NP Basic Information PCP: Applied Anthropologist: Dr. Galvez-[place] Chief Complaint 03/05/2022 16:30 EDT Patient was admitted to [place] on 03/01 with complaints of dizziness and unable to walk. Was in A fib RVR. History of Present Illness This is a 76-year-old male that was transferred from [facility] per patient request for a cardiology evaluation for atrial fibrillation with RVR. The patient follows with Dr. Galvez at [place] with cardiology. The patient was having an outpatient stress test which reportedly revealed no reversible deficits and no evidence of ischemia when he went into atrial fibrillation with RVR. The patient was subsequently admitted. The patient was on Metoprolol 100mg po BID and Warfarin at home for atrial fibrillation and cardiology added Cardizem 30mg po TID at [facility]. An echocardiogram on 03/01/22 revealed EF 35% which was improved from 01/05/22 that was reported 15%. Of note, the patient was also having difficulty eating, nausea, and vomiting. GI was consulted and had an EGD and revealed no anatomic problems and an upper GI series which showed severe esophageal dysmotility. The patient's HR remains in the 120s-130s and with activity increases. The patient denies chest pain, shortness of air, dizziness ,syncope, or edema. He does report palpitations with movement. Cardiology has been consulted for management. Review of Systems Constitutional: Negative except as [...] as documented in history of present illness. ROS reviewed as documented in chart Health Status Allergies (1) Active Reaction digoxin [...] Tab, PRN, Oral, Q6H Allergies: Allergic Reactions (All) Severity Not Documented Digoxin- No reactions were documented. Canceled/Inactive Reactions (All) No Known Medication Allergies, Allergies (1) Active Reaction digoxin None Documented Current medications: (Selected) Inpatient Medications Ordered Cardizem: 30 mg, Oral, Q6H Coumadin: 2 mg, Oral, Daily Flomax: 0.4 [...] (at bedtime), 30 Tab, 0 Refill(s), Medications (10) Active Scheduled: (8) atorvastatin 40 mg tab 40 mg 1 Tab, Oral, Daily cholecalciferol 1,000 unit tab 1,000 Units 1 Tab, Oral, Daily diltiazem 30 mg tab 30 mg 1 Tab, Oral, Q6H metoprolol tartrate 100 mg tab 100 mg [...] list: All Problems Afib / SNOMED CT 52255276 / Confirmed Hip pain, right / SNOMED CT 21930703 / Confirmed At risk for sleep apnea / IMO [id number] / Confirmed, Active Problems (3) Afib At [...] family history items have been selected or recorded. Procedure history: bilateral hernia repair. Social History Social & Psychosocial Habits Alcohol 03/05/2022 Alcohol Use History, Social Habits Yes Days Per Week of Alcohol Use 3 Total Drinks Per Week 6 Substance Abuse 03/05/2022 Recreational Drug Use History No Tobacco 03/05/2022 Smoking Status Never (less than 100 in l Smokeless Tobacco Status Never . Physical Examination VS/Measurements Vital Signs/Vital Measures 03/05/2022 18:43 EDT Systolic Blood Pressure 136 [...] EDT Heart Rate, Apical 67 bpm 03/05/2022 15:35 EDT Systolic Blood Pressure 131 [...] EDT Height Source Stated Height Entry Format Ida Height/Length, GERMAN (ft) 6 ft Height/Length GERMAN 1 Inch CLINICALHEIGHT 185.42 cm [place] Body Weight 79 kg Weight Source Bed scale Weight Entry Format Ida Weight Cuban lb 240 lb CLINICALWEIGHT 109.09 kg Body Surface Area (BSA) 2.33 m2 Body Mass Index 31.7 kg/m2 HI , Vitals Signs (last 24 hrs) Last Charted Minimum Maximum Temp 97.8 (MAR 05 18:43) L 96.7 (MAR 05 15:35) 97.8 (MAR 05 18:43) Apical HR 67 (MAR 05 18:42) 67 (MAR 05 18:42) 67 (MAR 05 18:42) Mon HR 67 (MAR 05 18:43) 67 (MAR 05 18:43) 80 (MAR 05 15:35) Resp Rate 16 (MAR 05 18:43) 16 (MAR 05 15:35) 16 (MAR 05 15:35) SBP 136 (MAR 05 18:43) 131 (MAR 05 15:35) 136 (MAR 05 18:43) DBP 69 (MAR 05 18:43) 66 (MAR 05 15:35) 69 (MAR 05 18:43) MAP 88 (MAR 05 18:43) 88 (MAR 05 18:43) 88 (MAR 05 18:43) SpO2 98 (MAR 05 18:43) 98 (MAR 05 15:35) 98 (MAR 05 15:35) General: Alert and oriented. Eye: Pupils are equal, round and reactive to light. HENT: Normocephalic. Neck: Supple. Respiratory: Respirations are non-labored, Breath sounds are equal, Symmetrical chest wall expansion. Cardiovascular: Atrial fibrillation with RVR. Gastrointestinal: Soft, Non-distended. Musculoskeletal: Normal range of motion, No deformity. Integumentary: Warm, Dry. Neurologic: Alert, Oriented. Psychiatric: Cooperative, Appropriate mood & affect. Review / Management MAR 05 15:50 L 134 L 99 H 25 / H 136 4.0 23 1.30 \ MAR 05 15:50 \ 13.9 / 7.5 173 / L 39.5 \ Cardiac Markers (Current Encounter/Past 24 Hours) ProBNP 1848 pg/mL OR 03/05/2022 16:16 Troponin I High Sensitivity 32.2 pg/mL 03/05/2022 16:14 Blood Gases (Current Encounter/Past 24 Hours) No Blood Gas Results Found (Past 24 Hours) No Radiology Results Found Results review: Labs (Last four charted values) WBC 7.5 (MAR 05) HB 13.9 (MAR 05) HCT L 39.5 (MAR 05) Plt 173 (MAR 05) Na L 134 (MAR 05) K 4.0 (MAR 05) Cl L 99 (MAR 05) CO2 23 (MAR 05) BUN H 25 (MAR 05) Cr 1.30 (MAR 05) Glu R H 136 (MAR 05) Ca 9.3 (MAR 05) PT H 21.4 (MAR 05) INR H 2.2 (MAR 05) AST 30 (MAR 05) ALT 26 (MAR 05) ALK P 92 (MAR 05) T Bili H 2.4 (MAR 05) PTN 6.8 (MAR 05) ALB 3.4 (MAR 05) . Impression and Plan IMPRESSION: Atrial fibrillation with RVR On Metoprolol 100mg BID & Warfarin at home. Allergic to Digoxin Nonischemic cardiomyopathy EF 35% 03/01/22 EF 15% 01/05/22 Repeat Echocardiogram pending GI consulted for nausea, vomiting PLAN: Discontinue po Cardizem IV Cardizem per protocol for better rate control Anticoagulation if okay with IM Echocardiogram pending Will continue to follow Electronically signed by Ulices Kline Conversion Carbon Sequestration Plant Operator Cerner at 11/19/2022 4:16 PM CDT documented in this encounter Plan of Treatment Not on file documented as of this encounter Visit Diagnoses Not on filedocumented in this encounter Care Teams Cabbage Salter Relationship Specialty Start Date End Date Hussein Brian MD [facility] [address] [place], [place] [id number] PCP - General General Internal Medicine 03/14/23 documented as of this encounter
--- OUTSIDE RECORDS SUMMARY | 2025-03-28 14:51 | XMS_ITS | Encounter Summary ---
Author Organization [employer] ([place], [place], [place], [place]) Address [address] [place] [address] Care Team Providers Care Design Engineer Products Name Role Phone Hussein Brian MD Primary Care Provider [phone] Encounter Details Date Type Department Care Team (Late st Contact Info) Description 03/05/2022 Transcribed Document [facility] Family Medicine [address] [place] [address] ProviderThomas MD [address] [place] [address] Social History Tobacco Use Types [...] Date Ryan rded Speak language other than Tanzanian at home Not on file 08/12/2023 Want [...] Conversion Note - Historical Provider, - 03/05/2022 3:37 PM CDT Evaluation, Physical Therapy Entered On: 03/06/2022 11:37 EDT Performed On: 03/06/2022 9:36 EDT by NATE HOUSTON, SIDNEY General Information, PT Visit Type, PT : Initial evaluation Patient Orders : Order Date Order Ordering 03/05/2022 15:37 PT Evaluation and Treatment Ordered By: HAKEEM BARONE DO Active Diagnoses : No Qualifying Diagnoses Therapy Diagnosis, PT : Decreased mobility due to A fib with RVR Onset of Problem, PT : 03/05/2022 EDT Admission Date : 03/05/2022 15:27 Co-treated by, PT : Occupational Therapist Personal Devices : Personal Devices Glasses Assistive Devices : Assistive Devices No Devices Recorded Precautions in Place : Fall prevention measures General Information Comment, PT : Pt admitted with Afib with RVR and reports having some falls at home recently. Pt has a history of Afib, R hip pain, CHF, recent falls. NATE HOUSTON, PT - 03/06/2022 11:27 EDT General Status Patient Received Status : Supine in bed Treatment Start Time : 03/06/2022 9:16 EDT Patient Left Status : Up in chair, RN/PCT informed, Communication board completed, All needs met and within reach Treatment End Time : 03/06/2022 9:36 EDT Treatment Time : 20 Minute(s) Actual Treatment Time : 25 Minute(s) (Comment: Time includes chart review, collaboration and clinical reasoning. [NATE HOUSTON, PT - 03/06/2022 11:27 EDT] ) NATE HOUSTON, PT - 03/06/2022 11:27 EDT History and Environment Living Situation, Therapy : Home Patient Lives With : Alone Persons Assisting Patient at Home : Alone Professional Skilled Services : None Persons Providing Information : Patient Home Equipment Therapy, PT : Walker Walker : Walker, front wheel Stairs : Yes Stair Location(s) : Inside, Outside Inside Stairs, Number of Steps : 16 Outside Stairs, Number of Steps : 5 Railing Inside : Yes Inside Railing Position : Left, going up Railing Outside : Yes Outside Railing Position : Bilateral NATE HOUSTON, PT - 03/06/2022 11:27 EDT Prior Level of Function PT GRID Prior LOF Ambulation, Household : Independent Prior LOF Ambulation, Community : Independent Prior LOF Bed Mobility : Independent Prior LOF Toileting : Independent Prior LOF Transfer : Independent NATE HOUSTON, PT - 03/06/2022 11:27 EDT Prior LOF Assist with ADL Comment : Pt reports being ind at home but having some falls recently. He has a Rwx from a prior Hip Surgery on RLE but does not use the Rwx. NATE HOUSTON, PT - 03/06/2022 11:27 EDT Upper Extremity Upper Extremity Dominance : Right Right UE Active ROM : WFL Right UE Strength : WFL Left UE Active ROM : WFL Left UE Strength : WFL NATE HOUSTON, PT - 03/06/2022 11:27 EDT Lower Extremity RLE Active ROM : WFL Right LE Strength : WFL LLE Active ROM : WFL Left LE Strength : WFL NATE HOUSTON, PT - 03/06/2022 11:27 EDT Functional Mobility Mobility Grid Supine to Sit : Rehab Minimal assistance Sit to Stand : Supervision/set-up Bed to Chair : Supervision/set-up Stand to Sit : Supervision/set-up NATE HOUSTON, PT - 03/06/2022 11:27 EDT Supine to Sit Device : Rails NATE HOUSTON, PT - 03/06/2022 11:27 EDT AM PAC Basic Mobility Turning Over in Bed : Unable Sit Down On/Stand Up From Chair w/ Arms : A lot Move Back Lying to Sitting Side of Bed : A lot Moving To/From a Bed to Chair : None Need to Walk in Hospital Room : A little Climbing 3-5 Steps with a Railing : A little AM-PAC Basic Mobility Raw Score : 15 AM-PAC Basic Mobility CMS 0-100% Score : 57.70 % NATE HOUSTON, PT - 03/06/2022 11:27 EDT Image 1 - Images currently included in the form version of this document have not been included in the text rendition version of the form. Gait Training/Assessment, PT Weight Bearing Status Maintained : Yes Weight Bearing Status : Full Gait Assistance Level : Supervision Walking Distance : 4 steps to pivot from bed to chair Ambulatory Devices : None Gait Deviations : No Gait Training Comment : Pt said, Please do not touch me. Stand back and do NOT touch me . NATE HOUSTON, PT - 03/06/2022 11:27 EDT Activity Tolerance, PT Activity Comment : Pt answered questions, did ROM/MMT, got to EOB with rail and min A and then stood and trasferred to the chair with supervision only. NATE HOUSTON, PT - 03/06/2022 11:27 EDT Cognition Assessment, PT Orientation : Oriented x 4 Safety/Judgment Comment : Good Follows Basic Command Assessment : Yes NATE HOUSTON, PT - 03/06/2022 11:27 EDT Edu Topics Physical Therapy Education Grid Balance Training : Needs further teaching Bed Mobility Training : Needs further teaching Gait Training : Needs further teaching Role of Physical Therapy : Verbalizes understanding Stair Training : Needs further teaching Therapeutic Exercises : Needs further teaching Transfer Training : Needs further teaching NATE HOUSTON, PT - 03/06/2022 11:27 EDT Indication Assesessment, PT Physical Therapy Indicated : Yes PT Problem List : Impaired, bed mobility, Impaired, coordination/proprioception, Impaired, endurance tolerance, Impaired, gait, Impaired, stair mobility, Impaired, transfers Potential Barriers To Therapy : None evident Rehabilitation Potential : Good NATE HOUSTON, PT - 03/06/2022 11:27 EDT Plan of Care, PT PT Tx Plan/Goals Established w Patient : Yes PT Frequency Rehab : Five days per week PT Duration Rehab : Fourteen days PT Treatments Planned : Balance training, Bed mobility training, Gait training, Safety education, Stair training, Therapeutic exercises, Transfer training NATE HOUSTON, PT - 03/06/2022 11:27 EDT Short Term Goals Mobility/Bed Mobility STG PT Grid Goal #1 Goal #2 Activity : Supine to sit Sit to stand Assist : Independent, modified Independent, modified Equipment : Rail, bed Walker, front wheel Date to Meet : 03/13/2022 EDT 03/13/2022 EDT Goal Status : Initial goal Initial goal NATE HOUSTON, PT - 03/06/2022 11:27 EDT NATE HOUSTON, PT - 03/06/2022 11:27 EDT Ambulation STG Grid Goal #1 Device : Walker, front wheel Distance : 150' Assist : Supervision or set-up Date to Meet : 03/13/2022 EDT Goal Status : Intial Goal NATE HOUSTON, PT - 03/06/2022 11:27 EDT Mcfp Goals Ambulation LTG Grid Goal #1 Device : Walker, front wheel Distance : 375' Assist : Independent, modified Date to Meet : 03/20/2022 EDT Goal Status : Intial Goal Comment : see stair goal NATE OHUSTON, PT - 03/06/2022 11:27 EDT Stairs LTG Grid Goal #1 Device : None Number of Steps : 16 Handrail(s) : One handrail Assist : Supervision or set-up Date to Meet : 03/20/2022 EDT Goal Status : Intial Goal NATE HOUSTON, PT - 03/06/2022 11:27 EDT Treatment Note Subjective Comment : Pt reports he is usually ind but has been having some falls at home. He has a Rwx available but has not been using it. He has 5 steps to enter the home and his bedroom is upstairs, with 16 steps there. Assessment : Good transfer to the chair with supervision but wanted help to get to EOB even when using the rail. Pt would benefit from PTx while here to address amb with Rwx, stairs, prior to D/C home or to rehab, since he lives alone. Plan for Treatment : Cont PTx NATE HOUSTON, PT - 03/06/2022 11:27 EDT Pain Assessment Pain Scaled Used : 0-10 Pain scale Pain Score During-Intervention : 0 NATE HOUSTON, PT - 03/06/2022 11:27 EDT Image 1 - Images currently included in the form version of this document have not been included in the text rendition version of the form. Anticipated Discharge Needs, OT/PT Anticipated Discharge to : Home, with home health, Unit, rehabilitation, Unit, residential (Comment: S1 [NATE HOUSTON, PT - 03/06/2022 11:27 EDT] ) NATE HOUSTON, PT - 03/06/2022 11:27 EDT [place] PT Charges PT Ther Activities Ea 15 Min : 1 PT Eval Low Complexity : 1 NATE HOUSTON PT - 03/06/2022 11:27 EDT Electronically signed by [facility] Conversion Research Physicist Cerner at 11/19/2022 4:05 PM CDT documented in this encounter Plan of Treatment Not on file documented as of this encounter Visit Diagnoses Not on filedocumented in this encounter Care Teams Design Engineer Products Relationship Specialty Start Date End Date Hussein Brian MD [address] [place] [id number] PCP - General General Internal Medicine 03/14/23 documented as of this encounter
--- OUTSIDE RECORDS SUMMARY | 2025-03-28 14:51 | XMS_ITS | Encounter Summary ---
Author Organization [employer] ([place], [place], [place], [place]) Address [address] [place] [address] Care Team Providers Care Head Baker Name Role Phone Hussein Brian MD Primary Care Provider [phone] Encounter Details Date Type Department Care Team (Late st Contact Info) Description 04/01/2022 Transcribed Document [facility] [place] Family Medicine [address] [place] [address] ProviderThomas MD [address] [place] [address] Social History Tobacco Use Types [...] Date Ryan rded Speak language other than Barbadian at home Not on file 08/12/2023 Want [...] Conversion Note - Historical Provider, - 04/01/2022 4:31 PM CDT Admission History, Adult Entered On: 04/01/2022 16:34 EDT Performed On: 04/01/2022 16:31 EDT by Adalgisa Banks RN-PATIENT CARE BEDSIDE NON-EXEMPT Advance Directive Patient has Advance Directive *Q : No, patient refuses Advance Directive information Adalgisa Banks RN-PATIENT CARE BEDSIDE NON-EXEMPT - 04/01/2022 16:31 EDT Anesthesia/Transfusion History Family History of Anesthesia Reaction : No prior transfusion(s) Blood Transfusion Acceptable to Patient : Yes Transfusion History : Prior anesthesia without reaction Family History of Anesthesia Reaction : Unknown Adalgisa Banks RN-PATIENT CARE BEDSIDE NON-EXEMPT - 04/01/2022 16:31 EDT Anticipated Discharge Needs Discharge To, Anticipated : Home Anticipated Discharge Needs at This Time : None Adalgisa Banks RN-PATIENT CARE BEDSIDE NON-EXEMPT - 04/01/2022 16:31 EDT Education Topics, Admission Orientation DCP GENERIC CODE Advance Directives : Verbalizes understanding Allergy Band Applied : Verbalizes understanding Assessment/Vital Signs : Verbalizes understanding Bed Control : Verbalizes understanding Call Light : Verbalizes understanding Confidentiality : Verbalizes understanding Diet/Room Service : Verbalizes understanding Fall Prevention : Verbalizes understanding Hand Hygiene : Verbalizes understanding Healthcare Provider Visit : Verbalizes understanding ID Band Applied : Verbalizes understanding Isolation Precautions : Verbalizes understanding Orientation to Room/Bathroom : Verbalizes understanding Patient Bill of Rights : Verbalizes understanding Patient Rights/Responsibilities : Verbalizes understanding Patient Safety : Verbalizes understanding Personal Privacy Code : Verbalizes understanding Rapid Response Initiated by Patient/Family : Verbalizes understanding Rounding : Verbalizes understanding Siderails use/risks : Verbalizes understanding Skin Precautions : Verbalizes understanding Smoking Policy : Verbalizes understanding Telemetry Monitoring : Verbalizes understanding Television/Phone : Verbalizes understanding Visiting Policy : Verbalizes understanding Adalgisa Banks RN-PATIENT CARE BEDSIDE NON-EXEMPT - 04/01/2022 16:31 EDT Functional Assessment Living Situation : Home Patient Lives With : Alone Current Home Treatments : None Adalgisa Banks RN-PATIENT CARE BEDSIDE NON-EXEMPT - 04/01/2022 16:31 EDT General Info Patient Arrival Date/Time : 04/01/2022 16:00 EDT Legal Guardian : No Want Family/Rep/Phys Notified of Admit : No Emergency Contact #1 : Virgil Hammond Emergency Contact #1 Emergency Contact #1 Relationship : step son Emergency Contact #2 : na Emergency Contact #2 Phone Number : na Emergency Contact #2 Relationship : na Primary Language : Barbadian Communication Barrier : None Funeral Home Director Needed : No Adalgisa Banks RN-PATIENT CARE BEDSIDE NON-EXEMPT - 04/01/2022 16:31 EDT Fall Risk Scales ABCs Fall Injury Risk Identification : Age ABC Fall Injury Risk : Moderate to high injury risk SPENCE Hx Falls Immediate/Within 3 Months : No Spence Secondary Diagnosis : No SPENCE Use of Ambulatory Aid : Bed rest/Nurse assist SPENCE IV Therapy or IV Access : Yes Barrera Gait/Transferring : Weak Spence Mental Status : Oriented to own ability Spence Fall Risk Score : 30 SPENCE Fall Scale Risk Level : 25-45 Medium Risk [place] Fall Interventions : Adequate lighting, Assistive devices within reach, Bed in low position, Call device within reach, Fall prevention handout/education per facility policy, Frequent orientation to call device, Frequent orientation to surroundings, Hourly comfort/safety rounds, Non-slip footwear, Personal items within reach, Reinforced to call for assistance before getting out of bed, Room free of clutter/spills, Upper side-rails up, Wheels locked, Wires/Cords secured Fall Moderate to High Risk Interventions : Bed alarm on, Transport methods appropriate to patient Adalgisa Banks RN-PATIENT CARE BEDSIDE NON-EXEMPT - 04/01/2022 16:31 EDT Fall Risk Education Grid Alarms : Verbalizes understanding Assistive Equipment Use : Verbalizes understanding Bed Height/Stabilization : Verbalizes understanding Call light use : Verbalizes understanding Door Open : Verbalizes understanding Environmental Management : Verbalizes understanding Eyeglasses Use : Verbalizes understanding Fall Community Resources : Verbalizes understanding Fall Contract/Letter : Verbalizes understanding Fall Prevention in the Home : Verbalizes understanding Fall Prevention Protocol : Verbalizes understanding Hearing Aid Use : Verbalizes understanding Home Risk Assessment : Verbalizes understanding Need Constant Observation : Verbalizes understanding Night Light Use : Verbalizes understanding Nonskid Footwear Use : Verbalizes understanding Notification of Staff When Leaving : Verbalizes understanding Orthostatic Hypotension Precautions : Verbalizes understanding Personal Article Availability : Verbalizes understanding Prevention Responsibility Family : Verbalizes understanding Prevention Responsibility Patient : Verbalizes understanding Risk Alert Methods : Verbalizes understanding Risk Factors : Verbalizes understanding Safety Aids : Verbalizes understanding Siderails use/risks : Verbalizes understanding Special Assistive Devices : Verbalizes understanding Staff Responsiveness : Verbalizes understanding Symptom Identification & Action Plan *Q : Verbalizes understanding Symptom Reporting : Verbalizes understanding Toileting Schedule : Verbalizes understanding Transfer/Mobility Techniques : Verbalizes understanding Urinal/Bedpan Availability : Verbalizes understanding Wait for Assistance : Verbalizes understanding Wheelchair Safety : Verbalizes understanding Adalgisa Banks RN-PATIENT CARE BEDSIDE NON-EXEMPT - 04/01/2022 16:31 EDT Fall Risk Scale Calc Temp : 0 Adalgisa Banks RN-PATIENT CARE BEDSIDE NON-EXEMPT - 04/01/2022 16:31 EDT Health Histories Smoking Status : Never (less than 100 in lifetime; none in last 30 days) Smokeless Tobacco Status : Never Adalgisa Banks RN-PATIENT CARE BEDSIDE NON-EXEMPT - 04/01/2022 16:31 EDT Social History (As Of: 04/01/2022 16:34:39 EDT) Tobacco: Never (less than 100 in [...] No. (Last Updated: 03/05/2022 16:46:59 EDT by Lahkwinder Clazada, RN) Height and Weight, Clinical Dosing Height Source : Stated Height Entry Format : Reeves Height, Feet : 6 ft(Converted to: 183 cm, 72 Inch) Height, Inches : 1 Inch(Converted to: 0 ft 1 Inch, 2.54 cm) Clinical Height : 185.42 cm Weight Source : Standing scale Weight Entry Format : Reeves Clinical Dosing Weight : 104.55 kg Weight, Pounds : 230 lb Body Surface Area (BSA) : 2.29 m2 Body Mass Index : 30.4 kg/m2 (HI) [place] Body Weight : 79 kg Adalgisa Banks RN-PATIENT CARE [facility] NON-EXEMPT - 04/01/2022 16:31 EDT Infectious Disease History Does patient have symptoms of COVID-19? : No Tested for COVID19 in the past 14 days : No, Patient stated Does the Patient state known exposure to a COVID-19 positive case in the last 14 days? : No Patient Vaccinated for COVID-19 : Fully vaccinated Adalgisa Banks RN-PATIENT CARE [facility] NON-EXEMPT - 04/01/2022 16:31 EDT Infectious Disease Risk Screening Grid Cough < 2 wks of unknown origin : NO Cough > 2 weeks : NO Blood in Sputum : NO Fever or self-reported Fever : NO Rash of unknown origin : NO Headache : NO Stiff neck : NO Night Sweats : NO Unexplained Weight Loss : NO Diarrhea (3 episode per day) : NO Adalgisa Banks RN-PATIENT CARE [facility] NON-EXEMPT - 04/01/2022 16:31 EDT Physical contact outside [place] in the last 30 days : No Hospitalized in Foreign Country : No Infectious Disease History : Chicken pox/Shingles, Measles INF Disease TB Screening Calc : 0 INF Disease Recent Travel Calc : 0 Adalgisa Banks RN-PATIENT CARE [facility] NON-EXEMPT - 04/01/2022 16:31 EDT Tetanus Immunization Status Previous Tetanus Immunizations : No qualifying data available. Adalgisa Banks RN-PATIENT CARE [facility] NON-EXEMPT - 04/01/2022 16:31 EDT Influenza Vaccine Asmt, Adult Previous Vaccines from Immunization Schedule : No qualifying data available. Influenza Immunization, Current Season : No Inactivated Flu Vaccine Contraindications : No contraindications to inactivated influenza vaccine Transplant Workup/Recent Transplant : No Order for Influenza Vaccine : Declined Vaccination Adalgisa Banks RN-PATIENT CARE [facility] NON-EXEMPT - 04/01/2022 16:31 EDT Pneumococcal Vaccine Previous Vaccines from Immunization Schedule : No qualifying data available. Pneumonia Immunization Received : Yes Adalgisa Banks RN-PATIENT CARE [facility] NON-EXEMPT - 04/01/2022 16:31 EDT Order Details Order Detail : N/A Patient Needs Meds Crushed/Liquid : No Adalgisa Banks RN-PATIENT CARE [facility] NON-EXEMPT - 04/01/2022 16:31 EDT Nutrition History Eating Poorly Due to Decreased Appetite : No Unplanned Weight Loss in Past 3-6 Months : No Malnutrition Screening Tool Total(mal) : 0 Malnutrition Screening Tool Risk Level : Patient not at risk Adalgisa Banks RN-PATIENT CARE [facility] NON-EXEMPT - 04/01/2022 16:31 EDT [place] Suicide Severity Rating Scale (C-SSRS) CSSRS Past Month Wish to be : No CSSRS Past Month Suicidal Thoughts : No CSSRS Lifetime Suicide Behavior : No Suicide Severity Rating Score : 0 Suicide Severity Rating : No Additional Care Required at this time Adalgisa Banks RN-PATIENT CARE [facility] NON-EXEMPT - 04/01/2022 16:31 EDT Psychosocial History Currently in Unsafe Situation : No Adalgisa Banks RN-PATIENT CARE [facility] NON-EXEMPT - 04/01/2022 16:31 EDT Sleep Apnea Risk Assmt Hx of [...] Sleep Apnea Risk Level Score : 5 Adalgisa Banks RN-PATIENT CARE [facility] NON-EXEMPT - 04/01/2022 16:31 EDT Valuables and Belongings Valuables and Belongings : Clothing Clothing : Common streetwear Clothing Disposition : Bedside Adalgisa Banks RN-PATIENT CARE [facility] NON-EXEMPT - 04/01/2022 16:31 EDT documented in this encounter Plan of Treatment Not on file documented as of this encounter Visit Diagnoses Not on filedocumented in this encounter Care Teams Head Baker Relationship Specialty Start Date End Date Hussein Brian MD [facility] [place] [address] [place] [address] (work) PCP - General General Internal Medicine 03/14/23 documented as of this encounter
--- OUTSIDE RECORDS SUMMARY | 2025-03-28 14:51 | XMS_ITS | Encounter Summary ---
Author Organization [employer] ([place], [place], [place], [place]) Address [address] [place] [address] Care Team Providers Care Assistant Elementary Teacher Name Role Phone Hussein Brian MD Primary Care Provider [phone] Encounter Details Date Type Department Care Team (Late st Contact Info) Description 03/05/2022 Transcribed Document [facility] [place] [address] [place] [address] ProviderThomas MD [address] [place] [address] Social History Tobacco Use Types [...] Provider, - 03/05/2022 3:37 PM CDT Evaluation, Occupational Therapy Entered On: 03/06/2022 12:53 EDT Performed On: 03/06/2022 9:18 EDT by DEBO WELLER OTR/L General Information, OT Visit Type, OT : Initial evaluation Patient Orders : Order Date Order Ordering MD 03/05/2022 15:37 OT Evaluation and Treatment Ordered By: HAKEEM BARONE DO Active Diagnoses : No Qualifying Diagnoses Therapy Diagnosis, OT : Decreased ADL and fx mboility secondary to A-fib Onset of Problem, OT : 03/05/2022 EDT Admission Date : 03/05/2022 15:27 Co-treated by, OT : Physical Therapist Personal Devices : Personal Devices Glasses Assistive Devices : Assistive Devices No Devices Recorded Precautions in Place : Fall prevention measures General Information Comment, OT : PMH: Afib with RVT, BPH Admit for cardiology eval DEBO WELLER OTR/L - 03/06/2022 12:35 EDT General Status Patient Received Status : Supine in bed Treatment Start Time : 03/06/2022 9:18 EDT Patient Left Status : Up in chair, Communication board completed, All needs met and within reach Treatment End Time : 03/06/2022 9:34 EDT Treatment Time : 16 Minute(s) Actual Treatment Time : 21 Minute(s) (Comment: Additional 5 minutes for collaboration, chart review, and clinical reasoning. [id number] [DEBO WELLER OTR/L - 03/06/2022 12:35 EDT] ) DEBO WELLER OTR/L - 03/06/2022 12:35 EDT History and Environment, OT Living Situation, Therapy : Home Patient Lives With : Alone Persons Assisting Patient at Home : Alone Professional Skilled Services : None Persons Providing Information : Patient Stairs : Yes Stair Location(s) : Inside, Outside Inside Stairs, Number of Steps : 16 Outside Stairs, Number of Steps : 5 Railing Inside : Yes Inside Railing Position : Left, going up Railing Outside : Yes Outside Railing Position : Bilateral DEBO WELLER OTR/Maia - 03/06/2022 12:35 EDT Prior LOF Bathing, OT : Independent Prior LOF Bed Mobility : Independent Prior LOF Upper Body Dressing, OT : Independent Prior LOF Lower Body Dressing, OT : Independent Prior LOF Toileting : Independent Prior LOF Transfer : Independent Prior LOF Grooming, OT : Independent Prior LOF for IADLs, OT : Independent DEBO WELLER OTR/Maia 03/06/2022 12:35 EDT Upper Extremity Right UE Active ROM : WFL Right UE Strength : WFL Left UE Active ROM : WFL Left UE Strength : WFL Right UE Strength : WFL Left UE Strength : WFL DEBO WELELR OTR/Maia - 03/06/2022 12:35 EDT Self Care/Home Management, OT Self Feeding Assist Level, OT : Independent, complete Grooming Assist Level, OT : Independent, complete Bathing Assist Level, OT : Supervision or set-up Upper Body Dressing Assist Level, OT : Independent, complete Lower Body Dressing Assist Level, OT : Supervision or set-up Toileting Assist Level : Supervision or set-up Toilet Transfer Assist Level : Supervision or set-up Shower Transfer Assist Level : Supervision or set-up Tub Transfer Assist Level : Activity does not occur Bed/Chair/WC Transfer Assist Level : Supervision or set-up Kitchen Mobility Assist Level : Supervision or set-up Simple Meal Prep Assistance Level, OT : Activity does not occur Med Management Assist Level, OT : Independent, complete Money Management Assist Level, OT : Independent, complete DEBO WELLER OTR/Maia 03/06/2022 12:35 EDT Functional Mobility Mobility Grid Supine to Sit : Rehab Minimal assistance Sit to Stand : Supervision/set-up Bed to Chair : Supervision/set-up Stand to Sit : Supervision/set-up DEBO WELLER OTR/L 03/06/2022 12:35 EDT Functional MobilityComment : SPT to chair with CGA DEBO WELLER OTR/L 03/06/2022 12:35 EDT Intervention Summary Heart Rate/Pulse Pre-intervention : 61 bpm Heart Rate/Pulse During Intervention : 59 bpm Patient Stated Response During Interv : SPT to chair Heart Rate/Pulse Post-intervention : 58 bpm DEBO WELLER OTR/L - 03/06/2022 12:35 EDT Cognition Assessment, OT Orientation : Oriented x 4 DEBO WELLER OTR/Maia - 03/06/2022 12:35 EDT Education OT Occupational Therapy Education Grid Home Safety : Verbalizes understanding Role of Occupational Therapy : Verbalizes understanding DEBO WELLER OTR/Maia - 03/06/2022 12:35 EDT Teaching/Learning Assessment Barriers To Learning : None evident Learning Style Preferences Patient : Verbal explanation Learning Style Preferences Family : None DEBO WELLER OTR/Maia - 03/06/2022 12:35 EDT Indication Assessment, OT Occupational Therapy Indicated : Yes Problem List, OT : Impaired, activities daily living, Impaired, endurance tolerance Potential Barriers, OT : Acuity of illness Rehabilitation Potential, OT : Good DEBO WELLER OTR/L - 03/06/2022 12:35 EDT Plan of Care, OT OT Tx Plan/Goals Established w Patient : Yes OT Frequency Rehab : Five days per week OT Duration Rehab : Fourteen days OT Treatments Planned : Activities of daily living, Functional mobility training, Therapeutic activities, Therapeutic exercises DEBO WELLER OTR/L - 03/06/2022 12:35 EDT Pulling Unit Operator Goals, OT Grooming LTG Grid Goal #1 Activity : Grooming Assist : Independent, complete Date to Meet : 03/20/2022 EDT Goal Status : Initial goal Comment : Standing sinkside DEBO WELLER OTR/L - 03/06/2022 12:35 EDT Dressing, Lower Body LTG Grid Goal #1 Activity : Dressing, Lower Body Assist : Independent, complete Date to Meet : 03/20/2022 EDT Goal Status : Initial goal DEBO WELLER OTR/L - 03/06/2022 12:35 EDT Toileting LTG Grid Goal #1 Activity : Toileting Assist : Independent, complete Date to Meet : 03/20/2022 EDT Goal Status : Initial goal DEBO WELLER OTR/L - 03/06/2022 12:35 EDT Bed Mobility/ Bed Transfer LTG Grid Goal #1 Activity : Bed Mobility, Supine to Sit Assist : Independent, complete Date to Meet : 03/20/2022 EDT Goal Status : Initial goal DEBO WELLER OTR/Maia - 03/06/2022 12:35 EDT Treatment Note Subjective Comment : Pt supine in bed, agreeable to therapy eval. Patient's Response to Treatment : Pt tolerated session with HR WFL Additional Objective Information : OT eval completed. Marta required for sup-sit. At EOB pt demo BUE ROM WFL and MMT 4+/5. Pt completed SPT to chair with CGA, HR at 59 BPM. Patient up in chair with all needs met. Assessment : OT skilled services needed to improve fx endurance and activity tolerance. Anticipated d/c home with family assist vs HH services Plan for Treatment : See goals. DEBO WELLER OTR/L - 03/06/2022 12:35 EDT Pain Assessment Pain Comment : No report of pain DEBO WELLER OTR/L - 03/06/2022 12:35 EDT Image 1 - Images currently included in the form version of this document have not been included in the text rendition version of the form. Anticipated Discharge Needs, OT/PT Anticipated Discharge to : Home, with family care, Home, with home health DEBO WELLER OTR/L - 03/06/2022 12:[address] [facility] OT Charges OT Ther Activities Ea 15 Min : 1 OT Eval Low Complexity : 1 JONATHAN VALLEJO OTR/L - 03/08/2022 10:09 EDT Electronically signed by Raisa [facility] Conversion Public Relations Director Cerner at 11/19/2022 4:17 PM CDT documented in this encounter Plan of Treatment Not on file documented as of this encounter Visit Diagnoses Not on filedocumented in this encounter Care Teams Assistant Elementary Teacher Relationship Specialty Start Date End Date Hussein Brian MD [facility] [place] [address] [place] [address] PCP - General General Internal Medicine 03/14/23 documented as of this encounter
--- OUTSIDE RECORDS SUMMARY | 2025-03-28 14:51 | XMS_ITS | Encounter Summary ---
Author Organization [employer] ([place], [place], [place], [place]) Address [address] [place] [address] Care Team Providers Care Reading Aide Name Role Phone uHssein Brian MD Primary Care Provider [phone] Encounter Details Date Type Department Care Team (Late st Contact Info) Description 03/05/2022 Transcribed Document [facility] [place] [address] [place] [address] ProviderThomas MD [address] [place] [address] Social History Tobacco Use [...] Conversion Note - Historical Provider, - 03/05/2022 3:26 PM CDT Admission History, Adult Entered On: 03/05/2022 16:50 EDT Performed On: 03/05/2022 16:30 EDT by Lakhwinder Calzada RN Advance Directive Patient has Advance Directive *Q : Yes, Advance Directive not with the patient Advance Directive Type : Living will Copy Advance Directive Verified/on Chart : No Lakhwinder Calzada RN - 03/05/2022 16:41 EDT Anesthesia/Transfusion History Family History of Anesthesia Reaction : No prior transfusion(s) Blood Transfusion Acceptable to Patient : Yes Transfusion History : No prior anesthesia Family History of Anesthesia Reaction : Unknown Lakhwinder Calzada RN - 03/05/2022 16:41 EDT Anticipated Discharge Needs Discharge To, Anticipated : Home Lakhwinder Calzada RN - 03/05/2022 16:41 EDT Education Topics, Admission Orientation DCP GENERIC CODE Advance Directives : Verbalizes understanding Assessment/Vital Signs : Verbalizes [...] Verbalizes understanding Visiting Policy : Verbalizes understanding Lakhwinder Calzada RN - 03/05/2022 16:41 EDT Functional Assessment Living Situation : Home Patient Lives With : Alone Persons Assisting Patient at Home : Alone Current Daily Living Assistance : None Sensory Deficits : None Mobility Assistance Prior to Admission : Independent RUST Hx Falls Immediate/Within 3 Months : No Current Home Treatments : Blood glucose monitoring Lakhwinder Calzada RN - 03/05/2022 16:41 EDT General Info Arrived From : Acute Care Facility Mode of Arrival on Unit : Stretcher 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 Emergency Contact #1 Relationship : Gabe Emergency Contact #2 : Melquiades Cuellar Emergency Contact #2 Phone Number : . Emergency Contact #2 Relationship : Neighbor Chief Complaint : Patient was admitted to [facility] on 03/01 with complaints of dizziness and unable to walk. Was in A fib RVR. Information Obtained From : Patient Primary Language : Andorran Communication Barrier : None Patcher Wood Welder Needed : No Lakhwinder Calzada RN - 03/05/2022 16:41 EDT Fall Risk Scales ABCs Fall Injury Risk Identification : Age, Bones, Coagulation ABC Fall Injury Risk : Moderate to high injury risk Injury Moderate to High Risk Interventions : Supervise toileting as indicated, Transport methods appropriate to patient RUST Hx Falls Immediate/Within 3 Months : No Rust Secondary Diagnosis : Yes RUST Use of Ambulatory Aid : Bed rest/Nurse assist RUST IV Therapy or IV Access : Yes Rust Gait/Transferring : Weak Rust Mental Status : Oriented to own ability Rust Fall Risk Score : 45 RUST Fall Scale Risk Level : 25-45 Medium Risk [place] Fall Interventions : Adequate lighting, Bed in low position, Call device within reach, Frequent orientation to surroundings, Hourly comfort/safety rounds, Non-slip footwear, Personal items within reach, Reinforced to call for assistance before getting out of bed, Room free of clutter/spills, Upper side-rails up, Wheels locked, Wires/Cords secured Fall Moderate to High Risk Interventions : Patient room close to nurses station, Supervise toileting as indicated, Transport methods appropriate to patient Fall Risk Scale Calc Temp : 0 Lakhwinder Calzada RN - 03/05/2022 16:41 EDT Health Histories Smoking Status : Never (less than 100 in lifetime; none in last 30 days) Smokeless Tobacco Status : Never Lakhwinder Calzada RN - 03/05/2022 16:41 EDT Social History (As Of: 03/05/2022 16:50:30 EDT) Tobacco: Never (less than 100 in lifetime) Smoking Status. Never Smokeless Tobacco Status. (Last Updated: 03/05/2022 16:46:24 EDT by Lakhwinder Calzada, RN) Alcohol: Alcohol Use History Yes. Days/Week: 3. Total Drinks/Week: 6. (Last Updated: 03/05/2022 16:46:50 EDT by Lakhwinder Calzada, RN) Substance Abuse: Drug Use Hx: No. (Last Updated: 03/05/2022 16:46:59 EDT by Lakhwinder Calzada, RN) Height and Weight, Clinical Dosing Height Source : Stated Height Entry Format : [place] Height, Feet : 6 ft(Converted to: 183 cm, 72 Inch) Height, Inches : 1 Inch(Converted to: 0 ft 1 Inch, 2.54 cm) Clinical Height : 185.42 cm Weight Source : Bed scale Weight Entry Format : [place] Clinical Dosing Weight : 109.09 kg Weight, Pounds : 240 lb Body Surface Area (BSA) : 2.33 m2 Body Mass Index : 31.7 kg/m2 (HI) [place] Body Weight : 79 kg Lakhwinder Calzada RN - 03/05/2022 16:41 EDT Infectious Disease History Does patient have symptoms of COVID-19? : No Tested for COVID19 in the past 14 days : No, Patient stated Does the Patient state known exposure to a COVID-19 positive case in the last 14 days? : No Patient Vaccinated for COVID-19 : Fully vaccinated Lakhwinder Calzada RN - 03/05/2022 16:41 EDT Infectious Disease Risk Screening Grid Cough < 2 wks of unknown origin : NO Cough > 2 weeks : NO Blood in Sputum : NO Fever or self-reported Fever : NO Rash of unknown origin : NO Headache : NO Stiff neck : NO Night Sweats : NO Unexplained Weight Loss : NO Diarrhea (3 episode per day) : NO Lakhwinder Calzada RN - 03/05/2022 16:41 EDT Physical contact outside [place] in the last 30 days : No Hospitalized in Foreign Country : No Infectious Disease History : Chicken pox/Shingles, Measles INF Disease TB Screening Calc : 0 INF Disease Recent Travel Calc : 0 Lakhwinder Calzada RN - 03/05/2022 16:41 EDT Tetanus Immunization Status Previous Tetanus Immunizations : No qualifying data available. Tetanus Immunization : Less than 5 years Lakhwinder Calzada RN - 03/05/2022 16:41 EDT Influenza Vaccine Asmt, Adult Previous Vaccines from Immunization Schedule : No qualifying data available. Influenza Immunization, Current Season : No Inactivated Flu Vaccine Contraindications : No contraindications to inactivated influenza vaccine Transplant Workup/Recent Transplant : No Order for Influenza Vaccine : Declined Vaccination Lakhwinder Calzada RN - 03/05/2022 16:41 EDT Pneumococcal Vaccine Previous Vaccines from Immunization Schedule : No qualifying data available. Pneumonia Immunization Received : No Pneumococcal Risk Assessment < Age 65 : N/A- Patient 65 years of age or older Pneumococcal Vaccine Contraindications : No contraindications to pneumococcal vaccine Transplant Workup/Recent Transplant : No Order for Pneumococcal Vaccine : Declined Vaccination Lakhwinder Calzada RN - 03/05/2022 16:41 EDT Order Details Order Detail : N/A IV Order Detail : 1 Oxygen Order Detail : 0 Nurse Collect Order Detail : 0 Lift/Transfer : Independent Central Line Order Detail : No Arterial Line : No Patient Needs Meds Crushed/Liquid : No Lakhwinder Calzada RN - 03/05/2022 16:41 EDT Nutrition History Feeding Ability : Independent Eating Poorly Due to Decreased Appetite : Yes Unplanned Weight Loss in Past 3-6 Months : Yes Unplanned Weight Loss Amount : 24-33 lbs/10.6-15 kg Malnutrition Screening Tool Total(mal) : 4 Malnutrition Screening Tool Risk Level : Patient at risk Lakhwinder Calzada RN - 03/05/2022 16:41 EDT [place] Suicide Severity Rating Scale (C-SSRS) CSSRS Past Month Wish to be : No CSSRS Past Month Suicidal Thoughts : No CSSRS Lifetime Suicide Behavior : No Suicide Severity Rating Score : 0 Suicide Severity Rating : No Additional Care Required at this time Lakhwinder Calzada RN - 03/05/2022 16:41 EDT Psychosocial History Currently in Unsafe Situation : No Lakhwinder Calzada RN - 03/05/2022 16:41 EDT Sleep Apnea Risk Assmt Hx of [...] Sleep Apnea Risk Level Score : 5 Lakhwinder Calzada RN - 03/05/2022 16:41 EDT Valuables and Belongings Valuables and Belongings : Clothing, Personal devices, No jewelry, No personal items, No assistive devices, No respiratory devices, No medications Clothing : Common streetwear Clothing Disposition : Bedside Personal Device Disposition : Bedside Personal Devices : Glasses Lakhwinder Calzada RN - 03/05/2022 16:41 EDT Electronically signed by [facility], [facility] Conversion Solid Waste Division Supervisor Cerner at 11/19/2022 4:12 PM CDT documented in this encounter Plan of Treatment Not on file documented as of this encounter Visit Diagnoses Not on filedocumented in this encounter Care Teams Reading Aide Relationship Specialty Start Date End Date Hussein Brian MD [address] [place] [address] PCP - General General Internal Medicine 03/14/23 documented as of this encounter
--- OUTSIDE RECORDS SUMMARY | 2025-03-28 14:51 | XMS_ITS | Encounter Summary ---
Author Organization [employer] ([place], [place], [place], [place]) Address [address] [place] [address] Care Team Providers Care Supervisor Car And Yard Name Role Phone Hussein Brian MD Primary Care Provider [phone] Encounter Details Date Type Department Care Team (Late st Contact Info) Description 03/09/2022 Transcribed Document [facility] [place] [address] [place] [address] ProviderThomas MD [address] [place] [address] Social History Tobacco Use Types [...] Date Ryan rded Speak language other than Chilean at home Not on file 08/12/2023 Want [...] Cerner Conversion Note - Historical Provider, - 03/09/2022 5:00 AM CDT Chart Check - Review Order Profile Entered On: 03/09/2022 3:11 EDT Performed On: 03/09/2022 5:00 EDT by Lola Finn, DENI Chart Check Powerplans Initiated/Discontinued as Appropriate : Yes All Active Orders Reviewed : Yes Lola Finn RN - 03/09/2022 3:10 EDT Electronically signed by Raisa [facility] Conversion Bolter Helper Marvel at 11/19/2022 4:13 PM CDT documented in this encounter Plan of Treatment Not on file documented as of this encounter Visit Diagnoses Not on filedocumented in this encounter Care Teams Supervisor Car And Yard Relationship Specialty Start Date End Date Hussein Brian MD [address] [place] [id number] PCP - General General Internal Medicine 03/14/23 documented as of this encounter
--- OUTSIDE RECORDS SUMMARY | 2025-03-28 14:51 | XMS_ITS | Encounter Summary ---
Author Organization [employer] ([place], [place], [place], [place]) Address [address] [place] [address] Care Team Providers Care Portfolio Management Marketing Name Role Phone Hussein Brian MD Primary Care Provider [phone] Encounter Details Date Type Department Care Team (Late st Contact Info) Description 03/06/2022 Transcribed Document [facility] [place] [address] [place] [address] ProviderThomas MD [address] [place] [address] Social History Tobacco Use Types [...] Date Ryan rded Speak language other than Sammarinese at home Not on file 08/12/2023 Want [...] Conversion Note - Historical ProviderMD - 03/06/2022 11:55 AM CDT Consult Phone Call Documentation Entered On: 03/06/2022 14:47 EDT Performed On: 03/06/2022 11:55 EDT by Malinda Perea, [facility] Coord Phone Call for Consults Consult Phone Call/Page Attempt : First call Consult Reason : complaints of chest pain Physician Requesting Consult : HAKEEM BARONE DO Physician Requested for Consult : MEGHAN CORONA APRN-INT Provider Service Notified Name : Cardiology Consult, Additional Information : called to Malinda Giles, [facility] Coord - 03/06/2022 14:46 EDT Electronically signed by Raisa [facility] Conversion Handstitching Machine Armhole Feller Cercarmen at 11/19/2022 4:22 PM CDT documented in this encounter Plan of Treatment Not on file documented as of this encounter Visit Diagnoses Not on filedocumented in this encounter Care Teams Portfolio Management Marketing Relationship Specialty Start Date End Date Hussein Brian MD [address] [place] [id number] PCP - General General Internal Medicine 03/14/23 documented as of this encounter
--- OUTSIDE RECORDS SUMMARY | 2025-03-28 14:52 | XMS_ITS | Encounter Summary ---
Author Organization [employer] ([place], [place], [place], [place]) Address [address] [place] [address] Care Team Providers Care Retail Performance Specialist Name Role Phone Hussein Brian MD Primary Care Provider [phone] Encounter Details Date Type Department Care Team (Late st Contact Info) Description 04/06/2022 Transcribed Document [facility] [place] [address] [place] [address] ProviderThomas MD [address] [place] [address] Social History Tobacco Use Types [...] Cerner Conversion Note - Historical ProviderMD - 04/06/2022 1:56 PM CDT UM Authorization Entered On: 04/06/2022 13:58 EDT Performed On: 04/06/2022 13:56 EDT by Kelin Woodward, Equity Research Associate Primary Insurance Authorization Authorization and Policy Numbers : Insurance 1 Health Plan: [employer] Policy Number: [id number] Authorization Number: [id number] Insurance Primary Name : [employer]US HMO Policy Number: [id number] Authorization Status-Primary : Not certified Auth/Referral Contact Name-Primary : + Reference Number-Primary : [id number] Authorized Service Begin Date-Primary : 04/01/2022 EDT Observation Authorization Nbr-Primary : [id number] Authorization Comments-Primary : Per [employer] - Not Certified - Printed and placed in denials basket for processing. Historical Authorization Comments-Primary : Comment 1: AUTH SUBMITTED VIA [employer]. PAYOR HAS ACCESS TO EMR (Nhi Arteaga Rn-Utilization Review 04/02/2022 14:52) Comment 2: [] [employer] Medicare auth approved for outpt per Star note. (SUE DINH, RN-Utilization Review 04/02/2022 10:26) Kelin Woodward, Equity Research Associate - 04/06/2022 13:56 EDT Electronically signed by Raisa [facility] Conversion Appeals Board Referee Cerner at 11/19/2022 4:20 PM CDT documented in this encounter Plan of Treatment Not on file documented as of this encounter Visit Diagnoses Not on filedocumented in this encounter Care Teams Retail Performance Specialist Relationship Specialty Start Date End Date Hussein Brian MD [address] [place] [id number] PCP - General General Internal Medicine 03/14/23 documented as of this encounter
--- OUTSIDE RECORDS SUMMARY | 2025-03-28 14:52 | XMS_ITS | Encounter Summary ---
Author Organization [employer] ([place], [place], [place], [place]) Address [address] [place] [address] Care Team Providers Care Online Marketer Name Role Phone Hussein Brian MD Primary Care Provider [phone] Encounter Details Date Type Department Care Team (Late st Contact Info) Description 03/07/2022 Transcribed Document [facility] [place] [address] [place] [address] ProviderThomas MD [address] [place] [address] Social History Tobacco Use [...] Marvel Conversion Note - Historical Provider, - 03/07/2022 11:50 AM CDT Patient: DALLAS RADFORD Age: 76 Years [...] Chest to rule out extra-esophageal obstructive lesion. - 03/07/22: ordered full liquid diet but has yet to get ordered diet (only cardiac diet provided and he did not eat most of it). Chest CT scan: no loreto-esophageal mass. Rec: Continue full liquid diet Continue Pantoprazole 40 mg IV BID and Imipramine 25 mg po QHS (trial for SANDHYA therapy) Coordinate E manometry testing as outpatient JOSSELIN If Achalasia is confirmed, would proceed with trial of EGD with botox of LES before considering Surgical Myotomy VTE Prophylaxis - Medical Warfarin 2 mg, Oral, Tab, Daily, Routine, Start 03/05/22 18:00:00 EDT, 03/05/22 16:59:00 EDT (HAKEEM BARONE) Subjective No change in symptoms yet. Only 1 day of PPI/Imipramine. He has not gotten full liquid diet yet to see if we can improve oral intake while we are awaiting med management effects. Vital Signs T: 36.8 ??C TMIN: 36.3 ??C TMAX: 37.2 ??C HR: 78 RR: 16 BP: 102/69 SpO2: 94% Oxygen Settings (Last) Oxygen Therapy Mode: Room air (03/07/22 05:30:00) Oxygen Flow Rate: 98 Liter/Min (03/05/22 18:43:00) Intake & Output Totals Last 24 Hours (7a-7a) Input Total: 660 mL Output Total: 0 mL Balance: 660 mL Physical Exam Lungs: CTAB Cardiac: Irregular rate and rhythm with no m/r/g. GI: Abdomen soft, nontender, nondistended. Medications acetaminophen, 650 mg= 2 Tab, Oral, Q6H, PRN amiodarone, 400 mg= 2 Tab, Oral, BID amiodarone injection 450 mg + Dextrose 5% in Water intravenous solution 250 mL atorvastatin, 40 mg= 1 Tab, Oral, Daily cholecalciferol, 1000 Units= 1 Tab, Oral, Daily Coumadin, 2 mg= 1 Tab, Oral, Daily Flomax, 0.4 mg= 1 Cap, Oral, Daily imipramine, 25 mg= 1 Tab, Oral, At Bedtime magnesium sulfate, 2 Gram= 50 mL, IV Piggyback, Daily, PRN magnesium sulfate, 2 Gram= 50 mL, IV Piggyback, Q2H, PRN metoprolol tartrate, 100 mg= 1 Tab, Oral, BID pantoprazole, 40 mg, IV Push, BID Phenergan, 12.5 mg= 0.5 mL, IV Piggyback, Q6H, PRN potassium chloride 10 mEq/50 mL intravenous solution, 10 mEq= 50 mL, IV Piggyback, Q1H, PRN potassium chloride 20 mEq oral tablet, extended release, 20 mEq= 1 Tab, Oral, Q2H, PRN potassium chloride 20 mEq oral tablet, extended release, 60 mEq= 3 Tab, Oral, Q2H, PRN Lab Results Test Name Test Result Date/Time Sodium Level 133 mmol/L (Low) 03/07/2022 05:50 EDT Potassium Level 3.3 mmol/L (Low) 03/07/2022 05:50 EDT Chloride Level 103 mmol/L 03/07/2022 05:50 EDT Carbon Dioxide Level 22 mmol/L 03/07/2022 05:50 EDT Anion Gap 11 03/07/2022 05:50 EDT Glucose Level 111 mg/dL (High) 03/07/2022 05:50 EDT Blood Urea Nitrogen 21 mg/dL 03/07/2022 05:50 EDT Creatinine Level 0.80 mg/dL 03/07/2022 05:50 EDT eGFR >60 mL/min/1.73m2 03/07/2022 05:50 EDT eGFR NonAfrican >60 mL/min/1.73m2 03/07/2022 05:50 EDT Bun/Creatinine 26.2 (High) 03/07/2022 05:50 EDT Calcium Level 8.6 mg/dL 03/07/2022 05:50 EDT Magnesium Level 1.9 mg/dL 03/07/2022 05:50 EDT Magnesium Level 1.9 mg/dL 03/06/2022 17:41 EDT WBC 4.3 K/uL 03/07/2022 05:50 EDT RBC 3.50 Million/uL (Low) 03/07/2022 05:50 EDT Hgb 12.0 g/dL (Low) 03/07/2022 05:50 EDT Hct 34.0 % (Low) 03/07/2022 05:50 EDT MCV 97.1 fL (High) 03/07/2022 05:50 EDT MCH 34.3 pg (High) 03/07/2022 05:50 EDT MCHC 35.3 Gram/dL 03/07/2022 05:50 EDT Platelet Count 127 K/uL (Low) 03/07/2022 05:50 EDT MPV 10.9 fL 03/07/2022 05:50 EDT RDW 13.1 % 03/07/2022 05:50 EDT Slide Review No 03/07/2022 05:50 EDT PT 25.1 Second(s) (High) 03/07/2022 08:38 EDT INR 2.6 (High) 03/07/2022 08:38 EDT TSH 1.630 mcInt Units/mL 03/06/2022 17:41 EDT [1] Hospitalist Progress Note - MANIAP; HAKEEM BARONE DO 03/07/2022 11:11 EDT Electronically signed by [facility], [facility] Conversion Dairy Husbandry Worker Cerner at 11/19/2022 4:06 PM CDT documented in this encounter Plan of Treatment Not on file documented as of this encounter Visit Diagnoses Not on filedocumented in this encounter Care Teams Online Marketer Relationship Specialty Start Date End Date Hussein Brian MD [address] [place] [id number] PCP - General General Internal Medicine 03/14/23 documented as of this encounter
--- OUTSIDE RECORDS SUMMARY | 2025-03-28 14:52 | XMS_ITS | Encounter Summary ---
Author Organization [employer] ([place], [place], [place], [place]) Address [address] [place] [address] Care Team Providers Care Heat Engineering Teacher Name Role Phone Hussein Brian MD Primary Care Provider Encounter Details Date Type Department Care Team (Late st Contact Info) Description 03/09/2022 Transcribed Document [facility] [place] [address] [place] [address] ProviderThomas MD [address] [place] [address] Social History Tobacco Use Types [...] Date Ryan rded Speak language other than Nigerien at home Not on file 08/12/2023 Want [...] Conversion Note - Historical Provider, - 03/09/2022 3:00 AM CDT Nutrition Assessment Entered On: 03/09/2022 12:30 EDT Performed On: 03/09/2022 15:20 EDT by DIANNA GAUTHIER, SKY, LD Nutrition Assessment Current Nutrition Regimen Comment : 03/09: High f/u. Diet was advanced from full liqs to cardiac yesterday. RD visited pt and pt was feeling poorly sitting on the side of the bed/PT was with pt. Pt did not feel like talking much, but did say he was tolerating his diet (no lunch was consumed however-pt said he didn't know it was there, but then requested tomato soup and magic cup). Pt dislikes Ensure. RD unable to evaluate for PCM d/t pt not feeling well. 03/06: RD consult rec'd for MST (decreased [...] HLD, BPH, Vit D deficiency Labs: Na 133, K 3.4 (03/05) Alb 3.4 Meds: amio, VitD, mirtazapine, PPI, warfarin GI: LBM + (03/05) Skin: no breakdown, 1-2+ edema Diet: Cardiac + Ensure TID Intakes: ~65% X 4 meals Ht: 73 Wt: 240#, no new wt (03/09) Wt hx: 283# x 4 yrs BMI: 31.7 IBW: 184# (130% IBW) Est needs: 2200-2400kcal ([place] x 1.2 AF) 110g PRO (1.0g/kg) DIANNA GAUTHIER RD, - 03/09/2022 15:12 EDT Nutrition Assessment Reason : Follow Up DIANNA GAUTHIER RD, - 03/09/2022 12:30 EDT Nutrition Diagnoses Oral or Nutrition Support Intake : Inadequate oral intake Oral or Nutr Support Intake Related To : N/V, esoph dysmotility Oral or Nutr Support Intake Evidenced by : ~65% meals per intakes (pt tolerating food better)-resolving Oral or Nutrition Support Intake Status : Active Weight : Unintended weight loss Weight Related to : N/V, esophageal dysmotility Weight As Evidenced by : 24-33# wt loss per MST Weight Status : Active DIANNA GAUTHIER RD, HAM[place] - 03/09/2022 15:12 EDT Nutrition Interventions Meals and Snacks : Fat-modified diet, Sodium modified diet Nutrition Supplement Therapy : Commercial food DIANNA GAUTHIER RD, - 03/09/2022 15:12 EDT Monitoring/Evaluation Energy Intake : Total energy intake Food Intake : Amount of food Protein Intake : Total protein DIANNA GAUTHIER RD, - 03/09/2022 15:12 EDT Nutrition Recommendations Dietitian Recommendations : 1. Continue current diet as tolerated. RD to change supplement to Magic cup BID. Goal: >50% meals + ONS 2. Obtain wt 2x weekly. Reassess for PCM at f/up. goal: avoid sig involuntary wt changes Risk: moderate Nutrition Care Level : High DIANNA GAUTHIER RD, - 03/09/2022 15:12 EDT Electronically signed by [employer] Conversion Personal Computer Network Analyst Cerner at 11/19/2022 4:21 PM CDT documented in this encounter Plan of Treatment Not on file documented as of this encounter Visit Diagnoses Not on filedocumented in this encounter Care Teams Heat Engineering Teacher Relationship Specialty Start Date End Date Hussein Brian MD [address] [place], [place] [id number] PCP - General General Internal Medicine 03/14/23 documented as of this encounter
--- OUTSIDE RECORDS SUMMARY | 2025-03-28 14:52 | XMS_ITS | Encounter Summary ---
Author Organization [employer] ([place], [place], [place], [place]) Address [address] [place] [address] Care Team Providers Care Bullet Slug Casting Machine Operator Name Role Phone Hussein Brian MD Primary Care Provider [phone] Encounter Details Date Type Department Care Team (Late st Contact Info) Description 03/07/2022 Transcribed Document [facility] [place] [address] [place] [address] ProviderThomas MD [address] [place] [address] Social History Tobacco Use Types [...] Date Ryan rded Speak language other than Georgian at home Not on file 08/12/2023 Want [...] Conversion Note - Historical Provider, - 03/07/2022 11:11 AM CDT Patient: DALLAS RADFORD Age: 76 Years Sex: Male : 1945 Subjective Patient was in A. fib with rate in the 90s on telemetry this morning. Patient denies any chest pain. Patient still having difficulty swallowing with ongoing nausea and vomiting. Discussed with patient would prefer to go to rehab facility on discharge. No other acute events overnight. Vital Signs T: 36.8 ??C TMIN: 36.3 ??C TMAX: 37.2 ??C HR: 86(Monitored) HR: 110 RR: 16 BP: 102/69 SpO2: 94% Oxygen Settings (Last) Oxygen Therapy Mode: Room air (03/07/22 05:30:00) Oxygen Flow Rate: 98 Liter/Min (03/05/22 18:43:00) Intake & Output Totals Last 24 Hours (7a-7a) Input Total: 660 mL Output Total: 0 mL Balance: 660 mL Physical Exam General: Pleasant 76-year-old male [...] facility, never required Cardizem gtt. - Cardiology giving amiodarone gtt today then planning to switch to PO tomorrow - EP planning for DCCV tomorrow 03/08 - Continue Metoprolol tartrate 100mg BID - Continue home Coumadin 2mg daily 2. [...] size RV, with no significant valve abnormalities 3. Severe esophageal dysmotility 4. Diffuse Esophageal Spasm vs. Achalasia -GI at outside facility performed EGD which showed no anatomic abnormalities -Upper GI series outside facility showed severe esophageal dysmotility -Continue mirtazapine 15 mg at bedtime - Phenergan 12.5mg q6 PRN -GI recommended CT chest 03/07 shows no evidence of paraesophageal mass and shows no acute process. - GI switched to IV PPI BID - GI adding imipramine at bedtime for diffuse esophageal spasm trial - GI recommending JOSSELIN esophageal manometry testing as outpatient. 5. Hyperlipidemia -Continue home atorvastatin 40 mg daily 6. BPH -Continue home Flomax 7. Vitamin D deficiency -Continue home vitamin D supplementation 8. Debility -Patient reports frequent falls at home -Patient using walker to ambulate for past month -Outside facility was looking into SNF facilities -PT recommending HH or SNF DVT/GI prophylaxis: Coumadin/PPI CODE STATUS: Full code Disposition: EP planning for DCCV tomorrow and cardiology planning to switch to oral amiodarone postoperatively, currently on amiodarone drip. GI following suspect diffuse esophageal spasm versus achalasia and started imipramine and recommending outpatient esophageal manometry testing. Discussed rehab with patient he would like to be referred for SNF states he does not think he can take care of himself at home in his current condition. Referrals will need to be sent for SNF tomorrow by case management. VTE Prophylaxis - Medical Warfarin 2 mg, [...] TSH 1.630 mcInt Units/mL 03/06/2022 17:41 EDT Electronically signed by [facility], [facility] Conversion Pre Sales Technical Consultant Cerner at 11/19/2022 4:24 PM CDT documented in this encounter Plan of Treatment Not on file documented as of this encounter Visit Diagnoses Not on filedocumented in this encounter Care Teams Bullet Slug Casting Machine Operator Relationship Specialty Start Date End Date Hussein Brian MD [address] [place] [address] PCP - General General Internal Medicine 03/14/23 documented as of this encounter
--- OUTSIDE RECORDS SUMMARY | 2025-03-28 14:52 | XMS_ITS | Encounter Summary ---
Author Organization [employer] ([place], [place], [place], [place]) Address [address] [place] [address] Care Team Providers Care Credit Coordinator Name Role Phone Hussein Brian MD Primary Care Provider [phone] Encounter Details Date Type Department Care Team (Late st Contact Info) Description 04/06/2022 Transcribed Document [facility] [place] Medicine [address] [place] [address] ProviderThomas MD [address] [place] [address] Social History Tobacco Use Types [...] Date Ryan rded Speak language other than Afghan at home Not on file 08/12/2023 Want [...] Conversion Note - Historical ProviderMD - 04/06/2022 2:32 PM CDT UM Authorization Entered On: 04/06/2022 14:32 EDT Performed On: 04/06/2022 14:32 EDT by Mariely Patel SUPVHANSEL Primary Insurance Authorization Authorization and Policy Numbers : Insurance 1 Health Plan: [employer] Policy Number: [id number] Authorization Number: [id number] Insurance Primary Name : [employer]US HMO Policy Number: [id number] Authorization Status-Primary : Not certified Auth/Referral Contact Name-Primary : + Reference Number-Primary : [id number] Authorized Service Begin Date-Primary : 04/01/2022 EDT Observation Authorization Nbr-Primary : [id number] Authorization Comments-Primary : Email to Kaiden Soto. Historical Authorization Comments-Primary : Comment 1: Per [employer] - Not Certified - Printed and placed in denials basket for processing. (Kelin Woodward, Print Shop Helper 04/06/2022 13:56) Comment 2: AUTH SUBMITTED VIA [employer]. PAYOR HAS ACCESS TO EMR (Nhi Arteaga, Rn-Utilization Review 04/02/2022 14:52) Comment 3: [] [employer] Medicare auth approved for outpt per Star note. (SUE DINH, RN-Utilization Review 04/02/2022 10:26) Mariely Patel SUPV-HANSEL - 04/06/2022 14:32 EDT documented in this encounter Plan of Treatment Not on file documented as of this encounter Visit Diagnoses Not on filedocumented in this encounter Care Teams Credit Coordinator Relationship Specialty Start Date End Date Hussein Brian MD [address] [place] [address] PCP - General General Internal Medicine 03/14/23 documented as of this encounter
--- OUTSIDE RECORDS SUMMARY | 2025-03-28 14:52 | XMS_ITS | Encounter Summary ---
Author Organization [employer] ([place], [place], [place], [place]) Address [address] [place] [address] Care Team Providers Care Fried Cake Maker Name Role Phone Hussein Brian MD Primary Care Provider [phone] Encounter Details Date Type Department Care Team (Late st Contact Info) Description 03/07/2022 Transcribed Document [facility] [place] [address] [place] [address] ProviderThomas MD [address] [place] [address] Social History Tobacco Use Types [...] Date Ryan rded Speak language other than Romanian at home Not on file 08/12/2023 Want [...] Conversion Note - Historical Provider, - 03/07/2022 5:19 PM CDT Patient: DALLAS RADFORD Age: 76 years Sex: Male : 1945 Associated Diagnoses: None Author: VY TORRES MD-CAR Subjective NAD resting in bed Health Status Allergies: Allergic Reactions (Selected) Severity Not Documented Digoxin- No reactions were documented., Allergies (1) Active Reaction digoxin None Documented Current medications: (Selected) Inpatient Medications Ordered Coumadin: 2 mg, Oral, Daily Flomax: 0.4 mg, Oral, Daily Phenergan: 12.5 mg, IV Piggyback, Q6H, PRN: Nausea/Vomiting acetaminophen: 650 mg, Oral, Q6H, PRN: Pain (Mild 1-3) amiodarone injection 450 mg + Dextrose 5% in Water intravenous solution 250 mL: 17 mL/Hr, IntraVENous amiodarone: 400 mg, Oral, BID atorvastatin: 40 mg, Oral, Daily cholecalciferol: 1,000 Units, Oral, Daily imipramine: 25 mg, Oral, At Bedtime magnesium sulfate: 2 Gram, 50 mL, 25 mL/Hr, IV Piggyback, Daily, PRN: Other (See Comment) magnesium sulfate: 2 Gram, 50 mL, 25 mL/Hr, IV Piggyback, Q2H, PRN: Other (See Comment) metoprolol tartrate: 100 mg, Oral, BID pantoprazole: 40 mg, IV Push, BID potassium chloride 10 mEq/50 mL intravenous solution: 10 mEq, 50 mL, 50 mL/Hr, IV Piggyback, Q1H, PRN: Other (See Comment) potassium chloride 20 mEq oral tablet, extended release: 20 mEq, 1 Tab, Oral, Q2H, PRN: Other (See Comment) potassium chloride 20 mEq oral tablet, extended release: 60 mEq, 3 Tab, Oral, Q2H, PRN: Other (See Comment) Documented Medications Documented Cardizem 30 mg oral [...] 1 Tab, PRN, Oral, Q6H , Medications (16) Active Scheduled: (8) amiodarone 200 mg tab 400 mg 2 Tab, Oral, BID atorvastatin 40 mg tab 40 mg 1 Tab, Oral, Daily cholecalciferol 1,000 unit tab 1,000 Units 1 Tab, Oral, Daily imipramine 25 mg tab 25 mg 1 Tab, Oral, At Bedtime metoprolol tartrate 100 mg tab 100 mg 1 Tab, Oral, BID pantoprazole 40 mg inj 40 mg, IV Push, BID tamsulosin CR 0.4 mg cap 0.4 mg 1 Cap, Oral, Daily warfarin 2 mg tab 2 mg 1 Tab, Oral, Daily Continuous: (1) amiodarone 450 mg + Dextrose 5% in Water 250 mL 250 mL, IntraVENous, 17 mL/Hr PRN: (7) acetaminophen 325 mg tab 650 mg 2 Tab, Oral, Q6H magnesium sulfate 2 Gram 50 mL, IV Piggyback, Daily magnesium sulfate 2 Gram 50 mL, IV Piggyback, Q2H potassium chloride 10 mEq 50 mL, IV Piggyback, Q1H potassium chloride CR 20 mEq tab 20 mEq 1 Tab, Oral, Q2H potassium chloride CR 20 mEq tab 60 mEq 3 Tab, Oral, Q2H promethazine 25 mg/1 mL inj 12.5 mg 0.5 mL, IV Piggyback, Q6H Problem list: Medical Afib / SNOMED CT 93596622 / Confirmed Hip pain, right / SNOMED CT 77792152 / Confirmed At risk for sleep apnea / IMO 21121054 / Confirmed, Active Problems (3) Afib At risk for sleep apnea Hip pain, right Objective Intake and Output 24 hour intake, 24 hour output VS/Measurements Vitals Signs (last 24 hrs) Last Charted Minimum Maximum Temp 98.2 (MAR 07 05:30) 97.6 (MAR 06 20:21) 99 (MAR 06 18:05) Apical HR 78 (MAR 07 11:16) 78 (MAR 07 11:16) H 110 (MAR 07 08:29) Mon HR 86 (MAR 07 08:29) 59 (MAR 07 01:50) 86 (MAR 07 08:29) Resp Rate 16 (MAR 07 05:30) 16 (MAR 06 18:05) 18 (MAR 06 20:21) SBP 102 (MAR 07 08:29) 99 (MAR 07 01:00) 119 (MAR 06 21:00) DBP 69 (MAR 07 08:29) L 55 (MAR 06 20:21) 73 (MAR 06 18:05) MAP 80 (MAR 07 08:29) 65 (MAR 06 19:00) 86 (MAR 06 18:05) SpO2 94 (MAR 07 08:29) 94 (MAR 06 18:05) 95 (MAR 06 20:21) General: Alert and oriented. Eye: Pupils are [...] Cooperative, Appropriate mood & affect. Results Review Telemetry Admission Weight Todays Weight MAR 07 05:50 L 133 103 21 / H 111 L 3.3 22 0.80 \ MAR 07 05:50 \ L 12.0 / 4.3 L 127 / L 34.0 \ Telemetry/ECG I personally reviewed the last 24 hour telemetry that shows atrial fibrillation Cardiac echo ECHO 03/06/2022: Impression: Indication: Hypertensive heart disease [...] cm AO Root:3.98 cm LVPWd: 1.57 cm Cardiac Markers (Current Encounter/Past 24 Hours) No Cardiac Marker Results Found (Past 24 Hours) Radiology Results (Last 48 hours) [id number] -- 03/05/2022 15:27 CT Chest WO (03/07/2022 08:18) Result: CT SCAN OF THE CHEST 03/07/2022 8:00 AM HISTORY: Dysphasia, possible periesophageal mass.COMPARISON: None.PROCEDURE: Axial images were obtained from the lung apex to the midabdomen by computed tomography. This study was performed with techniquesto keep radiation doses as low as reasonably achievable, (ALARA).Individualized dose reduction techniques using automated exposurecontrol or adjustment of mA and/or kV according to the patient size wereemployed.FINDINGS: CHEST: There is no axillary adenopathy. There is no hilar ormediastinal adenopathy . 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 Heart size is moderately enlarged. There is nopericardial or pleural effusion . There is no evidence of aperiesophageal mass. Limited images of the upper abdomen areunremarkable . There is mild left lower lobe atelectasis or scarring.The lungs are otherwise clear. .IMPRESSION: No acute process..Fusiform aneurysm of the thoracic aorta as above.No evidence of periesophageal mass.Images reviewed, interpreted, and dictated by Dr. Mike Vega.Transcribed by Robson Woodward PA-C.I have personally viewed, interpreted and dictated the examination. Ihave read and agree with the above final transcribed report. Impression and Plan IMPRESSION: Long standing persistent AF with RVR CHADSVASC score 4 (age, CHF, HTN) ?Tachycardia mediated cardiomyopathy, NICMP LVEF 40% HTN HLP Hypokalemia Dysphagia PLAN; 03/06/2022 Labs and tele reviewed, AF is [...] keep K>4. Will follow. Electronically signed by Raisa [facility] Conversion Copy Supervisor Cerner at 11/19/2022 4:15 PM CDT documented in this encounter Plan of Treatment Not on file documented as of this encounter Visit Diagnoses Not on filedocumented in this encounter Care Teams Fried Cake Maker Relationship Specialty Start Date End Date Hussein Brian MD [address] [place] [address] PCP - General General Internal Medicine 03/14/23 documented as of this encounter
--- OUTSIDE RECORDS SUMMARY | 2025-03-28 14:52 | XMS_ITS | Encounter Summary ---
Author Organization [employer] ([place], [place], [place], [place]) Address [address] [place] [address] Care Team Providers Care Teletypesetter Name Role Phone Hussein Brian MD Primary Care Provider [phone] Encounter Details Date Type Department Care Team (Late st Contact Info) Description 03/09/2022 Transcribed Document [facility] [place] Family Medicine [address] [place] [address] ProviderThomas MD [address] [place] [address] Social History Tobacco Use Types [...] Date Ryan rded Speak language other than Ukrainian at home Not on file 08/12/2023 Want [...] Elizabethner Conversion Note - Historical Provider, - 03/09/2022 8:03 AM CDT Patient: LESLIE RADFORD Age: 76 [...] it). Chest CT scan: no loreto-esophageal mass. - 03/08/22: planned cardioversion: failed - 03/09/22: tolerating full liquids/soft mechanical now Rec: Continue soft mechanical diet Continue Pantoprazole 40 mg po BID and increase Imipramine 50 mg po QHS (trial for SANDHYA therapy) Coordinate E manometry testing as outpatient JOSSELIN If Achalasia is confirmed, would proceed with trial of EGD with botox of LES before considering Surgical Myotomy VTE Prophylaxis - Medical Warfarin 1 Each, Oral, MISC, Weekly, Start 03/25/22 18:00:00 EDT (MEGHAN CORONA, LEHR CUTTER-INT) Subjective 3 day of PPI/Imipramine. Now, tolerating full liquid / soft mechanica diet. no n/v/abd pain. Vital Signs T: 36.6 ??C TMIN: 36.4 ??C TMAX: 37.4 ??C HR: 81(Monitored) RR: 18 BP: 93/60 SpO2: 99% Oxygen Settings (Last) Oxygen Therapy Mode: Room air (03/09/22 05:00:00) Oxygen Flow Rate: 98 Liter/Min (03/05/22 18:43:00) Intake & Output Totals Last 24 Hours (7a-7a) Input Total: 387.08 mL Output Total: 1175 mL Balance: -787.92 mL Physical Exam Lungs: CTAB Cardiac: Irregular [...] Protonix, 40 mg= 1 Tab, Oral, BID warfarin, 1 Each, Oral, Weekly Lab Results Test Name Test Result Date/Time Sodium Level 133 mmol/L (Low) 03/09/2022 06:20 EDT Potassium Level 3.4 mmol/L (Low) 03/09/2022 06:20 EDT Chloride Level 103 mmol/L 03/09/2022 06:20 EDT Carbon Dioxide Level 22 mmol/L 03/09/2022 06:20 EDT Anion Gap 11 03/09/2022 06:20 EDT Glucose Level 108 mg/dL (High) 03/09/2022 06:20 EDT Blood Urea Nitrogen 13 mg/dL 03/09/2022 06:20 EDT Creatinine Level 0.90 mg/dL 03/09/2022 06:20 EDT eGFR >60 mL/min/1.73m2 03/09/2022 06:20 EDT eGFR NonAfrican >60 mL/min/1.73m2 03/09/2022 06:20 EDT Bun/Creatinine 14.4 03/09/2022 06:20 EDT Calcium Level 8.7 mg/dL 03/09/2022 06:20 EDT Magnesium Level 2.0 mg/dL 03/09/2022 06:20 EDT WBC 4.1 K/uL 03/09/2022 06:20 EDT RBC 3.42 Million/uL (Low) 03/09/2022 06:20 EDT Hgb 11.8 g/dL (Low) 03/09/2022 06:20 EDT Hct 33.3 % (Low) 03/09/2022 06:20 EDT MCV 97.4 fL (High) 03/09/2022 06:20 EDT MCH 34.5 pg (High) 03/09/2022 06:20 EDT MCHC 35.4 Gram/dL 03/09/2022 06:20 EDT Platelet Count 130 K/uL (Low) 03/09/2022 06:20 EDT MPV 10.4 fL 03/09/2022 06:20 EDT RDW 13.3 % 03/09/2022 06:20 EDT nRBC 0.020 (High) 03/09/2022 06:20 EDT Slide Review No 03/09/2022 06:20 EDT PT 38.4 Second(s) (High) 03/09/2022 06:20 EDT INR 4.1 (High) 03/09/2022 06:20 EDT [1] GI Progress Note - APSO; HUBERT YANEZ MD 03/08/2022 08:30 EDT Electronically signed by [facility], [facility] Conversion Environmental Health Aide Cerner at 11/19/2022 4:19 PM CDT documented in this encounter Plan of Treatment Not on file documented as of this encounter Visit Diagnoses Not on filedocumented in this encounter Care Teams Teletypesetter Relationship Specialty Start Date End Date Hussein Brian MD [facility] [place] [address] [place] [address] PCP - General General Internal Medicine 03/14/23 documented as of this encounter
--- OUTSIDE RECORDS SUMMARY | 2025-03-28 14:52 | XMS_ITS | Encounter Summary ---
Author Organization [employer] ([place], [place], [place], [place]) Address [address] [place] [address] Care Team Providers Care Business Technology Professor Name Role Phone Hussein Brian MD Primary Care Provider [phone] Encounter Details Date Type Department Care Team (Late st Contact Info) Description 03/09/2022 Transcribed Document [facility] [place] [address] [place] [address] ProviderThomas MD [address] [place] [address] Social History Tobacco Use Types [...] Cerner Conversion Note - Historical ProviderMD - 03/09/2022 2:00 AM CDT Professor Of Apologetics Details Entered On: 03/09/2022 3:10 EDT Performed On: 03/09/2022 2:00 EDT by Lola Finn RN Order Details Order Detail : N/A Lift/Transfer : Independent Central Line Order Detail : No Arterial Line : No Patient Needs Meds Crushed/Liquid : No Lola Finn RN - 03/09/2022 3:10 EDT documented in this encounter Plan of Treatment Not on file documented as of this encounter Visit Diagnoses Not on filedocumented in this encounter Care Teams Business Technology Professor Relationship Specialty Start Date End Date Hsusein Brian MD [facility] [place] [address] PCP - General General Internal Medicine 03/14/23 documented as of this encounter
--- OUTSIDE RECORDS SUMMARY | 2025-03-28 14:52 | XMS_ITS | Encounter Summary ---
Author Organization [employer] ([place], [place], [place], [place]) Address [address] [place] [address] Care Team Providers Care Director Communications Name Role Phone Hussein Brian MD Primary Care Provider [phone] Encounter Details Date Type Department Care Team (Late st Contact Info) Description 03/07/2022 Transcribed Document [facility] [place] [address] [place] [address] ProviderThomas MD [address] [place] [address] Social History Tobacco Use Types [...] Ryan rded Speak language other than British at home Not on file 08/12/2023 Want [...] Cerner Conversion Note - Historical Provider, - 03/07/2022 9:00 AM CDT Attempt to Treat, PT Entered On: 03/07/2022 13:18 EDT Performed On: 03/07/2022 9:00 EDT by NATE HOUSTON, SIDNEY Attempt to Treat Unable to Treat Due To : Acuity of Illness, Patient on hold Inability to Treat Comment : Per Johnny CHEEMA, pt having Afib sandra RVR and now on Amiodarone with cardiology to come see pt. During the morning, cardiology did come and pt will be assessed for need for cardioversion Tuesday a.m. HOLD PT today. Notification : Johnny CHEEMA, aware of attempt. NATE HOUSTON, PT - 03/07/2022 13:16 EDT Electronically signed by Raisa [facility] Conversion Fashion Coordinator Marvel at 11/19/2022 4:02 PM CDT documented in this encounter Plan of Treatment Not on file documented as of this encounter Visit Diagnoses Not on filedocumented in this encounter Care Teams Director Communications Relationship Specialty Start Date End Date Hussein Brian MD [facility] [place] [address] PCP - General General Internal Medicine 03/14/23 documented as of this encounter
--- OUTSIDE RECORDS SUMMARY | 2025-03-28 14:52 | XMS_ITS | Encounter Summary ---
Author Organization [employer] ([place], [place], [place], [place]) Address [address] [place] [address] Care Team Providers Care Floor Finisher Name Role Phone Hussein Brian MD Primary Care Provider [phone] Encounter Details Date Type Department Care Team (Late st Contact Info) Description 03/08/2022 Transcribed Document [facility] [place] Family Medicine [address] [place] [address] ProviderThomas MD [address] [place] [address] Social History Tobacco Use Types [...] Date Ryan rded Speak language other than Panamanian at home Not on file 08/12/2023 Want [...] Marvel Conversion Note - Historical Provider, - 03/08/2022 12:52 PM CDT Please Modify Before Signing CLINICAL DOCUMENTATION CLARIFICATION FORM: Dear : Arelis Date: __03/08/22 Please exercise your independent, professional judgment in responding to the clarification form. Clinical indicators are provided on the bottom of this form for your review Please check appropriate box(es): HEART FAILURE: [ ] Acute on Chronic [ x ] Chronic only A. TYPE: [ x ] Systolic / HFrEF [ ] Diastolic / HFpEF [ ] Combined Systolic / Diastolic [ ] Non-ischemic cardiomyopathy [ ] Other diagnosis [ ] Unable to determine For continuity of documentation, please document condition throughout progress notes and discharge summary. Thank You. To be completed by CDI/Coding staff for physician review: Present Clinical Indicators - Signs / Symptoms / Labs Results and Location in Medical Record [ x ] Ejection Fraction =_40_ % 03/06 echo: EF 40% +/- 5% [ x ] Peripheral edema 03/05 H&P: 1+ LE edema bilaterally [ x ] Elevated BNP 03/05 Labs: proBNP 1848 [ x ] Non-ischemic cardiomyopathy 03/08 Card PN: EF 40% with ABN systolic function and Grade III diastolic dysfunction per ECHO 03/06/22 [ x ] CT chest results 03/07 CT: heart size is moderately enlarged [ x ] Arrhythmia--Afib 03/05 H&P: Afib with RVR Present Risk Factors Results and Location in Medical Record [ x ] History of Heart Failure 03/05 H&P: chronic heart failure with unknown EF [ x] Advanced age 8/5 Admit data: 76 years old [ x ] Afib 03/05 H&P: PMH afib Present Treatments Results and Location in Medical Record [ x ] Administration of BB 03/05 Orders: continue Metoprolol 100mg BID [ x ] Cardiac monitoring / telemetry/ECHO 03/05 Orders: admit to telemetry, echo obtained 03/06 [ x ] Cardiology Consult 03/05 Orders: Cardiology consult CDS/Master Control Engineer Signature: _Berta Sanchez RN, CDS Phone #: _[phone]_ This is a permanent part of the Medical Record 2020 [facility] HospitalPinx[facility] [employer] Updated: [id number] Electronically signed by [facility], [facility] Conversion Linux System Administrator Cerner at 11/19/2022 4:17 PM CDT documented in this encounter Plan of Treatment Not on file documented as of this encounter Visit Diagnoses Not on filedocumented in this encounter Care Teams Floor Finisher Relationship Specialty Start Date End Date Hussein Brian MD [address] [place] [address] PCP - General General Internal Medicine 03/14/23 documented as of this encounter
--- OUTSIDE RECORDS SUMMARY | 2025-03-28 14:52 | XMS_ITS | Encounter Summary ---
Author Organization [employer] ([place], [place], [place], [place]) Address [address] [place] [address] Care Team Providers Care Metals Analyst Name Role Phone Hussein Brian MD Primary Care Provider [phone] Encounter Details Date Type Department Care Team (Late st Contact Info) Description 03/08/2022 Transcribed Document [facility] [place] Family Medicine [address] [place] [address] ProviderThomas MD [address] [place] [address] Social History Tobacco Use Types [...] Conversion Note - Historical Provider, - 03/08/2022 8:30 AM CDT Patient: LESLIE RADFORD Age: 76 [...] scan: no loreto-esophageal mass. - 03/08/22: planned cardioversion today Rec: Continue full liquid diet Continue Pantoprazole 40 mg IV BID and Imipramine 25 mg po QHS (trial for SANDHYA therapy) Coordinate E manometry testing as outpatient JOSSELIN If Achalasia is confirmed, would proceed with trial of EGD with botox of LES before considering Surgical Myotomy VTE Prophylaxis - Medical Warfarin 1 Each, Oral, MISC, Weekly, Start 03/25/22 18:00:00 EDT ([place]AN [place], [facility]) Subjective No change in symptoms yet. Only 2 day of PPI/Imipramine. He is getting full liquid diet but does not options he has been given to eat and thus still not achieving goal calorie intake. Patient encouraged to try more or get family to bring other full liquid options from outside hospital Vital Signs T: 37.4 ??C TMIN: 36.3 ??C TMAX: 37.4 ??C HR: 72(Monitored) RR: 17 BP: 101/53 SpO2: 99% Oxygen Settings (Last) Oxygen Therapy Mode: Room air (03/08/22 09:01:00) Oxygen Flow Rate: 98 Liter/Min (03/05/22 18:43:00) Intake & Output Totals Last 24 Hours (7a-7a) Input Total: 0 mL Output Total: 700 mL Balance: -700 mL Physical Exam Lungs: CTAB Cardiac: Irregular [...] Result Date/Time Sodium Level 134 mmol/L (Low) 03/08/2022 05:36 EDT Potassium Level 3.6 mmol/L 03/08/2022 05:36 EDT Chloride Level 102 mmol/L 03/08/2022 05:36 EDT Carbon Dioxide Level 23 mmol/L 03/08/2022 05:36 EDT Anion Gap 13 03/08/2022 05:36 EDT Glucose Level 107 mg/dL (High) 03/08/2022 05:36 EDT Blood Urea Nitrogen 15 mg/dL 03/08/2022 05:36 EDT Creatinine Level 0.90 mg/dL 03/08/2022 05:36 EDT eGFR >60 mL/min/1.73m2 03/08/2022 05:36 EDT eGFR NonAfrican >60 mL/min/1.73m2 03/08/2022 05:36 EDT Bun/Creatinine 16.7 03/08/2022 05:36 EDT Calcium Level 9.0 mg/dL 03/08/2022 05:36 EDT Magnesium Level 1.9 mg/dL 03/08/2022 05:36 EDT WBC 5.0 K/uL 03/08/2022 05:36 EDT RBC 3.67 Million/uL (Low) 03/08/2022 05:36 EDT Hgb 12.5 g/dL (Low) 03/08/2022 05:36 EDT Hct 35.7 % (Low) 03/08/2022 05:36 EDT MCV 97.3 fL (High) 03/08/2022 05:36 EDT MCH 34.1 pg (High) 03/08/2022 05:36 EDT MCHC 35.0 Gram/dL 03/08/2022 05:36 EDT Platelet Count 135 K/uL (Low) 03/08/2022 05:36 EDT MPV 10.3 fL 03/08/2022 05:36 EDT RDW 13.1 % 03/08/2022 05:36 EDT nRBC 0.020 (High) 03/08/2022 05:36 EDT Slide Review No 03/08/2022 05:36 EDT PT 32.2 Second(s) (High) 03/08/2022 05:36 EDT INR 3.4 (High) 03/08/2022 05:36 EDT Electronically signed by Raisa [facility] Conversion Voice Pathologist Cerner at 11/19/2022 4:23 PM CDT documented in this encounter Plan of Treatment Not on file documented as of this encounter Visit Diagnoses Not on filedocumented in this encounter Care Teams Metals Analyst Relationship Specialty Start Date End Date Hussein Brian MD [facility] [place] [address] PCP - General General Internal Medicine 03/14/23 documented as of this encounter
--- OUTSIDE RECORDS SUMMARY | 2025-03-28 14:52 | XMS_ITS | Referral Summary ---
Author Organization [employer] ([place], [place], [place], [place]) Address [address] [place] [address] Care Team Providers Care Etched Circuit Processor Name Role Phone Hussein Brian MD Primary Care Provider Allergies Active Allergy Reactions Criticality Noted Date Comments Digoxin Nausea Only 03/09/2023 Medications tamsulosin (FLOMAX) 0.4 mg Cap 24 hr capsule Take 1 capsule (0.4 mg total) by mouth daily. 06/07/2022 Active metoprolol tartrate (LOPRESSOR) 25 MG tablet Take 1 tablet (25 mg total) by mouth 2 (two) times daily. 04/03/2022 Active amiodarone (PACERONE) 200 MG tablet Take 1 tablet (200 mg total) by mouth 2 (two) times daily. 06/04/2022 Active bumetanide (BUMEX) 1 MG tablet 1 mg, Daily, PRN swelling, 0 Refill(s) 04/01/2022 Active atorvastatin (LIPITOR) 40 MG tablet Take 1 tablet (40 mg total) by mouth daily. Active mirtazapine (REMERON) 15 MG tablet Take 1 tablet (15 mg total) by mouth nightly. 03/03/2023 Active Eliquis 5 MG tablet Take 1 tablet (5 mg total) by mouth 2 (two) times daily. 02/22/2023 Active metOLazone (ZAROXOLYN) 10 MG tablet Take 1 tablet (10 mg total) by mouth daily. 02/20/2023 Active traZODone (DESYREL) 50 MG tablet Take 2 tablets (100 mg total) by mouth nightly. 01/13/2023 Active Active Problems Problem Noted Date Diagnosed Date Orthopedic aftercare for joint replacement 03/14 Preop examination 03/09/2023 Primary osteoarthritis of left knee 03/09/2023 A-fib 03/09/2023 Chronic congestive heart failure 03/09/2023 HLD (hyperlipidemia) 03/09/2023 Primary hypertension 03/09/2023 SVT s/p abaltion 06/22/2022 Social History Tobacco Use Types Packs/Day Years Used Date Smoking Tobacco: Never Smokeless Tobacco: Never Tobacco Cessation:Counseling Given: Not Answered Alcohol Use Standard Drinks/Week Comments Yes 0 (1 standard drink = 0.6 oz pur e alcohol) socially Food Insecurity Answer Date Recorded Food run [...] Sign Reading Time Taken Comments Blood Pressure 110/50 03/14/2023 5:58 PM EDT Pulse 68 03/14/2023 5:58 PM EDT Temperature 36.3 C (97.4 F) 03/14/2023 5:58 PM EDT Respiratory Rate 16 03/14/2023 5:58 PM EDT Oxygen Saturation 100% 03/14/2023 5:58 PM EDT Inhaled Oxygen Concentration - - Weight 103.4 kg (228 lb) 03/14/2023 10:17 AM EDT Height 185.4 cm (6' 1 ) 03/09/2023 10:22 AM EDT Body Mass Index 30.08 03/09/2023 10:22 AM EDT Plan of Treatment Not on file Medical Devices Implanted Type Area Graphite Mill Operator Device Identifier Shelf Expiration Date Model / Serial / Lot Cement Bone [place] Hv 40/ 600-15-000 - Sna Implanted:Qt y: 2 on 03/14/2023 by Jairo Mcdaniel MD at [facility] IMPLANTS Left: Knee DJ SURG:ENCORE MED:[place] 10/27/2024 600-15-00 0 / NA / [id number] Patella Rnd Dome 3peg Sig 38mm - Implanted:Qt y: 1 on 03/14/2023 by Jairo Mcdaniel MD at [facility] TOTAL JOINT CONSTRUCT Left: Knee J &J:DEPUY:DEPUY ORTHOPAEDIC [id number] 07/31/2027 / NA / [id number] Comp Fem Office Bookkeeper Cr Pfc Sig 5 L - Implanted:Qt y: 1 on 03/14/2023 by Jairo Mcdaniel MD at [facility] TOTAL JOINT CONSTRUCT Left: Knee J &J:DEPUY:DEPUY ORTHOPAEDIC 12/29/2026 / NA / [id number] Insrt Tib Crv Rp Sig 5 12.5mm Implanted:Qt y: 1 on 03/14/2023 by Jairo Mcdaniel MD at [facility] TOTAL JOINT CONSTRUCT Left: Knee J &J:DEPUY:DEPUY ORTHOPAEDIC [id number] 01/28/2027 / NA / [id number] Ty Tib Raphael Keeled Mbt 4 1294-33-140 - Implanted:Qt y: 1 on 03/14/2023 by Jairo Mcdaniel MD at [facility] TOTAL JOINT CONSTRUCT Left: Knee J &J:DEPUY:DEPUY ORTHOPAEDIC 09/29/2027 1294-33-1 40 / NA / [id number] Explanted Type Area Graphite Mill Operator Device Identifier Shelf Expiration Date Model / Serial / Lot Insert Pin Thrd Head Lcs Strl [id number] - Explanted:Qty: 1 on 03/14/2023 by Jairo Mcdaniel MD at [facility] IMPLANTS Left: Knee J &J:DEPUY:DEPUY ORTHOPAEDIC 10/29/2026 3 / NA / [id number] Insert Pin Thrd Lcs Strl [id number] - Sna Explanted:Qty: 1 on 03/14/2023 by Jairo Mcdaniel MD at [facility] IMPLANTS Left: Knee J &J:DEPUY:DEPUY ORTHOPAEDIC 10/30/2027 2 / NA / [id number] Insurance [id number] (Home) [address] [place] [address] [employer] MEDICARE PPO Advance Directives For more information, please contact: [phone] * Full Code (Latest Code Status on File) Date Activated Date Inactivated Comments 06/22/2022 1:37 PM 06/22/2022 6:21 PM Care Teams Etched Circuit Processor Relationship Specialty Start Date End Date Hussein Brian MD [facility] [place] [address] PCP - General General Internal Medicine 03/14/23
--- OUTSIDE RECORDS SUMMARY | 2025-03-28 14:52 | XMS_ITS | Encounter Summary ---
Author Organization [employer] ([place], [place], [place], [place]) Address [address] [place] [address] Care Team Providers Care Sand Caster Apprentice Name Role Phone Hussein Brian MD Primary Care Provider [phone] Encounter Details Date Type Department Care Team (Late st Contact Info) Description 04/12/2022 Transcribed Document [facility] [place] Family Medicine [address] [place] [address] ProviderThomas MD [address] [place] [address] Social History Tobacco Use Types [...] Date Ryan rded Speak language other than Jamaican at home Not on file 08/12/2023 Want [...] Cerner Conversion Note - Historical Provider, - 04/12/2022 8:17 AM CDT UM Authorization Entered On: 04/12/2022 8:36 EDT Performed On: 04/12/2022 8:17 EDT by VITOR BROWN RN Primary Insurance Authorization Authorization and Policy Numbers : Insurance 1 Health Plan: [employer] G[employer]US [employer] Policy Number: [id number] Authorization Number: [id number] Insurance Primary Name : [employer] GOLD PLUS HMO Policy Number: [id number] Authorization Status-Primary : Not certified Auth/Referral Contact Name-Primary : + Reference Number-Primary : [id number] Authorized Service Begin Date-Primary : 04/01/2022 EDT Observation Authorization Nbr-Primary : [id number] Authorization Comments-Primary : Email back to Kellen checking if p2p was setup. Historical Authorization Comments-Primary : Comment 1: Email to Kaiden Soto. (Mariely Patel, SUPV-QUALITY 04/06/2022 14:32) Comment 2: Per Av[employer]ity - Not Certified - Printed and placed in denials basket for processing. (Kelin Woodward, Concrete Mixer Operator 04/06/2022 13:56) Comment 3: AUTH SUBMITTED VIA [employer]. PAYOR HAS ACCESS TO EMR (Nhi Arteaga, Deni-Utilization Review 04/02/2022 14:52) Comment 4: [] [employer] Medicare auth approved for outpt per Star note. (SUE DINH, DENI-Utilization Review 04/02/2022 10:26) VITOR BROWN RN - 04/12/2022 8:17 EDT Electronically signed by Ulices Kline Conversion Database Administration Associate Marvel at 11/19/2022 4:03 PM CDT documented in this encounter Plan of Treatment Not on file documented as of this encounter Visit Diagnoses Not on filedocumented in this encounter Care Teams Sand Caster Apprentice Relationship Specialty Start Date End Date Hussein Brian MD [address] [place] [address] PCP - General General Internal Medicine 03/14/23 documented as of this encounter
--- OUTSIDE RECORDS SUMMARY | 2025-03-28 14:52 | XMS_ITS | Encounter Summary ---
Author Organization [employer] ([place], [place], [place], [place]) Address [address] [place] [address] Care Team Providers Care Lombardi Developer Name Role Phone Hussein Brian MD Primary Care Provider [phone] Encounter Details Date Type Department Care Team (Late st Contact Info) Description 03/07/2022 Transcribed Document [facility] [place] Family Medicine [address] [place] [address] ProviderThomas MD [address] [place] [address] Social History Tobacco Use [...] Date Ryan rded Speak language other than Egyptian at home Not on file 08/12/2023 Want [...] Conversion Note - Historical Provider, - 03/07/2022 5:00 AM CDT Chart Check - Review Order Profile Entered On: 03/07/2022 3:13 EDT Performed On: 03/07/2022 5:00 EDT by Joslyn Spann Lpn Chart Check Powerplans Initiated/Discontinued as Appropriate : Yes All Active Orders Reviewed : Yes Joslyn Spann Lpn - 03/07/2022 3:13 EDT documented in this encounter Plan of Treatment Not on file documented as of this encounter Visit Diagnoses Not on filedocumented in this encounter Care Teams Lombardi Developer Relationship Specialty Start Date End Date Hussein Brian MD [address] [place] [address] PCP - General General Internal Medicine 03/14/23 documented as of this encounter
--- OUTSIDE RECORDS SUMMARY | 2025-03-28 14:52 | XMS_ITS | Encounter Summary ---
Author Organization [facility] Address [address] [place] [id number] Care Team Providers Care Neuropsychology Service Director Name Role Phone Alfredito Echeverria MD Primary Care Provider + Reason for Visit * Reason Comments Med Refill Encounter Details Date Type Department Care Team (Late Contact Info) Description 03/28/2025 Refill [facility] MEDICINE [address] [place] [address] Alfredito Echeverria MD [address] [place] [address] Social History Tobacco Use Types [...] Description 04/02/2025 3:00 PM EDT Office Visit [facility] MEDICINE [address] [place] [address] Alfredito Echeverria MD [address] [place] [address] 06/24/2025 10:45 AM EST Office Visit [facility] FAMILY MEDICINE [address] [place] [id number] Alfredito Echeverria MD [address] [place] [address] documented as of this encounter Visit Diagnoses Not on filedocumented in this encounter Care Teams Neuropsychology Service Director Relationship Specialty Start Date End Date Alfredito Echeverria MD [address] [place] [address] PCP - General Family Medicine 05/24/24 documented as of this encounter
--- OUTSIDE RECORDS SUMMARY | 2025-03-28 14:52 | XMS_ITS | Encounter Summary ---
Author Organization [employer] ([place], [place], [place], [place]) Address [address] [place] [address] Care Team Providers Care Fruit Thinner Name Role Phone Hussein Brian MD Primary Care Provider [phone] Encounter Details Date Type Department Care Team (Late st Contact Info) Description 04/03/2022 Transcribed Document [facility] [place] Family Medicine [address] [place] [address] ProviderThomas MD [address] [place] [address] Social History Tobacco Use Types [...] Date Ryan rded Speak language other than Qatari at home Not on file 08/12/2023 Want [...] Cerner Conversion Note - Historical ProviderMD - 04/03/2022 4:23 PM CDT Therapy Screen, PT Entered On: 04/03/2022 16:23 EDT Performed On: 04/03/2022 16:23 EDT by OZZIE PEDROZA PT Therapy Screen, PT Medical Chart Reviewed : Yes Person Providing Information : Other: EMR Screen Completed : Yes Additional Therapy Screen Comment : Patient with orders to discharge home prior to completion of PTx evaluation. PT to screen off orders. OZZIE PEDROZA PT - 04/03/2022 16:23 EDT Electronically signed by Raisa [facility] Conversion Evaporator Supervisor Cerner at 11/19/2022 4:09 PM CDT documented in this encounter Plan of Treatment Not on file documented as of this encounter Visit Diagnoses Not on filedocumented in this encounter Care Teams Fruit Thinner Relationship Specialty Start Date End Date Hussein Brian MD [address] [place], [place] [id number] PCP - General General Internal Medicine 03/14/23 documented as of this encounter
--- OUTSIDE RECORDS SUMMARY | 2025-03-28 14:52 | XMS_ITS | Encounter Summary ---
Author Organization [employer] ([place], [place], [place], [place]) Address [address] [place] [address] Care Team Providers Care Detective Automobile Section Name Role Phone Hussein Brian MD Primary Care Provider [phone] Encounter Details Date Type Department Care Team (Late st Contact Info) Description 03/09/2022 Transcribed Document [facility] Family Medicine [address] [place] [address] ProviderThomas MD [address] [place] [address] Social History Tobacco Use Types [...] Date Ryan rded Speak language other than Scottish at home Not on file 08/12/2023 Want [...] Conversion Note - Historical Provider, - 03/09/2022 1:[address] [facility] Charges Entered On: 03/09/2022 13:34 EDT Performed On: 03/09/2022 13:34 EDT by CHANNING MAYER, PT [facility] PT EA ADDL 15 MIN NO CHARGE : 1 (Comment: MDRs [CHANNING MAYER, PT - 03/09/2022 13:34 EDT] ) CHANNING MAYER PT - 03/09/2022 13:34 EDT Electronically signed by Raisa [facility] Conversion Ambulatory Technologist Cerner at 11/19/2022 4:23 PM CDT documented in this encounter Plan of Treatment Not on file documented as of this encounter Visit Diagnoses Not on filedocumented in this encounter Care Teams Detective Automobile Section Relationship Specialty Start Date End Date Hussein Brian MD [address] [place] [address] PCP - General General Internal Medicine 03/14/23 documented as of this encounter
--- OUTSIDE RECORDS SUMMARY | 2025-03-28 14:52 | XMS_ITS | Encounter Summary ---
Author Organization [employer] ([place], [place], [place], [place]) Address [address] [place] [address] Care Team Providers Care Crusher Screen Repairer Name Role Phone Hussein Brian MD Primary Care Provider [phone] Encounter Details Date Type Department Care Team (Late st Contact Info) Description 04/03/2022 Transcribed Document [facility] [place] [address] [place] [address] ProviderThomas MD [address] [place] [address] Social History Tobacco Use Types [...] Date Ryan rded Speak language other than Malaysian at home Not on file 08/12/2023 Want [...] as of this encounter Miscellaneous Notes * Cercarmen Conversion Note - Historical Provider, - 04/03/2022 3:28 PM CDT [place] [address] [address] LESLIE RADFORD :1945 Visit Time:04/02/2022 Your Visit Summary Your [...] Instructions From Your Care Team Home Health Services:[facility] Office [phone] Transportation:Family Follow-Up Appointments Follow Up with VY TORRES MD-CAR When Within 1 month Where: [address] [facility] [address] [place] [address]- Medications What How Much When Instructions Next Dose amiodarone (amiodarone 200 mg oral tablet) 1 Tablet(s) Oral Three Times A Day NEW DOSE!! Pickup at [facility]/pharmacy #2332 9pm metoprolol (Metoprolol Tartrate 25 mg oral tablet) 1 Tablet(s) Oral Two Times A Day NEW DOSE!! Pickup at [facility]/pharmacy #2332 9pm acetaminophen (Tylenol 8 Hour 650 mg [...] Tablet(s) Oral Every Day 6pm Pharmacy Information [facility]/pharmacy #[id number]: [address] [place] [phone] Take your medications faithfully. Do NOT skip [...] these instructions at home: Medicines ??? Take shlz-fkw-tzrobqm and prescription medicines only as told by [...] provider. Document Revised: 01/09/2020 Document Reviewed: 01/09/2020 Cirrasc[employer] Patient Education ?? 2021 CertusNet. Electrical Cardioversion Electrical cardioversion is the delivery [...] including vitamins, herbs, eye drops, creams, and ojdy-gmf-qyasrgp medicines. ??? Any problems you or family [...] tells you to take them. ? Taking qqyf-wzs-ybgbsjx medicines, vitamins, herbs, and supplements. General instructions [...] a sedative during your procedure. ??? Take oxub-bvf-zlxaeio and prescription medicines only as told by [...] provider. Document Revised: 02/18/2020 Document Reviewed: 02/18/2020 ElseLawdingo Patient Education ?? 2021 [employer] Inc. Pulmonary Vein Ablation, Care After This [...] these instructions at home: Medicines ??? Take jlcg-yvt-ksxszdo and prescription medicines only as told by [...] and water are not available, use hand auditing manager. ? Change your dressing as told by [...] provider. Document Revised: 11/16/2021 Document Reviewed: 11/16/2021 Cirrascale Patient Education ?? 2021 [employer] Inc. Warfarin Information Warfarin is a blood [...] other medicines or supplements? Many prescription and uanq-bud-txdjbiz medicines can interfere with warfarin. Talk with your health care provider or your pharmacist before starting or stopping any new medicines. This includes vitamins, herbs, supplements, and pain medicines. ??? Some common pcgz-gtl-zlyitjj medicines that may increase the risk of [...] your diet. ??? Start or stop any smpf-ffa-ckxwvhq medicine, prescription medicine, herbal supplement, or dietary [...] provider. Document Revised: 10/07/2021 Document Reviewed: 10/07/2021 Elsevier Patient Education ?? 2021 [employer]rasc[employer] Inc. Preventing Atrial Fibrillation-Related Stroke Atrial fibrillation [...] as hypertension or diabetes. Medicines ??? Take gmlw-xgl-okrebss and prescription medicines only as told by [...] provider. Document Revised: 03/26/2021 Document Reviewed: 03/26/2021 Cirrascale Patient Education ?? 2021 [employer] Inc. Heart-Healthy Eating Plan Heart-healthy meal planning [...] Fats and oils Meat fat, or shortening. Ocate butter, hydrogenated oils, palm oil, coconut oil, [...] provider. Document Revised: 11/26/2021 Document Reviewed: 11/26/2021 Cirrascale Patient Education ?? 2021 CertusNet. amiodarone (oral) (A kenny MOURA jessica carlton) Pacerone What is the most important information [...] products. Avoid taking an herbal supplement containing Silas's wort. Amiodarone could make you sunburn more [...] may report side effects to FDA at 2-731-VCO-7206. What other drugs will affect amiodarone? Sometimes [...] can affect amiodarone. This includes prescription and dhap-zvw-lblbupv medicines, vitamins, and herbal products. Not all [...] to ensure that the information provided by [employer]. ('Multum') is accurate, up-to-date, and complete, but no guarantee is made to that effect. Drug information contained herein may be time sensitive. [employer] information has been compiled for use by healthcare practitioners and consumers in the [place] and therefore [employer] does not warrant that uses outside of the [place] are appropriate, unless specifically indicated otherwise. [employer]'s drug information does not endorse drugs, diagnose patients or recommend therapy. [employer] [facility] ([employer])s drug information is an informational resource designed [...] effective or appropriate for any given patient. [employer] does not assume any responsibility for any aspect of healthcare administered with the aid of information [employer] provides. The information contained herein is not intended to cover all possible uses, directions, precautions, warnings, drug interactions, allergic reactions, or adverse effects. If you have questions about the drugs you are taking, check with your doctor, nurse or pharmacist. Copyright 9289-4443 [employer]. Version: 7.01. Revision Date: 06/06/2018. metoprolol (oral/injection) (me TOE pro lol) Kapspargo Sprinkle, Lopressor, Metoprolol Succinate ER, Metoprolol Tartrate, Toprol-XL What [...] may report side effects to FDA at 4-043-FZN-1143. What other drugs will affect metoprolol? Tell [...] may affect metoprolol. This includes prescription and dpht-izd-bhkxfmz medicines, vitamins, and herbal products. Not all [...] to ensure that the information provided by [employer]. ('[employer]um') is accurate, up-to-date, and complete, but no guarantee is made to that effect. Drug information contained herein may be time sensitive. [employer] information has been compiled for use by healthcare practitioners and consumers in the [place] and therefore [employer] does not warrant that uses outside of the [place] are appropriate, unless specifically indicated otherwise. [employer]'s drug information does not endorse drugs, diagnose patients or recommend therapy. [employer] ([employer])s drug information is an informational resource designed [...] effective or appropriate for any given patient. [facility] does not assume any responsibility for any aspect of healthcare administered with the aid of information [facility] provides. The information contained herein is not intended to cover all possible uses, directions, precautions, warnings, drug interactions, allergic reactions, or adverse effects. If you have questions about the drugs you are taking, check with your doctor, nurse or pharmacist. Copyright 2588-4126 [facility] [employer] Royalty. Version: 17.03. Revision Date: 12/27/2018. Emergency Awareness and Preventative Care STROKE is an EMERGENCY Every Minute Counts Act FAST and Check for these signs: FACE Does the face look uneven? ARM Does one arm drift down? SPEECH Electronically signed by Raisa, [facility] Conversion Religion Instructor Cercarmen at 11/19/2022 4:27 PM CDT documented in this encounter Plan of Treatment Not on file documented as of this encounter Visit Diagnoses Not on filedocumented in this encounter Care Teams Crusher Screen Repairer Relationship Specialty Start Date End Date Hussein Brian MD [facility] [place] [address] PCP - General General Internal Medicine 03/14/23 documented as of this encounter
--- OUTSIDE RECORDS SUMMARY | 2025-03-28 14:52 | XMS_ITS | Encounter Summary ---
Author Organization [employer] ([place], [place], [place], [place]) Address [address] [place] [address] Care Team Providers Care Commercial Leasing Agent Name Role Phone Hussein Brian MD Primary Care Provider [phone] Encounter Details Date Type Department Care Team (Late st Contact Info) Description 03/09/2022 Transcribed Document [facility] [place] [address] [place] [address] ProviderThomas MD [address] [place] [address] Social History Tobacco Use Types [...] Date Ryan rded Speak language other than Zimbabwean at home Not on file 08/12/2023 Want [...] Conversion Note - Historical ProviderMD - 03/09/2022 3:40 PM CDT [facility] Authorization Entered On: 03/09/2022 15:40 EDT Performed On: 03/09/2022 15:40 EDT by VITOR BROWN RN Primary Insurance Authorization Authorization and Policy Numbers : Insurance 1 Health Plan: [employer] QalendraO Policy Number: [id number] Authorization Number: Insurance Primary Name : [employer] GOLD PLUS HMO Policy Number: [id number] Authorization Status-Primary : Denial - admission Reference Number-Primary : [id number] Authorized Service Begin Date-Primary : 03/05/2022 EDT Authorization Comments-Primary : Per Availity IP denied Historical Authorization Comments-Primary : Comment 1: AUTH SUBMITTED VIA [employer]. CLINICAL FAXED VIA [employer] (Nhi Arteaga Rn-Utilization Review 03/06/2022 17:56) VITOR BROWN RN - 03/09/2022 15:40 EDT Electronically signed by Raisa [facility] Conversion Police Captain Marvel at 11/19/2022 4:09 PM CDT documented in this encounter Plan of Treatment Not on file documented as of this encounter Visit Diagnoses Not on filedocumented in this encounter Care Teams Commercial Leasing Agent Relationship Specialty Start Date End Date Hussein Brian MD [address] [place] [address] PCP - General General Internal Medicine 03/14/23 documented as of this encounter
--- OUTSIDE RECORDS SUMMARY | 2025-03-28 14:52 | XMS_ITS | Encounter Summary ---
Author Organization [employer] ([place], [place], [place], [place]) Address [address] [place] [address] Care Team Providers Care Team Supervisor Name Role Phone Hussein Brian MD Primary Care Provider [phone] Encounter Details Date Type Department Care Team (Late st Contact Info) Description 03/09/2022 Transcribed Document [facility] [place] [address] [place] [address] ProviderThomas MD [address] [place] [address] Social History Tobacco Use Types [...] Conversion Note - Historical ProviderMD - 03/09/2022 8:22 AM CDT [facility] Entered On: 03/09/2022 8:24 EDT Performed On: 03/09/2022 8:22 EDT by Sydney Brewer, LIME SLUDGE MIXER Patient Resource Center Provider Status : EST Other Established Provider Name : Hussein Brian Patient Phone Number : [phone] Patient Insurance Type : Medicare Source of Referral : Case management Location of Patient : Case management referral Primary Care Scheduled : Yes Primary Care Scheduled Type : Non CMG Primary Care Provider Name : Hussein Brian Primary Care Appointment Date/Time : 03/25/2022 11:40 EDT Specialty Care Scheduled : Yes Specialty Type Scheduled1 : Cardiology Cardiology Provider Name : Herb Galvez Cardiology Appointment Date/Time : 03/24/2022 14:45 EDT Qualify for Diabetes and/or Nutrition Referral : No Wound Care Appointment Made : No Why Patient Visited ED- Specialty spent : Other How Patient Arrived at ED : Other Primary Language : Romanian Patient Resource Center Comment : PCP and CARDIOLOGY appts made Follow Up Needed : No Sydney Brewer, LIME SLUDGE MIXER - 03/09/2022 8:22 EDT Electronically signed by Raisa [facility] Conversion Sales And Service Representative Cerner at 11/19/2022 4:06 PM CDT documented in this encounter Plan of Treatment Not on file documented as of this encounter Visit Diagnoses Not on filedocumented in this encounter Care Teams Team Supervisor Relationship Specialty Start Date End Date Hussein Brian MD [address] [place] [address] [place] [address] PCP - General General Internal Medicine 03/14/23 documented as of this encounter
--- OUTSIDE RECORDS SUMMARY | 2025-03-28 14:52 | XMS_ITS | Encounter Summary ---
Author Organization [employer] ([place], [place], [place], [place]) Address [address] [place] [address] Care Team Providers Care Woodwind Reeds Cutter Name Role Phone Hussein Brian MD Primary Care Provider [phone] Encounter Details Date Type Department Care Team (Late st Contact Info) Description 04/03/2022 Transcribed Document [facility] [place] [address] [place] [address] ProviderThomas MD [address] [place] [address] Social History Tobacco Use [...] Date Ryan rded Speak language other than Israeli at home Not on file 08/12/2023 Want [...] Conversion Note - Historical ProviderMD - 04/03/2022 4:50 PM CDT Nursing Discharge Summary Entered On: 04/03/2022 16:55 EDT Performed On: 04/03/2022 16:50 EDT by FANI MORTON RN Discharge Documentation Discharge Date/Time : 04/03/2022 16:50 EDT Patient Disposition, General : Discharge Discharge To : Home with ambulatory/outpatient follow-up Mode Of Departure, General Discharge : Private vehicle, Wheelchair Accompanied By, Discharge : Son IV Discontinued : Yes Personal Belongings With Patient : Yes Pt's Own Supply of Medications Returned : No patient supply of medications to return Prescriptions Given to Patient : Electronically sent Medications Given to Patient : No Discharge Instructions Reviewed With, Opportunity For Questions Given : Patient Patient Education Completed : Yes Teaching Method : Explanation, Printed materials Teaching Evaluation : Verbalizes understanding FANI MORTON RN - 04/03/2022 16:53 EDT Electronically signed by Raisa [facility] Conversion Figure Refinisher And Repairer Cerner at 11/19/2022 4:25 PM CDT documented in this encounter Plan of Treatment Not on file documented as of this encounter Visit Diagnoses Not on filedocumented in this encounter Care Teams Woodwind Reeds Cutter Relationship Specialty Start Date End Date Hussein Brian MD [address] [place] [address] PCP - General General Internal Medicine 03/14/23 documented as of this encounter
--- OUTSIDE RECORDS SUMMARY | 2025-03-28 14:52 | XMS_ITS | Encounter Summary ---
Author Organization [employer] ([place], [place], [place], [place]) Address [address] [place] [address] Care Team Providers Care Magnet Placer Name Role Phone Hussein Brian MD Primary Care Provider [phone] Encounter Details Date Type Department Care Team (Late st Contact Info) Description 03/09/2022 Transcribed Document [facility] [place] Family Medicine [address] [place] [address] ProviderThomas MD [address] [place] [address] Social History Tobacco Use Types [...] Date Ryan rded Speak language other than Latvian at home Not on file 08/12/2023 Want [...] Conversion Note - Historical Provider, - 03/09/2022 11:07 AM CDT Patient: DALLAS RADFORD Age: 76 [...] digoxin Labs (Last four charted values) WBC 4.1 (MAR 09) 5.0 (MAR 08) 4.3 (MAR 07) 5.4 (MAR 06) HB L 11.8 (MAR 09) L 12.5 (MAR 08) L 12.0 (MAR 07) L 13.4 (MAR 06) HCT L 33.3 (MAR 09) L 35.7 (MAR 08) L 34.0 (MAR 07) L 37.9 (MAR 06) Plt L 130 (MAR 09) L 135 (MAR 08) L 127 (MAR 07) L 134 (MAR 06) Na L 133 (MAR 09) L 134 (MAR 08) L 133 (MAR 07) L 134 (MAR 06) K L 3.4 (MAR 09) 3.6 (MAR 08) L 3.3 (MAR 07) 3.6 (MAR 06) Cl 103 (MAR 09) 102 (MAR 08) 103 (MAR 07) L 100 (MAR 06) CO2 22 (MAR 09) 23 (MAR 08) 22 (MAR 07) 23 (MAR 06) BUN 13 (MAR 09) 15 (MAR 08) 21 (MAR 07) H 27 (MAR 06) Cr 0.90 (MAR 09) 0.90 (MAR 08) 0.80 (MAR 07) 1.00 (MAR 06) Glu R H 108 (MAR 09) H 107 (MAR 08) H 111 (MAR 07) 92 (MAR 06) Ca 8.7 (MAR 09) 9.0 (MAR 08) 8.6 (MAR 07) 9.0 (MAR 06) PT H 38.4 (MAR 09) H 32.2 (MAR 08) H 25.1 (MAR 07) H 19.8 (MAR 06) INR H 4.1 (MAR 09) H 3.4 (MAR 08) H 2.6 (MAR 07) H 2.0 (MAR 06) AST 30 (MAR 05) ALT 26 (MAR 05) ALK P 92 (MAR 05) T Bili H 2.4 (MAR 05) PTN 6.8 (MAR 05) ALB 3.4 (MAR 05) Vitals Signs (last 24 hrs) Last Charted Minimum Maximum Temp 97.5 (MAR 09 09:45) 97.5 (MAR 09 09:45) 98.0 (MAR 08 20:31) Apical HR 72 (MAR 09 08:39) 67 (MAR 08 20:30) 72 (MAR 09 08:39) Mon HR 83 (MAR 09 09:45) 30 (MAR 08 14:15) 118 (MAR 08 13:00) Resp Rate 16 (MAR 09 09:45) 16 (MAR 08 18:00) 18 (MAR 08 20:31) SBP 104 (MAR 09 09:45) L 88 (MAR 08 12:00) H 210 (MAR 08 13:00) DBP L 59 (MAR 09 09:45) L 53 (MAR 08 14:00) H 188 (MAR 08 13:00) MAP 72 (MAR 09 09:45) 65 (MAR 08 14:00) 196 (MAR 08 13:00) SpO2 97 (MAR 09 08:39) 97 (MAR 09 08:39) 100 (MAR 08 11:30) Date 03/05 03/06 03/07 03/08 8 INR 2.2 2.0 2.6 3.4 4.1 Dose 2mg 2 2 hold hold Drug interactions: New Rx Amiodarone gtt ---> po - Major Increase in INR Protonix - moderate incr INR - dose just increased from daily ---> bid Plan: 1) INR is supratherapeutic @ 4.1 today - continue holding -Hold warfarin until INR <= 3.0 -New Rx this admission for Amiodarone - converted to oral route loading dose 2) Home dose = 2mg daily - D/W patient - he understands new amiodarone interaction and lowering of his previous home dose on discharge -expect new therapy to be in 1mg po daily range when INR stabilizes 3) Daily PT/INR 4) Hgb slightly lower but stable - follow 5) Rx to follow Thank You, Brody [facility] beeper [phone] Electronically signed by Raisa, [facility] Conversion Supervisor Paste Mixing Cerner at 11/19/2022 4:21 PM CDT documented in this encounter Plan of Treatment Not on file documented as of this encounter Visit Diagnoses Not on filedocumented in this encounter Care Teams Magnet Placer Relationship Specialty Start Date End Date Hussein Brian MD [facility] [place] [address] PCP - General General Internal Medicine 03/14/23 documented as of this encounter
--- OUTSIDE RECORDS SUMMARY | 2025-03-28 14:52 | XMS_ITS | Encounter Summary ---
Author Organization [employer] ([place], [place], [place], [place]) Address [address] [place] [address] Care Team Providers Care Professor Of Food Biochemistry Name Role Phone Hussein Brian MD Primary Care Provider [phone] Encounter Details Date Type Department Care Team (Late st Contact Info) Description 04/03/2022 Transcribed Document [facility] [place] [address] [place] [address] ProviderThomas MD [address] [place] [address] Social History Tobacco Use Types [...] Date Ryan rded Speak language other than Djiboutian at home Not on file 08/12/2023 Want [...] Conversion Note - Historical ProviderMD - 04/03/2022 3:41 PM CDT Final Discharge Planning Entered On: 04/03/2022 15:43 EDT Performed On: 04/03/2022 15:41 EDT by GERSON PRESCOTT, RN-Warp Hanger Final Discharge Planning Discharge Arrangements : Patient Post-Acute Information Patient Name: DALLAS RADFORD Gender: Male : [birth year] Age: 76 Years No Post-Acute Placement(s) Listed No Post-Acute Service(s) Listed No Curaspan Referral(s) Listed Patient Offered Choice/Affiliations Explained : Yes Designation of Choice Signed : Yes Follow Up Appointment Scheduled : Yes Is Patient High/Moderate Readmission Risk? : Yes Moderate Readmission Risk - Home with Home Health : Make post-discharge physician appointment within 5-7 days of discharge., Notify liaison that patient is moderate risk for readmission, request patient be assessed 1-3 days after D/C and frequent evaluations occur next 1-2 weeks Patient/Family Notified of Plan : Yes Support Person/Pt Rep Notified of Plan : Yes Patient/Family Notified : family Is Patient Ready for Discharge? : Yes Physician Notified Patient is Ready for Discharge? : Yes Discharge To Care Management : Home Health Services (Related/SOC within 3 days)-06 GERSON PRESCOTT, RN-Warp Hanger - 04/03/2022 15:41 EDT Final Narrative Note Final Narrative Note : weekend dc planning. dc today. notified vna at home of dc date today. [phone]. referral to pt access for follow up appts. GERSON PRESCOTT, RN-Warp Hanger - 04/03/2022 15:41 EDT documented in this encounter Plan of Treatment Not on file documented as of this encounter Visit Diagnoses Not on filedocumented in this encounter Care Teams Professor Of Food Biochemistry Relationship Specialty Start Date End Date Hussein Brian MD [address] [place] [address] PCP - General General Internal Medicine 03/14/23 documented as of this encounter
--- OUTSIDE RECORDS SUMMARY | 2025-03-28 14:52 | XMS_ITS | Clinical Summary ---
Author Organization [employer] ([place], [place], [place], [place]) Address [address] [place] [address] Care Team Providers Care Shipping Receiving Clerk Name Role Phone Hussein Brian MD [...] Primary hypertension 03/09/2023 SVT s/p abaltion 06/22/2022 Family History Medical History Relation Name Comments Cancer Father Diabetes Mother Relation Name Status Comments Father Mother Social History Tobacco Use Types [...] Date Ryan rded Speak language other than Lao at home Not on file 08/12/2023 Want [...] 03/09/2023 10:22 AM EDT Plan of Treatment Health Maintenance Due Date Last Done Comments Depression Screening (12+) 1957 Hepatitis C Screening 1963 Pneumococcal 50+ years (1 of 2 - PCV) 1964 Shingles Vaccine (Zoster) (1 of 2) 1995 Respiratory Syncytial Virus (RSV) Adult or (1 - 1-dose 75+ series) 2020 Medicare Initial AWV G0438 08/02/2023 Tobacco Cessation Counseling and Screening (12+) 03/1403/14/2023 COVID-19 VACCINE (2 - season) 04/01/202412/2020 Falls Risk Screening 08/01/2024 Influenza Vaccine (#1) 2025 DTAP/TDAP/TD VACCINES (2 - Td or Tdap) 01/06/2032 Medical Devices Implanted Type Area Production Scheduler Device Identifier Shelf Expiration Date Model / Serial / Lot Cement Bone [place] Hv 40/20 600-15-000 - Sna Implanted:Qt y: 2 on 03/14/2023 by Jairo Mcdaniel MD at [facility] IMPLANTS Left: Knee DJ SURG:ENCORE MED:OSMANYTANOOGA 10/27/2024 600-15-00 0 / NA / [id number] Patella Rnd Dome 3peg Sig 38mm - Implanted:Qt y: 1 on 03/14/2023 by Jairo Mcdaniel MD at [facility] TOTAL JOINT CONSTRUCT Left: Knee J &J:DEPUY:DEPUY ORTHOP[employer]EDIC [id number] 07/31/2027 96-0112 / NA / [id number] Comp Fem Horse Stud Worker Cr Pfc Sig 5 L - Implanted:Qt y: 1 on 03/14/2023 by Jairo Mcdaniel MD at [facility] TOTAL JOINT [employer] Left: Knee J &J:DEPUY:DEPUY ORTHOPAEDIC 12/29/2026-0005 / NA / [id number] Insrt Tib Crv Rp Sig 5 12.5mm - Sna Implanted:Qt y: 1 on 03/14/2023 by Jairo Mcdaniel MD at [facility] TOTAL JOINT CONSTRUCT Left: Knee J &J:DEPUY:DEPUY ORTHOPAEDIC [id number] 01/28/2027-2051 / NA / [id number] Ty Tib Raphael Keeled Mbt 4 1294-33-140 - Sna Implanted:Qt y: 1 on 03/14/2023 by Jairo Mcdaniel MD at [facility] TOTAL JOINT [employer] Left: Knee J &J:DEPUY:DEPUY ORTHOPAEDIC 09/29/2027 1294-33-1 40 / NA / [id number] Explanted Type Area Production Scheduler Device Identifier Shelf Expiration Date Model / Serial / Lot Insert Pin Thrd Head Lcs Strl [id number] - Sna Explanted:Qty: 1 on 03/14/2023 by Jairo Mcdaniel MD at [facility] IMPLANTS Left: Knee J &J:DEPUY:DE[employer]Y ORTH[employer] 10/29/2026 3 / NA / [id number] Insert Pin Thrd Lcs Strl 9505-302 - Sna Explanted:Qty: 1 on 03/14/2023 by Jairo Mcdanile MD at [facility] IMPLANTS Left: Knee J &J:DEPUY:DEPUY ORTHOPAEDIC 10/30/2027 2 / NA / [id number] Insurance [facility] MEDICARE PPO Advance Directives For more information, please contact: [phone] * Full Code (Latest Code Status on File) Date Activated Date Inactivated Comments 06/22/2022 1:37 PM 06/22/2022 6:21 PM Care Teams Shipping Receiving Clerk Relationship Specialty Start Date End Date Hussein Brian MD [facility] [address] [place], [place] [id number] PCP - General General Internal Medicine 03/14/23
--- OUTSIDE RECORDS SUMMARY | 2025-03-28 14:52 | XMS_ITS | Encounter Summary ---
Author Organization [employer] ([place], [place], [place], [place]) Address [address] [place] [address] Care Team Providers Care Rubber Covering Machine Operator Name Role Phone Hussein Brian MD Primary Care Provider [phone] Encounter Details Date Type Department Care Team (Late st Contact Info) Description 03/09/2022 Transcribed Document [facility] [place] [address] [place] [address] ProviderThomas MD [address] [place] [address] Social History Tobacco Use Types [...] Date Ryan rded Speak language other than Dutch at home Not on file 08/12/2023 Want [...] Marvel Conversion Note - Historical Provider, - 03/09/2022 1:15 PM CDT Patient: DALLAS RADFORD Age: 76 [...] Tab, Oral, Q2H, PRN: Other (See Comment) warfarin: 1 Each, Oral, Weekly Documented Medications [...] 1 Tab, PRN, Oral, Q6H , Medications (18) Active Scheduled: (10) amiodarone 200 mg tab 400 mg 2 Tab, Oral, BID amiodarone 200 mg tab 200 mg 1 Tab, Oral, BID amiodarone 200 mg tab 200 mg 1 Tab, Oral, Daily atorvastatin 40 mg tab 40 mg 1 Tab, Oral, Daily cholecalciferol 1,000 unit tab 1,000 Units 1 Tab, Oral, Daily imipramine 50 mg tab 50 mg 1 Tab, Oral, At Bedtime metoprolol [...] list: All Problems Afib / SNOMED CT 19370715 / Confirmed Hip pain, right / SNOMED CT 60969822 / Confirmed At risk for sleep apnea / IMO [id number] / Confirmed, Active Problems (3) Afib At [...] (MAR 09 08:39) Mon HR 83 (MAR 09:45) 30 (MAR 08 14:15) 113 (MAR 09 01:16) Resp Rate 16 (MAR 09 09:45) 16 (MAR 08 18:00) 18 (MAR 08 20:31) SBP 104 (MAR 09 09:45) 93 (MAR 09 05:00) 139 (MAR 08 16:00) DBP L 59 (MAR 09 09:45) L 53 (MAR 08 14:00) H 97 (MAR 08 16:00) MAP 72 (MAR 09 09:45) 65 (MAR 08 14:00) 113 (MAR 08 16:00) SpO2 97 (MAR 09 08:39) 97 (MAR 09 08:39) 100 (MAR 08 13:30) Results Review Telemetry - AF 63 General: Alert and oriented. Eye: Pupils are [...] Psychiatric: Cooperative, Appropriate mood & affect. MAR 09 06:20 L 133 103 13 / H 108 L 3.4 22 0.90 \ MAR 09 06:20 \ L 11.8 / 4.1 L 130 / L 33.3 \ Telemetry/ECG I personally reviewed the last [...] LVEF 40% HTN HLP Hypokalemia Dysphagia PLAN; 03/09/2022 Patient back in afib 60's after [...] 3.6, Replace K, keep K>4. Will follow. documented in this encounter Plan of Treatment Not on file documented as of this encounter Visit Diagnoses Not on filedocumented in this encounter Care Teams Rubber Covering Machine Operator Relationship Specialty Start Date End Date Hussein Brian MD [address] [place] [address] [place] [address] PCP - General General Internal Medicine 03/14/23 documented as of this encounter
--- OUTSIDE RECORDS SUMMARY | 2025-03-28 14:52 | XMS_ITS | Encounter Summary ---
Author Organization [employer] ([place], [place], [place], [place]) Address [address] [place] [address] Care Team Providers Care Endocrinology Specialist Name Role Phone Hussein Brian MD Primary Care Provider [phone] Encounter Details Date Type Department Care Team (Late st Contact Info) Description 04/03/2022 Transcribed Document [facility] [place] [address] [place] [address] ProviderThomas MD [address] [place] [address] Social History Tobacco Use Types [...] Date Ryan rded Speak language other than Malawian at home Not on file 08/12/2023 Want [...] Conversion Note - Historical Provider, - 04/03/2022 3:51 PM CDT Final Discharge Planning Entered On: 04/03/2022 15:52 EDT Performed On: 04/03/2022 15:51 EDT by GERSON PRESCOTT, RN-Jackaroo Final Discharge Planning Discharge Arrangements : Patient Post-Acute Information Patient Name: DALLAS RADFORD Gender: Male : [birth year] Age: 76 Years No Post-Acute Placement(s) Listed No Post-Acute Service(s) Listed No Curaspan Referral(s) Listed Patient Offered Choice/Affiliations Explained : Yes Patient/Family Notified of Plan : Yes Support Person/Pt Rep Notified of Plan : Yes Patient/Family Notified : family GERSON PRESCOTT, RN-Jackaroo - 04/03/2022 15:51 EDT Final Narrative Note Final Narrative Note : correction: home health arranged with [facility]: [phone] notified mervin barron. faxed H/P & dc summary to [phone] Historical Narrative Note : weekend dc planning. dc today. notified vna at home of dc date today. [phone]. referral to pt access for follow up appts. GERSON PRESCOTT, RN-Jackaroo - 04/03/22 15:43:16 GERSON PRESCOTT, RN-Jackaroo - 04/03/2022 15:51 EDT documented in this encounter Plan of Treatment Not on file documented as of this encounter Visit Diagnoses Not on filedocumented in this encounter Care Teams Endocrinology Specialist Relationship Specialty Start Date End Date Hussein Brian MD [address] [place] [address] PCP - General General Internal Medicine 03/14/23 documented as of this encounter
--- OUTSIDE RECORDS SUMMARY | 2025-03-28 14:52 | XMS_ITS | Encounter Summary ---
Author Organization [employer] ([place], [place], [place], [place]) Address [address] [place] [address] Care Team Providers Care Calibration Specialist Name Role Phone Hussein Brian MD Primary Care Provider [phone] Encounter Details Date Type Department Care Team (Late st Contact Info) Description 03/09/2022 Transcribed Document [facility] Radiology [address] [place] [address] Mike Porter MD [address] [place] [address] [place] [address] Social History Tobacco Use Types Packs/Day Years [...] Date Ryan rded Speak language other than [place] Citizen at home Not on file 08/12/2023 Want [...] Conversion Note - Mike Porter MD - 03/09/2022 11:18 AM EDT Patient: DALLAS RADFORD Age: 76 years Sex: Male : 1945 Associated Diagnoses: None Author: MIKE PORTER MD Basic Information Patient seen and examined today No new complaints Hemodynamically stable No family member at the [...] (at bedtime), 30 Tab, 0 Refill(s), Medications (18) Active Scheduled: (10) amiodarone 200 [...] Problem list: Medical Afib / SNOMED CT 28494727 / Confirmed Hip pain, right / SNOMED CT 05480955 / Confirmed At risk for sleep apnea / IMO [id number] / Confirmed, Active Problems (3) Afib At risk for sleep apnea Hip pain, right Physical Examination VS/Measurements Vitals Signs (last 24 hrs) Last Charted Minimum Maximum Temp 97.8 (MAR 09 05:00) 97.8 (MAR 09:00) 98.0 (MAR 08:31) Apical HR 72 (MAR 09:39) 67 (MAR 08 20:30) 72 (MAR 09:39) Mon HR 81 (MAR 09 05:00) 30 (MAR 08 14:15) 118 (MAR 08 13:00) Resp Rate 18 (MAR 09 05:00) 16 (MAR 08 18:00) 18 (MAR 08:31) SBP 99 (MAR 09 08:39) L 88 (MAR 08 12:00) H 210 (MAR 08 13:00) DBP L 57 (MAR 09 08:39) L 53 (MAR 08 14:00) H 188 (MAR 08 13:00) MAP 71 (MAR 09 05:00) 65 (MAR 08 14:00) 196 (MAR 08 13:00) SpO2 99 (MAR 09 05:00) 99 (MAR 08 12:45) 100 (MAR 08 11:30) GENERAL: The patient is a well-developed, well-nourished, [...] review: Labs (Last four charted values) WBC 4.1 [...] Coumadin 2mg daily -Discussed with Dr. MORALES, plan for outpatient A. fib ablation after [...] was looking into SNF facilities -PT recommending or SNF 9. Hypokalemia Replace potassium Check potassium in a.m. DVT/GI prophylaxis: Coumadin/PPI CODE STATUS: Full code [...] SNF. Case management to send out referrals03/08. Labs reviewed Medications reviewed Consultation notes reviewed Discussed with EP and cardiology Time spent 28 minutes Complex case documented in this encounter Plan of Treatment Not on file documented as of this encounter Visit Diagnoses Not on filedocumented in this encounter Care Teams Calibration Specialist Relationship Specialty Start Date End Date Hussein Brian MD [address] [place] [address] PCP - General General Internal Medicine 03/14/23 documented as of this encounter
--- OUTSIDE RECORDS SUMMARY | 2025-03-28 14:52 | XMS_ITS | Encounter Summary ---
Author Organization [employer] ([place], [place], [place], [place]) Address [address] [place] [address] Care Team Providers Care Catalog Librarian Name Role Phone Jodie Brian MD Primary Care Provider [phone] Encounter Details Date Type Department Care Team (Late st Contact Info) Description 04/05/[address] [facility] [place] [address] [place] [address] ProviderThomas MD [address] [place] [address] Social History Tobacco Use Types [...] Date Ryan rded Speak language other than [place] Zealander at home Not on file 08/12/2023 Want [...] Cerner Conversion Note - Historical ProviderMD - 04/05/2022 9:28 AM CDT Patient Resource Center Entered On: 04/05/2022 9:29 EDT Performed On: 04/05/2022 9:28 EDT by Destiny Cuevas SOFTWARE SUPPORT SPECIALIST Patient Resource Center Provider Status : EST Other Established Provider Name : JODIE BRIAN [facility] Pediatrics & Internal Medicine Patient Phone Number : [phone] Patient Insurance Type : Medicare Source of Referral : Case management Location of Patient : Case management referral Primary Care Scheduled : No Specialty Care Scheduled : Already scheduled Specialty Type Scheduled1 : [facility] Provider Name : VY VINSON [facility] Appointment Date/Time : 04/12/2022 14:15 EDT Qualify for Diabetes and/or Nutrition Referral : No Wound Care Appointment Made : No Why Patient Visited ED- Specialty spent : Other How Patient Arrived at ED : Other Primary Language : New Zealander Patient Resource Center Comment : Pt already had previous appt scheduled with Dr. Morales. Added appt to d/c. Emailed appt information to case management. Follow Up Needed : No Destiny Cuevas SCHEDULER - 04/05/2022 9:28 EDT documented in this encounter Plan of Treatment Not on file documented as of this encounter Visit Diagnoses Not on filedocumented in this encounter Care Teams Catalog Librarian Relationship Specialty Start Date End Date Jodie Brian MD [facility] [address] [place], [place] [id number] PCP - General General Internal Medicine 03/14/23 documented as of this encounter
--- OUTSIDE RECORDS SUMMARY | 2025-03-28 14:52 | XMS_ITS | Encounter Summary ---
Author Organization [employer] ([place], [place], [place], [place]) Address [address] [place] [address] Care Team Providers Care Instructor Weaving Name Role Phone Hussein Brian MD Primary Care Provider [phone] Encounter Details Date Type Department Care Team (Late st Contact Info) Description 04/03/2022 Transcribed Document [facility] Family Medicine [address] [place] [address] ProviderThomas MD [address] [place] [address] Social History Tobacco Use Types [...] Conversion Note - Historical Provider, - 04/03/2022 4:[address] [facility] Entered On: 04/03/2022 16:23 EDT Performed On: 04/03/2022 16:23 EDT by OZZIE PEDROZA PT [facility] Physical Therapy Screen : 1 OZZIE PEDROZA PT - 04/03/2022 16:23 EDT Electronically signed by Raisa [facility] Conversion Heel Cementer Cerner at 11/19/2022 4:31 PM CDT documented in this encounter Plan of Treatment Not on file documented as of this encounter Visit Diagnoses Not on filedocumented in this encounter Care Teams Instructor Weaving Relationship Specialty Start Date End Date Hussein Brian MD [address] [place] [address] PCP - General General Internal Medicine 03/14/23 documented as of this encounter
--- OUTSIDE RECORDS SUMMARY | 2025-03-28 14:52 | XMS_ITS | Encounter Summary ---
Author Organization [employer] ([place], [place], [place], [place]) Address [address] [place] [address] Care Team Providers Care Diabetologist Name Role Phone Hussein Brian MD Primary Care Provider [phone] Encounter Details Date Type Department Care Team (Late st Contact Info) Description 03/07/2022 Transcribed Document [facility] [place] [address] [place] [address] ProviderThomas MD [address] [place] [address] Social History Tobacco Use Types [...] Conversion Note - Historical Provider, - 03/07/2022 2:00 AM CDT Correctional Program Officer Details Entered On: 03/07/2022 0:26 EDT Performed On: 03/07/2022 2:00 EDT by Joslyn Spann Lpn Order Details Order Detail : N/A IV Order Detail : 1 Oxygen Order Detail : 0 Lift/Transfer : Independent Central Line Order Detail : No Arterial Line : No Patient Needs Meds Crushed/Liquid : No Joslyn Spann Lpn - 03/07/2022 0:26 EDT documented in this encounter Plan of Treatment Not on file documented as of this encounter Visit Diagnoses Not on filedocumented in this encounter Care Teams Diabetologist Relationship Specialty Start Date End Date Hussein Brian MD [address] [place] [address] PCP - General General Internal Medicine 03/14/23 documented as of this encounter
--- OUTSIDE RECORDS SUMMARY | 2025-03-28 14:52 | XMS_ITS | Encounter Summary ---
Author Organization [employer] ([place], [place], [place], [place]) Address [address] [place] [address] Care Team Providers Care Clutch Assembler Name Role Phone Hussein Brian MD Primary Care Provider [phone] Encounter Details Date Type Department Care Team (Late st Contact Info) Description 03/08/2022 Transcribed Document [facility] [place] Family Medicine [address] [place] [address] ProviderThomas MD [address] [place] [address] Social History Tobacco Use Types [...] Date Ryan rded Speak language other than Rwandan at home Not on file 08/12/2023 Want [...] Cerner Conversion Note - Historical Provider, - 03/08/2022 1:30 PM CDT Attempt to Treat, PT Entered On: 03/08/2022 16:26 EDT Performed On: 03/08/2022 13:30 EDT by VENKAT DOMINGUEZ PT Student Attempt to Treat Unable to Treat Due To : Patient Refusal VENKAT DOMINGUEZ, PT Student - 03/08/2022 16:25 EDT Inability to Treat Comment : Patient politely states he would like to rest following his cardioversion. PTx will plan to attempt again tomorrow. PT has reviewed and agrees with note. LINDA YAO, PT - 03/09/2022 7:19 EDT Electronically signed by Raisa [facility] Conversion Home Health Administrator Cerner at 11/19/2022 4:22 PM CDT documented in this encounter Plan of Treatment Not on file documented as of this encounter Visit Diagnoses Not on filedocumented in this encounter Care Teams Clutch Assembler Relationship Specialty Start Date End Date Hussein Brian MD [facility] [place] [address] PCP - General General Internal Medicine 03/14/23 documented as of this encounter
--- OUTSIDE RECORDS SUMMARY | 2025-03-28 14:52 | XMS_ITS | Encounter Summary ---
Author Organization [employer] ([place], [place], [place], [place]) Address [address] [place] [address] Care Team Providers Care Animal Care Service Worker Name Role Phone Hussein Brian MD Primary Care Provider [phone] Encounter Details Date Type Department Care Team (Late st Contact Info) Description 03/08/2022 Transcribed Document [facility] [place] [address] [place] [address] ProviderThomas MD [address] [place] [address] Social History Tobacco Use Types [...] Date Ryan rded Speak language other than Togolese at home Not on file 08/12/2023 Want [...] Conversion Note - Historical Provider, - 03/08/2022 12:07 PM CDT Patient: DALLAS RADFORD Age: 76 Years Sex: Male : 1945 Procedure Name Cardioversion Indication Persistent atrial fibrillation Location [facility] Procedure After the patient was brought to the procedure room. The patient was identified and timeout was performed. The pads were placed in an AP manner. After he was sedated with the documented doses of fentanyl and Versed under my direct supervision, the patient was delivered 200 J of DC energy x1 with shinto of normal sinus rhythm. The patient tolerated the procedure well with no complications. Total sedation time was approximately 15 minutes. Recommendations -Stop IV amiodarone and continue with p.o. amiodarone taper. -Continue with metoprolol at current dose. If bradycardia becomes an issue we will consider decreasing. -Continue with Coumadin for stroke prevention. Electronically signed by Raisa [facility] Conversion Services Engineer Cerner at 11/19/2022 4:16 PM CDT documented in this encounter Plan of Treatment Not on file documented as of this encounter Visit Diagnoses Not on filedocumented in this encounter Care Teams Animal Care Service Worker Relationship Specialty Start Date End Date Hussein Brian MD [address] [place] [address] PCP - General General Internal Medicine 03/14/23 documented as of this encounter
--- OUTSIDE RECORDS SUMMARY | 2025-03-28 14:52 | XMS_ITS | Encounter Summary ---
Author Organization [email or web address] ([place], [place], [place], [place]) Address [address] [place] [address] Care Team Providers Care Metal Drawer Name Role Phone Hussein Brian MD Primary Care Provider [phone] Encounter Details Date Type Department Care Team (Late st Contact Info) Description 03/08/2022 Transcribed Document [facility] [place] [address] [place] [address] ProviderThomas MD [address] [place] [address] Social History Tobacco Use Types [...] Cerner Conversion Note - Historical ProviderMD - 03/08/2022 1:28 PM CDT Attempt to Treat, OT Entered On: 03/08/2022 15:37 EDT Performed On: 03/08/2022 13:28 EDT by SEBLE LOVE OTR/Maia Attempt to Treat Unable to Treat Due To : Patient on hold, Patient Unavailable Inability to Treat Comment : Checked on pt twice today; at 1032 pt was off the floor for DCCV and at 1328 pt politely asked OT to allow him to rest following procedure. Pt agreeable to ambulate tomorrow. OT will follow up as schedule allows. SEBLE LOVE OTR/Maia - 03/08/2022 15:35 EDT Electronically signed by Raisa [facility] Conversion Creative Developer Cercarmen at 11/19/2022 4:15 PM CDT documented in this encounter Plan of Treatment Not on file documented as of this encounter Visit Diagnoses Not on filedocumented in this encounter Care Teams Metal Drawer Relationship Specialty Start Date End Date Hussein Brian MD [address] [place] [address] PCP - General General Internal Medicine 03/14/23 documented as of this encounter
--- OUTSIDE RECORDS SUMMARY | 2025-03-28 14:52 | XMS_ITS | Encounter Summary ---
Author Organization [employer] ([place], [place], [place], [place]) Address [address] [place] [address] Care Team Providers Care Produce Wrapper Name Role Phone Hussein Brian MD Primary Care Provider Encounter Details Date Type Department Care Team (Late st Contact Info) Description 03/09/2022 Transcribed Document [facility] [place] [address] [place] [address] ProviderThomas MD [address] [place] [address] Social History Tobacco Use Types [...] Date Ryan rded Speak language other than Eritrean at home Not on file 08/12/2023 Want [...] Conversion Note - Historical Provider, - 03/09/2022 12:17 PM CDT Initial Discharge Planning Entered On: 03/09/2022 12:18 EDT Performed On: 03/09/2022 12:17 EDT by WAYNE RODRIGUES Social Worker Initial Assessment I Living Situation : Home Legal Guardian : No WAYNE RODRIGUES Social Worker - 03/09/2022 12:19 EDT Previously Documented Living Environment : No qualifying data available. Patient Lives With : Alone Emergency Contact #1 : Virgil Hammond Emergency Contact #1 Emergency Contact #1 Relationship : Gabe Emergency Contact #2 : Melquiades Alisa Emergency Contact #2 Phone Number : . Emergency Contact #2 Relationship : Neighbor Identified Medical Decision Maker : self Enter Doctors Name : Hussein Brian Does Patient have PCP Listed? : Yes WAYNE RODRIGUES Social Worker - 03/09/2022 12:17 EDT Initial Assessment II Sensory and Motor Deficits : Weakness Current Home Treatments and Equipment : Blood glucose monitor, Walker (Comment: only used PRN [WAYNE RODRIGUES Social Worker - 03/09/2022 12:19 EDT] ) WAYNE RODRIGUES Social Worker - 03/09/2022 12:19 EDT Discharge Needs I Anticipated Discharge Date : 03/08/2022 EDT Anticipated Discharge To, CM : Home with home health, residential facility Current Home Treatment/Equipment : Current Home Treatment/Equipment No qualifying data available. Documentation Status Complete : Yes WAYNE RODRIGUES Social Worker - 03/09/2022 12:19 EDT Discharge Needs II Professional Skilled Services : Professional Skilled Services No qualifying data available. Needs Assistance with Transportation : Maybe Patient Discharge Goal : Inpatient rehabilitation facility WAYNE RODRIGUES Social Worker - 03/09/2022 12:19 EDT Narrative Note Narrative Note : HD 4/ELOS 2/RRS mod- on room air, s/p cardioversion, K+=3.4, INR=4.1 (goal 2-3)Coumadin on hold, no xray/scan, PT/OT following. DCP: home health vs rehab placement, will forward clinical information for review to SNF in [place] and [facility] to review - after seen by therapy. Patient will need to participate with therapy due to fact that will need ins auth. WAYNE RODRIGUES, Roll Off Driver - 03/09/2022 13:09 EDT Electronically signed by [facility] Conversion Box Stapler Cerner at 11/19/2022 4:07 PM CDT documented in this encounter Plan of Treatment Not on file documented as of this encounter Visit Diagnoses Not on filedocumented in this encounter Care Teams Produce Wrapper Relationship Specialty Start Date End Date Hussein Brian MD [address] [place] [address] PCP - General General Internal Medicine 03/14/23 documented as of this encounter
--- OUTSIDE RECORDS SUMMARY | 2025-03-28 14:52 | XMS_ITS | Encounter Summary ---
Author Organization [employer] ([place], [place], [place], [place]) Address [address] [place] [address] Care Team Providers Care Railroad Car Checker Name Role Phone Hussein Brian MD Primary Care Provider [phone] Encounter Details Date Type Department Care Team (Late st Contact Info) Description 03/08/2022 Transcribed Document [facility] [place] [address] [place] [address] ProviderThomas MD [address] [place] [address] Social History Tobacco Use Types [...] Date Ryan rded Speak language other than Anguillan at home Not on file 08/12/2023 Want [...] Conversion Note - Historical Provider, - 03/08/2022 11:12 AM CDT Patient: DALLAS RADFORD Age: 76 Years Sex: Male : 1945 Subjective Patient was still in A. fib on telemetry monitoring but rate controlled in the 90s. Patient states his nausea vomiting is significant improved with imipramine. No other acute events overnight. Vital Signs Oxygen Settings (Last) Oxygen Therapy Mode: Room air (03/08/22 09:01:00) Oxygen Flow Rate: 98 Liter/Min (03/05/22 18:43:00) Intake & Output Totals Last 24 Hours (7a-7a) Input Total: 0 mL Output Total: 700 mL Balance: -700 mL Physical Exam General: Pleasant 76-year-old male [...] 400mg BID, planning taper for discharge - EP planning for DCCV today 03/08 - Continue Metoprolol tartrate 100mg BID [...] evaluation of A. fib with RVR. Cardiology planning for DCCV today 03/08. EP consulted had patient on amiodarone drip and transitioning to oral amiodarone today. Discussed with Dr. Morales today says planning to discharge patient on amiodarone. GI consulted as patient had normal EGD [...] requesting SNF. Case management to send out referrals today. VTE Prophylaxis - Medical Warfarin 1 Each, Oral, MISC, Weekly, Start 03/25/22 18:00:00 EDT (MEGHAN [place]ONA, BUSINESS SYSTEMS CONSULTANT-INT) Medications acetaminophen, 650 mg= 2 Tab, Oral, [...] (High) 03/08/2022 05:36 EDT Electronically signed by [facility] Conversion Assistant Public Defender Cerner at 11/19/2022 4:19 PM CDT documented in this encounter Plan of Treatment Not on file documented as of this encounter Visit Diagnoses Not on filedocumented in this encounter Care Teams Railroad Car Checker Relationship Specialty Start Date End Date Hussein Brian MD [address] [place], [place] [id number] PCP - General General Internal Medicine 03/14/23 documented as of this encounter
--- OUTSIDE RECORDS SUMMARY | 2025-03-28 14:52 | XMS_ITS | Encounter Summary ---
Author Organization [employer] ([place], [place], [place], [place]) Address [address] [place] [address] Care Team Providers Care Powder Blender And Pourer Name Role Phone Hussein Brian MD Primary Care Provider [phone] Encounter Details Date Type Department Care Team (Late st Contact Info) Description 03/09/2022 Transcribed Document [facility] [place] Family Medicine [address] [place] [address] ProviderThomas MD [address] [place] [address] Social History Tobacco Use Types [...] Conversion Note - Thomas Wall MD - 03/09/2022 2:42 PM CDT On Going Discharge Planning Entered On: 03/09/2022 14:43 EDT Performed On: 03/09/2022 14:42 EDT by WAYNE RODRIGUES Social Worker Care Management Progress Note Discharge Arrangements : Patient Post-Acute Information Patient Name: DALLAS RADFORD Gender: Male : [birth year] Age: 76 Years No Post-Acute Placement(s) Listed No Post-Acute Service(s) Listed No [place] Referral(s) Listed Patient Discharge Goal : Inpatient rehabilitation facility WAYNE RODRIGUES Social Worker - 03/09/2022 14:42 EDT Narrative Progress Note Narrative Progress Note : Clinical information forwarded to SNF via [facility] - to [place] facilities. WAYNE RODRIGUES Social Worker - 03/09/2022 14:42 EDT Electronically signed by Ulices Kline Conversion Engineering Technical Specialist Marvel at 11/19/2022 4:14 PM CDT documented in this encounter Plan of Treatment Not on file documented as of this encounter Visit Diagnoses Not on filedocumented in this encounter Care Teams Powder Blender And Pourer Relationship Specialty Start Date End Date Hussein Brian MD [facility] [place] [address] [place] [address] PCP - General General Internal Medicine 03/14/23 documented as of this encounter
--- OUTSIDE RECORDS SUMMARY | 2025-03-28 14:53 | XMS_ITS | Encounter Summary ---
Author Organization [employer] ([place], [place], [place], [place]) Address [address] [place] [address] Care Team Providers Care Senior Electrical Estimator Name Role Phone Hussein Brian MD Primary Care Provider [phone] Encounter Details Date Type Department Care Team (Late st Contact Info) Description 03/08/2022 Transcribed Document [facility] [place] [address] [place] [address] ProviderThomas MD [address] [place] [address] Social History Tobacco Use Types [...] Date Ryan rded Speak language other than Italian at home Not on file 08/12/2023 Want [...] Conversion Note - Historical Provider, - 03/08/2022 5:00 AM CDT Chart Check - Review Order Profile Entered On: 03/08/2022 3:05 EDT Performed On: 03/08/2022 5:00 EDT by Lola Finn RN Chart Check Powerplans Initiated/Discontinued as Appropriate : Yes All Active Orders Reviewed : Yes Lola Finn RN - 03/08/2022 3:05 EDT Electronically signed by Raisa [facility] Conversion Wash House Worker Marvel at 11/19/2022 4:11 PM CDT documented in this encounter Plan of Treatment Not on file documented as of this encounter Visit Diagnoses Not on filedocumented in this encounter Care Teams Senior Electrical Estimator Relationship Specialty Start Date End Date Hussein Brian MD [address] [place] [address] PCP - General General Internal Medicine 03/14/23 documented as of this encounter
--- OUTSIDE RECORDS SUMMARY | 2025-03-28 14:53 | XMS_ITS | Encounter Summary ---
Author Organization [employer] ([place], [place], [place], [place]) Address [address] [place] [address] Care Team Providers Care Director Of Consulting Services Name Role Phone Hussein Brian MD Primary Care Provider [phone] Encounter Details Date Type Department Care Team (Late st Contact Info) Description 03/08/2022 Transcribed Document [facility] [place] Family Medicine [address] [place] [address] ProviderThomas MD [address] [place] [address] Social History Tobacco Use Types [...] Conversion Note - Historical Provider, - 03/08/2022 10:23 AM CDT Patient: DALLAS RADFORD Age: 76 years Sex: Male : 1945 Associated Diagnoses: None Author: BRODY RENO, RPh 76yoM with H/O persistent a fib PMH: HLD, BPH, a fib Rx Consult: Warfarin MD: Piter Keraney APRN Dx: A fib with RVR goal INR = 2-3 home dose = 4mg po daily bridge therapy = none at present Allergies (1) Active Reaction digoxin Labs (Last four charted values) WBC 5.0 (MAR 08) 4.3 (MAR 07) 5.4 (MAR 06) 7.5 (MAR 05) HB L 12.5 (MAR 08) L 12.0 (MAR 07) L 13.4 (MAR 06) 13.9 (MAR 05) HCT L 35.7 (MAR 08) L 34.0 (MAR 07) L 37.9 (MAR 06) L 39.5 (MAR 05) Plt L 135 (MAR 08) L 127 (MAR 07) L 134 (MAR 06) 173 (MAR 05) Na L 134 (MAR 08) L 133 (MAR 07) L 134 (MAR 06) L 134 (MAR 05) K 3.6 (MAR 08) L 3.3 (MAR 07) 3.6 (MAR 06) 4.0 (MAR 05) Cl 102 (MAR 08) 103 (MAR 07) L 100 (MAR 06) L 99 (MAR 05) CO2 23 (MAR 08) 22 (MAR 07) 23 (MAR 06) 23 (MAR 05) BUN 15 (MAR 08) 21 (MAR 07) H 27 (MAR 06) H 25 (MAR 05) Cr 0.90 (MAR 08) 0.80 (MAR 07) 1.00 (MAR 06) 1.30 (MAR 05) Glu R H 107 (MAR 08) H 111 (MAR 07) 92 (MAR 06) H 136 (MAR 05) Ca 9.0 (MAR 08) 8.6 (MAR 07) 9.0 (MAR 06) 9.3 (MAR 05) PT H 32.2 (MAR 08) H 25.1 (MAR 07) H 19.8 (MAR 06) H 21.4 (MAR 05) INR H 3.4 (MAR 08) H 2.6 (MAR 07) H 2.0 (MAR 06) H 2.2 (MAR 05) AST 30 (MAR 05) ALT 26 (MAR 05) ALK P 92 (MAR 05) T Bili H 2.4 (MAR 05) PTN 6.8 (MAR 05) ALB 3.4 (MAR 05) Vitals Signs (last 24 hrs) Last Charted Minimum Maximum Temp 99.3 (MAR 08:) 97.8 (MAR 08:21) 99.3 (MAR 08:) Apical HR 68 (MAR 08:) 68 (MAR 08:) 78 (MAR 07 11:16) Mon HR 68 (MAR 08:) 57 (MAR 07 20:21) 89 (MAR 07 14:16) Resp Rate 18 (MAR 08 00:21) 18 (MAR 07 14:16) 19 (MAR 07 17:36) SBP 122 (MAR 08:) 101 (MAR 07 20:21) 122 (MAR 08 09:) DBP 78 (MAR 08:) 64 (MAR 07 20:21) 78 (MAR 08 09:01) MAP 88 (MAR 08:00) 74 (MAR 07 20:21) 88 (MAR 08:00) SpO2 99 (MAR 08 09:00) 95 (MAR 07 17:36) 100 (MAR 07 14:16) Date 03/05 03/06 03/07 03/08 INR 2.2 2.0 2.6 3.4 Dose 2mg 2 2 hold Drug interactions: New Rx Amiodarone gtt ---> po - Major Increase in INR Protonix - moderate incr INR - dose just increased from daily ---> bid Plan: 1) Pt has been on Warfarin 2mg po daily as inpatient and INR is increasing -Hold warfarin until INR <= 3.0 -New Rx this admission for Amiodarone - currently converting to oral route 2) Need to verify home warfarin dose with patient -patient is currently off floor getting DCCV 3) Daily PT/INR 4) Hgb stable - follow -Convert Protonix to oral route per policy 5) No bridge therapy required at present 6) Rx to follow Thank You, Brody Reno [facility] beeper [phone] Electronically signed by [facility] Conversion Foot Roentgenologist Cerner at 11/19/2022 4:11 PM CDT documented in this encounter Plan of Treatment Not on file documented as of this encounter Visit Diagnoses Not on filedocumented in this encounter Care Teams Director Of Consulting Services Relationship Specialty Start Date End Date Hussein Brian MD [address] [place] [address] PCP - General General Internal Medicine 03/14/23 documented as of this encounter
--- OUTSIDE RECORDS SUMMARY | 2025-03-28 14:53 | XMS_ITS | Encounter Summary ---
Author Organization [employer] ([place], [place], [place], [place]) Address [address] [place] [address] Care Team Providers Care Vice President Commercial Bank Name Role Phone Hussein Brian MD Primary Care Provider [phone] Encounter Details Date Type Department Care Team (Late st Contact Info) Description 03/08/2022 Transcribed Document [facility] [place] Family Medicine [address] [place] [address] ProviderThomas MD [address] [place] [address] Social History Tobacco Use Types [...] Date Ryan rded Speak language other than Russian at home Not on file 08/12/2023 Want [...] Conversion Note - Historical ProviderMD - 03/08/2022 2:00 AM CDT Technical Administrator Details Entered On: 03/08/2022 3:05 EDT Performed On: 03/08/2022 2:00 EDT by Lola Finn RN Order Details Order Detail : N/A Lift/Transfer : Independent Central Line Order Detail : No Arterial Line : No Patient Needs Meds Crushed/Liquid : No Lola Finn RN - 03/08/2022 3:05 EDT documented in this encounter Plan of Treatment Not on file documented as of this encounter Visit Diagnoses Not on filedocumented in this encounter Care Teams Vice President Commercial Bank Relationship Specialty Start Date End Date Hussein Brian MD [facility] [place] [address] [place] [address] PCP - General General Internal Medicine 03/14/23 documented as of this encounter
--- OUTSIDE RECORDS SUMMARY | 2025-03-28 14:53 | XMS_ITS | Encounter Summary ---
Author Organization [employer] ([place], [place], [place], [place]) Address [address] [place] [address] Care Team Providers Care Home Health Care Case Manager Name Role Phone Hussein Brian MD Primary Care Provider [phone] Encounter Details Date Type Department Care Team (Late st Contact Info) Description 04/20/2022 Transcribed Document [facility] [place] [address] [place] [address] ProviderThomas MD [address] [place] [address] Social History Tobacco Use [...] Date Ryan rded Speak language other than Stateless at home Not on file 08/12/2023 Want [...] Cerner Conversion Note - Historical Provider, - 04/20/2022 3:37 PM CDT UM Authorization Entered On: 04/20/2022 15:37 EDT Performed On: 04/20/2022 15:37 EDT by Mariely Patel [employer]-QUALITY Primary Insurance Authorization Authorization and Policy Numbers : Insurance 1 Health Plan: [employer] Policy Number: [id number] Authorization Number: [id number] Insurance Primary Name : [employer] PLUS [employer] Policy Number: [id number] Authorization Status-Primary : Not certified Auth/Referral Contact Name-Primary : + Reference Number-Primary : [id number] Authorized Service Begin Date-Primary : 04/01/2022 EDT Observation Authorization Nbr-Primary : [id number] Authorization Comments-Primary : No response from sound, timeframe to arrange P2P has surpassed. Sent to appeals. Historical Authorization Comments-Primary : Comment 1: Email back to [facility] checking if p2p was setup. (VITOR BROWN RN 04/12/2022 08:17) Comment 2: Email to Kaiden Soto. (Mariely Patel SUPV-QUALITY 04/06/2022 14:32) Comment 3: Per [employer]ail[employer] - Not Certified - Printed and placed in denials basket for processing. (Kelin Woodward, Tinning Machine Set Up Operator 04/06/2022 13:56) Comment 4: AUTH SUBMITTED VIA [employer]. PAYOR HAS ACCESS TO EMR (Nhi Arteaga Rn-Utilization Review 04/02/2022 14:52) Comment 5: [] [employer] Medicare auth approved for outpt per Star note. (SUE DINH, DENI-Utilization Review 04/02/2022 10:26) Mariely Patel SUPV-QUALITY - 04/20/2022 15:37 EDT Electronically signed by Raisa [facility] Conversion Retail Support Associate Cerner at 11/19/2022 4:23 PM CDT documented in this encounter Plan of Treatment Not on file documented as of this encounter Visit Diagnoses Not on filedocumented in this encounter Care Teams Home Health Care Case Manager Relationship Specialty Start Date End Date Hussein Brian MD [address] [place] [address] PCP - General General Internal Medicine 03/14/23 documented as of this encounter
--- OUTSIDE RECORDS SUMMARY | 2025-03-28 14:53 | XMS_ITS | Encounter Summary ---
Author Organization [employer] ([place], [place], [place], [place]) Address [address] [place] [address] Care Team Providers Care Gi Physician Name Role Phone Hussein Brian MD Primary Care Provider [phone] Encounter Details Date Type Department Care Team (Late st Contact Info) Description 03/08/2022 Transcribed Document [facility] [place] [address] [place] [address] ProviderThomas MD [address] [place] [address] Social History Tobacco Use Types [...] Date Ryan rded Speak language other than Beninese at home Not on file 08/12/2023 Want [...] Conversion Note - Historical Provider, - 03/08/2022 7:37 PM CDT Patient: DALLAS RADFORD Age: 76 years Sex: Male : 1945 Associated Diagnoses: None Author: VY TORRES MD-CAR Subjective NAD Health Status Allergies: Allergic Reactions (Selected) Severity Not Documented Digoxin- No reactions were documented., Allergies (1) Active Reaction digoxin None Documented Current medications: (Selected) Inpatient Medications Ordered Flomax: 0.4 mg, Oral, Daily Phenergan: 12.5 [...] 1 Tab, PRN, Oral, Q6H , Medications (17) Active Scheduled: (10) amiodarone 200 mg tab [...] 1 Each, Oral, Weekly Continuous: (0) PRN: (7) acetaminophen 325 mg tab 650 [...] Problem list: Medical Afib / SNOMED CT 07449172 / Confirmed Hip pain, right / SNOMED CT 47466680 / Confirmed At risk for sleep apnea / IMO [id number] / Confirmed, Active Problems (3) Afib At risk for sleep apnea Hip pain, right Objective Intake and Output 24 hour intake, 24 hour output VS/Measurements Vitals Signs (last 24 hrs) Last Charted Minimum Maximum Temp 97.5 (MAR 08 11:45) 97.5 (MAR 08 11:45) 99.3 (MAR 08 09:00) Apical HR 68 (MAR 08 09:01) 68 (MAR 08 09:) 78 (MAR 07:21) Mon HR 59 (MAR 08 18:00) 30 (MAR 08 14:15) 118 (MAR 08:00) Resp Rate 17 (MAR 08:) 17 (MAR 08 09:01) 18 (MAR 07:21) SBP 124 (MAR 08 18:00) L 88 (MAR 08 12:00) H 210 (MAR 08 13:00) DBP 67 (MAR 08 18:00) L 53 (MAR 08 14:00) H 188 (MAR 08 13:00) MAP 83 (MAR 08 18:00) 65 (MAR 08 14:00) 196 (MAR 08 13:00) SpO2 100 (MAR 08 18:00) 96 (MAR 08 00:21) 100 (MAR 08 11:30) General: Alert and oriented. Eye: Pupils are [...] Review Telemetry Admission Weight Todays Weight MAR 08 05:36 L 134 102 15 / H 107 3.6 23 0.90 \ MAR 08 05:36 \ L 12.5 / 5.0 L 135 / L 35.7 \ Telemetry/ECG I personally reviewed the last 24 hour telemetry that shows atrial fibrillation Cardiac echo Cardiac echo ECHO 03/06/2022: Impression: Indication: Hypertensive [...] 24 Hours) Radiology Results (Last 48 hours) [id number] -- 03/05/2022 15:27 CT Chest WO (03/07/2022 [...] LVEF 40% HTN HLP Hypokalemia Dysphagia PLAN; 03/08/2022 Labs and tele reviewed, DCCV today [...] on filedocumented in this encounter Care Teams Gi Physician Relationship Specialty Start Date End Date Hussein Brian MD [address] [place] [address] PCP - General General Internal Medicine 03/14/23 documented as of this encounter
== END 2025-03-26 23:59 | disposition home or self-care (01) ==
PROVIDERS: PCP Family Medicine; Visit Provider Family Medicine
DX: T14.8XXA Other injury of unspecified body region, initial encounter (principal); L08.9 Local infection of the skin and subcutaneous tissue, unspecified
CPT/HCPCS: 87070; 87077; 87186; 87205

== ENCOUNTER 2025-03-28 14:00 | Outpatient (RCR) | payer MEDICARE, SELFPAY | END 2025-03-28 23:59 | disposition home or self-care (01) | LOC: PT 14:00 | PROVIDERS: Visit Provider Family Medicine | DX: I87.2 Venous insufficiency (chronic) (peripheral) (principal); I89.0 Lymphedema, not elsewhere classified | CPT/HCPCS: 29581; 97140; 97164 ==

== ENCOUNTER 2025-04-22 09:00 | Outpatient (RCR) | payer MEDICARE, SELFPAY | END 2025-04-22 23:59 | disposition home or self-care (01) | LOC: PT 09:00 | PROVIDERS: Visit Provider Family Medicine | DX: I87.2 Venous insufficiency (chronic) (peripheral) (principal); I89.0 Lymphedema, not elsewhere classified | CPT/HCPCS: 97140 ==